=== PATIENT | female | born 1945 | race Caucasian/White ===

== ENCOUNTER 2021-07-11 11:43 | Observation (INO) | payer MEDICARE, OTHER ==
[2021-07-11] MEDS ORDERED: ASPIRIN 81 MG PO STA (12:12)
[2021-07-11 12:38] LABS: Basophils % (A) 1 %; Eosinophils # (A) 0.2 k/uL (0-0.7); Eosinophils % (A) 4 %; HCT 33.5 % (34.0-46.0); HGB 10.6 gm/dL (11.4-16.0); Lymphocytes # (A) 1.3 k/uL (1.0-4.8); Lymphocytes % (A) 23 %; MCH 25.5 pg (25.0-35.0); MCHC 31.8 g/dL (31.0-37.0); MCV 80.3 fL (80.0-100.0); Monocytes # (A) 0.3 k/uL (0-1.0); Monocytes % (A) 6 %; Neutrophils # (A) 3.7 k/uL (1.3-7.7); Neutrophils % (A) 63 %; Platelet Count 188 k/uL (150-450); RBC 4.17 m/uL (3.80-5.40); RDW 14.7 % (11.5-15.5); WBC 5.8 k/uL (3.8-10.6)
[2021-07-11 12:49] LABS: Albumin 3.7 g/dL (3.5-5.0); Calcium 9.3 mg/dL (8.4-10.2); Magnesium 1.4 mg/dL (1.6-2.3); Potassium 4.6 mmol/L (3.5-5.1); Total Bilirubin 0.5 mg/dL (0.2-1.3); Total Protein 6.6 g/dL (6.3-8.2)
--- NOTE | 2021-07-11 12:51 | XR ---
EXAMINATION TYPE: XR chest 2V DATE OF EXAM: 07/11/2021 COMPARISON: NONE HISTORY: Wrist pain TECHNIQUE: Frontal and lateral views of the chest are obtained. FINDINGS: There is no focal air space opacity, pleural effusion, or pneumothorax seen. The cardiac silhouette size is enlarged, there are overlying leads, technique is apical lordotic and rotated. T he osseous structures are huma for arthropathy within the shoulders, there is thoracic spondylosis. IMPRESSION: Cardiomegaly
[2021-07-11 12:53] LABS: INR 0.9 (<1.2); Prothrombin Time 9.9 sec (9.0-12.0)
--- NOTE | 2021-07-11 13:01 | ED ---
Chest Pain HPI - General Chief Complaint: Chest Pain Stated Complaint: chest pain Time Seen by Provider: 07/11/21 12:06 Source: patient, RN notes reviewed Mode of arrival: wheelchair Limitations: no limitations - History of Present Illness Initial Comments: Patient is a 76-year-old female, with history of heart disease, hypertension, diabetes, hyperlipidemia, presenting to the emergency Department with complaints of chest pain. She states she first felt the pain around 7 AM, she took one nitro and felt improvement. Patient states she fell back asleep. She woke up a few hours later, noticed pain and again so took another nitro around 10:00. She states it did go down however it returns shortly later and it was worse so they decided comments here for evaluation. She does have history of stent placement in December of this year. 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 Cevallos out of the [facility]. She had stenting of the LAD on January 10. She had echo performed on January 12, ejection fraction is estimated at 62%. Patient also thinks she is retaining fluid in her lower extremities. Currently she only feels "uncomfortable" no chest pain at this time. She does feel mildly short of breath. She denies any nausea or vomiting, no abdominal pain or diarrhea. She denies any fevers or chills, no upper respiratory symptoms. She denies headache, no blurry vision, no dizziness. Patient has no further complaints at this time. Patient's vital signs are stable at this time. - Related Data Allergies Allergy/AdvReac Type Severity Reaction Status Date / Time No Known Allergies Allergy Verified 07/11/21 12:03 Review of Systems ROS Statement: Those systems with pertinent positive or pertinent negative responses have been documented in the HPI. ROS Other: All systems not noted in ROS Statement are negative. EKG Findings - EKG Comments: EKG Findings:: Sinus rhythm with first-degree AV block, left axis deviation, inferior infarct age undetermined, no signs of acute ST segment elevation today. No previous to compare. Ventricular rate 77, AL interval 214, QT 392. Past Medical History Past Medical History: Asthma, Diabetes Mellitus Additional Past Medical History / Comment(s): arthritis. History of Any Multi-Drug Resistant Organisms: None Reported Past Surgical History: Back Surgery, Heart Catheterization With Stent Additional Past Surgical History / Comment(s): carpel tunnel Past Psychological History: Anxiety Smoking Status: Former smoker Past Alcohol Use History: None Reported Past Drug Use History: None Reported General Exam - General Exam Comments Initial Comments: GENERAL: Patient is well-developed and well-nourished. Patient is nontoxic and in no acute distress. HEAD: Atraumatic, normocephalic. EYES: Pupils equal round and reactive to light, extraocular movements intact, sclera anicteric, conjunctiva are normal. Eyelids were unremarkable. ENT: TMs normal, nares patent, oropharynx clear without exudates. Moist mucous membranes. NECK: Normal range of motion, supple without lymphadenopathy or JVD. LUNGS: Unlabored respirations. Breath sounds clear to auscultation bilaterally and equal. No wheezes rales or rhonchi. HEART: Regular rate and rhythm without murmurs, rubs or gallops. ABDOMEN: Soft, nontender, normoactive bowel sounds. No guarding, no rebound. No masses appreciated. MUSCULOSKELETAL: Normal extremities with adequate strength and normal range of motion. Mild bilateral lower leg edema. No clubbing or cyanosis. NEUROLOGICAL: Patient is alert and oriented x 3. Motor and sensory are also intact. Cranial nerves II through XII grossly intact. Symmetrical smile. Normal speech, normal gait. PSYCH: Normal mood, normal affect. SKIN: Warm, Dry, normal turgor, no rashes or lesions noted. Limitations: no limitations Course Vital Signs 07/11/21 12:04 Temperature 98.2 F Pulse Rate 74 Respiratory 20 Rate Blood Pressure 122/59 O2 Sat by Pulse 98 Oximetry Chest Pain [facility] Patient is a 76-year-old female with heart disease, presenting for chest pain as of this morning. She does have history of stent placement in December of this year. She recently moved to the area and has not seen our local distributor operator yet. She did take a total of 2 nitro prior to arrival which did help with her symptoms. She is currently pain-free. EKG shows sinus rhythm with first-degree block, no acute process. Had echo in December, ejection fraction was at 62%. Patient's labs are stable with magnesium slightly low at 1.4, troponin is normal, BNP 692. Patient will be admitted for chest pain rule out, serial troponins. Patient sent to by [facility] for Dr. Awad. Consult cardiology. Case discussed with Dr. Wakefield. Disposition Clinical Impression: Chest pain Disposition: ADMITTED IP TO THIS HOSP Condition: Stable Referrals: Johnny Awad MD [Primary Care Provider] - 1-2 days Decision Date: 07/11/21 Decision Time: 14:10
[2021-07-11 13:04] LABS: Partial Thromboplastin Time 21.2 sec (22.0-30.0)
[2021-07-11] MEDS ORDERED: NITROGLYCERIN SL TABS 0.4 MG TAB SUBLINGUAL PRN (14:07)
[2021-07-11] MEDS ORDERED: MAGNESIUM SULFATE-D5W PMX 1 GM in DEXTROSE/WATER 1 100ML.BAG IVPB ONE (14:10)
[2021-07-11] MEDS ORDERED: HYDROcodone/APAP 7.5-325MG 1 EACH TAB PO PRN (18:34)
[2021-07-11] MEDS ORDERED: HEPARIN SODIUM 1,000 UN/ML (10ML VL) IV ONE (18:37)
[2021-07-11] MEDS ORDERED: HEPARIN SODIUM 1,000 UN/ML (10ML VL) IV PRN (18:37)
[2021-07-11] MEDS ORDERED: HEPARIN SOD,PORK IN 0.45% NACL 25,000 UNIT in 0.45% NACL 1 250ML.BAG IV SCH (18:45)
[2021-07-11] MEDS ORDERED: BUMETANIDE 1 MG TAB PO SCH (18:45)
[2021-07-11] MEDS: ATORVASTATIN 40 MG TAB PO SCH (19:38)
[2021-07-11] MEDS: CLOPIDOGREL 75 MG TAB PO SCH (19:38)
[2021-07-11] MEDS: NITROGLYCERIN OINT 1 INCH/GM PACKET TOPICAL SCH ×2 (19:39→23:49)
[2021-07-11 20:27] LABS: Glucose,Whole Blood 244 mg/dL (75-99)
[2021-07-11] MEDS ORDERED: NON FORMULARY DRUG (Glucosamine Sulfate [Glucosamine Sulfate] 1,000 MG Tablet) PO SCH (21:00)
[2021-07-11] MEDS: INSULIN ASPART (NovoLOG) 100 UNIT/ML VIAL SQ SCH (21:52)
[2021-07-11] MEDS: MELATONIN 3 MG TABLET PO SCH (21:55)
--- NOTE | 2021-07-12 07:20 | P.HPIM ---
History of Present Illness H&P Date: 07/12/21 Chief Complaint: Chest pain 76-year-old female with significant medical history of coronary artery disease with recent cardiac stenting in December to the proximal LAD, hypertension, hyperlipidemia, diabetes mellitus type 2, chronic renal failure grade 3B, anemia, anxiety, osteoarthritis, asthma, COPD, GERD/reflux, history of heart murmur with history of for rheumatic fever, chronic low back pain, obesity, neuropathy, history of back fusions L1 to L4, cataract surgery, colonoscopy and several additional comorbidities. Patient has been following with [facility] physician group for the last year with primary care, cardiology, and nephrology. Patient had extensive diagnostic workup in the emergency department revealing chest pain with rule out acute coronary syndrome. Review of diagnostic labs, hemoglobin 10.6 hematocrit 33.5, sodium 138, potassium 4.6, chloride 106, renal function BUN 49, creatinine 1.74, elevated glucose of 194, magnesium 1.4 with magnesium replacement initiated by the emergency department. Mildly elevated troponins, 0.015, 0.0-6, 0.032. She states ever since December she has had continuous chest discomfort and mild shortness of breath with exertion. 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 She states she woke up yesterday around 7:30 AM with midsternal chest discomfort, took 1 nitro sublingual with mild relief fell back asleep; she states she woke up around 10:30 AM with severe chest discomfort 10 out of 10 with radiation to left arm. Patient will be initiated on low intensity heparin drip per ACS protocol. 1 inch Nitropaste transdermal for chest discomfort every 8 hours. We'll obtain echocardiogram. She will be placed nothing by mouth after midnight. Consultation with cardiology for recommendations and treatment plan. Review of Systems Constitutional: Reports chronic pain, Reports fatigue, Reports weakness Ears, nose, mouth and throat: Reports post-nasal drip Cardiovascular: Reports chest pain, Reports decreased exercise tolerance, Reports dyspnea on exertion, Reports edema, Reports high blood pressure, Reports leg edema, Reports orthopnea, Reports palpitations, Reports shortness of breath Respiratory: Reports dyspnea, Reports wheezing Gastrointestinal: Reports as per HPI Genitourinary: Reports as per HPI Menstruation: Reports as per HPI Musculoskeletal: Reports low back pain Neurological: Reports weakness Psychiatric: Reports anxiety Endocrine: Reports high blood sugars, Reports weight change Hematologic/Lymphatic: Reports as per HPI Allergic/Immunologic: Reports as per HPI Past Medical History Past Medical History: Asthma, Coronary Artery Disease (CAD), Chest Pain / Angina, COPD, Diabetes Mellitus, GERD/Reflux, Hyperlipidemia, Hypertension, Osteoarthritis (OA), Renal Disease, Respiratory Disorder Additional Past Medical History / Comment(s): Osteoarthritis, anemia, anxiety, asthma, murmur history of rheumatic fever, neuropathy. History of Any Multi-Drug Resistant Organisms: None Reported Past Surgical History: Back Surgery, Heart Catheterization With Stent Additional Past Surgical History / Comment(s): carpel tunnel Past Psychological History: Anxiety Smoking Status: Former smoker Past Alcohol Use History: None Reported Past Drug Use History: None Reported - Past Family History Mother Family Medical History: Diabetes Mellitus Additional Family Medical History / Comment(s): at age 57 open heart surgery and cva Father Family Medical History: No Reported History Medications and Allergies Home Medications and Allergies Comment(s): Medications and ALLERGIES reviewed Home Medications Medication Instructions Recorded Confirmed Type Ascorbic Acid [Vitamin C] 500 mg PO DAILY 07/11/21 07/11/21 History Atorvastatin [Lipitor] 40 mg PO DAILY 07/11/21 07/11/21 History Biotin 10,000 mcg PO DAILY 07/11/21 07/11/21 History Bumetanide [BUMEX] 2 mg PO DAILY 07/11/21 07/11/21 History Cholecalciferol [Vitamin D3 (25 100 mcg PO DAILY 07/11/21 07/11/21 History Mcg = 1000 Iu)] Citalopram Hydrobromide [CeleXA] 40 mg PO DAILY 07/11/21 07/11/21 History Clopidogrel Bisulfate [Plavix] 75 mg PO DAILY 07/11/21 07/11/21 History Cyanocobalamin (Vitamin B-12) 1,000 mcg PO DAILY 07/11/21 07/11/21 History [Vitamin B-12] Glucosamine Sulfate 1,500 mg PO BID 07/11/21 07/11/21 History Insuln Asp Prt/Insulin Aspart 24 unit SQ AC-BID 07/11/21 07/11/21 History [NovoLOG MIX 70-30 VIAL] Isosorbide Mononitrate ER [Imdur] 30 mg PO DAILY 07/11/21 07/11/21 History Losartan [Cozaar] 50 mg PO DAILY 07/11/21 07/11/21 History Melatonin 3 mg PO HS 07/11/21 07/11/21 History Nitroglycerin Sl Tabs [Nitrostat] 0.4 mg SL Q5M PRN 07/11/21 07/11/21 History Omeprazole 20 mg PO DAILY 07/11/21 07/11/21 History Vitamin E (Dl,Tocopheryl Acet) 400 unit PO DAILY 07/11/21 07/11/21 History [Vitamin E (400 Iu = 180 mg)] amLODIPine [Norvasc] 10 mg PO DAILY 07/11/21 07/11/21 History metFORMIN HCL 500 mg PO BID 07/11/21 07/11/21 History Allergies Allergy/AdvReac Type Severity Reaction Status Date / Time No Known Allergies Allergy Verified 07/11/21 15:27 Physical Exam Vitals: Vital Signs Temp Pulse Resp BP Pulse Ox 07/11/21 17:15 64 20 143/67 99 07/11/21 14:39 70 20 116/65 100 07/11/21 12:04 98.2 F 74 20 122/59 98 Intake and Output 07/11/21 07/11/21 07/11/21 06:59 14:59 22:59 Other: Weight 108.862 kg - Constitutional General appearance: cooperative, morbidly obese - EENT Eyes: EOMI, PERRLA, normal appearance ENT: normal oropharynx Ears: bilateral: normal - Neck Neck: normal ROM Carotids: bilateral: upstroke normal Thyroid: bilateral: normal size - Respiratory Respiratory: bilateral: wheezing (Anterior and posterior lung mcgowan) - Cardiovascular Sinus rhythm with a first-degree AV block Heart rate: 74 Heart sounds: normal: S1, S2 Abnormal Heart Sounds: systolic murmur leg Peripheral Edema: bilateral: 1+ ankle Peripheral Edema: bilateral: 2+ foot Peripheral Edema: bilateral: 2+ radial pulse Peripheral Pulses: bilateral: Normal dorsalis pedis Peripheral Pulses: bilateral: Normal - Gastrointestinal General gastrointestinal: normal bowel sounds, soft - Integumentary Integumentary: normal turgor - Neurologic Neurologic: CNII-XII intact - Musculoskeletal Musculoskeletal: generalized weakness - Psychiatric Psychiatric: A&O x's 3, appropriate affect, intact judgment & insight Results CBC & Chem 7: 07/11/21 12:16 07/11/21 12:16 Labs: Abnormal Lab Results - Last 24 Hours (Table) 07/11/21 07/11/21 07/11/21 Range/Units 12:16 12:16 12:16 Hgb 10.6 L (11.4-16.0) gm/dL Hct 33.5 L (34.0-46.0) % APTT 21.2 L (22.0-30.0) sec BUN 49 H (7-17) mg/dL Creatinine 1.74 H (0.52-1.04) mg/dL Glucose 194 H (74-99) mg/dL Magnesium 1.4 L (1.6-2.3) mg/dL Chest x-ray: report reviewed Thrombosis Risk Factor Assmnt - DVT/VTE Prophylaxis DVT/VTE Prophylaxis: Pharmacologic Prophylaxis ordered - Choose All That Apply Any of the Below Risk Factors Present?: Yes Each Factor Represents 1 point: Abnormal pulmonary function (COPD), Obesity (BMI >25), Swollen legs (current) Other Risk Factors: No Each Risk Factor Represents 3 Points: Age 75 years or older Thrombosis Risk Factor Assessment Total Risk Factor Score: 6 Thrombosis Risk Factor Assessment Level: High Risk Assessment and Plan Assessment: Chest pain rule out acute coronary syndrome Coronary artery disease with recent stenting in December 2020 to the proximal LAD Hypertension Hyperlipidemia Diabetes mellitus type 2 Asthma COPD Chronic kidney disease baseline stage 3B to stage 4 Osteoarthritis Heart murmur with history of rheumatic fever GERD/reflux Low back pain History of Surgery of lumbar 1 to lumbar 4 History of carpal tunnel release History of cataract extraction History of spinal surgery Former nicotine dependence Obesity of a BMI of 45.3 Full code Plan: Chest pain rule out acute coronary syndrome, will initiate heparin drip, initiate Nitropaste every 8 hours; obtain echocardiogram; consultation with cardiology for recommendations and treatment plan Diabetes mellitus type 2, initiate insulin sliding scale Chronic kidney disease stage 3B to stage 4, avoid nephrotoxic drugs as possible, consultation with nephrology for recommendations COPD, we'll initiate DuoNeb breathing treatments, and maintenance inhaler Continue to monitor vital signs and diagnostic testing Continue medical management Further recommendations, based on clinical condition Time with Patient: Greater than 30
[2021-07-12 07:21] LABS: Glucose,Whole Blood 208 mg/dL (75-99)
[2021-07-12] MEDS ORDERED: IPRATROPIUM-ALBUTEROL 3 ML NEB ONE (07:25)
[2021-07-12] MEDS: ATORVASTATIN 40 MG TAB PO SCH (08:14)
[2021-07-12] MEDS: PANTOPRAZOLE 40 MG TABLET PO SCH (08:14)
[2021-07-12] MEDS: CLOPIDOGREL 75 MG TAB PO SCH (08:14)
[2021-07-12] MEDS: INSULIN ASPART (NovoLOG) 100 UNIT/ML VIAL SQ SCH ×4 (08:16→21:08)
[2021-07-12] MEDS: SYMBICORT 160-4.5 MCG INHALER INHALATION SCH ×3 (08:26→19:05)
[2021-07-12 08:55] LABS: Basophils % (A) 1 %; Eosinophils # (A) 0.3 k/uL (0-0.7); Eosinophils % (A) 4 %; HCT 34.9 % (34.0-46.0); HGB 10.9 gm/dL (11.4-16.0); Lymphocytes # (A) 1.6 k/uL (1.0-4.8); Lymphocytes % (A) 27 %; MCH 25.5 pg (25.0-35.0); MCHC 31.4 g/dL (31.0-37.0); MCV 81.2 fL (80.0-100.0); Mean Platelet Volume 8.4; Monocytes # (A) 0.4 k/uL (0-1.0); Monocytes % (A) 6 %; Neutrophils # (A) 3.7 k/uL (1.3-7.7); Neutrophils % (A) 60 %; Platelet Count 182 k/uL (150-450); RDW 14.9 % (11.5-15.5); WBC 6.2 k/uL (3.8-10.6)
[2021-07-12] MEDS ORDERED: NON FORMULARY DRUG (Biotin [Biotin] 10,000 MCG Capsule) PO SCH (09:00)
[2021-07-12] MEDS ORDERED: ASPIRIN 325 MG TAB PO SCH (09:00)
[2021-07-12] MEDS ORDERED: amLODIPine 10 MG TAB PO SCH (09:00)
[2021-07-12 09:02] LABS: Partial Thromboplastin Time 62.6 sec (22.0-30.0); Prothrombin Time 10.5 sec (9.0-12.0)
[2021-07-12 09:17] LABS: ALT 14 U/L (4-34); AST 27 U/L (14-36); African American GFR (CKD) 41 (>60 ml/min/1.73 sqM); Albumin/Globulin Ratio 1.4; Alkaline Phosphatase 69 U/L (38-126); Anion Gap 10 mmol/L; Blood Urea Nitrogen 46 mg/dL (7-17); Calcium 9.4 mg/dL (8.4-10.2); Carbon Dioxide 24 mmol/L (22-30); Chloride 104 mmol/L (98-107); Globulin 2.9 g/dL; Glucose 186 mg/dL (74-99); Magnesium 1.5 mg/dL (1.6-2.3); Non-African American GFR(CKD) 35 (>60 ml/min/1.73 sqM); Potassium 4.3 mmol/L (3.5-5.1); Sodium 138 mmol/L (137-145); Total Bilirubin 0.6 mg/dL (0.2-1.3); Total Protein 6.9 g/dL (6.3-8.2)
[2021-07-12] MEDS: VITAMIN E (DL,TOCOPHERYL ACET) 400 UNIT (180 MG) CAP PO SCH (09:18)
[2021-07-12] MEDS: LOSARTAN 50 MG TAB PO SCH (09:18)
[2021-07-12] MEDS: CYANOCOBALAMIN 500 MCG TAB PO SCH (09:18)
[2021-07-12] MEDS: CITALOPRAM HYDROBROMIDE 20 MG TAB PO SCH (09:18)
[2021-07-12] MEDS: ASCORBIC ACID 500 MG TAB PO SCH (09:18)
[2021-07-12] MEDS: CHOLECALCIFEROL 25 MCG (1000 IU) TABLET PO SCH (09:18)
[2021-07-12] MEDS: NITROGLYCERIN OINT 1 INCH/GM PACKET TOPICAL SCH ×3 (09:25→21:15)
[2021-07-12] MEDS ORDERED: Magnesium Replacement Protocol 1 EACH MISC MISCELLANE PRN (09:26)
[2021-07-12] MEDS: RANOLAZINE 500 MG TAB.ER.12H PO SCH ×2 (09:36→21:14)
[2021-07-12] MEDS: MAGNESIUM SULFATE-D5W PMX 1 GM in DEXTROSE/WATER 1 100ML.BAG IVPB SCH ×2 (10:09→11:54)
--- NOTE | 2021-07-12 10:21 | P.CRDCN ---
History of Present Illness History of present illness: This is Dr. Toth dictating a consult on this patient The patient was interviewed and examined IMPRESSION / ASSESSMENT: Known triple-vessel coronary artery disease, with chronic angina In the month of December she underwent coronary stenting to the LAD in [facility] since then she's complained of tiredness fatigue shortness of breath and a variety of symptoms She has chronic stable angina and has been treated by a alterations sewer with dur recently She presented with preserved chest discomfort but cardiac enzymes are normal She has evidence of sick sinus syndrome with a mildly prolonged NV interval PLAN: Social Nitropaste Start Ranexa 500 mg twice daily Stop heparin Continue statins at a higher dose of 80 mg by mouth daily 2-D echo and Doppler study Continue antihypertensive therapy with amlodipine and losartan Ambulate in the hallways with physical therapy this afternoon If despite Ranexa she continues to have chest discomfort especially with exertion over the next 24 hours then proceed with coronary angiography Otherwise she will be discharged in 48 hours and follow with a alterations sewer early next week HPI 76-year-old female presenting with chest discomfort at around 7 AM yesterday. She took one nitroglycerin and felt it improved Pain came back again and she took another nitroglycerin at 10 AM She has a history of stent placement in December of this year She follows with [facility] physicians ROS: No fever chills or rigors, no cough, phlegm or expectoration, no nausea, vomiting or diarrhea, no hematuria, dysuria, no musculoskeletal complaints, no strokes or seizures, no skin lesions. EXAMINATION: Normal heart sounds normal S1 normal S2 No murmurs or gallops or rub Breath sounds are clear no rhonchi no crackles Extremities are warm Vitals stable REVIEW OF LABS, ECG & MEDICAL DATA Twelve-lead EKG shows sinus rhythm normal NV and normal ST segments left axis deviation, poor R wave progression No focal airspace opacity a pleural effusion or pneumothorax Normal white count, hemoglobin 10.6 Sodium 138 potassium 4.6 BUN 14 and creatinine 1.74 NT proBNP 692 Cardiac enzymes 0.032, 0.026, 0.015 Elevated glucose levels Medications reviewed including Plavix Imdur atorvastatin metformin amlodipine losartan and insulin and Celexa I do not see any beta blockers Past Medical History Past Medical History: Asthma, Coronary Artery Disease (CAD), Chest Pain / Angina, COPD, Diabetes Mellitus, GERD/Reflux, Hyperlipidemia, Hypertension, Osteoarthritis (OA), Renal Disease, Respiratory Disorder Additional Past Medical History / Comment(s): Osteoarthritis, anemia, anxiety, asthma, murmur history of rheumatic fever, neuropathy. History of Any Multi-Drug Resistant Organisms: None Reported Past Surgical History: Back Surgery, Heart Catheterization With Stent Additional Past Surgical History / Comment(s): carpel tunnel Past Anesthesia/Blood Transfusion Reactions: No Reported Reaction Date of Last Stent Placement:: 12/2020 Past Psychological History: Anxiety Smoking Status: Former smoker Past Alcohol Use History: None Reported Past Drug Use History: None Reported - Past Family History Mother Family Medical History: Diabetes Mellitus Additional Family Medical History / Comment(s): at age 57 open heart surgery and cva Father Family Medical History: No Reported History Medications and Allergies Home Medications Medication Instructions Recorded Confirmed Type Ascorbic Acid [Vitamin C] 500 mg PO DAILY 07/11/21 07/11/21 History Atorvastatin [Lipitor] 40 mg PO DAILY 07/11/21 07/11/21 History Biotin 10,000 mcg PO DAILY 07/11/21 07/11/21 History Bumetanide [BUMEX] 2 mg PO DAILY 07/11/21 07/11/21 History Cholecalciferol [Vitamin D3 (25 100 mcg PO DAILY 07/11/21 07/11/21 History Mcg = 1000 Iu)] Citalopram Hydrobromide [CeleXA] 40 mg PO DAILY 07/11/21 07/11/21 History Clopidogrel Bisulfate [Plavix] 75 mg PO DAILY 07/11/21 07/11/21 History Cyanocobalamin (Vitamin B-12) 1,000 mcg PO DAILY 07/11/21 07/11/21 History [Vitamin B-12] Glucosamine Sulfate 1,500 mg PO BID 07/11/21 07/11/21 History Insuln Asp Prt/Insulin Aspart 24 unit SQ AC-BID 07/11/21 07/11/21 History [NovoLOG MIX 70-30 VIAL] Isosorbide Mononitrate ER [Imdur] 30 mg PO DAILY 07/11/21 07/11/21 History Losartan [Cozaar] 50 mg PO DAILY 07/11/21 07/11/21 History Melatonin 3 mg PO HS 07/11/21 07/11/21 History Nitroglycerin Sl Tabs [Nitrostat] 0.4 mg SL Q5M PRN 07/11/21 07/11/21 History Omeprazole 20 mg PO DAILY 07/11/21 07/11/21 History Vitamin E (Dl,Tocopheryl Acet) 400 unit PO DAILY 07/11/21 07/11/21 History [Vitamin E (400 Iu = 180 mg)] amLODIPine [Norvasc] 10 mg PO DAILY 07/11/21 07/11/21 History metFORMIN HCL 500 mg PO BID 07/11/21 07/11/21 History Allergies Allergy/AdvReac Type Severity Reaction Status Date / Time No Known Allergies Allergy Verified 07/11/21 15:27 Physical Exam Vitals: Vital Signs Temp Pulse Pulse Resp BP BP Pulse Ox 07/12/21 07:00 98.1 F 61 16 122/61 95 07/12/21 01:42 97.8 F 59 L 16 142/71 94 L 07/11/21 19:01 97.6 F 66 16 135/59 94 L 07/11/21 17:15 64 20 143/67 99 07/11/21 14:39 70 20 116/65 100 07/11/21 12:04 98.2 F 74 20 122/59 98 Intake and Output 07/11/21 07/12/21 07/12/21 22:59 06:59 14:59 Intake Total 65.667 Balance 65.667 Intake: Intake, IV Titration 65.667 Amount Heparin Sod,Pork in 0.45% 65.667 NaCl 25,000 unit In 0.45 % NaCl 1 250ml.bag @ 9. 186 UNITS/KG/HR 10 mls/hr IV .Q24H [facility] Rx#: [id number] Other: Voiding Method Toilet # Voids 1 4 Weight 108.862 kg Results 07/12/21 08:21 07/12/21 08:21 Cardiac Enzymes 07/11/21 07/11/21 07/11/21 Range/Units 12:16 12:16 15:32 AST 21 (14-36) U/L Troponin I 0.015 0.026 (0.000-0.034) ng/mL 07/11/21 Range/Units 18:21 AST (14-36) U/L Troponin I 0.032 (0.000-0.034) ng/mL Coagulation 07/11/21 07/12/21 Range/Units 12:16 01:04 PT 9.9 (9.0-12.0) sec APTT 21.2 L 34.7 H (22.0-30.0) sec CBC 07/11/21 Range/Units 12:16 WBC 5.8 (3.8-10.6) k/uL RBC 4.17 (3.80-5.40) m/uL Hgb 10.6 L (11.4-16.0) gm/dL Hct 33.5 L (34.0-46.0) % Plt Count 188 (150-450) k/uL Comprehensive Metabolic Panel 07/11/21 Range/Units 12:16 Sodium 138 (137-145) mmol/L Potassium 4.6 (3.5-5.1) mmol/L Chloride 106 (98-107) mmol/L Carbon Dioxide 24 (22-30) mmol/L BUN 49 H (7-17) mg/dL Creatinine 1.74 H (0.52-1.04) mg/dL Glucose 194 H (74-99) mg/dL Calcium 9.3 (8.4-10.2) mg/dL AST 21 (14-36) U/L ALT 15 (4-34) U/L Alkaline Phosphatase 64 (38-126) U/L Total Protein 6.6 (6.3-8.2) g/dL Albumin 3.7 (3.5-5.0) g/dL Current Medications Generic Name Dose Route Start Last Admin Trade Name Freq PRN Reason Stop Dose Admin Hydrocodone Bitart/Acetaminophen 1 each 07/11/21 18:34 Hydrocodone/Apap 7.5-325mg 1 Each Tab PO Q6HR PRN Pain Albuterol/Ipratropium 3 ml 07/12/21 21:35 Ipratropium-Albuterol 3 Ml Neb INHALATION RT-QID [facility] Amlodipine Besylate 10 mg 07/12/21 09:00 Amlodipine 10 Mg Tab PO DAILY [facility] Ascorbic Acid 500 mg 07/12/21 09:00 Ascorbic Acid 500 Mg Tab PO DAILY [facility] Aspirin 325 mg 07/12/21 09:00 07/12/21 08:14 Aspirin 325 Mg Tab PO 325 mg DAILY [facility] Administration Atorvastatin Calcium 40 mg 07/11/21 18:45 07/12/21 08:14 Atorvastatin 40 Mg Tab PO 40 mg DAILY [facility] Administration Budesonide/Formoterol Fumarate 2 puff 07/12/21 08:00 07/12/21 08:26 Symbicort 160-4.5 Mcg Inhaler INHALATION 2 puff RT-BID [facility] Administration Cholecalciferol 100 mcg 07/12/21 09:00 Cholecalciferol 25 Mcg (1000 Iu) Tablet PO DAILY [facility] Citalopram Hydrobromide 40 mg 07/12/21 09:00 Citalopram Hydrobromide 20 Mg Tab PO DAILY [facility] Clopidogrel Bisulfate 75 mg 07/11/21 18:45 07/12/21 08:14 Clopidogrel 75 Mg Tab PO 75 mg DAILY [facility] Administration Cyanocobalamin 1,000 mcg 07/12/21 09:00 Cyanocobalamin 500 Mcg Tab PO DAILY [facility] Heparin Sodium (Porcine) 0 unit 07/11/21 18:37 07/12/21 02:08 Heparin Sodium 1,000 Un/Ml (10ml Vl) IV 4,000 unit PER PROTOCOL PRN Administration Low PTT Protocol Heparin Sodium/Sodium Chloride 250 mls @ 10 mls/hr 07/11/21 18:45 07/12/21 02:03 25,000 unit/ Sodium Chloride IV 11.94 units/kg/hr .Q24H [facility] 13 mls/hr Titration Protocol 9.186 UNITS/KG/HR Insulin Aspart 0 unit 07/11/21 21:00 07/12/21 08:16 Insulin Aspart (Novolog) 100 Unit/Ml Vial SQ 4 unit ACHS [facility] Administration Protocol Losartan Potassium 50 mg 07/12/21 09:00 Losartan 50 Mg Tab PO DAILY [facility] Melatonin 3 mg 07/11/21 21:00 07/11/21 21:55 Melatonin 3 Mg Tablet PO 3 mg HS [facility] Administration Nitroglycerin 0.4 mg 07/11/21 14:07 Nitroglycerin Sl Tabs 0.4 Mg Tab SUBLINGUAL Q5M PRN Chest Pain Nitroglycerin 1 inch 07/11/21 18:45 07/11/21 23:49 Nitroglycerin Oint 1 Inch/Gm Packet TOPICAL Not Given Q8HR [facility] Pantoprazole Sodium 40 mg 07/12/21 09:00 07/12/21 08:14 Pantoprazole 40 Mg Tablet PO 40 mg DAILY [facility] Administration Temazepam 15 mg 07/12/21 21:00 Temazepam 15 Mg Cap PO HS [facility] Vitamin E 400 unit 07/12/21 09:00 Vitamin E (Dl,Tocopheryl Acet) 400 Unit (180 Mg) Cap PO DAILY [facility] Intake and Output 07/11/21 07/12/21 07/12/21 22:59 06:59 14:59 Intake Total 65.667 Balance 65.667 Intake: Intake, IV Titration 65.667 Amount Heparin Sod,Pork in 0.45% 65.667 NaCl 25,000 unit In 0.45 % NaCl 1 250ml.bag @ 9. 186 UNITS/KG/HR 10 mls/hr IV .Q24H [facility] Rx#: [id number] Other: Voiding Method Toilet # Voids 1 4 Weight 108.862 kg 07/11/21 12:16 07/11/21 12:16
[2021-07-12 11:58] LABS: Glucose,Whole Blood 196 mg/dL (75-99)
--- NOTE | 2021-07-12 12:39 | ECHOF ---
Referral Reason:Chest pain MEASUREMENTS -------- HEIGHT: 154.9 cm WEIGHT: 108.9 kg BP: IVSd: 1.4 cm (0.6 - 1.1) LVIDd: 4.1 cm (3.9 - 5.3) LVPWd: 1.4 cm (0.6 - 1.1) EDV(Teich): 74 ml IVSs: 1.8 cm LVIDs: 1.6 cm LVPWs: 2.2 cm %IVS Thck: 29 % ESV(Teich): 7 ml EF(Teich): 91 % %FS: 62 % SV(Teich): 67 ml LALs A4C: 5.4 cm LAAs A4C: 19.5 cm LAESV A-L A4C: 60 ml LAESV MOD A4C: 56 ml LALs A2C: 5.2 cm LAAs A2C: 18.3 cm LAESV A-L A2C: 55 ml LAESV MOD A2C: 52 ml LAESV(A-L): 58 ml LAESV Index (A-L): 28.50 ml/m Ao Diam: 3.7 cm (2.0 - 3.7) LA Diam: 2.9 cm (2.7 - 3.8) AV Cusp: 1.6 cm (1.5 - 2.6) EPSS: 0.8 cm MV E Lamont: 0.97 m/s MV DecT: 291 ms MV Dec Stanley: 3.3 m/s MV A Lamont: 1.17 m/s MV E/A Ratio: 0.83 MV PHT: 84 ms AV Vmax: 1.59 m/s AV maxP.17 mmHg AV Vmax: 1.62 m/s AV Vmean: 1.30 m/s AV maxP.50 mmHg AV meanP.23 mmHg AV Env.Ti: 291 ms AV VTI: 37.7 cm TR Vmax: 1.11 m/s TR maxP.94 mmHg RAP: 5.00 mmHg RVSP: 9.94 mmHg MV EF SLOPE: 51.72 mm/s (70 - 150) MV EXCURSION: 12.15 mm (> 18.000) FINDINGS -------- This was a technically adequate study. The left ventricular size is normal. There is moderate concentric left ventricular hypertrophy. O verall left ventricular systolic function is normal with, an EF between 55 - 60 %. Normal LAP. Grad e 1 Diastolic Dysfunction. The right ventricle is normal in size. The left atrial size is normal. Normal LA size by volume 22+/-6 ml/m2. The right atrial size is normal. Aortic valve is trileaflet and is mildly thickened. There is mild aortic valve sclerosis. Peak/me an gradient across the Aortic Valve is 10.50mmHg / 7.23mmHg. The mitral valve is normal. Mild mitral regurgitation is present. The tricuspid valve appears structurally normal. Mild tricuspid regurgitation present. Right vent ricular systolic pressure is normal at < 35 mmHg. There is no pulmonic regurgitation present. The aortic root size is normal. Normal inferior vena cava with normal inspiratory collapse consistent with estimated right atrial pre ssure of 5 mmHg. There is no pericardial effusion. CONCLUSIONS -------- 1. The left ventricular size is normal. 2. There is moderate concentric left ventricular hypertrophy. 3. Overall left ventricular systolic function is normal with, an EF between 55 - 60 %. 4. Normal LAP. Grade 1 Diastolic Dysfunction. 5. Aortic valve is trileaflet and is mildly thickened. 6. There is mild aortic valve sclerosis. 7. Peak/mean gradient across the Aortic Valve is 10.50mmHg / 7.23mmHg. 8. Mild mitral regurgitation is present. 9. Mild tricuspid regurgitation present. 10. There is no pericardial effusion. LIVESTOCK TRADER: Emily Coppola RDCS
--- NOTE | 2021-07-12 14:08 | CONS ---
CONSULTATION REASON FOR CONSULTATION: Renal failure and chronic kidney disease. HISTORY OF PRESENT ILLNESS: Patient is a 76-year-old female who was admitted to the hospital with complaints of chest pain. Patient has an underlying history of coronary artery disease, chronic kidney disease, NKF stage 3, follows with our group out of the [place] office. Patient has just moved to [place] and she is in the process of establishing new physicians. She has not showed up for baseline renal function. Serum creatinine was 1.7 mg/dL on initial admission. It is down to 1.45. Previous labs are not available for comparison. Blood pressure is not significantly low. Patient states she is voiding. She is currently not on any IV fluids or diuretics. Patient is maintained on Cozaar. PAST MEDICAL HISTORY: Significant for asthma, coronary artery disease, CKD, most likely stage 3A, type 2 diabetes, hypertension, osteoarthritis, history of rheumatic fever, uropathy. PAST SURGICAL HISTORY: Cardiac catheterization, back surgery, coronary stent placement, carpal tunnel surgery. SOCIAL HISTORY: Patient is a former smoker. No history of drug abuse or alcohol abuse. MEDICATIONS: Medications prior to admission included vitamin C, Lipitor, biotin, Bumex, Celexa, Plavix, glucosamine, Cozaar, Imdur, melatonin, Nitrostat, omeprazole, Norvasc, metformin. ALLERGIES: NONE. REVIEW OF SYSTEMS: As per HPI. Other systems negative. PHYSICAL EXAMINATION: Patient is comfortable, awake, alert, oriented x3. She is not in any acute distress. Blood pressure was 122/61, heart rate 61 per minute. She is afebrile. EXAMINATION OF THE HEART: S1 and S2. EXAMINATION OF LUNGS: Bilateral breath sounds are heard. Abdomen is soft, obese. Examination of lower extremities shows no significant edema. PHOTO MASK PROCESSOR EXAM: Grossly intact. LABS: Sodium 138, potassium 4.3, chloride 104, BUN 46, creatinine 1.45, hemoglobin 10.9 g/dL. Troponin was 0.026. ASSESSMENT: 1. Acute kidney injury, most likely prerenal, currently improved. Angiotensin receptor blockers are maintained. Patient can continue with the current dose of Cozaar. The diuretics are on hold and I will continue to hold the Bumex for now. Check urinalysis and patient is advised that she will need followup as outpatient for CKD. She follows with Dr. Darryl Yepez, who is one of our partners, and we will continue to follow her in the [place] office. 2. Chest pain. Troponins are not elevated. Patient is being followed by Cardiology. She has underlying history of significant coronary artery disease with coronary stents. 3. Chronic kidney disease, stage 3. Previous creatinine not available currently for comparison; however, now down to 1.45 from today. Etiology is likely nephrosclerosis. Check urinalysis and we will check her office records as well. 4. Type 2 diabetes. 5. Hypertension, currently controlled. PLAN: Continue current dose of Cozaar. Agree with holding diuretics for now. Patient will need outpatient followup for CKD post discharge. Can resume lower dose of Bumex in the next 2-3 days post discharge. Monitor blood pressure at home to avoid hypotension. Thank you for this consultation. Will continue to follow the patient with you during her hospitalization. Okay to proceed with cardiac catheterization if indicated from cardiology standpoint, as renal function has improved. Expect further improvement by tomorrow as well. MMODL / IJN: [id number] /
[2021-07-12 17:19] LABS: Glucose,Whole Blood 273 mg/dL (75-99)
[2021-07-12 17:26] LABS: Chol/HDL Ratio 4.37 Ratio; LDL Cholesterol,Calculated 117.1 mg/dL (0.0-131.0)
[2021-07-12] MEDS: IPRATROPIUM-ALBUTEROL 3 ML NEB INHALATION SCH (19:05)
[2021-07-12 20:29] LABS: Glucose,Whole Blood 286 mg/dL (75-99)
[2021-07-12] MEDS: amLODIPine 10 MG TAB PO SCH (21:11)
[2021-07-12] MEDS: MELATONIN 3 MG TABLET PO SCH (21:12)
[2021-07-12] MEDS: TEMAZEPAM 15 MG CAP PO SCH (21:14)
[2021-07-12 22:07] LABS: Appearance,Urine Cloudy (Clear); Bacteria,Urine Rare /hpf; Bilirubin,Urine Negative (Negative); Blood,Urine Negative (Negative); Color,Urine Yellow; Glucose,Urine (UA) Negative (Negative); Hyaline Casts,Urine 27 /lpf (0-2); Ketones,Urine Negative (Negative); Leukocyte Esterase,Urine Large (Negative); Mucus,Urine Rare /hpf; Nitrite,Urine Negative (Negative); PH, Urine 5.5 (5.0-8.0); Protein,Urine 2+ (Negative); RBC,Urine 3 /hpf (0-5); Specific Gravity,Urine 1.018 (1.001-1.035); Squamous Epithelial Cell,Urine 5 /hpf (0-4); Urobilinogen,Urine <2.0 mg/dL (<2.0); WBC,Urine 7 /hpf (0-5)
[2021-07-13 07:27] LABS: Glucose,Whole Blood 194 mg/dL (75-99)
[2021-07-13] MEDS: RANOLAZINE 500 MG TAB.ER.12H PO SCH ×2 (07:32→21:11)
[2021-07-13] MEDS: VITAMIN E (DL,TOCOPHERYL ACET) 400 UNIT (180 MG) CAP PO SCH (07:32)
[2021-07-13] MEDS: CYANOCOBALAMIN 500 MCG TAB PO SCH (07:32)
[2021-07-13] MEDS: PANTOPRAZOLE 40 MG TABLET PO SCH (07:32)
[2021-07-13] MEDS: NITROGLYCERIN OINT 1 INCH/GM PACKET TOPICAL SCH ×3 (07:32→21:12)
[2021-07-13] MEDS: CITALOPRAM HYDROBROMIDE 20 MG TAB PO SCH (07:33)
[2021-07-13] MEDS: ASPIRIN 81 MG PO SCH (07:33)
[2021-07-13] MEDS: LOSARTAN 50 MG TAB PO SCH (07:33)
[2021-07-13] MEDS: ATORVASTATIN 80 MG TAB PO SCH (07:33)
[2021-07-13] MEDS: INSULIN ASPART (NovoLOG) 100 UNIT/ML VIAL SQ SCH ×4 (07:33→21:12)
[2021-07-13] MEDS: ASCORBIC ACID 500 MG TAB PO SCH (07:33)
[2021-07-13] MEDS: CHOLECALCIFEROL 25 MCG (1000 IU) TABLET PO SCH (07:33)
[2021-07-13] MEDS: CLOPIDOGREL 75 MG TAB PO SCH (07:33)
[2021-07-13] MEDS: IPRATROPIUM-ALBUTEROL 3 ML NEB INHALATION SCH ×4 (07:47→20:11)
[2021-07-13] MEDS: SYMBICORT 160-4.5 MCG INHALER INHALATION SCH ×2 (07:47→20:11)
--- NOTE | 2021-07-13 10:11 | P.PN ---
Subjective Progress Note Date: 07/13/21 Principal diagnosis: Coronary artery disease with prior revascularization The patient is a pleasant 76-year-old female patient with a past medical history significant for coronary artery disease and prior stenting of the LAD was performed at [facility] who was admitted to the hospital with shortness of breath and symptoms of being tired and fatigued. She is known to have chronic stable angina. Yesterday she was started on the Ranexa. The patient was seen this morning. She stated that she is feeling better. She reports no symptoms of chest pain or chest discomfort. She stated that the shortness of breath has been better. She stated that she has been up and around and she is feeling overall better. No dizziness or lightheadedness and no feeling of heart racing or fluttering or presyncope or syncope. She would like to go home. She underwent an echocardiogram which revealed normal left ventricular systolic function with evidence off mild aortic stenosis Objective - Vital Signs Vital signs: Vital Signs Temp 97.8 F 07/13/21 07:00 Pulse 74 07/13/21 07:57 Resp 16 07/13/21 07:00 BP 144/62 07/13/21 07:00 Pulse Ox 96 07/13/21 07:00 Intake & Output 07/12/21 07/13/21 07/13/21 18:59 06:59 18:59 Intake Total 318 Balance 318 Intake: IV 200 Magnesium Sulfate-D5w Pmx 100 1 gm In Dextrose/Water 1 100ml.bag @ 100 mls/hr IVPB ONCE ONE Rx#: [id number] Magnesium Sulfate-D5w Pmx 100 1 gm In Dextrose/Water 1 100ml.bag @ 100 mls/hr IVPB Q1H WOLF Rx#: [id number] Oral 118 Other: Voiding Method Toilet Toilet Toilet # Voids 1 2 - Constitutional General appearance: Present: no acute distress - Respiratory Respiratory: bilateral: CTA - Cardiovascular Rhythm: regular Heart sounds: normal: S1, S2 Abnormal Heart Sounds: Present: systolic murmur - Labs CBC & Chem 7: 07/12/21 08:21 07/12/21 08:21 Labs: Abnormal Lab Results - Last 24 Hours (Table) 07/12/21 07/12/21 07/12/21 Range/Units 08:21 08:21 11:56 POC Glucose (mg/dL) 196 H (75-99) mg/dL Hemoglobin A1c 8.2 H (4.0-6.0) % Triglycerides 224.00 H (0.00-149.00) mg/dL Cholesterol 210.00 H (0.00-200.00) mg/dL VLDL Cholesterol, Calc 44.80 H (5.00-40.00) mg/dL Urine Appearance (Clear) Urine Protein (Negative) Ur Leukocyte Esterase (Negative) Urine WBC (0-5) /hpf Ur Squamous Epith Cells (0-4) /hpf Urine Bacteria (None) /hpf Hyaline Casts (0-2) /lpf Urine Mucus (None) /hpf 07/12/21 07/12/21 07/12/21 Range/Units 15:20 17:11 20:27 POC Glucose (mg/dL) 273 H 286 H (75-99) mg/dL Hemoglobin A1c (4.0-6.0) % Triglycerides (0.00-149.00) mg/dL Cholesterol (0.00-200.00) mg/dL VLDL Cholesterol, Calc (5.00-40.00) mg/dL Urine Appearance Cloudy H (Clear) Urine Protein 2+ H (Negative) Ur Leukocyte Esterase Large H (Negative) Urine WBC 7 H (0-5) /hpf Ur Squamous Epith Cells 5 H (0-4) /hpf Urine Bacteria Rare H (None) /hpf Hyaline Casts 27 H (0-2) /lpf Urine Mucus Rare H (None) /hpf 07/13/21 Range/Units 07:25 POC Glucose (mg/dL) 194 H (75-99) mg/dL Hemoglobin A1c (4.0-6.0) % Triglycerides (0.00-149.00) mg/dL Cholesterol (0.00-200.00) mg/dL VLDL Cholesterol, Calc (5.00-40.00) mg/dL Urine Appearance (Clear) Urine Protein (Negative) Ur Leukocyte Esterase (Negative) Urine WBC (0-5) /hpf Ur Squamous Epith Cells (0-4) /hpf Urine Bacteria (None) /hpf Hyaline Casts (0-2) /lpf Urine Mucus (None) /hpf Assessment and Plan Assessment: Assessment #1 coronary artery disease seems to be stable at this point #2 hypertension #3 dyslipidemia #4 chronic stable angina #5 renal failure Plan #1 continue the current medical regimen #2 the patient potentially can be discharged in the next 12-24 hours
[2021-07-13 11:29] LABS: Appearance,Urine Clear (Clear); Bilirubin,Urine Negative (Negative); Blood,Urine Negative (Negative); Color,Urine Yellow; Glucose,Urine (UA) Negative (Negative); Hyaline Casts,Urine 3 /lpf (0-2); Ketones,Urine Negative (Negative); Leukocyte Esterase,Urine Moderate (Negative); Mucus,Urine Rare /hpf; Nitrite,Urine Negative (Negative); Protein,Urine 1+ (Negative); RBC,Urine 2 /hpf (0-5); Specific Gravity,Urine 1.016 (1.001-1.035); Squamous Epithelial Cell,Urine 2 /hpf (0-4); Urobilinogen,Urine <2.0 mg/dL (<2.0); WBC,Urine 2 /hpf (0-5)
[2021-07-13 12:23] LABS: Glucose,Whole Blood 301 mg/dL (75-99)
--- NOTE | 2021-07-13 16:34 | P.PN ---
Subjective Progress Note Date: 07/13/21 Follow-up for acute kidney injury. Denies any chest pains. No nausea vomiting or diarrhea. Objective - Vital Signs Vital signs: Vital Signs Temp 99.1 F 07/13/21 15:00 Pulse 62 07/13/21 15:00 Resp 18 07/13/21 15:00 BP 124/53 07/13/21 15:00 Pulse Ox 96 07/13/21 15:00 Intake & Output 07/12/21 07/13/21 07/13/21 18:59 06:59 18:59 Intake Total 318 Output Total 0 Balance 318 0 Intake: IV 200 Magnesium Sulfate-D5w Pmx 100 1 gm In Dextrose/Water 1 100ml.bag @ 100 mls/hr IVPB ONCE ONE Rx#: [id number] Magnesium Sulfate-D5w Pmx 100 1 gm In Dextrose/Water 1 100ml.bag @ 100 mls/hr IVPB Q1H WOLF Rx#: [id number] Oral 118 Output: Post Void Residual 0 Other: Voiding Method Toilet Toilet Toilet # Voids 1 2 3 - Exam No acute distress S1-S2 heard Lungs clear No edema - Labs CBC & Chem 7: 07/12/21 08:21 07/12/21 08:21 Labs: Abnormal Lab Results - Last 24 Hours (Table) 07/12/21 07/12/21 07/12/21 Range/Units 08:21 08:21 15:20 POC Glucose (mg/dL) (75-99) mg/dL Hemoglobin A1c 8.2 H (4.0-6.0) % Triglycerides 224.00 H (0.00-149.00) mg/dL Cholesterol 210.00 H (0.00-200.00) mg/dL VLDL Cholesterol, Calc 44.80 H (5.00-40.00) mg/dL Urine Appearance Cloudy H (Clear) Urine Protein 2+ H (Negative) Ur Leukocyte Esterase Large H (Negative) Urine WBC 7 H (0-5) /hpf Ur Squamous Epith Cells 5 H (0-4) /hpf Urine Bacteria Rare H (None) /hpf Hyaline Casts 27 H (0-2) /lpf Urine Mucus Rare H (None) /hpf 07/12/21 07/12/21 07/13/21 Range/Units 17:11 20:27 07:25 POC Glucose (mg/dL) 273 H 286 H 194 H (75-99) mg/dL Hemoglobin A1c (4.0-6.0) % Triglycerides (0.00-149.00) mg/dL Cholesterol (0.00-200.00) mg/dL VLDL Cholesterol, Calc (5.00-40.00) mg/dL Urine Appearance (Clear) Urine Protein (Negative) Ur Leukocyte Esterase (Negative) Urine WBC (0-5) /hpf Ur Squamous Epith Cells (0-4) /hpf Urine Bacteria (None) /hpf Hyaline Casts (0-2) /lpf Urine Mucus (None) /hpf 07/13/21 07/13/21 Range/Units 11:05 12:23 POC Glucose (mg/dL) 301 H (75-99) mg/dL Hemoglobin A1c (4.0-6.0) % Triglycerides (0.00-149.00) mg/dL Cholesterol (0.00-200.00) mg/dL VLDL Cholesterol, Calc (5.00-40.00) mg/dL Urine Appearance (Clear) Urine Protein 1+ H (Negative) Ur Leukocyte Esterase Moderate H (Negative) Urine WBC (0-5) /hpf Ur Squamous Epith Cells (0-4) /hpf Urine Bacteria (None) /hpf Hyaline Casts 3 H (0-2) /lpf Urine Mucus Rare H (None) /hpf Assessment and Plan Assessment: #1 acute kidney injury secondary to hemodynamic ATN with low blood pressures. -Hyaline cast on urine analysis. #2 complicated UTI. #3 chronic kidney disease stage III secondary to nephrosclerosis with a baseline creatinine of 1.4 MG per DL. #4 type 2 diabetes #5 hypertension with chronic kidney disease. Plan: #1 renal function back to baseline. #2 avoid nephrotoxic agents and hypotensive episodes. #3 antibiotics as per primary team #4 on amlodipine and losartan. Monitor
[2021-07-13 17:37] LABS: Glucose,Whole Blood 288 mg/dL (75-99)
[2021-07-13 21:01] LABS: Glucose,Whole Blood 200 mg/dL (75-99)
[2021-07-13] MEDS: MELATONIN 3 MG TABLET PO SCH (21:11)
[2021-07-13] MEDS: TEMAZEPAM 15 MG CAP PO SCH (21:11)
[2021-07-13] MEDS: amLODIPine 10 MG TAB PO SCH (21:11)
--- NOTE | 2021-07-13 22:36 | P.PN ---
Subjective This is a pleasant 76 years old female with multiple medical problems. Including diabetes mellitus. She was on metformin 500 mg and insulin 70/30 at 24 units twice a day at home. And originally presents because of chest pain however cardiology extending to clear her tomorrow for discharge, her echocardiogram came back with ejection fraction of 55-60%. Today patient is chest pain-free. No dyspnea and no other complaints. However she has acute kidney injury and admission and Bumex was held. Preoperative yesterday improved down to 1.4. We will check creatinine tomorrow and nephrology team is following the case closely. Also there was suspicion of UTI and patient was started on Rocephin, urine culture ordered but looks like it wasn't down. Patient does not have overt UTI signs and symptoms however she wasn't sure Bladder scan was checked and basically it was 0. And patient also with uncontrolled diabetes with hemoglobin A1c of 8.2%,She was on metformin 500 mg and insulin 70/30 at 24 units twice a day at home. We will increase her insulin 70/30 to 30 units twice a day while keeping hold the metformin as patient is high-risk for renal failure for now. Objective - Vital Signs Vital signs: Vital Signs Temp 97.8 F 07/13/21 07:00 Pulse 74 07/13/21 07:57 Resp 16 07/13/21 07:00 BP 144/62 07/13/21 07:00 Pulse Ox 96 07/13/21 07:00 Intake & Output 07/12/21 07/13/21 07/13/21 18:59 06:59 18:59 Intake Total 318 Output Total 0 Balance 318 0 Intake: IV 200 Magnesium Sulfate-D5w Pmx 100 1 gm In Dextrose/Water 1 100ml.bag @ 100 mls/hr IVPB ONCE ONE Rx#: [id number] Magnesium Sulfate-D5w Pmx 100 1 gm In Dextrose/Water 1 100ml.bag @ 100 mls/hr IVPB Q1H WOLF Rx#: [id number] Oral 118 Output: Post Void Residual 0 Other: Voiding Method Toilet Toilet Toilet # Voids 1 2 3 - Exam GENERAL: The patient is alert and oriented x3, not in any acute distress. Obese HEENT: Pupils are round and equally reacting to light. EOMI. No scleral icterus. No conjunctival pallor. Normocephalic, atraumatic. No pharyngeal erythema. No thyromegaly. CARDIOVASCULAR: S1 and S2 present. No murmurs, rubs, or gallops. PULMONARY: Chest is clear to auscultation, no wheezing or crackles. ABDOMEN: Soft, nontender, nondistended, normoactive bowel sounds. No palpable organomegaly. MUSCULOSKELETAL: No joint swelling or deformity. EXTREMITIES: No cyanosis, clubbing, or pedal edema. NEUROLOGICAL: Gross neurological examination did not reveal any focal deficits. SKIN: No rashes. no petechiae. - Labs CBC & Chem 7: 07/12/21 08:21 07/12/21 08:21 Labs: Abnormal Lab Results - Last 24 Hours (Table) 07/12/21 07/12/21 07/12/21 Range/Units 08:21 08:21 15:20 POC Glucose (mg/dL) (75-99) mg/dL Hemoglobin A1c 8.2 H (4.0-6.0) % Triglycerides 224.00 H (0.00-149.00) mg/dL Cholesterol 210.00 H (0.00-200.00) mg/dL VLDL Cholesterol, Calc 44.80 H (5.00-40.00) mg/dL Urine Appearance Cloudy H (Clear) Urine Protein 2+ H (Negative) Ur Leukocyte Esterase Large H (Negative) Urine WBC 7 H (0-5) /hpf Ur Squamous Epith Cells 5 H (0-4) /hpf Urine Bacteria Rare H (None) /hpf Hyaline Casts 27 H (0-2) /lpf Urine Mucus Rare H (None) /hpf 07/12/21 07/12/21 07/13/21 Range/Units 17:11 20:27 07:25 POC Glucose (mg/dL) 273 H 286 H 194 H (75-99) mg/dL Hemoglobin A1c (4.0-6.0) % Triglycerides (0.00-149.00) mg/dL Cholesterol (0.00-200.00) mg/dL VLDL Cholesterol, Calc (5.00-40.00) mg/dL Urine Appearance (Clear) Urine Protein (Negative) Ur Leukocyte Esterase (Negative) Urine WBC (0-5) /hpf Ur Squamous Epith Cells (0-4) /hpf Urine Bacteria (None) /hpf Hyaline Casts (0-2) /lpf Urine Mucus (None) /hpf 07/13/21 07/13/21 Range/Units 11:05 12:23 POC Glucose (mg/dL) 301 H (75-99) mg/dL Hemoglobin A1c (4.0-6.0) % Triglycerides (0.00-149.00) mg/dL Cholesterol (0.00-200.00) mg/dL VLDL Cholesterol, Calc (5.00-40.00) mg/dL Urine Appearance (Clear) Urine Protein 1+ H (Negative) Ur Leukocyte Esterase Moderate H (Negative) Urine WBC (0-5) /hpf Ur Squamous Epith Cells (0-4) /hpf Urine Bacteria (None) /hpf Hyaline Casts 3 H (0-2) /lpf Urine Mucus Rare H (None) /hpf Assessment and Plan Assessment: Chest pain, resolved. Ejection fraction 55-60%. Cardiology on the case and possibly he will clear her to go home soon Diabetes mellitus with hyperglycemia Possible acute urinary tract infection Acute kidney injury present on admission, improving Chronic kidney disease, stage III Hyperlipidemia Plan: This is a pleasant 76 years old female presents with chest pain. Most likely patient will be cleared by [employer] for discharge. Continue with Rocephin for possible UTI Increase her insulin 70:30 up to 30 units twice a day while continuing with insulin sliding scale. Keep holding Bumex per rental sales agent in recommendation will follow the patient closely and check creatinine tomorrow. Patient was on Plavix at home and aspirin was added during this admission by [employer] Labs and medication were reviewed.. Continue same treatment. Continue with symptomatic treatment. Resume home medication. Monitor lytes and vitals. DVT and GI prophylaxis. Further recommendations as per clinical course of the patient DVT prophylaxis: Subcutaneous heparin GI Prophylaxis: Pepcid
[2021-07-14] MEDS: SYMBICORT 160-4.5 MCG INHALER INHALATION SCH ×2 (07:55→19:20)
[2021-07-14] MEDS: IPRATROPIUM-ALBUTEROL 3 ML NEB INHALATION SCH ×4 (07:55→19:20)
[2021-07-14 07:57] LABS: Glucose,Whole Blood 209 mg/dL (75-99)
[2021-07-14] MEDS: CYANOCOBALAMIN 500 MCG TAB PO SCH (08:00)
[2021-07-14] MEDS: ASCORBIC ACID 500 MG TAB PO SCH (08:01)
[2021-07-14] MEDS: CHOLECALCIFEROL 25 MCG (1000 IU) TABLET PO SCH (08:01)
[2021-07-14] MEDS: CLOPIDOGREL 75 MG TAB PO SCH (08:01)
[2021-07-14] MEDS: LOSARTAN 50 MG TAB PO SCH (08:01)
[2021-07-14] MEDS: NITROGLYCERIN OINT 1 INCH/GM PACKET TOPICAL SCH ×3 (08:01→21:55)
[2021-07-14] MEDS: CITALOPRAM HYDROBROMIDE 20 MG TAB PO SCH (08:01)
[2021-07-14] MEDS: PANTOPRAZOLE 40 MG TABLET PO SCH (08:01)
[2021-07-14] MEDS: INSULIN ASPART (NovoLOG) 100 UNIT/ML VIAL SQ SCH ×4 (08:01→17:44)
[2021-07-14] MEDS: ATORVASTATIN 80 MG TAB PO SCH (08:01)
[2021-07-14] MEDS: ASPIRIN 81 MG PO SCH (08:01)
[2021-07-14] MEDS: HEPARIN SODIUM,PORCINE/PF 5,000 UNIT/0.5 ML SYRINGE SQ SCH ×2 (08:02→20:13)
[2021-07-14] MEDS: RANOLAZINE 500 MG TAB.ER.12H PO SCH ×2 (08:02→20:14)
[2021-07-14] MEDS: VITAMIN E (DL,TOCOPHERYL ACET) 400 UNIT (180 MG) CAP PO SCH (08:02)
[2021-07-14] MEDS: INSULN ASP PRT/INSULIN ASPART 100 UNIT/ML 10 ML VIAL SQ SCH ×2 (09:02→17:44)
--- NOTE | 2021-07-14 10:01 | P.PN ---
Subjective Progress Note Date: 07/14/21 Follow-up for acute kidney injury. Denies any chest pains. No nausea vomiting or diarrhea. Objective - Vital Signs Vital signs: Vital Signs Temp 98.0 F 07/14/21 07:00 Pulse 70 07/14/21 08:05 Resp 16 07/14/21 07:00 BP 135/63 07/14/21 07:00 Pulse Ox 96 07/14/21 07:00 Intake & Output 07/13/21 07/14/21 07/14/21 18:59 06:59 18:59 Intake Total 340 Output Total 0 300 Balance 0 40 Intake: Oral 340 Output: Urine 300 Post Void Residual 0 Other: Voiding Method Toilet Toilet Toilet # Voids 3 1 # Bowel Movements 1 - Exam No acute distress S1-S2 heard Lungs clear No edema - Labs CBC & Chem 7: 07/12/21 08:21 07/12/21 08:21 Labs: Abnormal Lab Results - Last 24 Hours (Table) 07/13/21 07/13/21 07/13/21 Range/Units 11:05 12:23 17:32 POC Glucose (mg/dL) 301 H 288 H (75-99) mg/dL Urine Protein 1+ H (Negative) Ur Leukocyte Esterase Moderate H (Negative) Hyaline Casts 3 H (0-2) /lpf Urine Mucus Rare H (None) /hpf 07/13/21 07/14/21 Range/Units 20:59 07:56 POC Glucose (mg/dL) 200 H 209 H (75-99) mg/dL Urine Protein (Negative) Ur Leukocyte Esterase (Negative) Hyaline Casts (0-2) /lpf Urine Mucus (None) /hpf Assessment and Plan Assessment: #1 acute kidney injury secondary to hemodynamic ATN with low blood pressures. -Hyaline cast on urine analysis. #2 complicated UTI. #3 chronic kidney disease stage III secondary to nephrosclerosis with a baseline creatinine of 1.4 MG per DL. #4 type 2 diabetes #5 hypertension with chronic kidney disease. Plan: #1 renal function back to baseline. #2 avoid nephrotoxic agents and hypotensive episodes. #3 antibiotics as per primary team #4 on amlodipine and losartan. Monitor #5 okay to continue with metformin at discharge
[2021-07-14 12:13] LABS: Glucose,Whole Blood 210 mg/dL (75-99)
[2021-07-14 12:47] LABS: African American GFR (CKD) 30.3 (60.0-200.0); BUN/Creat Ratio 30.43 Ratio (12.00-20.00); Blood Urea Nitrogen 56.3 mg/dL (9.0-27.0); Carbon Dioxide 23.8 mmol/L (21.6-31.8); Non-African American GFR(CKD) 26.2 (60.0-200.0); Potassium 4.9 mmol/L (3.5-5.5)
--- NOTE | 2021-07-14 13:47 | P.PN ---
Subjective Progress Note Date: 07/14/21 Principal diagnosis: Coronary artery disease with prior revascularization The patient is a pleasant 76-year-old female patient with a past medical history significant for coronary artery disease and prior stenting of the LAD was performed at [facility] who was admitted to the hospital with shortness of breath and symptoms of being tired and fatigued. She is known to have chronic stable angina. Yesterday she was started on the Ranexa. The patient was seen this morning. She stated that she is feeling better. She reports no symptoms of chest pain or chest discomfort. She stated that the shortness of breath has been better. She stated that she has been up and around and she is feeling overall better. No dizziness or lightheadedness and no feeling of heart racing or fluttering or presyncope or syncope. She underwent an echocardiogram which revealed normal left ventricular systolic function with evidence off mild aortic stenosis Objective - Vital Signs Vital signs: Vital Signs Temp 98.0 F 07/14/21 07:00 Pulse 68 07/14/21 11:34 Resp 16 07/14/21 07:00 BP 135/63 07/14/21 07:00 Pulse Ox 96 07/14/21 07:00 Intake & Output 07/13/21 07/14/21 07/14/21 18:59 06:59 18:59 Intake Total 340 Output Total 0 300 Balance 0 40 Intake: Oral 340 Output: Urine 300 Post Void Residual 0 Other: Voiding Method Toilet Toilet Toilet # Voids 3 1 # Bowel Movements 1 - Constitutional General appearance: Present: no acute distress - Respiratory Respiratory: bilateral: diminished - Cardiovascular Rhythm: regular - Labs CBC & Chem 7: 07/12/21 08:21 07/14/21 07:13 Labs: Abnormal Lab Results - Last 24 Hours (Table) 07/13/21 07/13/21 07/14/21 Range/Units 17:32 20:59 07:13 BUN 56.3 H (9.0-27.0) mg/dL Creatinine 1.9 H (0.6-1.5) mg/dL Est GFR (CKD-EPI)AfAm 30.3 L (60.0-200.0) Est GFR (CKD-EPI)NonAf 26.2 L (60.0-200.0) BUN/Creatinine Ratio 30.43 H (12.00-20.00) Ratio Glucose 212 H (70-110) mg/dL POC Glucose (mg/dL) 288 H 200 H (75-99) mg/dL 07/14/21 07/14/21 Range/Units 07:56 12:11 BUN (9.0-27.0) mg/dL Creatinine (0.6-1.5) mg/dL Est GFR (CKD-EPI)AfAm (60.0-200.0) Est GFR (CKD-EPI)NonAf (60.0-200.0) BUN/Creatinine Ratio (12.00-20.00) Ratio Glucose (70-110) mg/dL POC Glucose (mg/dL) 209 H 210 H (75-99) mg/dL Assessment and Plan Assessment: Assessment #1 coronary artery disease seems to be stable at this point #2 hypertension #3 dyslipidemia #4 chronic stable angina #5 renal failure Plan #1 continue the current medical regimen #2 follow-up with the patient on when necessary case
[2021-07-14] MEDS ORDERED: DEXTROSE 50% SYRINGE 50 ML IVP PRN (15:34)
[2021-07-14] MEDS ORDERED: guaiFENesin SYRUP 100MG/5ML 200 MG/10 ML CUP PO PRN (15:35)
[2021-07-14] MEDS: guaiFENesin-DM 100-10MG/5ML 10 ML CUP PO PRN (16:03)
[2021-07-14 17:19] LABS: Glucose,Whole Blood 263 mg/dL (75-99)
[2021-07-14] MEDS: TEMAZEPAM 15 MG CAP PO SCH (20:14)
[2021-07-14] MEDS: amLODIPine 10 MG TAB PO SCH (20:14)
[2021-07-14] MEDS: MELATONIN 3 MG TABLET PO SCH (20:14)
[2021-07-14 21:11] LABS: Glucose,Whole Blood 155 mg/dL (75-99)
--- NOTE | 2021-07-14 21:38 | P.PN ---
Subjective This is a pleasant 76 years old female with multiple medical problems. Including diabetes mellitus. She was on metformin 500 mg and insulin 70/30 at 24 units twice a day at home. And originally presents because of chest pain however cardiology extending to clear her tomorrow for discharge, her echocardiogram came back with ejection fraction of 55-60%. Today patient is chest pain-free. No dyspnea and no other complaints. However she has acute kidney injury and admission and Bumex was held. Preoperative yesterday improved down to 1.4. We will check creatinine tomorrow and nephrology team is following the case closely. Also there was suspicion of UTI and patient was started on Rocephin, urine culture ordered but looks like it wasn't down. Patient does not have overt UTI signs and symptoms however she wasn't sure Bladder scan was checked and basically it was 0. And patient also with uncontrolled diabetes with hemoglobin A1c of 8.2%,She was on metformin 500 mg and insulin 70/30 at 24 units twice a day at home. We will increase her insulin 70/30 to 30 units twice a day while keeping hold the metformin as patient is high-risk for renal failure for now. 07/14/2021 Patient sitting in chair comfortable. No specific complaint. No chest pain. She looks pleasant. She has no urinary signs or symptoms today. No dysuria or urgency or discomfort. No suprapubic tenderness. Patient is afebrile course of ceftriaxone and patient with no fever or leukocytosis, we will discontinue ceftriaxone and we'll monitor patient while of antibiotic. Patient creatinine went up today again to 1.9. Metformin is on hold but she takes losartan per interior specialist recommendation. Bumex still on hold per nephrology team. Because metformin was stopped patient insulin 70/30 was increased 24 units up to 30 units twice a day. Despite this she needed extra 14 units of insulin today, we will keep monitoring for now. Because of fluctuation creatinine current metformin 5 might be held upon discharge. Patient hemoglobin A1c is 8.2% and is uncontrolled. Patient states because of frequent hospitalization and fluctuation in her sugar over the last few months. Regional Flatbed Truck Driver signed off the case, the added aspirin to her regimen and Dr. Taylor today recommended to continue with the same medication. Objective - Vital Signs Vital signs: Vital Signs Temp 98.2 F 07/14/21 15:00 Pulse 70 07/14/21 16:08 Resp 18 07/14/21 15:00 BP 135/77 07/14/21 15:00 Pulse Ox 95 07/14/21 15:00 Intake & Output 07/13/21 07/14/21 07/14/21 18:59 06:59 18:59 Intake Total 340 Output Total 0 300 Balance 0 40 Intake: Oral 340 Output: Urine 300 Post Void Residual 0 Other: Voiding Method Toilet Toilet Toilet # Voids 3 1 3 # Bowel Movements 1 - Exam GENERAL: The patient is alert and oriented x3, not in any acute distress. Obese HEENT: Pupils are round and equally reacting to light. EOMI. No scleral icterus. No conjunctival pallor. Normocephalic, atraumatic. No pharyngeal erythema. No thyromegaly. CARDIOVASCULAR: S1 and S2 present. No murmurs, rubs, or gallops. PULMONARY: Chest is clear to auscultation, no wheezing or crackles. ABDOMEN: Soft, nontender, nondistended, normoactive bowel sounds. No palpable organomegaly. MUSCULOSKELETAL: No joint swelling or deformity. EXTREMITIES: No cyanosis, clubbing, or pedal edema. NEUROLOGICAL: Gross neurological examination did not reveal any focal deficits. SKIN: No rashes. no petechiae. - Labs CBC & Chem 7: 07/12/21 08:21 07/14/21 07:13 Labs: Abnormal Lab Results - Last 24 Hours (Table) 07/13/21 07/13/21 07/14/21 Range/Units 17:32 20:59 07:13 BUN 56.3 H (9.0-27.0) mg/dL Creatinine 1.9 H (0.6-1.5) mg/dL Est GFR (CKD-EPI)AfAm 30.3 L (60.0-200.0) Est GFR (CKD-EPI)NonAf 26.2 L (60.0-200.0) BUN/Creatinine Ratio 30.43 H (12.00-20.00) Ratio Glucose 212 H (70-110) mg/dL POC Glucose (mg/dL) 288 H 200 H (75-99) mg/dL 07/14/21 07/14/21 Range/Units 07:56 12:11 BUN (9.0-27.0) mg/dL Creatinine (0.6-1.5) mg/dL Est GFR (CKD-EPI)AfAm (60.0-200.0) Est GFR (CKD-EPI)NonAf (60.0-200.0) BUN/Creatinine Ratio (12.00-20.00) Ratio Glucose (70-110) mg/dL POC Glucose (mg/dL) 209 H 210 H (75-99) mg/dL Assessment and Plan Assessment: Chest pain, resolved. Ejection fraction 55-60%. Cardiology on the case and possibly he will clear her to go home soon Diabetes mellitus with hyperglycemia. Possible acute urinary tract infection, sufficiently treated Acute kidney injury present on admission, improving Chronic kidney disease, stage III Hyperlipidemia Plan: This is a pleasant 76 years old female presents with chest pain. Most likely patient will be cleared by software development leader for discharge. Continue with Rocephin for possible UTI Increase her insulin 70:30 up to 30 units twice a day while continuing with insulin sliding scale. Keep holding Bumex per interior specialist in recommendation will follow the patient closely and check creatinine tomorrow. Metformin also on hold because of high creatinine. Patient might be held also upon discharge. Discontinue ceftriaxone and monitor for further UTI signs and symptoms Patient was on Plavix at home and aspirin was added during this admission by software development leader Labs and medication were reviewed.. Continue same treatment. Continue with symptomatic treatment. Resume home medication. Monitor lytes and vitals. DVT and GI prophylaxis. Further recommendations as per clinical course of the patient DVT prophylaxis: Subcutaneous heparin GI Prophylaxis: Pepcid
[2021-07-15 07:36] LABS: Glucose,Whole Blood 173 mg/dL (75-99)
[2021-07-15] MEDS: SYMBICORT 160-4.5 MCG INHALER INHALATION SCH ×2 (07:51→20:24)
[2021-07-15] MEDS: IPRATROPIUM-ALBUTEROL 3 ML NEB INHALATION SCH ×4 (07:52→20:23)
[2021-07-15] MEDS: VITAMIN E (DL,TOCOPHERYL ACET) 400 UNIT (180 MG) CAP PO SCH (08:19)
[2021-07-15] MEDS: ASPIRIN 81 MG PO SCH (08:19)
[2021-07-15] MEDS: PANTOPRAZOLE 40 MG TABLET PO SCH (08:20)
[2021-07-15] MEDS: CITALOPRAM HYDROBROMIDE 20 MG TAB PO SCH (08:20)
[2021-07-15] MEDS: ASCORBIC ACID 500 MG TAB PO SCH (08:20)
[2021-07-15] MEDS: LOSARTAN 50 MG TAB PO SCH (08:20)
[2021-07-15] MEDS: RANOLAZINE 500 MG TAB.ER.12H PO SCH ×2 (08:20→19:33)
[2021-07-15] MEDS: CLOPIDOGREL 75 MG TAB PO SCH (08:20)
[2021-07-15] MEDS: ATORVASTATIN 80 MG TAB PO SCH (08:20)
[2021-07-15] MEDS: CYANOCOBALAMIN 500 MCG TAB PO SCH (08:20)
[2021-07-15] MEDS: INSULN ASP PRT/INSULIN ASPART 100 UNIT/ML 10 ML VIAL SQ SCH ×2 (08:20→17:51)
[2021-07-15] MEDS: CHOLECALCIFEROL 25 MCG (1000 IU) TABLET PO SCH (08:20)
[2021-07-15] MEDS: NITROGLYCERIN OINT 1 INCH/GM PACKET TOPICAL SCH (08:20)
[2021-07-15] MEDS: HEPARIN SODIUM,PORCINE/PF 5,000 UNIT/0.5 ML SYRINGE SQ SCH ×2 (08:21→19:32)
[2021-07-15] MEDS: INSULIN ASPART (NovoLOG) 100 UNIT/ML VIAL SQ SCH ×4 (08:21→21:00)
[2021-07-15 09:14] LABS: Appearance,Urine Clear (Clear); Bilirubin,Urine Negative (Negative); Blood,Urine Negative (Negative); Color,Urine Yellow; Glucose,Urine (UA) Negative (Negative); Hyaline Casts,Urine 3 /lpf (0-2); Ketones,Urine Negative (Negative); Leukocyte Esterase,Urine Small (Negative); Mucus,Urine Rare /hpf; Nitrite,Urine Negative (Negative); Protein,Urine Trace (Negative); RBC,Urine 1 /hpf (0-5); Specific Gravity,Urine 1.013 (1.001-1.035); Squamous Epithelial Cell,Urine <1 /hpf (0-4); Urobilinogen,Urine <2.0 mg/dL (<2.0); WBC,Urine 1 /hpf (0-5)
--- NOTE | 2021-07-15 09:34 | P.PN ---
Subjective Patient is seen in follow-up for acute kidney injury on chronic kidney disease. Blood pressure stable. Good urine output. No vomiting or diarrhea. Vital signs are stable. General: The patient appeared well nourished and normally developed. HEENT: Head exam is unremarkable. Neck is without jugular venous distension. LUNGS: Breath sounds decreased. HEART: Rate and Rhythm are regular. ABDOMEN: Soft, no distention. EXTREMITITES: No edema. Objective - Vital Signs Vital signs: Vital Signs Temp 98.1 F 07/15/21 07:00 Pulse 64 07/15/21 08:01 Resp 16 07/15/21 07:00 BP 118/61 07/15/21 07:00 Pulse Ox 95 07/15/21 07:00 Intake & Output 07/14/21 07/15/21 07/15/21 18:59 06:59 18:59 Other: Voiding Method Toilet Toilet Toilet # Voids 3 1 - Labs CBC & Chem 7: 07/12/21 08:21 07/14/21 07:13 Labs: Abnormal Lab Results - Last 24 Hours (Table) 07/14/21 07/14/21 07/14/21 Range/Units 07:13 12:11 17:17 BUN 56.3 H (9.0-27.0) mg/dL Creatinine 1.9 H (0.6-1.5) mg/dL Est GFR (CKD-EPI)AfAm 30.3 L (60.0-200.0) Est GFR (CKD-EPI)NonAf 26.2 L (60.0-200.0) BUN/Creatinine Ratio 30.43 H (12.00-20.00) Ratio Glucose 212 H (70-110) mg/dL POC Glucose (mg/dL) 210 H 263 H (75-99) mg/dL Urine Protein (Negative) Ur Leukocyte Esterase (Negative) Hyaline Casts (0-2) /lpf Urine Mucus (None) /hpf 07/14/21 07/15/21 07/15/21 Range/Units 21:07 07:31 07:34 BUN (9.0-27.0) mg/dL Creatinine (0.6-1.5) mg/dL Est GFR (CKD-EPI)AfAm (60.0-200.0) Est GFR (CKD-EPI)NonAf (60.0-200.0) BUN/Creatinine Ratio (12.00-20.00) Ratio Glucose (70-110) mg/dL POC Glucose (mg/dL) 155 H 173 H (75-99) mg/dL Urine Protein Trace H (Negative) Ur Leukocyte Esterase Small H (Negative) Hyaline Casts 3 H (0-2) /lpf Urine Mucus Rare H (None) /hpf Assessment and Plan Plan: Assessment: 1. Acute kidney injury secondary to ATN secondary to hypotension and infection. Creatinine 1.9 yesterday. 2. UTI on antibiotics. 3. Chronic kidney disease stage IIIa secondary to diabetic kidney disease and nephrosclerosis with baseline creatinine near 1.1. 4. Diabetes mellitus. 5. Hypertension with chronic kidney disease. Plan: Hold losartan due to acute kidney injury. Hold amlodipine for systolic blood pressure less than 120. Encouraged oral intake. Avoid nephrotoxins. Morning labs pending.
[2021-07-15 11:51] LABS: Anion Gap 12.9 mmol/L (4.00-12.00); BUN/Creat Ratio 30.48 Ratio (12.00-20.00); Calcium 9.1 mg/dL (8.7-10.3); Carbon Dioxide 23.9 mmol/L (21.6-31.8); Non-African American GFR(CKD) 22.5 (60.0-200.0)
[2021-07-15 12:27] LABS: Glucose,Whole Blood 235 mg/dL (75-99)
[2021-07-15 17:22] LABS: Glucose,Whole Blood 255 mg/dL (75-99)
[2021-07-15] MEDS: amLODIPine 10 MG TAB PO SCH (19:33)
[2021-07-15] MEDS: MELATONIN 3 MG TABLET PO SCH (19:33)
[2021-07-15] MEDS: TEMAZEPAM 15 MG CAP PO SCH (19:33)
[2021-07-15] MEDS: SODIUM CHLORIDE 0.9% 1,000 ML IV SCH (19:34)
[2021-07-15] MEDS: guaiFENesin-DM 100-10MG/5ML 10 ML CUP PO PRN (20:14)
[2021-07-15 20:34] LABS: Glucose,Whole Blood 105 mg/dL (75-99)
--- NOTE | 2021-07-15 22:38 | P.PN ---
Subjective Progress Note Date: 07/15/21 This is a pleasant 76 years old female with multiple medical problems. Including diabetes mellitus. She was on metformin 500 mg and insulin 70/30 at 24 units twice a day at home. And originally presents because of chest pain however cardiology extending to clear her tomorrow for discharge, her echocardiogram came back with ejection fraction of 55-60%. Today patient is chest pain-free. No dyspnea and no other complaints. However she has acute kidney injury and admission and Bumex was held. Preopera tive yesterday improved down to 1.4. We will check creatinine tomorrow and nephrology team is following the case closely. Also there was suspicion of UTI and patient was started on Rocephin, urine cu lture ordered but looks like it wasn't down. Patient does not have overt UTI signs and symptoms however she wasn't sure Bladder scan was checked and basically it was 0. And patient also with uncontrolled diabetes with hemoglobin A1c of 8.2%,She was on metformin 500 mg and insulin 70/30 at 24 units twice a day at home. We will increase her insulin 70/30 to 30 units twice a day while keeping hold the metformin as patient is high-risk for renal failure for now. 07/14/2021 Patient sitting in chair comfortable. No specific complaint. No chest pain. She looks pleasant. She has no urinary signs or symptoms today. No dysuria or urgency or discomfort. No suprapubic tenderness. Patient is afebrile course of ceftriaxone and patient with no fever or leukocytosis, we will discontinue ceftriaxone and we'll monitor patient while of antibiotic. Patient creatinine went up today again to 1.9. Metformin is on hold but she takes losartan per service or work dispatcher recommendation. Bumex still on hold per nephrology team. Because metformin was stopped patient insulin 70/30 was increased 24 units up to 30 units twice a day. Despite this she needed extra 14 units of insulin today, we will keep monitoring for now. Because of fluctuation creatinine current metformin 5 might be held upon discharge. Patient hemoglobin A1c is 8.2% and is uncontrolled. Patient states because of frequent hospitalization and fluctuation in her sugar over the last few months. Scissors Sharpener signed off the case, the added aspirin to her regimen and Dr. Taylor today recommended to continue with the same medication. 07/15/2021 Patient is evaluated today sitting up in a chair. She denies any chest pain,or shortness of breath. She decided that she has a dry intermittent cough. Cardiology workup is clear. Due to increasing creatinine up to 2.1 today nephrology has recommended to keep the patient overnight and repeat labs in the morning. Losartan has been placed on hold. Blood pressure today is 118/61, heart rate 70, afebrile, room air. Continue all other medications and will start patient back on Singulair, she does have a history of asthma and has a nonproductive dry cough. ROS Constitutional: Denied any fatigue denied any fever. Cardio vascular: denied any chest pain, palpitations Gastrointestinal denied any nausea vomiting Pulmonary: Denied any shortness of breath cough Neurologic denied any new focal deficits All inpatient medications were reviewed and appropriate changes in these medications as dictated in the interval history and assessment and plan. PHYSICAL EXAMINATION: GENERAL: The patient is alert and oriented x3, not in any acute distress. Well developed, well nourished. HEENT: Pupils are round and equally reacting to light. EOMI. No scleral icterus. No conjunctival pallor. Normocephalic, atraumatic. No pharyngeal erythema. No thyromegaly. CARDIOVASCULAR: S1 and S2 present. No murmurs, rubs, or gallops. PULMONARY: Chest is clear to auscultation, no wheezing or crackles. ABDOMEN: Soft, nontender, nondistended, normoactive bowel sounds. No palpable o rganomegaly. MUSCULOSKELETAL: No joint swelling or deformity. EXTREMITIES: No cyanosis, clubbing, or pedal edema. NEUROLOGICAL: Gross neurological examination did not reveal any focal deficits. SKIN: No rashes. Assessment: Chest pain, resolved. Ejection fraction 55-60%. cardiology cleared Diabetes mellitus with hyperglycemia. Possible acute urinary tract infection, sufficiently treated Acute kidney injury present on admission, improving possible contrast induced nephropathy, encourage IV fluids, repeat labs in the AM. Chronic kidney disease, stage III, baseline creatinine 1.1 Hyperlipidemia Plan: This is a pleasant 76 years old female presents with chest pain. currenty CP free, cleared by cardiology for DC. Increase her insulin 70:30 up to 30 units twice a day while continuing with insulin sliding scale. Keep holding Bumex per service or work dispatcher in recommendation will follow the patient closely and check creatinine tomorrow. Metformin also on hold because of high creatinine. Patient might be held also upon discharge. Discontinue ceftriaxone and monitor for further UTI signs and symptoms, repeat UA negative for infection Patient was on Plavix at home and aspirin was added during this admission by enhanced environmental operator Labs and medication were reviewed.. Continue same treatment. Continue with symptomatic treatment. Resume home medication. Monitor lytes and vitals. DVT and GI prophylaxis. Further recommendations as per clinical course of the patient DVT prophylaxis: Subcutaneous heparin GI Prophylaxis: Pepcid Repeat BMP tomorrow, possible DC pending clearance from nephrology. Objective - Vital Signs Vital signs: Vital Signs Temp 98.1 F 07/15/21 07:00 Pulse 70 07/15/21 11:34 Resp 16 07/15/21 07:00 BP 118/61 07/15/21 07:00 Pulse Ox 95 07/15/21 07:00 Intake & Output 07/14/21 07/15/21 07/15/21 18:59 06:59 18:59 Other: Voiding Method Toilet Toilet Toilet # Voids 3 1 - Labs CBC & Chem 7: 07/12/21 08:21 07/15/21 07:58 Labs: Abnormal Lab Results - Last 24 Hours (Table) 07/14/21 07/14/21 07/14/21 Range/Units 07:13 12:11 17:17 Anion Gap (4.00-12.00) mmol/L BUN 56.3 H (9.0-27.0) mg/dL Creatinine 1.9 H (0.6-1.5) mg/dL Est GFR (CKD-EPI)AfAm 30.3 L (60.0-200.0) Est GFR (CKD-EPI)NonAf 26.2 L (60.0-200.0) BUN/Creatinine Ratio 30.43 H (12.00-20.00) Ratio Glucose 212 H (70-110) mg/dL POC Glucose (mg/dL) 210 H 263 H (75-99) mg/dL Urine Protein (Negative) Ur Leukocyte Esterase (Negative) Hyaline Casts (0-2) /lpf Urine Mucus (None) /hpf 07/14/21 07/15/21 07/15/21 Range/Units 21:07 07:31 07:34 Anion Gap (4.00-12.00) mmol/L BUN (9.0-27.0) mg/dL Creatinine (0.6-1.5) mg/dL Est GFR (CKD-EPI)AfAm (60.0-200.0) Est GFR (CKD-EPI)NonAf (60.0-200.0) BUN/Creatinine Ratio (12.00-20.00) Ratio Glucose (70-110) mg/dL POC Glucose (mg/dL) 155 H 173 H (75-99) mg/dL Urine Protein Trace H (Negative) Ur Leukocyte Esterase Small H (Negative) Hyaline Casts 3 H (0-2) /lpf Urine Mucus Rare H (None) /hpf 07/15/21 Range/Units 07:58 Anion Gap 12.90 H (4.00-12.00) mmol/L BUN 64.0 H (9.0-27.0) mg/dL Creatinine 2.1 H (0.6-1.5) mg/dL Est GFR (CKD-EPI)AfAm 26.0 L (60.0-200.0) Est GFR (CKD-EPI)NonAf 22.5 L (60.0-200.0) BUN/Creatinine Ratio 30.48 H (12.00-20.00) Ratio Glucose 161 H (70-110) mg/dL POC Glucose (mg/dL) (75-99) mg/dL Urine Protein (Negative) Ur Leukocyte Esterase (Negative) Hyaline Casts (0-2) /lpf Urine Mucus (None) /hpf Assessment and Plan Time with Patient: Greater than 30
[2021-07-15 22:54] LABS: Glucose,Whole Blood 78 mg/dL (75-99)
[2021-07-16 07:51] LABS: Glucose,Whole Blood 75 mg/dL (75-99)
[2021-07-16] MEDS: SYMBICORT 160-4.5 MCG INHALER INHALATION SCH (08:04)
[2021-07-16] MEDS: IPRATROPIUM-ALBUTEROL 3 ML NEB INHALATION SCH ×3 (08:04→15:46)
[2021-07-16] MEDS: INSULIN ASPART (NovoLOG) 100 UNIT/ML VIAL SQ SCH ×2 (09:13→14:18)
[2021-07-16] MEDS: INSULN ASP PRT/INSULIN ASPART 100 UNIT/ML 10 ML VIAL SQ SCH (09:14)
[2021-07-16] MEDS: CHOLECALCIFEROL 25 MCG (1000 IU) TABLET PO SCH (09:14)
[2021-07-16] MEDS: CLOPIDOGREL 75 MG TAB PO SCH (09:15)
[2021-07-16] MEDS: PANTOPRAZOLE 40 MG TABLET PO SCH (09:15)
[2021-07-16] MEDS: ASPIRIN 81 MG PO SCH (09:15)
[2021-07-16] MEDS: ASCORBIC ACID 500 MG TAB PO SCH (09:15)
[2021-07-16] MEDS: CYANOCOBALAMIN 500 MCG TAB PO SCH (09:15)
[2021-07-16] MEDS: CITALOPRAM HYDROBROMIDE 20 MG TAB PO SCH (09:15)
[2021-07-16] MEDS: ATORVASTATIN 80 MG TAB PO SCH (09:15)
[2021-07-16] MEDS: RANOLAZINE 500 MG TAB.ER.12H PO SCH (09:16)
[2021-07-16] MEDS: HEPARIN SODIUM,PORCINE/PF 5,000 UNIT/0.5 ML SYRINGE SQ SCH (09:16)
[2021-07-16] MEDS: VITAMIN E (DL,TOCOPHERYL ACET) 400 UNIT (180 MG) CAP PO SCH (09:17)
--- NOTE | 2021-07-16 09:28 | P.PN ---
Subjective Patient is seen in follow-up for acute kidney injury on chronic kidney disease. Blood pressure slightly on the lower side. Losartan was stopped yesterday. Also receiving IV hydration. Good urine output. No vomiting or diarrhea. Vital signs are stable. General: The patient appeared well nourished and normally developed. HEENT: Head exam is unremarkable. Neck is without jugular venous distension. LUNGS: Breath sounds decreased. HEART: Rate and Rhythm are regular. ABDOMEN: Soft, no distention. EXTREMITITES: No edema. Objective - Vital Signs Vital signs: Vital Signs Temp 98.5 F 07/16/21 07:00 Pulse 64 07/16/21 08:15 Resp 14 07/16/21 07:00 BP 108/64 07/16/21 07:00 Pulse Ox 100 07/16/21 07:00 Intake & Output 07/15/21 07/16/21 07/16/21 18:59 06:59 18:59 Other: Voiding Method Toilet Toilet # Voids 1 3 - Labs CBC & Chem 7: 07/12/21 08:21 07/15/21 07:58 Labs: Abnormal Lab Results - Last 24 Hours (Table) 07/15/21 07/15/21 07/15/21 Range/Units 07:58 12:26 17:21 Anion Gap 12.90 H (4.00-12.00) mmol/L BUN 64.0 H (9.0-27.0) mg/dL Creatinine 2.1 H (0.6-1.5) mg/dL Est GFR (CKD-EPI)AfAm 26.0 L (60.0-200.0) Est GFR (CKD-EPI)NonAf 22.5 L (60.0-200.0) BUN/Creatinine Ratio 30.48 H (12.00-20.00) Ratio Glucose 161 H (70-110) mg/dL POC Glucose (mg/dL) 235 H 255 H (75-99) mg/dL 07/15/21 Range/Units 20:32 Anion Gap (4.00-12.00) mmol/L BUN (9.0-27.0) mg/dL Creatinine (0.6-1.5) mg/dL Est GFR (CKD-EPI)AfAm (60.0-200.0) Est GFR (CKD-EPI)NonAf (60.0-200.0) BUN/Creatinine Ratio (12.00-20.00) Ratio Glucose (70-110) mg/dL POC Glucose (mg/dL) 105 H (75-99) mg/dL Assessment and Plan Plan: Assessment: 1. Acute kidney injury secondary to ATN secondary to hypotension and infection. Creatinine 2.1 yesterday. UA fairly benign. 2. UTI s/p antibiotics. 3. Chronic kidney disease stage IIIa secondary to diabetic kidney disease and nephrosclerosis with baseline creatinine near 1.1. 4. Diabetes mellitus. 5. Hypertension with chronic kidney disease. Plan: Continue to hold losartan. Decrease amlodipine to 5 mg daily and hold for systolic blood pressure less than 120. Encouraged oral intake. Avoid nephrotoxins. Check renal ultrasound. If renal function stable today, she can be discharged. Follow up outpatient in 1 week.
[2021-07-16 09:31] LABS: Basophils # (A) 0.05 X 10*3/uL (0.00-0.10); Basophils % (A) 0.9 %; Eosinophils # (A) 0.32 X 10*3/uL (0.04-0.35); Eosinophils % (A) 5.7 %; HCT 33.7 % (37.2-46.3); HGB 10.4 g/dL (12.0-15.0); Lymphocytes # (A) 0.76 X 10*3/uL (0.90-5.00); Lymphocytes % (A) 13.5 %; MCH 24.9 pg (27.0-32.0); MCHC 30.9 g/dL (32.0-37.0); MCV 80.6 fL (80.0-97.0); Mean Platelet Volume 11.9 fL (9.5-12.2); Monocytes # (A) 0.64 X 10*3/uL (0.20-1.00); Monocytes % (A) 11.4 %; Neutrophils # (A) 3.84 X 10*3/uL (1.80-7.70); Neutrophils % (A) 68.1 %; Platelet Count 197 X 10*3/uL (140-440); RBC 4.18 X 10*6/uL (4.10-5.20); WBC 5.63 X 10*3/uL (4.50-10.00)
--- NOTE | 2021-07-16 09:48 | XR ---
EXAMINATION TYPE: XR chest 2V DATE OF EXAM: 07/16/2021 COMPARISON: Chest x-ray 07/11/2021 HISTORY: Cough TECHNIQUE: Frontal and lateral views of the chest are obtained. FINDINGS: Patient is again rotated There is no focal air space opacity, pleural effusion, or pneumoth orax seen. The aorta is dense. The cardiac silhouette size is stable. The osseous structures are i ntact. IMPRESSION: Stable borderline cardiomegaly
[2021-07-16 10:34] LABS: Magnesium 2.2 mg/dL (1.5-2.4)
[2021-07-16 11:42] LABS: African American GFR (CKD) 27.1 (60.0-200.0); BUN/Creat Ratio 28.97 Ratio (12.00-20.00); Blood Urea Nitrogen 58.8 mg/dL (9.0-27.0); Calcium 9.3 mg/dL (8.7-10.3); Non-African American GFR(CKD) 23.4 (60.0-200.0); Potassium 4.6 mmol/L (3.5-5.5)
--- NOTE | 2021-07-16 12:13 | US ---
EXAMINATION TYPE: US kidneys/renal and bladder DATE OF EXAM: 07/16/2021 COMPARISON: NONE CLINICAL HISTORY: iveth. Abnormal renal labs EXAM MEASUREMENTS: Right Kidney: 9.5 x 4.8 x 5.2 cm Left Kidney: 9.9 x 5.1 x 4.6 cm Right Kidney: wnl Left Kidney: wnl Bladder: wnl Bilateral Jets seen: No There is no evidence for hydronephrosis at this point in time. No nephrolithiasis is seen. No tatiana s are identified. Cortical medullary differentiation is maintained. The urinary bladder is anechoic IMPRESSION: Normal kidneys
[2021-07-16 12:59] LABS: Glucose,Whole Blood 238 mg/dL (75-99)
[2021-07-16 14:36] VITALS: BP 144/72; RESP 16; TEMP 98.3
[2021-07-16 15:56] VITALS: PULSE 60
[2021-07-16] MEDS: SODIUM CHLORIDE 0.9% 1,000 ML IV SCH (17:09)
[2021-07-16 17:20] LABS: Glucose,Whole Blood 298 mg/dL (75-99)
--- NOTE | 2021-07-16 17:30 | P.DS ---
Providers Date of admission: 07/16/21 10:11 Expected date of discharge: 07/16/21 Attending physician: Johnny Awad Consults: 07/11/21 19:53 Consult Physician Urgent Consulting Provider: Shruthi Pichardo Consult Reason/Comments: Chronic renal failure, grade 3B to grade 4 Do you want consulting provider notified?: Yes Primary care physician: Johnny Awad Hospital Course: 76-year-old female with significant medical history of coronary artery disease with recent cardiac stenting in December to the proximal LAD, hypertension, hyperlipidemia, diabetes mellitus type 2, chronic renal failure stage 3B, anemia, anxiety, osteoarthritis, asthma, COPD, GERD/reflux, history of heart murmur with history of for rheumatic fever, chronic low back pain, obesity, neuropathy, history of back fusions L1 to L4, cataract surgery, colonoscopy and several additional comorbidities. Patient has been following with [facility] physician group for the last year with primary care, cardiology, and nephrology. Patient had extensive diagnostic workup in the emergency department revealing chest pain with rule out acute coronary syndrome. She was evaluated by cardiology acute coronary syndrome was ruled out, cardiology's recommendation for renexa 500 mg by mouth twice a day for chest discomfort, daily aspirin, high-dose statin therapy of 80 mg by mouth daily. Nephrology evaluated patient avoidance of nephrotoxic drugs and gentle hydration, renal function is stage IIIB to stage IV will follow-up with nephrology and within 1 week, hold metformin, losartan, and Bumex at this time. From a medical perspective continue all home medications except metformin, losartan, and Bumex; we'll continue insulin 70/30 at 24 units twice a day for diabetes mellitus. Will follow-up with primary care in 1-2 days, cardiology with one-week, nephrology within 1-2 weeks. Patient be discharged in stable condition with guarded prognosis due to several comorbidities Assessment: Chest pain rule out acute coronary syndrome Coronary artery disease with recent stenting in December 2020 to the proximal LAD Hypertension Hyperlipidemia Diabetes mellitus type 2 Asthma COPD Chronic kidney disease baseline stage 3B to stage 4 Osteoarthritis Heart murmur with history of rheumatic fever GERD/reflux Low back pain History of Surgery of lumbar 1 to lumbar 4 History of carpal tunnel release History of cataract extraction History of spinal surgery Former nicotine dependence Obesity of a BMI of 45.3 Full code Final diagnosis Chest pain ruled out acute coronary syndrome, initiated on Ranexa for chest discomfort no chest pain noted with additional medication; patient to follow-up with cardiology history of stent to the proximal LAD with 3 vessel disease Acute kidney injury on baseline chronic kidney disease stage III A to b, remained stable throughout hospital stay will follow-up with nephrology holding Bumex,metformin, and Cozaar at this time. Hypertension controlled with Norvasc 10 mg by mouth daily Health Concerns: Multiple comorbidities Complexity of medical treatment plan Pertinent Studies: Echocardiogram with moderate left ventricle hypertrophy, left Charcot systolic function normal with EF of 55-60% Chest x-ray no acute cardiopulmonary processes Ultrasound kidney/renal and bladder, no evidence for hydronephrosis at this point no masses identified, CT radiologist dictation Procedures: No procedures performed during hospital stay Patient Condition at Discharge: Fair Plan - Discharge Summary Discharge Rx Participant: No New Discharge Prescriptions: New Aspirin 81 mg PO DAILY #60 tab Ranolazine [Ranexa] 500 mg PO Q12HR #60 tablet Continue Melatonin 3 mg PO HS Atorvastatin [Lipitor] 40 mg PO DAILY Cholecalciferol [Vitamin D3 (25 Mcg = 1000 Iu)] 100 mcg PO DAILY Glucosamine Sulfate 1,500 mg PO BID amLODIPine [Norvasc] 10 mg PO DAILY Losartan [Cozaar] 50 mg PO DAILY Insuln Asp Prt/Insulin Aspart [NovoLOG MIX 70-30 VIAL] 24 unit SQ AC-BID Clopidogrel Bisulfate [Plavix] 75 mg PO DAILY Nitroglycerin Sl Tabs [Nitrostat] 0.4 mg SL Q5M PRN PRN Reason: Chest Pain Vitamin E (Dl,Tocopheryl Acet) [Vitamin E (400 Iu = 180 mg)] 400 unit PO DAILY Cyanocobalamin (Vitamin B-12) [Vitamin B-12] 1,000 mcg PO DAILY Biotin 10,000 mcg PO DAILY Ascorbic Acid [Vitamin C] 500 mg PO DAILY Omeprazole 20 mg PO DAILY Citalopram Hydrobromide [CeleXA] 40 mg PO DAILY Discontinued Isosorbide Mononitrate ER [Imdur] 30 mg PO DAILY Bumetanide [BUMEX] 2 mg PO DAILY metFORMIN HCL 500 mg PO BID Discharge Medication List Ascorbic Acid [Vitamin C] 500 mg PO DAILY 07/11/21 [History] Atorvastatin [Lipitor] 40 mg PO DAILY 07/11/21 [History] Biotin 10,000 mcg PO DAILY 07/11/21 [History] Cholecalciferol [Vitamin D3 (25 Mcg = 1000 Iu)] 100 mcg PO DAILY 07/11/21 [History] Citalopram Hydrobromide [CeleXA] 40 mg PO DAILY 07/11/21 [History] Clopidogrel Bisulfate [Plavix] 75 mg PO DAILY 07/11/21 [History] Cyanocobalamin (Vitamin B-12) [Vitamin B-12] 1,000 mcg PO DAILY 07/11/21 [History] Glucosamine Sulfate 1,500 mg PO BID 07/11/21 [History] Insuln Asp Prt/Insulin Aspart [NovoLOG MIX 70-30 VIAL] 24 unit SQ AC-BID 07/11/21 [History] Losartan [Cozaar] 50 mg PO DAILY 07/11/21 [History] Melatonin 3 mg PO HS 07/11/21 [History] Nitroglycerin Sl Tabs [Nitrostat] 0.4 mg SL Q5M PRN 07/11/21 [History] Omeprazole 20 mg PO DAILY 07/11/21 [History] Vitamin E (Dl,Tocopheryl Acet) [Vitamin E (400 Iu = 180 mg)] 400 unit PO DAILY 07/11/21 [History] amLODIPine [Norvasc] 10 mg PO DAILY 07/11/21 [History] Aspirin 81 mg PO DAILY #60 tab 07/16/21 [Rx] Ranolazine [Ranexa] 500 mg PO Q12HR #60 tablet 07/16/21 [Rx] Follow up Appointment(s)/Referral(s): Johnny Awad MD [Primary Care Provider] - 1-2 days [facility] [NON-STAFF] - 1 Week Patient Instructions/Handouts: Chest Pain (DC), Acute Kidney Injury (DC), Chronic Kidney Disease (DC), Type 2 Diabetes in the Older Adult (DC) Discharge Disposition: HOME WITH HOME HEALTH SERVICES
[2021-07-16] MEDS ORDERED: amLODIPine 5 MG TAB PO SCH (21:00)
== END 2021-07-16 17:41 | disposition home health service (06) ==
LOC: EC 11:43 → 6NMEDSUR 14:20 → INTOOBSV 07-16 10:11 → OBSVTOIN 07-16 10:11 → UNDODISIN 07-16 17:41
PROVIDERS: ADMIT Family Medicine; ATTEND Family Medicine
DX: R07.89 Other chest pain (principal); I25.10 Atherosclerotic heart disease of native coronary artery without angina pectoris; N17.0 Acute kidney failure with tubular necrosis; N39.0 Urinary tract infection, site not specified; I12.9 Hypertensive chronic kidney disease with stage 1 through stage 4 chronic kidney disease, or unspecified chronic kidney disease; E11.22 Type 2 diabetes mellitus with diabetic chronic kidney disease; N18.32 Chronic kidney disease, stage 3b; E66.9 Obesity, unspecified; Z68.42 Body mass index [BMI] 45.0-49.9, adult; E11.65 Type 2 diabetes mellitus with hyperglycemia; E11.40 Type 2 diabetes mellitus with diabetic neuropathy, unspecified; Z20.822 Contact with and (suspected) exposure to COVID-19; E78.5 Hyperlipidemia, unspecified; D64.9 Anemia, unspecified; I00 Rheumatic fever without heart involvement; I95.9 Hypotension, unspecified; R01.1 Cardiac murmur, unspecified; G89.29 Other chronic pain; M19.90 Unspecified osteoarthritis, unspecified site; F41.9 Anxiety disorder, unspecified; I49.5 Sick sinus syndrome; J44.9 Chronic obstructive pulmonary disease, unspecified; K21.9 Gastro-esophageal reflux disease without esophagitis; Z79.84 Long term (current) use of oral hypoglycemic drugs; Z87.891 Personal history of nicotine dependence; Z79.02 Long term (current) use of antithrombotics/antiplatelets; Z79.4 Long term (current) use of insulin; Z79.899 Other long term (current) drug therapy; Z95.5 Presence of coronary angioplasty implant and graft; Z98.1 Arthrodesis status; Z98.41 Cataract extraction status, right eye; Z83.3 Family history of diabetes mellitus; Z98.42 Cataract extraction status, left eye; Z82.3 Family history of stroke; Z96.1 Presence of intraocular lens
CPT/HCPCS: 99285; 96376 ×2; 96366 ×3; 96367 ×2; 96372 ×3; 96365; 36415; 94640 ×10; 93005; 93306; 97162; 83880; 80061; 80053 ×2; 80048 ×3; 83735 ×5; 84484; 85025 ×3; 85610 ×2; 85730 ×2; 81001 ×3; 83036; 87635; 71046 ×2; 76770; G0378 ×6; J0696 ×2; J1644 ×6; J3475 ×2

== ENCOUNTER 2021-07-18 10:54 | Emergency (ER) | payer MEDICARE ==
[2021-07-18 11:57] LABS: Basophils % (A) 1 %; Eosinophils # (A) 0.2 k/uL (0-0.7); Eosinophils % (A) 3 %; HCT 34.2 % (34.0-46.0); HGB 10.9 gm/dL (11.4-16.0); Lymphocytes # (A) 1.1 k/uL (1.0-4.8); Lymphocytes % (A) 17 %; MCHC 31.9 g/dL (31.0-37.0); MCV 81.3 fL (80.0-100.0); Mean Platelet Volume 8.8; Monocytes # (A) 0.5 k/uL (0-1.0); Monocytes % (A) 7 %; Neutrophils # (A) 4.2 k/uL (1.3-7.7); Neutrophils % (A) 69 %; Platelet Count 164 k/uL (150-450); RBC 4.21 m/uL (3.80-5.40); RDW 15.1 % (11.5-15.5); WBC 6.1 k/uL (3.8-10.6)
[2021-07-18 12:07] LABS: INR 0.9 (<1.2); Partial Thromboplastin Time 23.4 sec (22.0-30.0)
[2021-07-18 12:11] LABS: Albumin 3.6 g/dL (3.5-5.0); Potassium 4.1 mmol/L (3.5-5.1); Total Bilirubin 0.5 mg/dL (0.2-1.3); Total Protein 6.5 g/dL (6.3-8.2)
--- NOTE | 2021-07-18 12:12 | XR ---
EXAMINATION TYPE: XR chest 2V DATE OF EXAM: 07/18/2021 COMPARISON: Chest x-ray 2 and 7 days ago. HISTORY: Cough and shortness of breath. TECHNIQUE: Frontal and lateral views of the chest are obtained. FINDINGS: There are chronic parenchymal changes bilaterally without suspicious focal air space opaci ty, pleural effusion, or pneumothorax seen. Cardiomegaly with atherosclerotic thoracic aorta is redem onstrated. Degenerative changes in spine and both shoulders are again seen. Partial visualization of surgical change in the lumbar spine on lateral view. IMPRESSION: Cardiomegaly without acute pulmonary process. No significant change from prior studies.
--- NOTE | 2021-07-18 12:37 | ED ---
General Adult HPI - General Chief complaint: Shortness of Breath Stated complaint: SOB/Weak Time Seen by Provider: 07/18/21 11:08 Source: patient, RN notes reviewed Mode of arrival: ambulatory Limitations: no limitations - History of Present Illness Initial comments: Patient is a 76-year-old female that presents to emergency room complaining of not feeling well and retaining fluid. She notes that she was recently discharged from the hospital 07/16/2021. She notes that she called her primary care who started on Lasix again yesterday. She notes that she was still having issue so she can emergency room. Patient was otherwise well-appearing. She notes that she did have a heart stent placed in December. She notes that since then she has not been feeling the same. Patient denies any chest pain shortness of breath headache nausea vomiting diarrhea constipation fever fatigue chills. - Related Data Home Medications Medication Instructions Recorded Confirmed Ascorbic Acid [Vitamin C] 500 mg PO DAILY 07/11/21 07/18/21 Atorvastatin [Lipitor] 40 mg PO DAILY 07/11/21 07/18/21 Biotin 10,000 mcg PO DAILY 07/11/21 07/18/21 Cholecalciferol [Vitamin D3 (25 100 mcg PO DAILY 07/11/21 07/18/21 Mcg = 1000 Iu)] Clopidogrel Bisulfate [Plavix] 75 mg PO DAILY 07/11/21 07/18/21 Cyanocobalamin (Vitamin B-12) 1,000 mcg PO DAILY 07/11/21 07/18/21 [Vitamin B-12] Glucosamine Sulfate 1,500 mg PO BID 07/11/21 07/18/21 Insuln Asp Prt/Insulin Aspart 24 unit SQ AC-BID 07/11/21 07/18/21 [NovoLOG MIX 70-30 VIAL] Losartan [Cozaar] 50 mg PO DAILY 07/11/21 07/18/21 Melatonin 3 mg PO HS 07/11/21 07/18/21 Nitroglycerin Sl Tabs [Nitrostat] 0.4 mg SL Q5M PRN 07/11/21 07/18/21 Omeprazole 20 mg PO DAILY 07/11/21 07/18/21 Vitamin E (Dl,Tocopheryl Acet) 400 unit PO DAILY 07/11/21 07/18/21 [Vitamin E (400 Iu = 180 mg)] amLODIPine [Norvasc] 10 mg PO DAILY 07/11/21 07/18/21 Previous Rx's Medication Instructions Recorded Aspirin 81 mg PO DAILY #60 tab 07/16/21 Ranolazine [Ranexa] 500 mg PO Q12HR #60 tablet 07/16/21 Allergies Allergy/AdvReac Type Severity Reaction Status Date / Time No Known Allergies Allergy Verified 07/18/21 11:42 Review of Systems ROS Statement: Those systems with pertinent positive or pertinent negative responses have been documented in the HPI. ROS Other: All systems not noted in ROS Statement are negative. Past Medical History Past Medical History: Asthma, Coronary Artery Disease (CAD), Chest Pain / Angina, COPD, Diabetes Mellitus, GERD/Reflux, Hyperlipidemia, Hypertension, Osteoarthritis (OA), Renal Disease, Respiratory Disorder Additional Past Medical History / Comment(s): Osteoarthritis, anemia, anxiety, asthma, murmur history of rheumatic fever, neuropathy. History of Any Multi-Drug Resistant Organisms: None Reported Past Surgical History: Back Surgery, Heart Catheterization With Stent Additional Past Surgical History / Comment(s): carpel tunnel Past Anesthesia/Blood Transfusion Reactions: No Reported Reaction Date of Last Stent Placement:: 12/2020 Past Psychological History: Anxiety Smoking Status: Former smoker Past Alcohol Use History: None Reported Past Drug Use History: None Reported - Past Family History Mother Family Medical History: Diabetes Mellitus Additional Family Medical History / Comment(s): at age 57 open heart surgery and cva Father Family Medical History: No Reported History General Exam Limitations: no limitations General appearance: alert, in no apparent distress, obese Head exam: Present: atraumatic, normocephalic, normal inspection Eye exam: Present: normal appearance, PERRL, EOMI. Absent: scleral icterus, conjunctival injection, periorbital swelling ENT exam: Present: normal exam, mucous membranes moist Neck exam: Present: normal inspection Respiratory exam: Present: normal lung sounds bilaterally. Absent: respiratory distress, wheezes, rales, rhonchi, stridor Cardiovascular Exam: Present: regular rate, normal rhythm, normal heart sounds. Absent: systolic murmur, diastolic murmur, rubs, gallop, clicks GI/Abdominal exam: Present: soft, normal bowel sounds. Absent: distended, tenderness, guarding, rebound, rigid Extremities exam: Present: normal inspection, full ROM, normal capillary refill. Absent: tenderness, pedal edema, joint swelling, calf tenderness Neurological exam: Present: alert, oriented X3 Psychiatric exam: Present: normal affect, normal mood Skin exam: Present: warm, dry, intact, normal color. Absent: rash Course Vital Signs 07/18/21 07/18/21 10:56 12:29 Temperature 99.6 F Pulse Rate 71 Respiratory 18 22 Rate Blood Pressure 139/62 O2 Sat by Pulse 97 Oximetry EKG Findings - EKG Comments: EKG Findings:: Ventricular rate 65 bpm, DC interval 198 ms, QRS duration 114 ms, QTC 451 ms, PRT axis 83/64/72. Normal sinus rhythm, left anterior fascicular block, anterior infarct age undetermined, abnormal ECG. Medical Decision Making - Medical Decision Making 76-year-old female complaining of continuing fluid retention and not feeling well sent by primary care. Labs, EKG, pvc monitor, chest x-ray ordered. Labs improving from studies done on 07/16/2021. Labs: CBC unremarkable, BUN 39 improve from previous, creatinine 1.53 improved from previous. Troponin negative, BNP slightly elevated within normal margins. Chest x-ray negative for any acute cardio pulmonary process. No change from previous. Patient is having continuing shortness of breath. Discussed with Dr. Salcido, patient discharge home. - Lab Data Result diagrams: 07/18/21 11:35 07/18/21 11:35 Lab Results 07/18/21 07/18/21 07/18/21 Range/Units 11:35 11:35 11:35 WBC 6.1 (3.8-10.6) k/uL RBC 4.21 (3.80-5.40) m/uL Hgb 10.9 L (11.4-16.0) gm/dL Hct 34.2 (34.0-46.0) % MCV 81.3 (80.0-100.0) fL MCH 26.0 (25.0-35.0) pg MCHC 31.9 (31.0-37.0) g/dL RDW 15.1 (11.5-15.5) % Plt Count 164 (150-450) k/uL MPV 8.8 Neutrophils % 69 % Lymphocytes % 17 % Monocytes % 7 % Eosinophils % 3 % Basophils % 1 % Neutrophils # 4.2 (1.3-7.7) k/uL Lymphocytes # 1.1 (1.0-4.8) k/uL Monocytes # 0.5 (0-1.0) k/uL Eosinophils # 0.2 (0-0.7) k/uL Basophils # 0.0 (0-0.2) k/uL PT 10.0 (9.0-12.0) sec INR 0.9 (<1.2) APTT 23.4 (22.0-30.0) sec Sodium 134 L (137-145) mmol/L Potassium 4.1 (3.5-5.1) mmol/L Chloride 103 (98-107) mmol/L Carbon Dioxide 23 (22-30) mmol/L Anion Gap 8 mmol/L BUN 39 H (7-17) mg/dL Creatinine 1.53 H (0.52-1.04) mg/dL Est GFR (CKD-EPI)AfAm 38 (>60 ml/min/1.73 sqM) Est GFR (CKD-EPI)NonAf 33 (>60 ml/min/1.73 sqM) Glucose 263 H (74-99) mg/dL Calcium 9.0 (8.4-10.2) mg/dL Total Bilirubin 0.5 (0.2-1.3) mg/dL AST 25 (14-36) U/L ALT 15 (4-34) U/L Alkaline Phosphatase 69 (38-126) U/L Troponin I (0.000-0.034) ng/mL NT-Pro-B Natriuret Pep pg/mL Total Protein 6.5 (6.3-8.2) g/dL Albumin 3.6 (3.5-5.0) g/dL 07/18/21 07/18/21 Range/Units 11:35 11:35 WBC (3.8-10.6) k/uL RBC (3.80-5.40) m/uL Hgb (11.4-16.0) gm/dL Hct (34.0-46.0) % MCV (80.0-100.0) fL MCH (25.0-35.0) pg MCHC (31.0-37.0) g/dL RDW (11.5-15.5) % Plt Count (150-450) k/uL MPV Neutrophils % % Lymphocytes % % Monocytes % % Eosinophils % % Basophils % % Neutrophils # (1.3-7.7) k/uL Lymphocytes # (1.0-4.8) k/uL Monocytes # (0-1.0) k/uL Eosinophils # (0-0.7) k/uL Basophils # (0-0.2) k/uL PT (9.0-12.0) sec INR (<1.2) APTT (22.0-30.0) sec Sodium (137-145) mmol/L Potassium (3.5-5.1) mmol/L Chloride (98-107) mmol/L Carbon Dioxide (22-30) mmol/L Anion Gap mmol/L BUN (7-17) mg/dL Creatinine (0.52-1.04) mg/dL Est GFR (CKD-EPI)AfAm (>60 ml/min/1.73 sqM) Est GFR (CKD-EPI)NonAf (>60 ml/min/1.73 sqM) Glucose (74-99) mg/dL Calcium (8.4-10.2) mg/dL Total Bilirubin (0.2-1.3) mg/dL AST (14-36) U/L ALT (4-34) U/L Alkaline Phosphatase (38-126) U/L Troponin I <0.012 (0.000-0.034) ng/mL NT-Pro-B Natriuret Pep 1030 pg/mL Total Protein (6.3-8.2) g/dL Albumin (3.5-5.0) g/dL - Radiology Data Radiology results: report reviewed, image reviewed Chest x-ray: Cardiomegaly without acute pulmonary process. No significant change from prior studies. Disposition Clinical Impression: Shortness of breath, Fluid retention Disposition: HOME SELF-CARE Condition: Stable Instructions (If sedation given, give patient instructions): Shortness of Breath (ED) Additional Instructions: Please return to the Emergency Department if symptoms worsen or any other concerns. Follow-up with primary care 1-2 days. Is patient prescribed a controlled substance at d/c from ED?: No Referrals: Johnny Awad MD [Primary Care Provider] - 1-2 days Time of Disposition: 13:03
[2021-07-18 13:30] VITALS: BP 138/64; PULSE 72; RESP 18; TEMP 99
== END 2021-07-18 13:28 | disposition home or self-care (01) ==
LOC: EC 10:54
DX: E87.70 Fluid overload, unspecified (principal); R06.02 Shortness of breath; J45.909 Unspecified asthma, uncomplicated; I25.10 Atherosclerotic heart disease of native coronary artery without angina pectoris; J44.9 Chronic obstructive pulmonary disease, unspecified; E11.9 Type 2 diabetes mellitus without complications; K21.9 Gastro-esophageal reflux disease without esophagitis; E78.5 Hyperlipidemia, unspecified; I11.9 Hypertensive heart disease without heart failure; M19.90 Unspecified osteoarthritis, unspecified site; F41.9 Anxiety disorder, unspecified; Z79.4 Long term (current) use of insulin; Z79.82 Long term (current) use of aspirin; Z87.891 Personal history of nicotine dependence; Z95.5 Presence of coronary angioplasty implant and graft
CPT/HCPCS: 36415; 71046; 80053; 83880; 84484; 85025; 85610; 85730; 93005; 99285

== ENCOUNTER 2021-07-31 23:59 | Emergency (ER) | payer MEDICARE ==
[2021-08-01 00:04] VITALS: TEMP 98.6
[2021-08-01] MEDS ORDERED: ASPIRIN 325 MG TAB PO STA (00:27)
--- NOTE | 2021-08-01 00:49 | XR ---
EXAMINATION TYPE: XR chest 2V DATE OF EXAM: 08/01/2021 COMPARISON: 07/18/2021 HISTORY: Chest pain TECHNIQUE: 2 views FINDINGS: Heart appears enlarged. Lungs are clear of consolidation. There is no heart failure. There are chest leads. Thoracic aorta is atheromatous. Bony thorax is intact. IMPRESSION: No active cardiopulmonary disease. Mild cardiomegaly. No change.
[2021-08-01 01:17] LABS: Basophils % (A) 0 %; Eosinophils % (A) 0 %; HCT 33.8 % (34.0-46.0); Lymphocytes # (A) 0.6 k/uL (1.0-4.8); Lymphocytes % (A) 11 %; MCH 26.1 pg (25.0-35.0); MCHC 32.6 g/dL (31.0-37.0); MCV 80.1 fL (80.0-100.0); Mean Platelet Volume 7.9; Monocytes # (A) 0.1 k/uL (0-1.0); Monocytes % (A) 2 %; Neutrophils # (A) 4.7 k/uL (1.3-7.7); Neutrophils % (A) 85 %; Platelet Count 304 k/uL (150-450); RBC 4.21 m/uL (3.80-5.40); RDW 15.4 % (11.5-15.5); WBC 5.5 k/uL (3.8-10.6)
[2021-08-01] MEDS ORDERED: ONDANSETRON 4 MG/2 ML VIAL IVP STA (01:46)
[2021-08-01] MEDS ORDERED: MORPHINE SULFATE 4 MG/ML SYRINGE IVP STA (01:46)
[2021-08-01] MEDS ORDERED: FAMOTIDINE 20 MG/2 ML VIAL IV STA (01:46)
[2021-08-01 01:50] LABS: Albumin 3.9 g/dL (3.5-5.0); Calcium 9.2 mg/dL (8.4-10.2); Magnesium 1.5 mg/dL (1.6-2.3); Potassium 3.9 mmol/L (3.5-5.1); Total Bilirubin 0.5 mg/dL (0.2-1.3); Total Protein 7.1 g/dL (6.3-8.2)
--- NOTE | 2021-08-01 01:50 | ED ---
General Adult HPI - General Chief complaint: Chest Pain Stated complaint: Chest Pain Time Seen by Provider: 08/01/21 00:09 Source: patient, RN notes reviewed Mode of arrival: wheelchair Limitations: no limitations - History of Present Illness Initial comments: 76-year-old female with a complicated past medical history presents to the emergency room for a chief complaint of chest pain. Patient states she has had this pain on and off for the past several weeks and was seen in the hospital for this. Patient started a new medication today for her chest pain. She states that she was seen by the office technology instructor in the hospital at the time and was told i t was nothing serious. Patient states that she has an appointment in one day with cardiology. Patient states the pain is a burning pain in her chest that radiates to her left shoulder. States it hurts to move her left arm. It hurts to press on the area. Patient had a cardiac catheterization in December and did have a stent placed.Patient has no other complaints at this time including shortness of breath, chest pain, abdominal pain, nausea or vomiting, headache, or visual changes. - Related Data Home Medications Medication Instructions Recorded Confirmed Ascorbic Acid [Vitamin C] 500 mg PO DAILY 07/11/21 07/18/21 Atorvastatin [Lipitor] 40 mg PO DAILY 07/11/21 07/18/21 Biotin 10,000 mcg PO DAILY 07/11/21 07/18/21 Cholecalciferol [Vitamin D3 (25 100 mcg PO DAILY 07/11/21 07/18/21 Mcg = 1000 Iu)] Clopidogrel Bisulfate [Plavix] 75 mg PO DAILY 07/11/21 07/18/21 Cyanocobalamin (Vitamin B-12) 1,000 mcg PO DAILY 07/11/21 07/18/21 [Vitamin B-12] Glucosamine Sulfate 1,500 mg PO BID 07/11/21 07/18/21 Insuln Asp Prt/Insulin Aspart 24 unit SQ AC-BID 07/11/21 07/18/21 [NovoLOG MIX 70-30 VIAL] Losartan [Cozaar] 50 mg PO DAILY 07/11/21 07/18/21 Melatonin 3 mg PO HS 07/11/21 07/18/21 Nitroglycerin Sl Tabs [Nitrostat] 0.4 mg SL Q5M PRN 07/11/21 07/18/21 Omeprazole 20 mg PO DAILY 07/11/21 07/18/21 Vitamin E (Dl,Tocopheryl Acet) 400 unit PO DAILY 07/11/21 07/18/21 [Vitamin E (400 Iu = 180 mg)] amLODIPine [Norvasc] 10 mg PO DAILY 07/11/21 07/18/21 Previous Rx's Medication Instructions Recorded Aspirin 81 mg PO DAILY #60 tab 07/16/21 Ranolazine [Ranexa] 500 mg PO Q12HR #60 tablet 07/16/21 Allergies Allergy/AdvReac Type Severity Reaction Status Date / Time No Known Allergies Allergy Verified 08/01/21 00:01 Review of Systems ROS Statement: Those systems with pertinent positive or pertinent negative responses have been documented in the HPI. ROS Other: All systems not noted in ROS Statement are negative. Past Medical History Past Medical History: Asthma, Coronary Artery Disease (CAD), Chest Pain / Angina, COPD, Diabetes Mellitus, GERD/Reflux, Hyperlipidemia, Hypertension, Osteoarthritis (OA), Renal Disease, Respiratory Disorder Additional Past Medical History / Comment(s): Osteoarthritis, anemia, anxiety, asthma, murmur history of rheumatic fever, neuropathy. History of Any Multi-Drug Resistant Organisms: None Reported Past Surgical History: Back Surgery, Heart Catheterization With Stent Additional Past Surgical History / Comment(s): carpel tunnel Past Anesthesia/Blood Transfusion Reactions: No Reported Reaction Date of Last Stent Placement:: 12/2020 Past Psychological History: Anxiety Smoking Status: Former smoker Past Alcohol Use History: None Reported Past Drug Use History: None Reported - Past Family History Mother Family Medical History: Diabetes Mellitus Additional Family Medical History / Comment(s): at age 57 open heart surgery and cva Father Family Medical History: No Reported History General Exam Limitations: no limitations General appearance: alert, in no apparent distress Head exam: Present: atraumatic Eye exam: Present: normal appearance, PERRL, EOMI. Absent: scleral icterus, conjunctival injection ENT exam: Present: normal exam, mucous membranes moist Neck exam: Present: normal inspection, full ROM. Absent: tenderness Respiratory exam: Present: normal lung sounds bilaterally, chest wall tenderness. Absent: respiratory distress, wheezes Cardiovascular Exam: Present: regular rate, normal rhythm, normal heart sounds GI/Abdominal exam: Present: soft, normal bowel sounds. Absent: distended, tenderness Course Vital Signs 08/01/21 08/01/21 00:01 02:07 Temperature 98.6 F Pulse Rate 101 H 96 Respiratory 20 18 Rate Blood Pressure 150/82 145/58 O2 Sat by Pulse 95 Oximetry EKG Findings - EKG Comments: EKG Findings:: Sinus rhythm, ventricular rate 95, CO interval 212, QRS duration 120 Medical Decision Making - Medical Decision Making Patient presents for atypical chest pain. States it is a burning pain in her chest that worsens with movement and pressing on the chest. Patient states it started after coughing for weeks. CBC unremarkable. Troponin is negative. Magnesium somewhat low, replaced orally. Glucose is 517. Patient was recently started on steroids for her cough. We will discontinue these and give her insulin here. She does have insulin at home. At this time given patienthas a follow-up appointment in 1 day and pain is atypical in nature she may discharged home. Will return here for any worsening symptoms. - Lab Data Result diagrams: 08/01/21 00:31 08/01/21 00:31 Lab Results 08/01/21 08/01/21 08/01/21 Range/Units 00:31 00:31 00:31 WBC 5.5 (3.8-10.6) k/uL RBC 4.21 (3.80-5.40) m/uL Hgb 11.0 L (11.4-16.0) gm/dL Hct 33.8 L (34.0-46.0) % MCV 80.1 (80.0-100.0) fL MCH 26.1 (25.0-35.0) pg MCHC 32.6 (31.0-37.0) g/dL RDW 15.4 (11.5-15.5) % Plt Count 304 (150-450) k/uL MPV 7.9 Neutrophils % 85 % Lymphocytes % 11 % Monocytes % 2 % Eosinophils % 0 % Basophils % 0 % Neutrophils # 4.7 (1.3-7.7) k/uL Lymphocytes # 0.6 L (1.0-4.8) k/uL Monocytes # 0.1 (0-1.0) k/uL Eosinophils # 0.0 (0-0.7) k/uL Basophils # 0.0 (0-0.2) k/uL PT 9.9 (9.0-12.0) sec INR 0.9 (<1.2) APTT 22.0 (22.0-30.0) sec Sodium 133 L (137-145) mmol/L Potassium 3.9 (3.5-5.1) mmol/L Chloride 104 (98-107) mmol/L Carbon Dioxide 18 L (22-30) mmol/L Anion Gap 11 mmol/L BUN 29 H (7-17) mg/dL Creatinine 1.16 H (0.52-1.04) mg/dL Est GFR (CKD-EPI)AfAm 54 (>60 ml/min/1.73 sqM) Est GFR (CKD-EPI)NonAf 46 (>60 ml/min/1.73 sqM) Glucose 517 H* (74-99) mg/dL POC Glucose (mg/dL) (75-99) mg/dL POC Glu Vice President Of [employer] ID Calcium 9.2 (8.4-10.2) mg/dL Magnesium 1.5 L (1.6-2.3) mg/dL Total Bilirubin 0.5 (0.2-1.3) mg/dL AST 28 (14-36) U/L ALT 17 (4-34) U/L Alkaline Phosphatase 81 (38-126) U/L Troponin I (0.000-0.034) ng/mL Total Protein 7.1 (6.3-8.2) g/dL Albumin 3.9 (3.5-5.0) g/dL Lipase 61 (23-300) U/L 08/01/21 08/01/21 Range/Units 00:31 02:37 WBC (3.8-10.6) k/uL RBC (3.80-5.40) m/uL Hgb (11.4-16.0) gm/dL Hct (34.0-46.0) % MCV (80.0-100.0) fL MCH (25.0-35.0) pg MCHC (31.0-37.0) g/dL RDW (11.5-15.5) % Plt Count (150-450) k/uL MPV Neutrophils % % Lymphocytes % % Monocytes % % Eosinophils % % Basophils % % Neutrophils # (1.3-7.7) k/uL Lymphocytes # (1.0-4.8) k/uL Monocytes # (0-1.0) k/uL Eosinophils # (0-0.7) k/uL Basophils # (0-0.2) k/uL PT (9.0-12.0) sec INR (<1.2) APTT (22.0-30.0) sec Sodium (137-145) mmol/L Potassium (3.5-5.1) mmol/L Chloride (98-107) mmol/L Carbon Dioxide (22-30) mmol/L Anion Gap mmol/L BUN (7-17) mg/dL Creatinine (0.52-1.04) mg/dL Est GFR (CKD-EPI)AfAm (>60 ml/min/1.73 sqM) Est GFR (CKD-EPI)NonAf (>60 ml/min/1.73 sqM) Glucose (74-99) mg/dL POC Glucose (mg/dL) 516 H (75-99) mg/dL POC Glu [employer] ID Sanchez, Jennifer Calcium (8.4-10.2) mg/dL Magnesium (1.6-2.3) mg/dL Total Bilirubin (0.2-1.3) mg/dL AST (14-36) U/L ALT (4-34) U/L Alkaline Phosphatase (38-126) U/L Troponin I <0.012 (0.000-0.034) ng/mL Total Protein (6.3-8.2) g/dL Albumin (3.5-5.0) g/dL Lipase (23-300) U/L Disposition Clinical Impression: Atypical chest pain, Cough, Hyperglycemia Disposition: HOME SELF-CARE Condition: Fair Instructions (If sedation given, give patient instructions): Chest Pain (ED), Costochondritis (ED) Additional Instructions: Please discontinue your steroid. Follow-up with your doctor and office technology instructor at your appointment on Thursday. Return to the emergency room for any worsening symptoms. Is patient prescribed a controlled substance at d/c from ED?: No Referrals: Johnny Awad MD [Primary Care Provider] - 1-2 days Time of Disposition: 03:32
[2021-08-01 02:01] LABS: INR 0.9 (<1.2); Prothrombin Time 9.9 sec (9.0-12.0)
[2021-08-01 02:08] VITALS: RESP 18
[2021-08-01] MEDS ORDERED: SODIUM CHLORIDE 0.9% 1,000 ML IV STA (02:21)
[2021-08-01] MEDS ORDERED: INSULIN REGULAR 100 UNIT/ML VIAL (IV) IV STA (02:21)
[2021-08-01 02:39] LABS: Glucose,Whole Blood 516 mg/dL (75-99)
[2021-08-01] MEDS ORDERED: MAGNESIUM OXIDE 400 MG TAB PO STA (03:33)
[2021-08-01 03:40] LABS: Glucose,Whole Blood 432 mg/dL (75-99)
[2021-08-01] MEDS ORDERED: INSULIN ASPART (NovoLOG) 100 UNIT/ML VIAL SQ STA (03:45)
[2021-08-01 04:09] VITALS: BP 147/72; PULSE 90
== END 2021-08-01 04:10 | disposition home or self-care (01) ==
LOC: EC 23:59
DX: R07.89 Other chest pain (principal); E11.65 Type 2 diabetes mellitus with hyperglycemia; R05.9 Cough, unspecified; I25.10 Atherosclerotic heart disease of native coronary artery without angina pectoris; J45.909 Unspecified asthma, uncomplicated; K21.9 Gastro-esophageal reflux disease without esophagitis; E78.5 Hyperlipidemia, unspecified; I10 Essential (primary) hypertension; M19.90 Unspecified osteoarthritis, unspecified site; F41.9 Anxiety disorder, unspecified; Z79.4 Long term (current) use of insulin; Z79.82 Long term (current) use of aspirin; Z87.891 Personal history of nicotine dependence
CPT/HCPCS: 99285; 96375 ×3; 96361 ×2; 96374 ×2; 99284; 36415; 93005; 80053; 83690; 83735; 84484; 85025; 85610; 85730; 71046; J2270; J2405

== ENCOUNTER 2021-08-23 06:11 | Day surgery (SDC) | payer MEDICARE ==
[2021-08-21 11:30] VITALS: BMI 45.3
[2021-08-23] MEDS ORDERED: ALPRAZolam 0.25 MG TAB PO PRN (06:17)
[2021-08-23] MEDS ORDERED: ASPIRIN 325 MG TAB PO STA (06:17)
[2021-08-23] MEDS ORDERED: HEPARIN SODIUM,PORCINE 2,500 UNIT in SODIUM CHLORIDE 0.9% 250 ML IRRIGATION PRN (06:17)
[2021-08-23] MEDS ORDERED: ALPRAZolam 0.5 MG TAB PO PRN (06:17)
[2021-08-23] MEDS ORDERED: HEPARIN SODIUM,PORCINE 10,000 UNIT in SODIUM CHLORIDE 0.9% 1,000 ML IRRIGATION PRN (06:17)
[2021-08-23] MEDS ORDERED: SODIUM CHLORIDE 0.9% 1,000 ML in EMPTY BAG 1 BAG IV SCH (06:17)
[2021-08-23] MEDS ORDERED: NITROGLYCERIN SL TABS 0.4 MG TAB SUBLINGUAL PRN (06:17)
[2021-08-23] MEDS ORDERED: ALPRAZolam 0.25 MG TAB PO ONE (06:45)
[2021-08-23 06:47] LABS: Glucose,Whole Blood 106 mg/dL (75-99)
[2021-08-23 07:01] VITALS: TEMP 98.3
[2021-08-23 07:25] LABS: Potassium 4.4 mmol/L (3.5-5.1)
[2021-08-23] MEDS: .fentaNYL (PF) 50 MCG/ML 2 ML AMP IV ONE ×3 (07:45→08:31)
[2021-08-23] MEDS: MIDAZOLAM 2 MG/2 ML VIAL IV ONE ×2 (07:45→08:07)
[2021-08-23] MEDS ORDERED: LIDOCAINE 1% INJ 10MG/ML (20 ML MDV) SQ ONE (07:51)
[2021-08-23] MEDS ORDERED: VERAPAMIL SYRINGE (5 MG/10 ML) INTRAARTER ONE ×2 (07:52→08:00)
[2021-08-23] MEDS: NITROGLYCERIN 1000MCG/10ML SYRINGE INTRACORON ONE ×3 (08:28→08:42)
[2021-08-23] MEDS ORDERED: IOPAMIDOL-370 125ML BTL INJ ONE (08:41)
[2021-08-23] MEDS ORDERED: IOPAMIDOL-370 100ML BTL INJ ONE (08:56)
[2021-08-23 12:18] VITALS: RESP 16
[2021-08-23] MEDS ORDERED: ALBUTEROL NEBULIZED 2.5 MG/3 ML INHALATION PRN (13:33)
[2021-08-23] MEDS ORDERED: NON FORMULARY DRUG (Bumetanide [Bumex] 2 MG Tablet) PO PRN (13:33)
[2021-08-23] MEDS ORDERED: ZOLPIDEM 5 MG TAB PO PRN (13:35)
[2021-08-23] MEDS ORDERED: RX INFO: IV CONTRAST WAS GIVEN 1 EACH MISC MISCELLANE PRN (13:35)
[2021-08-23] MEDS ORDERED: MAG HYDROX/AL HYDROX/SIMETH 30 ML CUP PO PRN (13:35)
[2021-08-23] MEDS ORDERED: ATROPINE SULFATE 0.1 MG/ML 10ML SYRINGE IV PRN (13:35)
[2021-08-23] MEDS ORDERED: SODIUM CHLORIDE 0.9% 1,000 ML IV SCH (13:45)
[2021-08-23 13:56] VITALS: BP 147/67; PULSE 63
[2021-08-23] MEDS ORDERED: INSULN ASP PRT/INSULIN ASPART 100 UNIT/ML 10 ML VIAL SQ SCH (17:30)
[2021-08-23] MEDS ORDERED: MELATONIN 3 MG TABLET PO SCH (21:00)
[2021-08-23] MEDS ORDERED: ATORVASTATIN 80 MG TAB PO SCH (21:00)
[2021-08-23] MEDS ORDERED: NON FORMULARY DRUG (Glucosamine Sulfate [Glucosamine Sulfate] 1,000 MG Tablet) PO SCH (21:00)
[2021-08-23] MEDS ORDERED: NON FORMULARY DRUG (Insulin Nph Hum/Reg Insulin Hm [Novolin 70-30 100 Unit/Ml Vial] 100 UN SQ SCH (21:00)
--- NOTE | 2021-08-24 01:04 | P.PRCINT ---
Percutaneous Coronary Int. - Percutaneous Coronary Intervention Percutaneous Coronary Intervention: PROCEDURES PERFORMED: Left heart catheterization, bilateral coronary angiography, PCI proximal circumflex with a 4.0 x 15mm Xience TANYA and mid circumflex 3.25 x 12 mm Xience TANYA, IVUS circumflex. INDICATION: Recurrent chest pain, NSTEMI, staged PCI HISTORY: Patient is a pleasant 76-year-old female with history of coronary artery disease status post PCI LAD December 2020, hypertension, hyperlipidemia, diabetes mellitus type 2, chronic kidney disease. She has been having recurrent episodes of chest pain and recurrent admissions with chest pain and non-STEMI however was having chronic kidney disease/acute kidney injury and therefore any heart catheterization was deferred. Secondary improvement in creatinine and recurrent episodes of chest pain despite antianginals as well as, heart catheterization with possible PCI was recommended. CONSENT:I have discussed the risks, benefits and alternative therapies for the above-mentioned procedure and for both sedation/analgesia as well as necessary blood product administration, if indicated, as they pertain to this patient. The patient has indicated understanding and acceptance of the risks and procedures discussed. PROCEDURE: After the risks, benefits and alternatives of the above mentioned procedure explained in detail with the patient, informed consent was obtained. Patient was taken to the catheterization lab and prepped and draped in usual fashion. 1% lidocaine was used to anesthetize the right radial artery. A 6- Swiss sheath was placed in the right radial artery using modified Seldinger technique. Left coronary angiography was performed with a 5-Swiss JL 3.5 catheter and right coronary angiography was performed with a 5-Swiss JR5 catheter in various views. A 5-Swiss FR5 catheter was inserted into the left ventricle and pressure measurements were obtained. The decision was made to perform PCI of the circumflex. Heparin was given for a CT or then 250. The distal lesion was predilated with a 3.0 x 8 mm balloon. Next a 3.25 x 12 mm Xience TANYA was placed at the distal circumflex lesion. The 3.25 x 12 mm balloon was used to predilate the proximal circumflex lesion. Next a 4.0 x 15 mm TANYA was placed at the proximal circumflex. IVUS was performed showed diffuse disease throughout however well-expanded stent, no dissection and less than 20% stenosis and therefore was felt best treated medically. The wire was pulled and final angiograms were performed. The right radial sheath was removed and a TR band was placed with hemostasis achieved. The patient tolerated the procedure well. Patient was transported back to the post catheterization holding area in stable condition. Conscious Sedation: Patient was monitored under the direct supervision of vision of myself for conscious sedation using Versed and fentanyl for a total duration of 65 minutes HEMODYNAMICS: Ao: 143/76 LV: 134/3, LVEDP 16mmHg SELECTIVE CORONARY ARTERIOGRAPHY: LEFT MAIN: The left main is a large caliber vessel which bifurcates into the LAD and circumflex. There is no significant stenosis. LEFT ANTERIOR DESCENDING CORONARY ARTERY: LAD is a large caliber vessel which wraps around to the apex. There is diffuse mild 10-20% stenosis and a patent proximal to mid LAD stent. There are left to right collaterals. LEFT CIRCUMFLEX CORONARY ARTERY: Left circumflex is a large caliber vessel with proximal 70% stenosis and a more distal focal 85% circumflex stenosis. Otherwise there is diffuse 20-30% stenosis. RIGHT CORONARY ARTERY: The right coronary artery is a large caliber vessel which gives off a PDA and PLV branch and is the dominant vessel. There is 100% stenosis of the mid RCA. FINAL IMPRESSION: 1. CAD as described above with 100% RCA ADJUDICATION SPECIALIST with collaterals, patent LAD stent and 70% proximal circumflex and 85% distal circumflex stenosis. 2. Normal left sided filling pressures PLAN: 1. Aggressive risk factor modification per most recent ACC/AHA guidelines. 2. Continue dual antiplatelets for 12 months. 3. Would continue to treat RCA medically. If continues to have angina may consider PCI RCA ADJUDICATION SPECIALIST however would weigh risks vs benefits especially with CKD.
[2021-08-24] MEDS ORDERED: CLOPIDOGREL 75 MG TAB PO SCH (09:00)
[2021-08-24] MEDS ORDERED: CHOLECALCIFEROL 25 MCG (1000 IU) TABLET PO SCH (09:00)
[2021-08-24] MEDS ORDERED: NON FORMULARY DRUG (Biotin [Biotin] 10,000 MCG Capsule) PO SCH (09:00)
[2021-08-24] MEDS ORDERED: LOSARTAN 50 MG TAB PO SCH (09:00)
[2021-08-24] MEDS ORDERED: VITAMIN E (DL,TOCOPHERYL ACET) 400 UNIT (180 MG) CAP PO SCH (09:00)
[2021-08-24] MEDS ORDERED: NON FORMULARY DRUG (Omeprazole [Omeprazole] 20 MG Capsule) PO SCH (09:00)
[2021-08-24] MEDS ORDERED: ASPIRIN 81 MG PO SCH (09:00)
[2021-08-24] MEDS ORDERED: amLODIPine 10 MG TAB PO SCH (09:00)
[2021-08-24] MEDS ORDERED: NON FORMULARY DRUG (Citalopram Hydrobromide [Celexa] 40 MG Tablet) PO SCH (09:00)
[2021-08-24] MEDS ORDERED: ISOSORBIDE MONONITRATE ER 30 MG TAB.ER.24H PO SCH (09:00)
[2021-08-24] MEDS ORDERED: NON FORMULARY DRUG (Cyanocobalamin (Vitamin B-12) [Vitamin B-12] 1,000 MCG Tablet) PO SCH (09:00)
[2021-08-24] MEDS ORDERED: ASCORBIC ACID 500 MG TAB PO SCH (09:00)
[2021-08-27] MEDS ORDERED: NON FORMULARY DRUG (Dulaglutide [Trulicity] 0.75 MG/0.5 ML Each) SQ SCH (13:33)
== END 2021-08-23 14:37 | disposition home or self-care (01) ==
LOC: CATHCVL 06:11
PROVIDERS: ATTEND Internal Medicine
DX: I22.2 Subsequent non-ST elevation (NSTEMI) myocardial infarction (principal); M19.90 Unspecified osteoarthritis, unspecified site; I25.10 Atherosclerotic heart disease of native coronary artery without angina pectoris; I35.0 Nonrheumatic aortic (valve) stenosis; I12.9 Hypertensive chronic kidney disease with stage 1 through stage 4 chronic kidney disease, or unspecified chronic kidney disease; E11.22 Type 2 diabetes mellitus with diabetic chronic kidney disease; N18.31 Chronic kidney disease, stage 3a; F17.210 Nicotine dependence, cigarettes, uncomplicated; E66.9 Obesity, unspecified; Z68.42 Body mass index [BMI] 45.0-49.9, adult; Z20.822 Contact with and (suspected) exposure to COVID-19; Z79.899 Other long term (current) drug therapy; Z79.02 Long term (current) use of antithrombotics/antiplatelets
CPT/HCPCS: 92978; 93458; 80048; 87635; C9600; C1769; C1887; C1894; C1725; C1753; C1874 ×2; J2250; J2001; J3010; J1644; Q9967 ×2

== ENCOUNTER → 2021-09-27 | Outpatient (CLI) | payer MEDICARE ==
[2021-09-27 16:11] LABS: Appearance,Urine Clear (Clear); Bilirubin,Urine Negative (Negative); Blood,Urine Negative (Negative); Color,Urine Yellow; Glucose,Urine (UA) Negative (Negative); Ketones,Urine Negative (Negative); Leukocyte Esterase,Urine Negative (Negative); Mucus,Urine Rare /hpf; Nitrite,Urine Negative (Negative); PH, Urine 5.5 (5.0-8.0); Protein,Urine 2+ (Negative); RBC,Urine <1 /hpf (0-5); Specific Gravity,Urine 1.019 (1.001-1.035); Squamous Epithelial Cell,Urine 1 /hpf (0-4); Urobilinogen,Urine <2.0 mg/dL (<2.0); WBC,Urine 1 /hpf (0-5)
[2021-09-27 16:19] LABS: Creatinine,Urine Random 127.8 mg/dL
[2021-09-27 16:28] LABS: Protein/Creatinine Ratio,Urine 2.05
[2021-09-28 02:03] LABS: Basophils # (A) 0.05 X 10*3/uL (0.00-0.10); Basophils % (A) 0.8 %; Eosinophils # (A) 0.23 X 10*3/uL (0.04-0.35); Eosinophils % (A) 3.5 %; HCT 29.1 % (37.2-46.3); Lymphocytes # (A) 1.76 X 10*3/uL (0.90-5.00); Lymphocytes % (A) 27.1 %; MCH 25.1 pg (27.0-32.0); MCHC 30.9 g/dL (32.0-37.0); MCV 81.3 fL (80.0-97.0); Mean Platelet Volume 11.1 fL (9.5-12.2); Monocytes # (A) 0.62 X 10*3/uL (0.20-1.00); Monocytes % (A) 9.5 %; Neutrophils % (A) 58.5 %; Platelet Count 211 X 10*3/uL (140-440); RBC 3.58 X 10*6/uL (4.10-5.20); RDW 15.4 % (11.5-14.5)
[2021-09-28 02:30] LABS: African American GFR (CKD) 50.2 (60.0-200.0); Albumin/Globulin Ratio 1.68 (1.60-3.17); Anion Gap 13.3 mmol/L (10.00-18.00); BUN/Creat Ratio 19.1 Ratio (12.00-20.00); Blood Urea Nitrogen 23.3 mg/dL (9.0-27.0); Carbon Dioxide 22.2 mmol/L (20.0-27.5); Globulin 2.4 g/dL (1.6-3.3); Magnesium 1.6 mg/dL (1.5-2.4); Non-African American GFR(CKD) 43.3 (60.0-200.0); Potassium 4.2 mmol/L (3.5-5.5); Total Bilirubin 0.3 mg/dL (0.30-1.20); Total Protein 6.4 g/dL (6.2-8.2)
== END | disposition home or self-care (01) ==
LOC: LABWHC1 14:48
PROVIDERS: ATTEND Nurse Practitioner Adult Health
DX: N18.30 Chronic kidney disease, stage 3 unspecified (principal); D64.9 Anemia, unspecified; I10 Essential (primary) hypertension; E55.9 Vitamin D deficiency, unspecified; N25.81 Secondary hyperparathyroidism of renal origin; N39.0 Urinary tract infection, site not specified; R80.9 Proteinuria, unspecified
CPT/HCPCS: 36415; 80053; 81001; 82306; 82570; 83735; 83970; 84100; 84156; 85025

== ENCOUNTER 2021-09-28 07:33 | Inpatient (IN) | payer MEDICARE ==
[2021-09-28] MEDS ORDERED: NITROGLYCERIN OINT 1 INCH/GM PACKET TOPICAL STA (07:49)
--- NOTE | 2021-09-28 07:53 | ED ---
General Adult HPI - General Stated complaint: chest pain Time Seen by Provider: 09/28/21 07:35 Source: patient, RN notes reviewed, old records reviewed - History of Present Illness Initial comments: This is a 76-year-old female with past medical history significant for multiple cardiac stents diabetes hypertension high cholesterol. Patient states one clot this morning she started having chest pain that radiated to her back and it made her short of breath. Patient states she took 2 nitroglycerin each time she took it the pain was reduced. Patient states she received another nitroglycerin in route via EMS and it took her pain away completely. Patient states he also gave her an aspirin. Patient denied any diaphoretic episodes. Patient denies any nausea vomiting per patient denies any abdominal pain. Patient denies any headache patient denies numbness weakness. Patient denies any lightheadedness or dizziness. Patient denied any calf tenderness but states her legs are a little more swollen than normal. - Related Data Home Medications Medication Instructions Recorded Confirmed Ascorbic Acid [Vitamin C] 500 mg PO DAILY 07/11/21 09/28/21 Atorvastatin [Lipitor] 80 mg PO HS 07/11/21 09/28/21 Biotin 10,000 mcg PO DAILY 07/11/21 09/28/21 Cholecalciferol [Vitamin D3 (25 100 mcg PO DAILY 07/11/21 09/28/21 Mcg = 1000 Iu)] Clopidogrel Bisulfate [Plavix] 75 mg PO DAILY 07/11/21 09/28/21 Cyanocobalamin (Vitamin B-12) 1,000 mcg PO DAILY 07/11/21 09/28/21 [Vitamin B-12] Losartan [Cozaar] 50 mg PO DAILY 07/11/21 09/28/21 Melatonin 3 mg PO HS 07/11/21 09/28/21 Nitroglycerin Sl Tabs [Nitrostat] 0.4 mg SL Q5M PRN 07/11/21 09/28/21 Omeprazole 20 mg PO DAILY 07/11/21 09/28/21 Vitamin E (Dl,Tocopheryl Acet) 400 unit PO DAILY 07/11/21 09/28/21 [Vitamin E (400 Iu = 180 mg)] amLODIPine [Norvasc] 10 mg PO DAILY 07/11/21 09/28/21 Bumetanide [BUMEX] 2 mg PO DAILY PRN 08/21/21 09/28/21 Citalopram Hydrobromide [CeleXA] 40 mg PO DAILY 08/21/21 09/28/21 Dulaglutide [Trulicity] 0.75 mg SQ TU 08/21/21 09/28/21 Insulin NPH Hum/Reg Insulin Hm 25 unit SQ BID 08/21/21 09/28/21 [NovoLIN 70-30 100 UNIT/ML VIAL] Ezetimibe [Zetia] 10 mg PO DIRECTED 09/28/21 09/28/21 Isosorbide Mononitrate ER [Imdur] 60 mg PO DAILY 09/28/21 09/28/21 Allergies Allergy/AdvReac Type Severity Reaction Status Date / Time No Known Allergies Allergy Verified 09/28/21 09:06 Review of Systems ROS Statement: Those systems with pertinent positive or pertinent negative responses have been documented in the HPI. ROS Other: All systems not noted in ROS Statement are negative. Past Medical History Past Medical History: Asthma, Coronary Artery Disease (CAD), Chest Pain / Angina, COPD, Diabetes Mellitus, GERD/Reflux, Hyperlipidemia, Hypertension, Osteoarthritis (OA), Renal Disease, Respiratory Disorder Additional Past Medical History / Comment(s): Osteoarthritis, anemia, anxiety, asthma, murmur history of rheumatic fever, neuropathy. TYPE 2 DIABETIC-INSULIN History of Any Multi-Drug Resistant Organisms: None Reported Past Surgical History: Back Surgery, Heart Catheterization With Stent Additional Past Surgical History / Comment(s): carpel tunnel Past Anesthesia/Blood Transfusion Reactions: No Reported Reaction Date of Last Stent Placement:: 12/2020 Smoking Status: Former smoker - Past Family History Mother Additional Family Medical History / Comment(s): at age 57 open heart surgery and cva Son(s) Family Medical History: Pulmonary Embolus General Exam - General Exam Comments Initial Comments: GENERAL: Patient is well-developed and well-nourished. Patient is nontoxic and well- hydrated and is in no acute distress. ENT: Neck is soft and supple. No significant lymphadenopathy is noted. Oropharynx is clear. Moist mucous membranes. Neck has full range of motion without eliciting any pain. EYES: The sclera were anicteric and conjunctiva were pink and moist. Extraocular movements were intact and pupils were equal round and reactive to light. Eyelids were unremarkable. PULMONARY: Unlabored respirations. Good breath sounds bilaterally. No audible rales rh onchi or wheezing was noted. CARDIOVASCULAR: There is a regular rate and rhythm without any murmurs gallops or rubs. ABDOMEN: Soft and nontender with normal bowel sounds. SKIN: Skin is mildly pale NEUROLOGIC: Patient is alert and oriented x3. Cranial nerves II through XII are grossly intact. Motor and sensory are also intact. Normal speech, volume and content. Symmetrical smile. MUSCULOSKELETAL: Normal extremities with adequate strength and full range of motion. Minimal edema bilaterally. No calf tenderness. LYMPHATICS: No significant lymphadenopathy is noted PSYCHIATRIC: Normal psychiatric evaluation. Course Vital Signs 09/28/21 09/28/21 08:07 10:41 Temperature 98.3 F 98.4 F Pulse Rate 73 71 Respiratory 18 18 Rate Blood Pressure 138/61 153/72 O2 Sat by Pulse 94 L 96 Oximetry Medical Decision Making - Medical Decision Making EKG shows normal sinus rhythm at 70 bpm NV interval is 202 QRS is 112 QT interval 428 QTC is 487. Patient's EKG shows no ST segment elevation or depression. Patient is COVID positive and will receive monoclonal antibodies this qualifies. Patient will not be admitted for COVID but be admitted for her chest pain. I spoke with Dr. hernandez he agreed to admit the patient and the patient wrote admitting orders. - Lab Data Result diagrams: 09/28/21 08:37 09/28/21 08:37 Lab Results 09/28/21 09/28/21 09/28/21 Range/Units 08:37 08:37 08:37 WBC 5.2 (3.8-10.6) k/uL RBC 3.43 L (3.80-5.40) m/uL Hgb 9.1 L D (11.4-16.0) gm/dL Hct 27.9 L (34.0-46.0) % MCV 81.4 (80.0-100.0) fL MCH 26.4 (25.0-35.0) pg MCHC 32.4 (31.0-37.0) g/dL RDW 15.4 (11.5-15.5) % Plt Count 166 (150-450) k/uL MPV 7.2 Neutrophils % 68 % Lymphocytes % 20 % Monocytes % 7 % Eosinophils % 3 % Basophils % 1 % Neutrophils # 3.6 (1.3-7.7) k/uL Lymphocytes # 1.0 (1.0-4.8) k/uL Monocytes # 0.4 (0-1.0) k/uL Eosinophils # 0.1 (0-0.7) k/uL Basophils # 0.0 (0-0.2) k/uL Hypochromasia Slight PT 9.9 (9.0-12.0) sec INR 0.9 (<1.2) APTT 22.0 (22.0-30.0) sec Sodium 140 (137-145) mmol/L Potassium 4.1 (3.5-5.1) mmol/L Chloride 109 H (98-107) mmol/L Carbon Dioxide 23 (22-30) mmol/L Anion Gap 8 mmol/L BUN 24 H (7-17) mg/dL Creatinine 1.12 H (0.52-1.04) mg/dL Est GFR (CKD-EPI)AfAm 56 (>60 ml/min/1.73 sqM) Est GFR (CKD-EPI)NonAf 48 (>60 ml/min/1.73 sqM) Glucose 209 H (74-99) mg/dL Calcium 8.7 (8.4-10.2) mg/dL Magnesium 1.6 (1.6-2.3) mg/dL Total Bilirubin 0.4 (0.2-1.3) mg/dL AST 23 (14-36) U/L ALT 15 (4-34) U/L Alkaline Phosphatase 61 (38-126) U/L Troponin I (0.000-0.034) ng/mL Total Protein 6.0 L (6.3-8.2) g/dL Albumin 3.4 L (3.5-5.0) g/dL Coronavirus (PCR) (Not Detectd) 09/28/21 09/28/21 Range/Units 08:37 08:37 WBC (3.8-10.6) k/uL RBC (3.80-5.40) m/uL Hgb (11.4-16.0) gm/dL Hct (34.0-46.0) % MCV (80.0-100.0) fL MCH (25.0-35.0) pg MCHC (31.0-37.0) g/dL RDW (11.5-15.5) % Plt Count (150-450) k/uL MPV Neutrophils % % Lymphocytes % % Monocytes % % Eosinophils % % Basophils % % Neutrophils # (1.3-7.7) k/uL Lymphocytes # (1.0-4.8) k/uL Monocytes # (0-1.0) k/uL Eosinophils # (0-0.7) k/uL Basophils # (0-0.2) k/uL Hypochromasia PT (9.0-12.0) sec INR (<1.2) APTT (22.0-30.0) sec Sodium (137-145) mmol/L Potassium (3.5-5.1) mmol/L Chloride (98-107) mmol/L Carbon Dioxide (22-30) mmol/L Anion Gap mmol/L BUN (7-17) mg/dL Creatinine (0.52-1.04) mg/dL Est GFR (CKD-EPI)AfAm (>60 ml/min/1.73 sqM) Est GFR (CKD-EPI)NonAf (>60 ml/min/1.73 sqM) Glucose (74-99) mg/dL Calcium (8.4-10.2) mg/dL Magnesium (1.6-2.3) mg/dL Total Bilirubin (0.2-1.3) mg/dL AST (14-36) U/L ALT (4-34) U/L Alkaline Phosphatase (38-126) U/L Troponin I 0.018 (0.000-0.034) ng/mL Total Protein (6.3-8.2) g/dL Albumin (3.5-5.0) g/dL Coronavirus (PCR) Detected A (Not Detectd) Disposition Clinical Impression: Chest pain, COVID-19 Disposition: ADMITTED IP TO THIS HOSP Referrals: Johnny Awad MD [Primary Care Provider] - 1-2 days Time of Disposition: 10:59
[2021-09-28 08:57] LABS: Basophils % (A) 1 %; Eosinophils # (A) 0.1 k/uL (0-0.7); Eosinophils % (A) 3 %; HCT 27.9 % (34.0-46.0); Hypochromasia Slight; Lymphocytes % (A) 20 %; MCH 26.4 pg (25.0-35.0); MCHC 32.4 g/dL (31.0-37.0); MCV 81.4 fL (80.0-100.0); Mean Platelet Volume 7.2; Monocytes # (A) 0.4 k/uL (0-1.0); Monocytes % (A) 7 %; Neutrophils # (A) 3.6 k/uL (1.3-7.7); Neutrophils % (A) 68 %; Platelet Count 166 k/uL (150-450); RBC 3.43 m/uL (3.80-5.40); RDW 15.4 % (11.5-15.5); WBC 5.2 k/uL (3.8-10.6)
[2021-09-28 09:07] LABS: Albumin 3.4 g/dL (3.5-5.0); Calcium 8.7 mg/dL (8.4-10.2); Magnesium 1.6 mg/dL (1.6-2.3); Potassium 4.1 mmol/L (3.5-5.1); Total Bilirubin 0.4 mg/dL (0.2-1.3)
--- NOTE | 2021-09-28 09:11 | XR ---
EXAMINATION TYPE: XR chest 2V DATE OF EXAM: 09/28/2021 COMPARISON: Chest x-ray August 01, 2021 HISTORY: History of cardiac stents with chest pain TECHNIQUE: Frontal and lateral views of the chest are obtained. FINDINGS: There are chronic emphysematous and parenchymal changes bilaterally redemonstrated. The c ardiac silhouette size remains enlarged. No new focal airspace opacity, pleural effusion, or pneumoth orax seen. Degenerative change bilateral shoulders. IMPRESSION: Chronic changes and cardiomegaly without acute pulmonary process.
[2021-09-28 09:20] LABS: HGB 9.1 gm/dL (11.4-16.0)
[2021-09-28 09:48] LABS: INR 0.9 (<1.2); Prothrombin Time 9.9 sec (9.0-12.0)
[2021-09-28] MEDS ORDERED: NITROGLYCERIN SL TABS 0.4 MG TAB SUBLINGUAL PRN ×2 (11:00→20:53)
[2021-09-28] MEDS: NITROGLYCERIN OINT 1 INCH/GM PACKET TOPICAL SCH ×2 (12:48→18:04)
[2021-09-28 12:51] LABS: Glucose,Whole Blood 169 mg/dL (75-99)
[2021-09-28] MEDS: INSULIN ASPART (NovoLOG) 100 UNIT/ML VIAL SQ SCH ×3 (13:13→22:01)
[2021-09-28] MEDS ORDERED: SODIUM CHLORIDE 0.9% 50 ML IVPB ONE (15:00)
[2021-09-28] MEDS ORDERED: CASIRIVIMAB (REGN10933) (EUA) 600 MG, IMDEVIMAB (REGN10987) (EUA) 600 MG in SODIUM CHLO... IVPB ONE (15:00)
[2021-09-28] MEDS ORDERED: HEPARIN SODIUM 1,000 UN/ML (10ML VL) IV PRN (16:37)
[2021-09-28] MEDS ORDERED: HEPARIN SODIUM 1,000 UN/ML (10ML VL) IV ONE (16:37)
[2021-09-28 17:38] LABS: Glucose,Whole Blood 131 mg/dL (75-99)
[2021-09-28] MEDS: HEPARIN SOD,PORK IN 0.45% NACL 25,000 UNIT in 0.45% NACL 1 250ML.BAG IV SCH (18:00)
[2021-09-28] MEDS ORDERED: FAMOTIDINE 20 MG/2 ML VIAL IV SCH (21:00)
[2021-09-28 21:02] LABS: Glucose,Whole Blood 173 mg/dL (75-99)
[2021-09-28] MEDS: MELATONIN 3 MG TABLET PO SCH (22:01)
[2021-09-28] MEDS: ATORVASTATIN 80 MG TAB PO SCH (22:01)
--- NOTE | 2021-09-29 01:20 | P.HPIM ---
History of Present Illness This is a pleasant 76. Female with past medical history of Asthma, Coronary Artery Disease status post stent placement 12/2020, COPD, Diabetes Mellitus, GERD, Hyperlipidemia, Hypertension, Osteoarthritis , murmur history of rheumatic fever, neuropathy. her pcp is and campus wellness coordinator is , she has appointment to see automotive window tinter this week for worsening kid function as per pt. Patient presents because of chest pain which started last night 12-1 AM, she went to sleep and this morning at 5:00 she has recurred CP again, she took 2 nitro pills which helped a little bit but got worse thereafter at 9/10 in severity so she decided to come to emergency room, now she feels her chest pain is better after she received treatment but she described it as central, and burning pain going to the left shoulder. She states that her chest pain is similar to that that she had it about 2 months ago and earlier last year on December 20 she had a stent placed into her heart Also patient is complaining of from chronic dyspnea and cough and however during her chest pain attack this morning her dyspnea was more worse per her at bedside. No abdominal pain or vomiting or diarrhea. No dysuria or urgency. No headache or weakness or numbness. She denies smoking, alcohol or illicit drugs. She takes trulicity and insulin 70:30 at 25 units twice a day usually her sugar is around 100-140 but this morning im the ambulance it was more than 300 She is saturating 94% on room air, rest of vitals are stable and she's been afebrile. EKG showed normal sinus rhythm with no significant ST-T changes, rate at 78 and QTC 487. Labs reviewed, hemoglobin 9.1, creatinine 1.1 which is baseline 1.1-1.5. Chest x-ray showed chronic changes with no acute process. Her troponin are elevated Review of Systems CONSTITUTIONAL: No fever, no malaise, no fatigue. HEENT: No recent visual problems or hearing problems. Denied any sore throat. CARDIOVASCULAR: No orthopnea, PND, no palpitations, no syncope. PULMONARY: No shortness of breath, no cough, no hemoptysis. GASTROINTESTINAL: No diarrhea, no nausea, no vomiting, no abdominal pain. Normoactive bowel sounds. NEUROLOGICAL: No headaches, no weakness, no numbness. HEMATOLOGICAL: Denies any bleeding or petechiae. GENITOURINARY: Denies any burning micturition, frequency, or urgency. MUSCULOSKELETAL/RHEUMATOLOGICAL: Denies any joint pain, swelling, or any muscle pain. ENDOCRINE: Denies any polyuria or polydipsia. Past Medical History Past Medical History: Asthma, Coronary Artery Disease (CAD), Chest Pain / Angina, COPD, Diabetes Mellitus, GERD/Reflux, Hyperlipidemia, Hypertension, Osteoarthritis (OA), Renal Disease, Respiratory Disorder Additional Past Medical History / Comment(s): Osteoarthritis, anemia, anxiety, asthma, murmur history of rheumatic fever, neuropathy. TYPE 2 DIABETIC-INSULIN History of Any Multi-Drug Resistant Organisms: None Reported Past Surgical History: Back Surgery, Heart Catheterization With Stent Additional Past Surgical History / Comment(s): carpel tunnel Past Anesthesia/Blood Transfusion Reactions: No Reported Reaction Date of Last Stent Placement:: 12/2020 Smoking Status: Former smoker - Past Family History Mother Additional Family Medical History / Comment(s): at age 57 open heart surgery and cva Son(s) Family Medical History: Pulmonary Embolus Medications and Allergies Home Medications Medication Instructions Recorded Confirmed Type Ascorbic Acid [Vitamin C] 500 mg PO DAILY 07/11/21 09/28/21 History Atorvastatin [Lipitor] 80 mg PO HS 07/11/21 09/28/21 History Biotin 10,000 mcg PO DAILY 07/11/21 09/28/21 History Cholecalciferol [Vitamin D3 (25 100 mcg PO DAILY 07/11/21 09/28/21 History Mcg = 1000 Iu)] Clopidogrel Bisulfate [Plavix] 75 mg PO DAILY 07/11/21 09/28/21 History Cyanocobalamin (Vitamin B-12) 1,000 mcg PO DAILY 07/11/21 09/28/21 History [Vitamin B-12] Losartan [Cozaar] 50 mg PO DAILY 07/11/21 09/28/21 History Melatonin 3 mg PO HS 07/11/21 09/28/21 History Nitroglycerin Sl Tabs [Nitrostat] 0.4 mg SL Q5M PRN 07/11/21 09/28/21 History Omeprazole 20 mg PO DAILY 07/11/21 09/28/21 History Vitamin E (Dl,Tocopheryl Acet) 400 unit PO DAILY 07/11/21 09/28/21 History [Vitamin E (400 Iu = 180 mg)] amLODIPine [Norvasc] 10 mg PO DAILY 07/11/21 09/28/21 History Bumetanide [BUMEX] 2 mg PO DAILY PRN 08/21/21 09/28/21 History Citalopram Hydrobromide [CeleXA] 40 mg PO DAILY 08/21/21 09/28/21 History Dulaglutide [Trulicity] 0.75 mg SQ TU 08/21/21 09/28/21 History Insulin NPH Hum/Reg Insulin Hm 25 unit SQ BID 08/21/21 09/28/21 History [NovoLIN 70-30 100 UNIT/ML VIAL] Ezetimibe [Zetia] 10 mg PO DAILY 09/28/21 09/28/21 History Isosorbide Mononitrate ER [Imdur] 60 mg PO DAILY 09/28/21 09/28/21 History Allergies Allergy/AdvReac Type Severity Reaction Status Date / Time No Known Allergies Allergy Verified 09/28/21 09:06 Physical Exam GENERAL: The patient is alert and oriented x3, not in any acute distress. Well developed, well nourished. HEENT: Pupils are round and equally reacting to light. EOMI. No scleral icterus. No conjunctival pallor. Normocephalic, atraumatic. No pharyngeal erythema. No thyromegaly. CARDIOVASCULAR: S1 and S2 present. No murmurs, rubs, or gallops. PULMONARY: Chest is clear to auscultation, no wheezing or crackles. ABDOMEN: Soft, nontender, nondistended, normoactive bowel sounds. No palpable organomegaly. MUSCULOSKELETAL: No joint swelling or deformity. EXTREMITIES: No cyanosis, clubbing, or pedal edema. NEUROLOGICAL: Gross neurological examination did not reveal any focal deficits. SKIN: No rashes. No petechiae Results CBC & Chem 7: 09/28/21 08:37 09/28/21 08:37 Assessment and Plan Assessment: Chest pain, rule out non-STEMI Covid infection without pneumonia Type 2 diabetes mellitus, hyperglycemia Hypertension, uncontrolled upon admission History of coronary artery disease status post stent placement Hyperlipidemia History of osteoarthritis History of GERD History of asthma/COPD, not an active issue Plan: She is a pleasant 76 years old female who presents with chest pain We'll do serial troponins, Cardiology consult continue with insulin and ISS Start the patient on vitamin C, vitamin D and zinc and monitor oxygen level Labs and medication were reviewed.. Continue same treatment. Continue with symptomatic treatment. Resume home medication. Monitor lytes and vitals. DVT and GI prophylaxis. Further recommendations depends on the clinical course of the patient DVT prophylaxis: heparin GI Prophylaxis: Pepcid PT/OT: Pending Prognosis is guarded
[2021-09-29] MEDS: NITROGLYCERIN OINT 1 INCH/GM PACKET TOPICAL SCH ×5 (01:22→23:45)
[2021-09-29 03:21] LABS: Glucose,Whole Blood 169 mg/dL (75-99)
[2021-09-29 06:54] LABS: Glucose,Whole Blood 191 mg/dL (75-99)
[2021-09-29] MEDS: INSULIN ASPART (NovoLOG) 100 UNIT/ML VIAL SQ SCH ×4 (07:06→21:04)
[2021-09-29] MEDS: INSULIN DETEMIR (LEVEMIR) 100 UNIT/ML SYR SQ SCH (07:06)
[2021-09-29] MEDS: amLODIPine 10 MG TAB PO SCH (08:49)
[2021-09-29] MEDS: CLOPIDOGREL 75 MG TAB PO SCH (08:49)
[2021-09-29] MEDS: ASCORBIC ACID 500 MG TAB PO SCH (08:49)
[2021-09-29] MEDS: CYANOCOBALAMIN 500 MCG TAB PO SCH (08:49)
[2021-09-29] MEDS: ZINC SULFATE 220 MG CAP PO SCH (08:49)
[2021-09-29] MEDS: EZETIMIBE 10 MG TAB PO SCH (08:49)
[2021-09-29] MEDS: CITALOPRAM HYDROBROMIDE 20 MG TAB PO SCH (08:49)
[2021-09-29] MEDS: FAMOTIDINE 20 MG TAB PO SCH (08:50)
[2021-09-29] MEDS: ISOSORBIDE MONONITRATE ER 60 MG TAB.ER.24H PO SCH (08:50)
[2021-09-29] MEDS: LOSARTAN 50 MG TAB PO SCH (08:50)
[2021-09-29] MEDS: ASPIRIN 81 MG PO SCH (08:50)
[2021-09-29] MEDS: CHOLECALCIFEROL 25 MCG (1000 IU) TABLET PO SCH (08:50)
[2021-09-29] MEDS ORDERED: ASPIRIN 325 MG TAB PO SCH (09:00)
[2021-09-29 10:17] LABS: Basophils % (A) 1 %; Eosinophils # (A) 0.3 k/uL (0-0.7); Eosinophils % (A) 5 %; HCT 27.8 % (34.0-46.0); HGB 8.7 gm/dL (11.4-16.0); Hypochromasia Moderate; Lymphocytes # (A) 1.2 k/uL (1.0-4.8); Lymphocytes % (A) 23 %; MCH 25.7 pg (25.0-35.0); MCHC 31.2 g/dL (31.0-37.0); MCV 82.3 fL (80.0-100.0); Mean Platelet Volume 7.9; Monocytes # (A) 0.3 k/uL (0-1.0); Monocytes % (A) 5 %; Neutrophils # (A) 3.3 k/uL (1.3-7.7); Neutrophils % (A) 62 %; Platelet Count 160 k/uL (150-450); RBC 3.38 m/uL (3.80-5.40); RDW 15.8 % (11.5-15.5); WBC 5.3 k/uL (3.8-10.6)
[2021-09-29 10:26] LABS: Partial Thromboplastin Time 59.3 sec (22.0-30.0); Prothrombin Time 10.6 sec (9.0-12.0)
[2021-09-29 12:08] LABS: Glucose,Whole Blood 164 mg/dL (75-99)
--- NOTE | 2021-09-29 12:14 | P.PN ---
Subjective This is a pleasant 76. Female with past medical history of Asthma, Coronary Artery Disease status post stent placement 12/2020, COPD, Diabetes Mellitus, GERD, Hyperlipidemia, Hypertension, Osteoarthritis , murmur history of rheumatic fever, neuropathy. 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 Patient presents because of chest pain which started last night 12-1 AM, she went to sleep and this morning at 5:00 she has recurred CP again, she took 2 nitro pills which helped a little bit but got worse thereafter at 9/10 in severity so she decided to come to emergency room, now she feels her chest pain is better after she received treatment but she described it as central, and burning pain going to the left shoulder. She states that her chest pain is similar to that that she had it about 2 months ago and earlier last year on December 20 she had a stent placed into her heart Also patient is complaining of from chronic dyspnea and cough and however during her chest pain attack this morning her dyspnea was more worse per her at bedside. No abdominal pain or vomiting or diarrhea. No dysuria or urgency. No headache or weakness or numbness. She denies smoking, alcohol or illicit drugs. She takes trulicity and insulin 70:30 at 25 units twice a day usually her sugar is around 100-140 but this morning im the ambulance it was more than 300 She is saturating 94% on room air, rest of vitals are stable and she's been afebrile. EKG showed normal sinus rhythm with no significant ST-T changes, rate at 78 and QTC 487. Labs reviewed, hemoglobin 9.1, creatinine 1.1 which is baseline 1.1-1.5. Chest x-ray showed chronic changes with no acute process. Her troponin are elevated 09/29/2021 Patient admitted with burning chest pain secondary to non-STEMI highly suspected and patient was started on heparin drip by computer technical specialist last night. Also continued on home dose of Plavix. This morning patient denies any more burning chest pain, last time she had it was last night. Her dyspnea and tachypnea looks better. She still have some dry cough. She has positive, would infection but without pneumonia or hypoxia. Glucose controlled after placement Levemir 5 units, currently she is nothing by mouth. Blood pressure is controlled 131/70 Her cough still there and admitted for Robitussin. Repeat chest x-ray tomorrow for her carotid infection with negative chest x-ray on admission. Follow-up echocardiogram and check labs tomorrow morning Objective - Vital Signs Vital signs: Vital Signs Temp 98.4 F 09/29/21 08:00 Pulse 66 09/29/21 12:00 Resp 16 09/29/21 12:00 BP 131/70 09/29/21 12:00 Pulse Ox 95 09/29/21 12:00 Intake & Output 09/28/21 09/29/21 09/29/21 18:59 06:59 18:59 Intake Total 52.995 Balance 52.995 Weight 112.491 kg Intake: Intake, IV Titration 52.995 Amount Heparin Sod,Pork in 0.45% 52.995 NaCl 25,000 unit In 0.45 % NaCl 1 250ml.bag @ 8. 889 UNITS/KG/HR 9.999 mls /hr IV .Q24H [facility] Rx#: [id number] Other: Voiding Method Toilet Toilet # Voids 1 - Exam -GENERAL: The patient is alert and oriented x3, not in any acute distress. Diabetic obese HEENT: Pupils are round and equally reacting to light. EOMI. No scleral icterus. No conjunctival pallor. Normocephalic, atraumatic. No pharyngeal erythema. No thyromegaly. CARDIOVASCULAR: S1 and S2 present. No murmurs, rubs, or gallops. PULMONARY: Chest is clear to auscultation, no wheezing or crackles. ABDOMEN: Soft, nontender, nondistended, normoactive bowel sounds. No palpable organomegaly. MUSCULOSKELETAL: No joint swelling or deformity. EXTREMITIES: No cyanosis, clubbing, or pedal edema. NEUROLOGICAL: Gross neurological examination did not reveal any focal deficits. SKIN: No rashes. no petechiae. - Labs CBC & Chem 7: 09/29/21 09:59 09/28/21 08:37 Labs: Abnormal Lab Results - Last 24 Hours (Table) 09/28/21 09/28/21 09/28/21 Range/Units 08:37 11:09 12:51 RBC (3.80-5.40) m/uL Hgb (11.4-16.0) gm/dL Hct (34.0-46.0) % RDW (11.5-15.5) % APTT (22.0-30.0) sec POC Glucose (mg/dL) 169 H (75-99) mg/dL Hemoglobin A1c 7.3 H (4.0-6.0) % Troponin I 0.146 H* (0.000-0.034) ng/mL 09/28/21 09/28/21 09/28/21 Range/Units 14:40 17:37 20:48 RBC (3.80-5.40) m/uL Hgb (11.4-16.0) gm/dL Hct (34.0-46.0) % RDW (11.5-15.5) % APTT 32.5 H (22.0-30.0) sec POC Glucose (mg/dL) 131 H (75-99) mg/dL Hemoglobin A1c (4.0-6.0) % Troponin I 0.701 H* (0.000-0.034) ng/mL 09/28/21 09/28/21 09/29/21 Range/Units 20:48 23:49 03:20 RBC (3.80-5.40) m/uL Hgb (11.4-16.0) gm/dL Hct (34.0-46.0) % RDW (11.5-15.5) % APTT 31.6 H (22.0-30.0) sec POC Glucose (mg/dL) 173 H 169 H (75-99) mg/dL Hemoglobin A1c (4.0-6.0) % Troponin I (0.000-0.034) ng/mL 09/29/21 09/29/21 09/29/21 Range/Units 06:50 09:59 09:59 RBC 3.38 L (3.80-5.40) m/uL Hgb 8.7 L (11.4-16.0) gm/dL Hct 27.8 L (34.0-46.0) % RDW 15.8 H (11.5-15.5) % APTT 59.3 H (22.0-30.0) sec POC Glucose (mg/dL) 191 H (75-99) mg/dL Hemoglobin A1c (4.0-6.0) % Troponin I (0.000-0.034) ng/mL 09/29/21 09/29/21 Range/Units 09:59 12:07 RBC (3.80-5.40) m/uL Hgb (11.4-16.0) gm/dL Hct (34.0-46.0) % RDW (11.5-15.5) % APTT (22.0-30.0) sec POC Glucose (mg/dL) 164 H (75-99) mg/dL Hemoglobin A1c (4.0-6.0) % Troponin I 0.656 H* (0.000-0.034) ng/mL Assessment and Plan Assessment: Chest pain, possible non-STEMI Covid infection without pneumonia. Patient with persistent cough and some exertional dyspnea Type 2 diabetes mellitus, hyperglycemia Hypertension, uncontrolled upon admission History of coronary artery disease status post stent placement Hyperlipidemia History of osteoarthritis History of GERD History of asthma/COPD, not an active issue Plan: She is a pleasant 76 years old female who presents with chest pain We'll do serial troponins, Cardiology consult continue with insulin and ISS Start the patient on vitamin C, vitamin D and zinc and monitor oxygen level Labs and medication were reviewed.. Continue same treatment. Continue with symptomatic treatment. Resume home medication. Monitor lytes and vitals. DVT and GI prophylaxis. Further recommendations depends on the clinical course of the patient DVT prophylaxis: heparin GI Prophylaxis: Pepcid PT/OT: Pending Prognosis is guarded
[2021-09-29] MEDS ORDERED: NITROGLYCERIN SL TABS 0.4 MG TAB SUBLINGUAL PRN ×2 (12:33→19:22)
[2021-09-29] MEDS ORDERED: ATORVASTATIN 80 MG TAB PO STA (12:33)
[2021-09-29] MEDS ORDERED: ALPRAZolam 0.5 MG TAB PO PRN (12:33)
[2021-09-29] MEDS ORDERED: ASPIRIN 325 MG TAB PO STA (12:33)
[2021-09-29] MEDS ORDERED: ALPRAZolam 0.25 MG TAB PO PRN (12:33)
--- NOTE | 2021-09-29 12:42 | P.CRDCN ---
History of Present Illness History of present illness: HISTORY OF PRESENTING ILLNESS Patient is a pleasant 76-year-old female with history of asthma, coronary artery disease with initial stenting in December 2020 as well as repeat stenting in Decem 2020, COPD, diabetes mellitus, GERD, hypertension, hyperlipidemia and a, osteoarthritis, history of rheumatic fever as a child and neuropathy. Patient normally follows with Dr. Toth. She had been having intermittent episodes of chest pain and initially any intervention was deferred secondary to acute kidney injury. Her chest pain had improved however and then underwent heart catheterization in August 2021 which showed mild disease of the LAD with patent LAD stent, similar-appearing diagonal disease as well as obstructive circumflex disease. Patient underwent successful PCI of the circumflex and had been doing fairly well for proximal a month. Unfortunately she developed repeat episodes of chest pain yesterday and therefore came to emergency department. Chest pain had improved however it recurred last night and therefore take 2 nitroglycerin with improvement in pain after approximate 20-30 minutes. She denies any recent changes in medications. She does admit to a mild cough for last 2-3 days and surprisingly was found to be Covid 19 positive. shows normal sinus rhythm, left axis deviation, Q waves anteriorly and nonspecific minimal ST depressions. Blood work showed hemoglobin 9.1, platelets 166, sodium 140, BUN 24, creatinine 1.1, hemoglobin A1c 7.3, troponin 0.018, 0.14, 0.7, 0.65. Echo from June 2021 showed EF 55-60%, mild mitral regurgitation and no other significant valvular disease. REVIEW OF SYSTEMS At the time of my exam: CONSTITUTIONAL: Denies fever or chills. CARDIOVASCULAR: +chest pain, +shortness of breath, no orthopnea, PND or palpitat ions. RESPIRATORY: +mild cough. GASTROINTESTINAL: Denies abdominal pain, diarrhea, constipation, nausea or vomiting. MUSCULOSKELETAL: Denies myalgias. NEUROLOGIC: Denies numbness, tingling or weakness. ENDOCRINE: Denies fatigue, weight change, polydipsia or polyurina. GENITOURINARY: Denies burning, hematuria or urgency with micturation. HEMATOLOGIC: Denies history of anemia or bleeding. PHYSICAL EXAMINATION Vital signs reviewed. CONSTITUTIONAL: No apparent distress. HEENT: Head is normocephalic. Pupils are equal, round. Sclerae anicteric. Mucous membranes of the mouth are moist. No JVD. No carotid bruit. CHEST EXAMINATION: Lungs are clear to auscultation. No chest wall tenderness is noted on palpation or with deep breathing. HEART EXAMINATION: Regular rate and rhythm. S1, S2 heard. No murmurs, gallops or rub. ABDOMEN: Soft, nontender. Positive bowel sounds. EXTREMITIES: 2+ peripheral pulses, no lower extremity edema and no calf tenderness. NEUROLOGIC EXAMINATION: Patient is awake, alert and oriented x3. ASSESSMENT 1. Non-STEMI, suspect type I mechanism 2. COVID-19 infection, appears fairly mild with mild cough 3. Coronary artery disease with prior history of LAD and circumflex stenting 4. Hypertension 5. Hyperlipidemia 6. Prior history of acute kidney injury, appears improved 7. Normal ejection fraction from echo from June 2021 8. Diabetes mellitus type 2 PLAN Continue with heparin drip. Patient is having unstable angina-type symptoms with recurrence of chest pain last night. Although she does have COVID-19 infection appears fairly mild and most of her symptoms appear related to angina. Therefore we discussed recommendations for heart catheterization with possible PCI. Patient is agreeable. Check 2-D echo. Further recommendations to follow. Past Medical History Past Medical History: Asthma, Coronary Artery Disease (CAD), Chest Pain / Angina, COPD, Diabetes Mellitus, GERD/Reflux, Hyperlipidemia, Hypertension, Osteoarthritis (OA), Renal Disease, Respiratory Disorder Additional Past Medical History / Comment(s): Osteoarthritis, anemia, anxiety, asthma, murmur history of rheumatic fever, neuropathy. TYPE 2 DIABETIC-INSULIN History of Any Multi-Drug Resistant Organisms: None Reported Past Surgical History: Back Surgery, Heart Catheterization With Stent Additional Past Surgical History / Comment(s): carpel tunnel Past Anesthesia/Blood Transfusion Reactions: No Reported Reaction Date of Last Stent Placement:: 12/2020 Smoking Status: Former smoker - Past Family History Mother Additional Family Medical History / Comment(s): at age 57 open heart surgery and cva Son(s) Family Medical History: Pulmonary Embolus Medications and Allergies Home Medications Medication Instructions Recorded Confirmed Type Ascorbic Acid [Vitamin C] 500 mg PO DAILY 07/11/21 09/28/21 History Atorvastatin [Lipitor] 80 mg PO HS 07/11/21 09/28/21 History Biotin 10,000 mcg PO DAILY 07/11/21 09/28/21 History Cholecalciferol [Vitamin D3 (25 100 mcg PO DAILY 07/11/21 09/28/21 History Mcg = 1000 Iu)] Clopidogrel Bisulfate [Plavix] 75 mg PO DAILY 07/11/21 09/28/21 History Cyanocobalamin (Vitamin B-12) 1,000 mcg PO DAILY 07/11/21 09/28/21 History [Vitamin B-12] Losartan [Cozaar] 50 mg PO DAILY 07/11/21 09/28/21 History Melatonin 3 mg PO HS 07/11/21 09/28/21 History Nitroglycerin Sl Tabs [Nitrostat] 0.4 mg SL Q5M PRN 07/11/21 09/28/21 History Omeprazole 20 mg PO DAILY 07/11/21 09/28/21 History Vitamin E (Dl,Tocopheryl Acet) 400 unit PO DAILY 07/11/21 09/28/21 History [Vitamin E (400 Iu = 180 mg)] amLODIPine [Norvasc] 10 mg PO DAILY 07/11/21 09/28/21 History Bumetanide [BUMEX] 2 mg PO DAILY PRN 08/21/21 09/28/21 History Citalopram Hydrobromide [CeleXA] 40 mg PO DAILY 08/21/21 09/28/21 History Dulaglutide [Trulicity] 0.75 mg SQ TU 08/21/21 09/28/21 History Insulin NPH Hum/Reg Insulin Hm 25 unit SQ BID 08/21/21 09/28/21 History [NovoLIN 70-30 100 UNIT/ML VIAL] Ezetimibe [Zetia] 10 mg PO DAILY 09/28/21 09/28/21 History Isosorbide Mononitrate ER [Imdur] 60 mg PO DAILY 09/28/21 09/28/21 History Allergies Allergy/AdvReac Type Severity Reaction Status Date / Time No Known Allergies Allergy Verified 09/28/21 09:06 Physical Exam Vitals: Vital Signs Temp Pulse Pulse Resp BP BP Pulse Ox 09/29/21 12:00 66 16 131/70 95 09/29/21 08:00 98.4 F 71 16 137/71 96 09/29/21 03:15 97.9 F 83 21 135/71 97 09/29/21 00:05 97.9 F 83 21 135/71 97 09/28/21 20:45 98.5 F 75 20 144/71 96 09/28/21 17:43 98.4 F 67 16 184/81 97 09/28/21 14:49 98 F 70 18 166/64 97 09/28/21 13:16 98.3 F 61 18 145/77 97 Intake and Output 09/28/21 09/29/21 09/29/21 22:59 06:59 14:59 Intake Total 52.995 Balance 52.995 Intake: Intake, IV Titration 52.995 Amount Heparin Sod,Pork in 0.45% 52.995 NaCl 25,000 unit In 0.45 % NaCl 1 250ml.bag @ 8. 889 UNITS/KG/HR 9.999 mls /hr IV .Q24H [facility] Rx#: [id number] Other: Voiding Method Toilet Toilet Toilet # Voids 1 1 2 Weight 112.491 kg Results 09/29/21 09:59 09/28/21 08:37 Cardiac Enzymes 09/28/21 09/29/21 Range/Units 14:40 09:59 Troponin I 0.701 H* 0.656 H* (0.000-0.034) ng/mL Coagulation 09/28/21 09/28/21 09/29/21 Range/Units 20:48 23:49 09:59 PT 10.6 (9.0-12.0) sec APTT 32.5 H 31.6 H 59.3 H (22.0-30.0) sec CBC 09/29/21 Range/Units 09:59 WBC 5.3 (3.8-10.6) k/uL RBC 3.38 L (3.80-5.40) m/uL Hgb 8.7 L (11.4-16.0) gm/dL Hct 27.8 L (34.0-46.0) % Plt Count 160 (150-450) k/uL Current Medications Generic Name Dose Route Start Last Admin Trade Name Freq PRN Reason Stop Dose Admin Alprazolam 0.25 mg 09/29/21 12:33 Alprazolam 0.25 Mg Tab PO Q6HR PRN Mild Anxiety Alprazolam 0.5 mg 09/29/21 12:33 Alprazolam 0.5 Mg Tab PO Q6HR PRN Moderate Anxiety Amlodipine Besylate 10 mg 09/29/21 09:00 09/29/21 08:49 Amlodipine 10 Mg Tab PO 10 mg DAILY [facility] Administration Ascorbic Acid 500 mg 09/29/21 09:00 09/29/21 08:49 Ascorbic Acid 500 Mg Tab PO 500 mg DAILY [facility] Administration Aspirin 81 mg 09/29/21 09:00 09/29/21 08:50 Aspirin 81 Mg PO 81 mg DAILY [facility] Administration Aspirin 325 mg 09/29/21 12:33 Aspirin 325 Mg Tab PO 09/29/21 12:34 ONCE STA Atorvastatin Calcium 80 mg 09/28/21 21:30 09/28/21 22:01 Atorvastatin 80 Mg Tab PO 80 mg HS [facility] Administration Atorvastatin Calcium 80 mg 09/29/21 12:33 Atorvastatin 80 Mg Tab PO 09/29/21 12:34 ONCE STA Cholecalciferol 50 mcg 09/29/21 09:00 09/29/21 08:50 Cholecalciferol 25 Mcg (1000 Iu) Tablet PO 50 mcg DAILY [facility] Administration Citalopram Hydrobromide 40 mg 09/29/21 09:00 09/29/21 08:49 Citalopram Hydrobromide 20 Mg Tab PO 40 mg DAILY [facility] Administration Clopidogrel Bisulfate 75 mg 09/29/21 09:00 09/29/21 08:49 Clopidogrel 75 Mg Tab PO 75 mg DAILY [facility] Administration Cyanocobalamin 1,000 mcg 09/29/21 09:00 09/29/21 08:49 Cyanocobalamin 500 Mcg Tab PO 1,000 mcg DAILY [facility] Administration Ezetimibe 10 mg 09/29/21 09:00 09/29/21 08:49 Ezetimibe 10 Mg Tab PO 10 mg DAILY [facility] Administration Famotidine 20 mg 09/29/21 09:00 09/29/21 08:50 Famotidine 20 Mg Tab PO 20 mg DAILY [facility] Administration Guaifenesin/Dextromethorphan 10 ml 09/29/21 18:00 Guaifenesin-Dm 100-10mg/5ml 10 Ml Cup PO Q6HR [facility] Heparin Sodium (Porcine) 0 unit 09/28/21 16:37 09/29/21 01:25 Heparin Sodium 1,000 Un/Ml (10ml Vl) IV 4,000 unit PER PROTOCOL PRN Administration Low PTT Protocol Heparin Sodium/Sodium Chloride 250 mls @ 9.999 mls/hr 09/28/21 16:45 09/28/21 23:18 25,000 unit/ Sodium Chloride IV 11.889 units/kg/hr .Q24H [facility] 13.374 mls/hr Titration Protocol 8.889 UNITS/KG/HR Heparin Sodium (Porcine) 10, 1,001 mls @ 999 mls/hr 09/30/21 07:00 000 unit/ Sodium Chloride IRRIGATION 09/30/21 23:00 ONCE PRN INTRA-OP Heparin Sodium (Porcine) 2,500 250.5 mls @ 250 mls/hr 09/30/21 07:00 unit/ Sodium Chloride IRRIGATION 09/30/21 23:00 ONCE PRN INTRA-OP Insulin Aspart 0 unit 09/28/21 12:30 09/29/21 12:08 Insulin Aspart (Novolog) 100 Unit/Ml Vial SQ Not Given ACHS [facility] Protocol Insulin Detemir 5 unit 09/29/21 07:00 09/29/21 07:06 Insulin Detemir (Levemir) 100 Unit/Ml Syr SQ 5 unit DAILY@0700 [facility] Administration Isosorbide Mononitrate 60 mg 09/29/21 09:00 09/29/21 08:50 Isosorbide Mononitrate Er 60 Mg Tab.Er.24h PO 60 mg DAILY [facility] Administration Losartan Potassium 50 mg 09/29/21 09:00 09/29/21 08:50 Losartan 50 Mg Tab PO 50 mg DAILY [facility] Administration Melatonin 3 mg 09/28/21 21:30 09/28/21 22:01 Melatonin 3 Mg Tablet PO 3 mg HS [facility] Administration Nitroglycerin 0.4 mg 09/28/21 11:00 Nitroglycerin Sl Tabs 0.4 Mg Tab SUBLINGUAL Q5M PRN Chest Pain Nitroglycerin 1 inch 09/28/21 12:00 09/29/21 12:04 Nitroglycerin Oint 1 Inch/Gm Packet TOPICAL 1 inch Q6HR [facility] Administration Nitroglycerin 0.4 mg 09/28/21 20:53 Nitroglycerin Sl Tabs 0.4 Mg Tab SUBLINGUAL Q5M PRN Chest Pain Nitroglycerin 0.4 mg 09/29/21 12:33 Nitroglycerin Sl Tabs 0.4 Mg Tab SUBLINGUAL Q5M PRN Chest Pain Zinc Sulfate 220 mg 09/29/21 09:00 09/29/21 08:49 Zinc Sulfate 220 Mg Cap PO 220 mg DAILY [facility] Administration Intake and Output 09/28/21 09/29/21 09/29/21 22:59 06:59 14:59 Intake Total 52.995 Balance 52.995 Intake: Intake, IV Titration 52.995 Amount Heparin Sod,Pork in 0.45% 52.995 NaCl 25,000 unit In 0.45 % NaCl 1 250ml.bag @ 8. 889 UNITS/KG/HR 9.999 mls /hr IV .Q24H [facility] Rx#: [id number] Other: Voiding Method Toilet Toilet Toilet # Voids 1 1 2 Weight 112.491 kg 09/29/21 09:59 09/28/21 08:37
[2021-09-29] MEDS: guaiFENesin-DM 100-10MG/5ML 10 ML CUP PO SCH ×2 (16:26→23:44)
[2021-09-29] MEDS ORDERED: VERAPAMIL 2.5 MG/ML 2 ML AMP ONE (17:08)
[2021-09-29] MEDS ORDERED: HEPARIN SODIUM,PORCINE 30 ML 30 ML ONE (17:09)
[2021-09-29] MEDS ORDERED: HEPARIN SODIUM 1,000 UN/ML (10ML VL) ONE (17:09)
[2021-09-29] MEDS ORDERED: fentaNYL (PF) 50 MCG/ML 2 ML AMP ONE (17:09)
[2021-09-29] MEDS ORDERED: LIDOCAINE 1% INJ 10MG/ML (20 ML MDV) ONE (17:09)
[2021-09-29] MEDS ORDERED: IV FLUID CONTINUATION 1,000 ML IV ONE (17:10)
[2021-09-29] MEDS ORDERED: MIDAZOLAM 2 MG/2 ML VIAL IV ONE (17:16)
[2021-09-29] MEDS ORDERED: fentaNYL (PF) 50 MCG/ML 2 ML AMP IV ONE (17:16)
[2021-09-29] MEDS ORDERED: LIDOCAINE 1% INJ 10MG/ML (20 ML MDV) SQ ONE (17:26)
[2021-09-29] MEDS: VERAPAMIL SYRINGE (5 MG/10 ML) INTRAARTER ONE ×2 (17:27→18:35)
[2021-09-29] MEDS: HEPARIN SODIUM 1,000 UN/ML (10ML VL) IV ONE ×3 (17:33→18:11)
[2021-09-29] MEDS: NITROGLYCERIN 1000MCG/10ML SYRINGE INTRACORON ONE ×4 (18:11→18:29)
[2021-09-29] MEDS ORDERED: IOPAMIDOL-370 125ML BTL INJ ONE (18:33)
[2021-09-29 19:09] LABS: Glucose,Whole Blood 124 mg/dL (75-99)
[2021-09-29 19:13] LABS: Chol/HDL Ratio 2.57 Ratio; LDL Cholesterol,Calculated 55.7 mg/dL (0.0-131.0); VLDL Calculation 18.94 mg/dL (5.00-40.00)
--- NOTE | 2021-09-29 19:21 | P.PRCINT ---
Percutaneous Coronary Int. - Percutaneous Coronary Intervention Percutaneous Coronary Intervention: PROCEDURES PERFORMED: Left heart catheterization, bilateral coronary angiography, PCI of ZIPPER REPAIRER of mid RCA into PLV with overlapping 3.5 x 23mm and 2.75 x 15mm Xience TANYA, post dilated proximally with 4.0 NC balloon INDICATION: NSTEMI HISTORY: Patient is a pleasant 76-year-old female with history of coronary artery disease status post PCI LAD December 2020 as well as 08/2021, hypertension, hyperlipidemia, diabetes mellitus type 2, chronic kidney disease. She presented with worsened episodes of chest pain with NSTEMI. She was found to be positive for COVID however did not have significant respiratory problems. CONSENT:I have discussed the risks, benefits and alternative therapies for the above-mentioned procedure and for both sedation/analgesia as well as necessary blood product administration, if indicated, as they pertain to this patient. The patient has indicated understanding and acceptance of the risks and procedures discussed. PROCEDURE: After the risks, benefits and alternatives of the above mentioned procedure explained in detail with the patient, informed consent was obtained. Patient was taken to the catheterization lab and prepped and draped in usual fashion. 1% lidocaine was used to anesthetize the right radial artery. A 6- Guinean sheath was placed in the right radial artery using modified Seldinger technique. Left coronary angiography was performed with a 5-Guine[place] JL 3.5 catheter and right coronary angiography was performed with a 5-[place] JR5 catheter in various views. A 5-[place] FR5 catheter was inserted into the left ventricle and pressure measurements were obtained. The left system appeared identical to prior imaging from 08/2021 with the only change being more flow down the RCA noted. There was consideration that there was off and on competitive flow to a large RCA or additional stenosis of the RCA and ZIPPER REPAIRER appeared to be very short length and therefore decision was made to perform PCI of the RCA. Heparin was given for ACT or then 250. A 6Fr AL 0.75 guide was used to engage the RCA. A 0.014 BMW wire was attempted then a 0.014 whisper wire in a microcatheter was used to wire the lesion. Next a 1.0 Saphire balloon was used to predilate the lesion. Next a 2.25 x 8mm balloon was used to predilate. A 3.5 x 23mm Xience TANYA was placed in the mid to distal RCA. The proximal portion of the stent was underexpanded and therefore a 4.0NC balloon was used to post dilate the lesion. There appeared to be a dual PDA system with a large PDA coming off and a smaller PDA/PLV lesion which had a more proximal 80% stenosis. Therefore a 2.75 x 15mm Xience TANYA was used to overlap with the 3.5 stent extending into the PDA/PLV branch. The overlap was postdilated more aggressively with the 2.75 balloon. Pre intervention there was GABRIEL 0 flow and 100% stenosis and post intervention there was GABRIEL 3 flow with <10% stenosis. There was a proximal RCA 50% stenosis felt best treated medically as well as a 40% PDA stenosis beyond the stent which was felt best treated medically. The wire was pulled and final angiograms were performed. The right radial sheath was removed and a TR band was placed with hemostasis achieved. The patient tolerated the procedure well. Patient was transported back to the post catheterization holding area in stable condition. Conscious Sedation: Patient was monitored under the direct supervision of vision of myself for conscious sedation using Versed and fentanyl for a total duration of 72 minutes HEMODYNAMICS: Ao: 143/76 LV: 134/3, LVEDP 16mmHg SELECTIVE CORONARY ARTERIOGRAPHY: LEFT MAIN: The left main is a large caliber vessel which bifurcates into the LAD and circumflex. There is no significant stenosis. LEFT ANTERIOR DESCENDING CORONARY ARTERY: LAD is a large caliber vessel which wraps around to the apex. There is diffuse mild 10-20% stenosis and a patent proximal to mid LAD stent. There are left to right collaterals. There is a diagonal 1 branch which had been jailed off with a proximal 95% stenosis which appears similar to prior imaging. LEFT CIRCUMFLEX CORONARY ARTERY: Left circumflex is a large caliber vessel with mild diffuse 20-30% stenosis and patent proximal and distal stents. RIGHT CORONARY ARTERY: The right coronary artery is a large caliber vessel which gives off a PDA and PLV branch and is the dominant vessel. There is 100% stenosis of the mid RCA. FINAL IMPRESSION: 1. CAD as described above with patent LAD and circumflex stents and 100% ZIPPER REPAIRER RCA. Culprit artery of NSTEMI felt to be RCA. 2. Successful PCI of ZIPPER REPAIRER of mid RCA into PLV with overlapping 3.5 x 23mm and 2.75 x 15mm Xience TANYA, post dilated proximally with 4.0 NC balloon 3. Normal left sided filling pressures PLAN: 1. Aggressive risk factor modification per most recent ACC/AHA guidelines. 2. Continue dual antiplatelets for 12 months.
[2021-09-29] MEDS ORDERED: ATROPINE SULFATE 0.1 MG/ML 10ML SYRINGE IV PRN (19:22)
[2021-09-29] MEDS ORDERED: RX INFO: IV CONTRAST WAS GIVEN 1 EACH MISC MISCELLANE PRN (19:22)
[2021-09-29] MEDS ORDERED: MAG HYDROX/AL HYDROX/SIMETH 30 ML CUP PO PRN (19:22)
[2021-09-29] MEDS ORDERED: ZOLPIDEM 5 MG TAB PO PRN (19:22)
[2021-09-29 20:35] LABS: Glucose,Whole Blood 176 mg/dL (75-99)
[2021-09-29] MEDS: HEPARIN SOD,PORK IN 0.45% NACL 25,000 UNIT in 0.45% NACL 1 250ML.BAG IV SCH (21:00)
[2021-09-29] MEDS: SODIUM CHLORIDE 0.9% 1,000 ML in EMPTY BAG 1 BAG IV SCH (21:02)
[2021-09-29] MEDS: MELATONIN 3 MG TABLET PO SCH (21:02)
[2021-09-29] MEDS: ATORVASTATIN 80 MG TAB PO SCH (21:04)
[2021-09-30] MEDS: SODIUM CHLORIDE 0.9% 1,000 ML in EMPTY BAG 1 BAG IV SCH ×3 (04:21→23:34)
[2021-09-30] MEDS: NITROGLYCERIN OINT 1 INCH/GM PACKET TOPICAL SCH ×4 (05:58→23:34)
[2021-09-30 05:59] LABS: Glucose,Whole Blood 160 mg/dL (75-99)
[2021-09-30] MEDS: INSULIN DETEMIR (LEVEMIR) 100 UNIT/ML SYR SQ SCH (06:19)
[2021-09-30] MEDS: INSULIN ASPART (NovoLOG) 100 UNIT/ML VIAL SQ SCH ×4 (06:19→20:27)
[2021-09-30] MEDS: guaiFENesin-DM 100-10MG/5ML 10 ML CUP PO SCH ×4 (06:19→23:36)
[2021-09-30] MEDS ORDERED: HEPARIN SODIUM,PORCINE 10,000 UNIT in SODIUM CHLORIDE 0.9% 1,000 ML IRRIGATION PRN (07:00)
[2021-09-30] MEDS ORDERED: HEPARIN SODIUM,PORCINE 2,500 UNIT in SODIUM CHLORIDE 0.9% 250 ML IRRIGATION PRN (07:00)
[2021-09-30 08:16] LABS: Basophils % (A) 0 %; Eosinophils # (A) 0.2 k/uL (0-0.7); Eosinophils % (A) 4 %; HCT 28.5 % (34.0-46.0); Hypochromasia Marked; Lymphocytes # (A) 0.9 k/uL (1.0-4.8); Lymphocytes % (A) 17 %; MCH 26.6 pg (25.0-35.0); MCHC 31.6 g/dL (31.0-37.0); MCV 84.1 fL (80.0-100.0); Mean Platelet Volume 8.1; Monocytes # (A) 0.3 k/uL (0-1.0); Monocytes % (A) 5 %; Neutrophils # (A) 3.9 k/uL (1.3-7.7); Neutrophils % (A) 73 %; Platelet Count 151 k/uL (150-450); RBC 3.39 m/uL (3.80-5.40); RDW 15.5 % (11.5-15.5); WBC 5.4 k/uL (3.8-10.6)
[2021-09-30 08:20] LABS: Calcium 8.7 mg/dL (8.4-10.2); Potassium 3.9 mmol/L (3.5-5.1)
--- NOTE | 2021-09-30 09:16 | XR ---
EXAMINATION TYPE: XR chest 1V DATE OF EXAM: 09/30/2021 COMPARISON: Chest x-ray 09/28/2021 HISTORY: Shortness of breath TECHNIQUE: Single frontal view of the chest is obtained. FINDINGS: The heart is enlarged. There is no pneumothorax or pleural effusion. Interstitium appears prominently. There are overlying artifacts. Thoracic spondylosis noted. Right hemidiaphragm remains e levated. IMPRESSION: Stable cardiomegaly.
[2021-09-30] MEDS: ASCORBIC ACID 500 MG TAB PO SCH (09:27)
[2021-09-30] MEDS: EZETIMIBE 10 MG TAB PO SCH (09:27)
[2021-09-30] MEDS: CYANOCOBALAMIN 500 MCG TAB PO SCH (09:27)
[2021-09-30] MEDS: CHOLECALCIFEROL 25 MCG (1000 IU) TABLET PO SCH (09:28)
[2021-09-30] MEDS: CITALOPRAM HYDROBROMIDE 20 MG TAB PO SCH (09:28)
[2021-09-30] MEDS: ZINC SULFATE 220 MG CAP PO SCH (09:28)
[2021-09-30] MEDS: ISOSORBIDE MONONITRATE ER 60 MG TAB.ER.24H PO SCH (09:28)
[2021-09-30] MEDS: LOSARTAN 50 MG TAB PO SCH (09:28)
[2021-09-30] MEDS: ASPIRIN 81 MG PO SCH (09:28)
[2021-09-30] MEDS: CLOPIDOGREL 75 MG TAB PO SCH (09:28)
[2021-09-30] MEDS: FAMOTIDINE 20 MG TAB PO SCH (09:28)
[2021-09-30] MEDS: amLODIPine 10 MG TAB PO SCH (09:28)
--- NOTE | 2021-09-30 10:35 | ECHOF ---
Referral Reason:Chest pain, elevated trop MEASUREMENTS -------- HEIGHT: 154.9 cm WEIGHT: 112.5 kg BP: RVIDd: 2.8 cm (< 3.3) IVSd: 1.0 cm (0.6 - 1.1) LVIDd: 4.3 cm (3.9 - 5.3) LVPWd: 1.4 cm (0.6 - 1.1) IVSs: 2.2 cm LVIDs: 1.9 cm LVPWs: 1.7 cm RAP: 5.00 mmHg RVSP: 33.96 mmHg FINDINGS -------- Limited study due to covid 19 exposure. The left ventricular size is normal. There is mild concentric left ventricular hypertrophy. Overa ll left ventricular systolic function is normal with, an EF between 55 - 60 %. There is no pericardial effusion. CONCLUSIONS -------- 1. Limited study due to covid 19 exposure. 2. The left ventricular size is normal. 3. There is mild concentric left ventricular hypertrophy. 4. Overall left ventricular systolic function is normal with, an EF between 55 - 60 %. 5. There is no pericardial effusion. [employer]LO[employer]ICE [employer]: Emily Coppola, [facility]
[2021-09-30 11:34] LABS: Glucose,Whole Blood 266 mg/dL (75-99)
[2021-09-30] MEDS: carvediloL 3.125 MG TAB PO SCH ×2 (12:57→15:35)
--- NOTE | 2021-09-30 13:59 | P.PN ---
Subjective This is a pleasant 76. Female with past medical history of Asthma, Coronary Artery Disease status post stent placement 12/2020, COPD, Diabetes Mellitus, GERD, Hyperlipidemia, Hypertension, Osteoarthritis , murmur history of rheumatic fever, neuropathy. 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 Patient presents because of chest pain which started last night 12-1 AM, she went to sleep and this morning at 5:00 she has recurred CP again, she took 2 nitro pills which helped a little bit but got worse thereafter at 9/10 in severity so she decided to come to emergency room, now she feels her chest pain is better after she received treatment but she described it as central, and burning pain going to the left shoulder. She states that her chest pain is similar to that that she had it about 2 months ago and earlier last year on December 20 she had a stent placed into her heart Also patient is complaining of from chronic dyspnea and cough and however during her chest pain attack this morning her dyspnea was more worse per her at bedside. No abdominal pain or vomiting or diarrhea. No dysuria or urgency. No headache or weakness or numbness. She denies smoking, alcohol or illicit drugs. She takes trulicity and insulin 70:30 at 25 units twice a day usually her sugar is around 100-140 but this morning im the ambulance it was more than 300 She is saturating 94% on room air, rest of vitals are stable and she's been afebrile. EKG showed normal sinus rhythm with no significant ST-T changes, rate at 78 and QTC 487. Labs reviewed, hemoglobin 9.1, creatinine 1.1 which is baseline 1.1-1.5. Chest x-ray showed chronic changes with no acute process. Her troponin are elevated 09/29/2021 Patient admitted with burning chest pain secondary to non-STEMI highly suspected and patient was started on heparin drip by shirrer last night. Also continued on home dose of Plavix. This morning patient denies any more burning chest pain, last time she had it was last night. Her dyspnea and tachypnea looks better. She still have some dry cough. She has positive, would infection but without pneumonia or hypoxia. Glucose controlled after placement Levemir 5 units, currently she is nothing by mouth. Blood pressure is controlled 131/70 Her cough still there and admitted for Robitussin. Repeat chest x-ray tomorrow for her carotid infection with negative chest x-ray on admission. Follow-up echocardiogram and check labs tomorrow morning 09/30/2021 Patient clinically is improving with no chest pain. No dyspnea. No other complaint. Patient yesterday heart cardiac cath and stent was placed in the stenosed mid RCA which is thought is the culprit side for her non-STEMI. Patient is currently is on aspirin and Plavix. A heparin drip was stopped We will keep monitoring for now shirrer team recommendation Chest x-ray shows stable cardiomegaly. Ejection fraction 55-60%. Creatinine is stable at 1.1. Objective - Vital Signs Vital signs: Vital Signs Temp 98.3 F 09/30/21 08:00 Pulse 62 09/30/21 08:00 Resp 16 09/30/21 08:00 BP 146/62 09/30/21 08:00 Pulse Ox 96 09/30/21 08:00 Intake & Output 09/29/21 09/30/21 09/30/21 18:59 06:59 18:59 Intake Total 597.005 440 120 Output Total 200 Balance 597.005 240 120 Intake: IV 400 Intake, IV Titration 197.005 Amount Heparin Sod,Pork in 0.45% 197.005 NaCl 25,000 unit In 0.45 % NaCl 1 250ml.bag @ 8. 889 UNITS/KG/HR 9.999 mls /hr IV .Q24H [facility] Rx#: [id number] Oral 440 120 Output: Urine 200 Other: Voiding Method Toilet Toilet # Voids 2 1 # Bowel Movements 1 - Exam -GENERAL: The patient is alert and oriented x3, not in any acute distress. Diabetic obese HEENT: Pupils are round and equally reacting to light. EOMI. No scleral icterus. No conjunctival pallor. Normocephalic, atraumatic. No pharyngeal erythema. No t hyromegaly. CARDIOVASCULAR: S1 and S2 present. No murmurs, rubs, or gallops. PULMONARY: Chest is clear to auscultation, no wheezing or crackles. ABDOMEN: Soft, nontender, nondistended, normoactive bowel sounds. No palpable organomegaly. MUSCULOSKELETAL: No joint swelling or deformity. EXTREMITIES: No cyanosis, clubbing, or pedal edema. NEUROLOGICAL: Gross neurological examination did not reveal any focal deficits. SKIN: No rashes. no petechiae. - Labs CBC & Chem 7: 09/30/21 07:27 09/30/21 07:27 Labs: Abnormal Lab Results - Last 24 Hours (Table) 09/29/21 09/29/21 09/30/21 Range/Units 19:08 20:29 05:55 RBC (3.80-5.40) m/uL Hgb (11.4-16.0) gm/dL Hct (34.0-46.0) % Lymphocytes # (1.0-4.8) k/uL Chloride (98-107) mmol/L BUN (7-17) mg/dL Creatinine (0.52-1.04) mg/dL Glucose (74-99) mg/dL POC Glucose (mg/dL) 124 H 176 H 160 H (75-99) mg/dL 09/30/21 09/30/21 09/30/21 Range/Units 07:27 07:27 11:32 RBC 3.39 L (3.80-5.40) m/uL Hgb 9.0 L (11.4-16.0) gm/dL Hct 28.5 L (34.0-46.0) % Lymphocytes # 0.9 L (1.0-4.8) k/uL Chloride 110 H (98-107) mmol/L BUN 18 H (7-17) mg/dL Creatinine 1.14 H (0.52-1.04) mg/dL Glucose 175 H (74-99) mg/dL POC Glucose (mg/dL) 266 H (75-99) mg/dL Assessment and Plan Assessment: Chest pain, possible non-STEMI Covid infection without pneumonia. Patient with persistent cough and some exertional dyspnea Type 2 diabetes mellitus, hyperglycemia Hypertension, uncontrolled upon admission History of coronary artery disease status post stent placement Hyperlipidemia History of osteoarthritis History of GERD History of asthma/COPD, not an active issue Plan: She is a pleasant 76 years old female who presents with chest pain We'll do serial troponins, Cardiology consult continue with insulin and ISS Start the patient on vitamin C, vitamin D and zinc and monitor oxygen level Labs and medication were reviewed.. Continue same treatment. Continue with symptomatic treatment. Resume home medication. Monitor lytes and vitals. DVT and GI prophylaxis. Further recommendations depends on the clinical course of the patient DVT prophylaxis: heparin GI Prophylaxis: Pepcid PT/OT: Pending Prognosis is guarded
--- NOTE | 2021-09-30 14:32 | P.PN ---
Subjective HISTORY OF PRESENTING ILLNESS Patient is a pleasant 76-year-old female with history of asthma, coronary artery disease with initial stenting in December 2020 as well as repeat stenting in August 2021, COPD, diabetes mellitus, GERD, hypertension, hyperlipidemia and a, osteoarthritis, history of rheumatic fever as a child and neuropathy. Patient normally follows with Dr. Toth. She had been having intermittent episodes of chest pain and initially any intervention was deferred secondary to acute kidney injury. Her chest pain had improved however and then underwent heart catheterization in August 2021 which showed mild disease of the LAD with patent LAD stent, similar-appearing diagonal disease as well as obstructive circumflex disease. Patient underwent successful PCI of the circumflex and had been doing fairly well for about a month. Unfortunately she developed repeat episodes of chest pain on 09/28/21 and therefore came to emergency department. She does admit to a mild cough for last 2-3 days and surprisingly was found to be Covid 19 positive. Patient underwent cardiac catheterization on 09/29/[address] Wong which revealed CAD with patent LAD and circumflex stents and 100% WINE MAKER RCA. Culprit artery of NSTEMI felt to be RCA. She underwent successful PCI of WINE MAKER of mid RCA into PLV. 09/30/21 Patient seen and examined at bedside, no distress. She denies any further chest pain. Denies shortness of breath. She states that in terms of covid-19 she is having worsening cough. Blood pressure 135/74, heart 61, afebrile, saturations greater than 92% on room air. She is currently maintained on amlodipine 10 mg daily, aspirin 81 mg daily, atorvastatin 80 mg nightly, Plavix 75 mg daily, study at 10 mg daily, losartan 50 mg daily, Imdur 60 mg daily. Limited echo revealed EF 5560% PHYSICAL EXAMINATION Vital signs reviewed. CONSTITUTIONAL: No apparent distress. HEENT: Neck Supple. No JVD. CHEST EXAMINATION: Lungs are clear to auscultation. HEART EXAMINATION: Regular rate and rhythm. S1, S2 heard. No murmurs, gallops or rub. ABDOMEN: Soft, nontender. Positive bowel sounds. EXTREMITIES: 2+ peripheral pulses, no lower extremity edema and no calf tenderness. SKIN: Right radial clean dry intact, 2+ pulses NEUROLOGIC EXAMINATION: Patient is awake, alert and oriented x3. ASSESSMENT 1. Non-STEMI, suspect type I mechanism 2. COVID-19 infection, appears fairly mild with mild cough 3. Coronary artery disease with prior history of LAD and circumflex stenting 4. Hypertension 5. Hyperlipidemia 6. Prior history of acute kidney injury, appears improved 7. Normal ejection fraction from echo from June 2021 8. Diabetes mellitus type 2 PLAN -We will continue dual antiplatelet therapy with Plavix and aspirin. -Start carvedilol 3.125 mg twice a day -Continue amlodipine, statin, Zetia, Imdur, losartan -Covid-19 management per pulmonary and primary -Further recommendations based on clinical course Objective - Vital Signs Vital signs: Vital Signs Temp 98.3 F 09/30/21 08:00 Pulse 61 09/30/21 12:00 Resp 16 09/30/21 12:00 BP 135/74 09/30/21 12:00 Pulse Ox 98 09/30/21 12:00 Intake & Output 09/29/21 09/30/21 09/30/21 18:59 06:59 18:59 Intake Total 597.005 440 120 Output Total 200 Balance 597.005 240 120 Intake: IV 400 Intake, IV Titration 197.005 Amount Heparin Sod,Pork in 0.45% 197.005 NaCl 25,000 unit In 0.45 % NaCl 1 250ml.bag @ 8. 889 UNITS/KG/HR 9.999 mls /hr IV .Q24H [facility] Rx#: [id number] Oral 440 120 Output: Urine 200 Other: Voiding Method Toilet Toilet # Voids 2 1 # Bowel Movements 1 - Labs CBC & Chem 7: 09/30/21 07:27 09/30/21 07:27 Labs: Abnormal Lab Results - Last 24 Hours (Table) 09/29/21 09/29/21 09/30/21 Range/Units 19:08 20:29 05:55 RBC (3.80-5.40) m/uL Hgb (11.4-16.0) gm/dL Hct (34.0-46.0) % Lymphocytes # (1.0-4.8) k/uL Chloride (98-107) mmol/L BUN (7-17) mg/dL Creatinine (0.52-1.04) mg/dL Glucose (74-99) mg/dL POC Glucose (mg/dL) 124 H 176 H 160 H (75-99) mg/dL 09/30/21 09/30/21 09/30/21 Range/Units 07:27 07:27 11:32 RBC 3.39 L (3.80-5.40) m/uL Hgb 9.0 L (11.4-16.0) gm/dL Hct 28.5 L (34.0-46.0) % Lymphocytes # 0.9 L (1.0-4.8) k/uL Chloride 110 H (98-107) mmol/L BUN 18 H (7-17) mg/dL Creatinine 1.14 H (0.52-1.04) mg/dL Glucose 175 H (74-99) mg/dL POC Glucose (mg/dL) 266 H (75-99) mg/dL
[2021-09-30 16:31] LABS: Glucose,Whole Blood 113 mg/dL (75-99)
[2021-09-30 19:28] VITALS: BMI 46.8
[2021-09-30 20:11] LABS: Glucose,Whole Blood 176 mg/dL (75-99)
[2021-09-30] MEDS: MELATONIN 3 MG TABLET PO SCH (20:27)
[2021-09-30] MEDS: ATORVASTATIN 80 MG TAB PO SCH (20:27)
[2021-10-01 05:51] LABS: Glucose,Whole Blood 150 mg/dL (75-99)
[2021-10-01] MEDS: guaiFENesin-DM 100-10MG/5ML 10 ML CUP PO SCH ×3 (05:59→17:12)
[2021-10-01] MEDS: NITROGLYCERIN OINT 1 INCH/GM PACKET TOPICAL SCH ×3 (05:59→17:12)
[2021-10-01] MEDS: SODIUM CHLORIDE 0.9% 1,000 ML in EMPTY BAG 1 BAG IV SCH (05:59)
[2021-10-01] MEDS: INSULIN DETEMIR (LEVEMIR) 100 UNIT/ML SYR SQ SCH (06:35)
[2021-10-01] MEDS: carvediloL 3.125 MG TAB PO SCH ×2 (06:35→17:12)
[2021-10-01] MEDS: INSULIN ASPART (NovoLOG) 100 UNIT/ML VIAL SQ SCH ×3 (06:36→17:12)
[2021-10-01] MEDS: ISOSORBIDE MONONITRATE ER 60 MG TAB.ER.24H PO SCH (09:17)
[2021-10-01] MEDS: amLODIPine 10 MG TAB PO SCH (09:17)
[2021-10-01] MEDS: ZINC SULFATE 220 MG CAP PO SCH (09:17)
[2021-10-01] MEDS: CHOLECALCIFEROL 25 MCG (1000 IU) TABLET PO SCH (09:17)
[2021-10-01] MEDS: ASPIRIN 81 MG PO SCH (09:18)
[2021-10-01] MEDS: ASCORBIC ACID 500 MG TAB PO SCH (09:18)
[2021-10-01] MEDS: CYANOCOBALAMIN 500 MCG TAB PO SCH (09:18)
[2021-10-01] MEDS: LOSARTAN 50 MG TAB PO SCH (09:18)
[2021-10-01] MEDS: FAMOTIDINE 20 MG TAB PO SCH (09:18)
[2021-10-01] MEDS: CITALOPRAM HYDROBROMIDE 20 MG TAB PO SCH (09:18)
[2021-10-01] MEDS: CLOPIDOGREL 75 MG TAB PO SCH (09:18)
[2021-10-01] MEDS: EZETIMIBE 10 MG TAB PO SCH (09:18)
[2021-10-01 12:08] LABS: Glucose,Whole Blood 181 mg/dL (75-99)
[2021-10-01 12:32] VITALS: RESP 16; TEMP 98.1
--- NOTE | 2021-10-01 13:16 | CDI ---
Documentation Clarification Form Date: 10/01/2021 01:07:52 PM From: Celina Rosado CCS, CCDS Admit Date: 09/28/2021 11:00:00 AM Patient Name: Lila Ho Visit Number: [id number] Discharge Date: ATTENTION: The Clinical Documentation Specialists (CDI) and [facility] Coding Staff appreciate your assistance in clarifying documentation. Please respond to the clarification below the line at the bottom and electronically sign. The CDI & [facility] Coding staff will review the response and follow-up if needed. Please note: Queries are made part of the Legal Health Record. If you have any questions, please contact the author of this message via ITS. Dr. Ash Garsia. Sheet: Unspecified anemia is documented in the 09/28 ED Note, the 09/28 History & Physical and the 09/29 Cardiology Consult without further specificity. Additional specificity regarding the [type, acuity] of anemia is requested. History/Risk Factors per the 09/28 H/P: Asthma, Anemia, CAD with prior stents, Angina, COPD, DM with neuropathy, GERD, Hyperlipidemia, Hypertension, Osteoarthritis, CKD nos, Murmur with history of Rheumatic fever, Former smoker. Clinical indicators: Presented to the ED on 09/28 with Chest Pain, SOB, tested positive for COVID. Admit with Chest Pain (not admitted for COVID). Hemoglobin 09/28: 9.1, 09/29: 8.7, 09/30: 9.0 Hematocrit 09/28: 27.9, 09/29: 27.8, 09/30: 28.5 Treatment: Blood glucose monitoring, Telemetry, Heparin Drip, Insulin sliding scale, Nitropaste, IV Casirivimab (monoclonal antibodies). Home meds: Zetia, Trulicity, bumex, Nitro sl, Vit E, Cozaar, Imdur, Vit B12, Vit D3, Lipitor, Vit C, Norvasc, Omeprazole, Melatonin, Plavix, Celexa, Biotin, Insulin sq, Coreg, Aspirin Please clarify the type and acuity of anemia: [ ] Chronic blood loss anemia [ ] Iron deficiency anemia [ ] Hemolytic anemia [ ] Drug induced anemia [ ] Anemia of chronic kidney disease [ ] Other, please specify: [ ] Unable to determine (Template Last Revised: October 2020) Unable to determine MTDD
--- NOTE | 2021-10-01 13:24 | CDI ---
Documentation Clarification Form Date: 10/01/2021 01:17:17 PM From: Celina Rosado CCS, CCDS Admit Date: 09/28/2021 11:00:00 AM Patient Name: Lila Ho Visit Number: [id number] Discharge Date: ATTENTION: The Clinical Documentation Specialists (CDI) and [facility] Coding Staff appreciate your assistance in clarifying documentation. Please respond to the clarification below the line at the bottom and electronically sign. The CDI & [facility] Coding staff will review the response and follow-up if needed. Please note: Queries are made part of the Legal Health Record. If you have any questions, please contact the author of this message via ITS. Dr. Ash Garsia. Sheet: Chronic Kidney Disease is documented in the 09/29 PTCA procedure Note under the patient's History. The patient has a documented history of Acute Kidney Injury, initial cardiac intervention in December 2020 was deferred due to the patient's kidney function. History/Risk Factors per the 09/28 H/P: Asthma, Anemia, CAD with prior stents, Angina, COPD, DM with neuropathy, GERD, Hyperlipidemia, Hypertension, Osteoarthritis, CKD nos, Murmur with history of Rheumatic fever, Former smoker. Clinical indicators: Presented to the ED on 09/28 with Chest Pain, SOB, tested positive for COVID. Admit with Chest Pain (not admitted for COVID). On 09/29, the patient had a PTCA with 2 TANYA stents placed in the RCA. 09/28 BUN: 24, Creatinine 1.12 09/28 GFR 48 Historical GFR: 09/30/2021: 47, 55 Treatment: Blood glucose monitoring, Telemetry, Heparin Drip, Insulin sliding scale, Nitropaste, IV Casirivimab (monoclonal antibodies). Home meds: Zetia, Trulicity, bumex, Nitro sl, Vit E, Cozaar, Imdur, Vit B12, Vit D3, Lipitor, Vit C, Norvasc, Omeprazole, Melatonin, Plavix, Celexa, Biotin, Insulin sq, Coreg, Aspirin Please clarify the stage of the CKD, if known: [ ] CKD Stage 3 (GFR 30-59) [ ] CKD Stage 3a (GFR 45-59) [ ] Other, please specify [ ] Unable to determine (Template Last revised: October 2020) ckd stage II MTDD
--- NOTE | 2021-10-01 13:33 | P.PN ---
Subjective HISTORY OF PRESENTING ILLNESS Patient is a pleasant 76-year-old female with history of asthma, coronary artery disease with initial stenting in December 2020 as well as repeat stenting in August 2021, COPD, diabetes mellitus, GERD, hypertension, hyperlipidemia and a, osteoarthritis, history of rheumatic fever as a child and neuropathy. Patient normally follows with Dr. Toth. She had been having intermittent episodes of chest pain and initially any intervention was deferred secondary to acute kidney injury. Her chest pain had improved however and then underwent heart catheterization in August 2021 which showed mild disease of the LAD with patent LAD stent, similar-appearing diagonal disease as well as obstructive circumflex disease. Patient underwent successful PCI of the circumflex and had been doing fairly well for about a month. Unfortunately she developed repeat episodes of chest pain on 09/28/21 and therefore came to emergency department. She does admit to a mild cough for last 2-3 days and surprisingly was found to be Covid 19 positive. Patient underwent cardiac catheterization on 09/29/[address] Wong which revealed CAD with patent LAD and circumflex stents and 100% MOTOR EQUIPMENT SERGEANT RCA. Culprit artery of NSTEMI felt to be RCA. She underwent successful PCI of MOTOR EQUIPMENT SERGEANT of mid RCA into PLV. 10/01/2021 Patient seen and examined at bedside, no distress. She denies any further chest pain. Denies shortness of breath. She states her symptoms have improved, she denies any cough, fever, chills. Blood pressure 147/74, heart rate 54,, afebrile, saturations greater than 92% on room air. She is currently maintained on amlodipine 10 mg daily, aspirin 81 mg daily, atorvastatin 80 mg nightly, Plavix 75 mg daily, study at 10 mg daily, losartan 50 mg daily, Imdur 60 mg daily, carvedilol 3.125 mg twice a day. Limited echo revealed EF 5560%. Telemetry reviewed patient sinus mechanism, heart rate 50s. PHYSICAL EXAMINATION Vital signs reviewed. CONSTITUTIONAL: No apparent distress. HEENT: Neck Supple. No JVD. CHEST EXAMINATION: Lungs are clear to auscultation. HEART EXAMINATION: Regular rate and rhythm. S1, S2 heard. No murmurs, gallops or rub. ABDOMEN: Soft, nontender. Positive bowel sounds. EXTREMITIES: 2+ peripheral pulses, no lower extremity edema and no calf tenderness. SKIN: Right radial clean dry intact, 2+ pulses NEUROLOGIC EXAMINATION: Patient is awake, alert and oriented x3. ASSESSMENT 1. Non-STEMI, suspect type I mechanism 2. COVID-19 infection, appears fairly mild with mild cough 3. Coronary artery disease with prior history of LAD and circumflex stenting 4. Hypertension 5. Hyperlipidemia 6. Prior history of acute kidney injury, appears improved 7. Normal ejection fraction from echo from June 2021 8. Diabetes mellitus type 2 PLAN -We will continue dual antiplatelet therapy with Plavix and aspirin. -Continue carvedilol 3.125 mg twice a day -Continue amlodipine, statin, Zetia, Imdur, losartan -Covid-19 management per pulmonary and primary -From cardiology perspective, patient stable be discharged. Discharge per clearance from pulmonary and primary. Follow up with Dr. Toth outpatient. Objective - Vital Signs Vital signs: Vital Signs Temp 98.1 F 10/01/21 12:00 Pulse 54 L 10/01/21 12:00 Resp 16 10/01/21 12:00 BP 147/74 10/01/21 12:00 Pulse Ox 94 L 10/01/21 12:00 Intake & Output 09/30/21 10/01/21 10/01/21 18:59 06:59 18:59 Intake Total 600 840 240 Output Total 400 Balance 200 840 240 Weight 112.491 kg 112.491 kg Intake: Oral 600 840 240 Output: Urine 400 Other: Voiding Method Toilet Toilet # Voids 3 2 # Bowel Movements 1 - Labs CBC & Chem 7: 09/30/21 07:27 09/30/21 07:27 Labs: Abnormal Lab Results - Last 24 Hours (Table) 09/30/21 09/30/21 10/01/21 Range/Units 16:19 20:08 05:50 POC Glucose (mg/dL) 113 H 176 H 150 H (75-99) mg/dL 10/01/21 Range/Units 12:07 POC Glucose (mg/dL) 181 H (75-99) mg/dL
--- NOTE | 2021-10-01 15:37 | US ---
EXAMINATION TYPE: US venous doppler duplex LE BI DATE OF EXAM: 10/01/2021 3:15 PM COMPARISON: NONE CLINICAL HISTORY: 76-year-old female leg swelling . Covid, pain in bilat legs SIDE PERFORMED: Bilateral TECHNIQUE: The lower extremity deep venous system is examined utilizing real time linear array sonog susanna with graded compression, doppler sonography and color-flow sonography. FINDINGS: VESSELS IMAGED: Common Femoral Vein Deep Femoral Vein Greater Saphenous Vein * Femoral Vein Popliteal Vein Small Saphenous Vein * Proximal Calf Veins (* superficial vessels) Right Leg: Negative for DVT Left Leg: Negative for DVT IMPRESSION: No evidence for DVT within the bilateral lower extremities imaged from the groin to the upper calves.
[2021-10-01 16:38] LABS: Glucose,Whole Blood 213 mg/dL (75-99)
[2021-10-01 17:15] VITALS: BP 147/66; PULSE 56
--- NOTE | 2021-10-01 22:12 | P.DS ---
Providers Date of admission: 09/28/21 11:00 Attending physician: Ash Haywood MD Consults: 09/28/21 08:57 Consult Physician Urgent Consulting Provider: George Julien Consult Reason/Comments: chest pain , h/o stents Do you want consulting provider notified?: Yes 09/29/21 19:22 Consult Physician Routine Consulting Provider: [facility] Consult Reason/Comments: Post Interventional patient Do you want consulting provider notified?: Already Contacted Primary care physician: Johnny Awad Hospital Course: Diagnoses: Chest pain, possible non-STEMI Covid infection without pneumonia. Patient with persistent cough and some exertional dyspnea Type 2 diabetes mellitus, hyperglycemia Hypertension, uncontrolled upon admission History of coronary artery disease status post stent placement Hyperlipidemia History of osteoarthritis History of GERD History of asthma/COPD, not an active issue Hospital course: This is a pleasant 76. Female with past medical history of Asthma, Coronary Ar sonya Disease status post stent placement 12/2020, COPD, Diabetes Mellitus, GERD, Hyperlipidemia, Hypertension, Osteoarthritis , murmur history of rheumatic fever, neuropathy. her pcp is and chocolate dipper is , she has appointment to see facilities clerk this week for worsening kid function as per pt. Patient presents because of chest pain which started last night 12-1 AM, patient found to have been STEMI and she underwent PCI with stent placement to the mid RCA, postprocedure patient abdominal burning chest pain completely resolved. Her dyspnea significantly improved as well. Patient was cleared for discharge by chocolate dipper on aspirin 81 mg and Plavix as well as other cardiac medication. Ejection fraction 55-60%. Chest x-ray chronic changes with no acute process. Hemoglobin A1c is 7.3 Patient also found to have Covid infection but without pneumonia or hypoxia. She has some mild coughing which is controlled with cough medication. Her oxygen was normal at rest and when we checked upon activity with exertion on the day of discharge she was saturating 97% on room air. Therefore patient does not need any steroids. Also I asked her to call pulmonary disease or the hospital she declined and she wants to follow up as an outpatient, therefore patient was referred for outpatient pulmonary clinic and she agrees On the day of discharge patient is back to her baseline and she was eager to go home. She denies chest pain or dyspnea. No abdominal pain or nausea vomiting or diarrhea, she tolerates diet well. No fever. Also she was walking fine and she did not want to see physical therapist. Patient was using insulin units twice a day at home however the hospital her sugar was controlled with only 5-7 units of Levemir, patient informed and she agrees. Also informed to monitor her sugar closely, see discharge instructions Patient was cleared for discharge by cardiology service. Patient also has been discharged on aspirin and Plavix and the importance of dual antiplatelet therapy are explained to her thoroughly and she agrees Problems and management plan were discussed with the patient and he verbalized understanding and acceptance Patient was found stable and can be discharged home in guarded prognosis however he needs follow-up as an outpatient. Patient was instructed to follow up with PCP Dr. Awad within one week and patient agrees Patient also was instructed to follow up with chocolate dipper Dr. Ashley in one week and she agrees to call and make her own appointment The to follow up with Dr. Armendariz field sales consultant and she agrees with the appointments made for an 10/30 Patient was instructed if she develops any worsening respiratory symptoms to come to the hospital and she agrees, see discharge instructions Physical exam Gen: patient is a AAOx3, no distress CVS: S1-S2, RRR, no murmur Lungs: B/L CTA, no wheezing Abdomen: soft, no distention, no tenderness, positive bowel sounds Extremity: no leg edema or induration Time spent more than 35 minutes Plan - Discharge Summary New Discharge Prescriptions: New Zinc Sulfate [Orazinc] 220 mg PO DAILY #30 cap guaiFENesin-DM 100-10MG/5ML [Robitussin DM] 10 ml PO Q6HR 5 Days #8 oz Insulin Detemir (Levemir) [Levemir] 7 unit SQ DAILY 30 Days #10 ml Aspirin 81 mg PO DAILY 30 Days #30 tab carvediloL [Coreg] 3.125 mg PO BID-W/MEALS 30 Days #30 tab Continue Melatonin 3 mg PO HS Atorvastatin [Lipitor] 80 mg PO HS Cholecalciferol [Vitamin D3 (25 Mcg = 1000 Iu)] 100 mcg PO DAILY amLODIPine [Norvasc] 10 mg PO DAILY Losartan [Cozaar] 50 mg PO DAILY Ezetimibe [Zetia] 10 mg PO DAILY Clopidogrel Bisulfate [Plavix] 75 mg PO DAILY Nitroglycerin Sl Tabs [Nitrostat] 0.4 mg SL Q5M PRN PRN Reason: Chest Pain Cyanocobalamin (Vitamin B-12) [Vitamin B-12] 1,000 mcg PO DAILY Biotin 10,000 mcg PO DAILY Ascorbic Acid [Vitamin C] 500 mg PO DAILY Omeprazole 20 mg PO DAILY Citalopram Hydrobromide [CeleXA] 40 mg PO DAILY Isosorbide Mononitrate ER [Imdur] 60 mg PO DAILY Discontinued Bumetanide [BUMEX] 2 mg PO DAILY PRN PRN Reason: EDEMA OF FEET AND LEGS Dulaglutide [Trulicity] 0.75 mg SQ TU Vitamin E (Dl,Tocopheryl Acet) [Vitamin E (400 Iu = 180 mg)] 400 unit PO DAILY Insulin NPH Hum/Reg Insulin Hm [NovoLIN 70-30 100 UNIT/ML VIAL] 25 unit SQ BID Discharge Medication List Ascorbic Acid [Vitamin C] 500 mg PO DAILY 07/11/21 [History] Atorvastatin [Lipitor] 80 mg PO HS 07/11/21 [History] Biotin 10,000 mcg PO DAILY 07/11/21 [History] Cholecalciferol [Vitamin D3 (25 Mcg = 1000 Iu)] 100 mcg PO DAILY 07/11/21 [History] Clopidogrel Bisulfate [Plavix] 75 mg PO DAILY 07/11/21 [History] Cyanocobalamin (Vitamin B-12) [Vitamin B-12] 1,000 mcg PO DAILY 07/11/21 [History] Losartan [Cozaar] 50 mg PO DAILY 07/11/21 [History] Melatonin 3 mg PO HS 07/11/21 [History] Nitroglycerin Sl Tabs [Nitrostat] 0.4 mg SL Q5M PRN 07/11/21 [History] Omeprazole 20 mg PO DAILY 07/11/21 [History] amLODIPine [Norvasc] 10 mg PO DAILY 07/11/21 [History] Citalopram Hydrobromide [CeleXA] 40 mg PO DAILY 08/21/21 [History] Ezetimibe [Zetia] 10 mg PO DAILY 09/28/21 [History] Isosorbide Mononitrate ER [Imdur] 60 mg PO DAILY 09/28/21 [History] Aspirin 81 mg PO DAILY 30 Days #30 tab 10/01/21 [Rx] Insulin Detemir (Levemir) [Levemir] 7 unit SQ DAILY 30 Days #10 ml 10/01/21 [Rx] Zinc Sulfate [Orazinc] 220 mg PO DAILY #30 cap 10/01/21 [Rx] carvediloL [Coreg] 3.125 mg PO BID-W/MEALS 30 Days #30 tab 10/01/21 [Rx] guaiFENesin-DM 100-10MG/5ML [Robitussin DM] 10 ml PO Q6HR 5 Days #8 oz 10/01/21 [Rx] Follow up Appointment(s)/Referral(s): Johnny Awad MD [Primary Care Provider] - 1-2 days Kofi Toth MD [STAFF PHYSICIAN] - 1 Week Nicolas Armendariz DO [Doctor of Osteopathic Medicine] - 10/30/21 8:45 am (Appointment with Dr Wodoall) Patient Instructions/Handouts: Coronavirus Disease 2019 (COVID-19), After Radial Heart Catheterization (GEN) Activity/Diet/Wound Care/Special Instructions: heart healthy diet , low carbohydrate 1600 kcal per day activity is restricted till you see your doctor We recommend to monitor your respiratory function, if you develop worsening shortness of breath, more severe cough, increased phlegm production or bloody phlegm, chest pain, fever, hypoxia, diarrhea, decreased appetite, increased sleepiness, confusion, lethargy or any other symptoms, then you might have worsening infection, and in this case call 911 on come to emergency room we recommend to check your glucose 4 times a day before each meal and at bed time , keep the results in a log book and bring it to your doctor upon your appointment date if your glucose is less than 70 or more than 400 then call 911 and come to emergency room Discharge Disposition: HOME WITH HOME HEALTH SERVICES
== END 2021-10-01 19:01 | disposition home health service (06) | DRG 246 ==
LOC: EC 07:33 → 3SCARD 11:00
PROVIDERS: ADMIT Internal Medicine; ATTEND Internal Medicine
PROC: B2111ZZ Fluoroscopy of Multiple Coronary Arteries using Low Osmolar Contrast (ICD-10-PCS; principal; 2021-09-29 14:30)
PROC: 4A023N7 Measurement of Cardiac Sampling and Pressure, Left Heart, Percutaneous Approach (ICD-10-PCS; principal; 2021-09-29 14:30)
PROC: 027035Z Dilation of Coronary Artery, One Artery with Two Drug-eluting Intraluminal Devices, Percutaneous Approach (ICD-10-PCS; principal; 2021-09-29 14:30)
DX: I21.4 Non-ST elevation (NSTEMI) myocardial infarction (principal); U07.1 COVID-19; N17.9 Acute kidney failure, unspecified; E11.40 Type 2 diabetes mellitus with diabetic neuropathy, unspecified; E11.65 Type 2 diabetes mellitus with hyperglycemia; E11.22 Type 2 diabetes mellitus with diabetic chronic kidney disease; I12.9 Hypertensive chronic kidney disease with stage 1 through stage 4 chronic kidney disease, or unspecified chronic kidney disease; N18.2 Chronic kidney disease, stage 2 (mild); D64.9 Anemia, unspecified; Z87.891 Personal history of nicotine dependence; E78.00 Pure hypercholesterolemia, unspecified; E78.5 Hyperlipidemia, unspecified; I10 Essential (primary) hypertension; M19.90 Unspecified osteoarthritis, unspecified site; I25.10 Atherosclerotic heart disease of native coronary artery without angina pectoris; J44.9 Chronic obstructive pulmonary disease, unspecified; R05.3 Chronic cough; Z79.02 Long term (current) use of antithrombotics/antiplatelets; Z79.4 Long term (current) use of insulin; Z79.82 Long term (current) use of aspirin; Z79.899 Other long term (current) drug therapy; Z82.3 Family history of stroke; Z86.19 Personal history of other infectious and parasitic diseases; Z95.5 Presence of coronary angioplasty implant and graft; Z83.2 Family history of diseases of the blood and blood-forming organs and certain disorders involving the immune mechanism; Z98.890 Other specified postprocedural states
CPT/HCPCS: 36415; 71045; 71046; 80048; 80053; 80061; 83036; 83735; 84484; 85025; 85610; 85730; 87635; 93005; 93308; 93458; 93970; 99285

== ENCOUNTER → 2022-01-31 | Outpatient (CLI) | payer MEDICARE ==
[2022-01-31 18:59] LABS: Chol/HDL Ratio 3.65 Ratio; LDL Cholesterol,Calculated 68.7 mg/dL (0.0-131.0)
== END | disposition home or self-care (01) ==
LOC: LABWHC1 13:08
PROVIDERS: ATTEND Nurse Practitioner Adult Health
DX: E78.5 Hyperlipidemia, unspecified (principal)
CPT/HCPCS: 36415; 80061

== ENCOUNTER → 2022-05-08 | Outpatient (CLI) | payer MEDICARE ==
[2022-05-08 14:42] LABS: African American GFR (CKD) 51.2 (60.0-200.0); Albumin 3.8 g/dL (3.8-4.9); Albumin/Globulin Ratio 1.58 (1.60-3.17); Anion Gap 10.5 mmol/L (10.00-18.00); BUN/Creat Ratio 14.42 Ratio (12.00-20.00); Blood Urea Nitrogen 17.3 mg/dL (9.0-27.0); Calcium 8.8 mg/dL (8.7-10.3); Carbon Dioxide 25.5 mmol/L (20.0-27.5); Globulin 2.4 g/dL (1.6-3.3); Magnesium 1.8 mg/dL (1.5-2.4); Non-African American GFR(CKD) 44.2 (60.0-200.0); Potassium 4.3 mmol/L (3.5-5.5); Total Bilirubin 0.3 mg/dL (0.30-1.20); Total Protein 6.2 g/dL (6.2-8.2)
== END | disposition home or self-care (01) ==
LOC: LABWHC1 09:34
PROVIDERS: ATTEND Internal Medicine Interventional Cardiology
DX: I10 Essential (primary) hypertension (principal)
CPT/HCPCS: 36415; 80053; 83735

== ENCOUNTER → 2022-06-23 | Outpatient (CLI) | payer MEDICARE ==
--- NOTE | 2022-06-24 08:16 | MM ---
Reason for Exam: Screening (asymptomatic). Last mammogram was performed 4 year(s) and 1 month(s) ago. Patient History: Menarche at age 11. First Full-Term at age 21. Postmenopausal. Maternal grandmother had breast cancer, age 80. Maternal aunt had breast cancer, age 60. Risk Values: Quynh 5 year model risk: 1.7%. NCI Lifetime model risk: 3.5%. Prior Study Comparison: 06/08/2017 Bilateral MG screening mammo w CAD - 2, [facility] [place]. 06/16/2018 Bilateral MG screening mammo w CAD - 2, [facility] [place]. Tissue Density: There are scattered fibroglandular densities. Findings: Analyzed By CAD. There is no suspicious group of microcalcifications or new suspicious mass in either breast. Benign vascular calcifications within both breasts. No significant change from prior exams. Overall Assessment: Benign, BI-RAD 2 Management: Screening Mammogram of both breasts in 1 year. A clinical breast exam by your physician is recommended on an annual basis and results should be correlated with mammographic findings. Electronically signed and approved by: Carlo Brunson D.O.
== END | disposition home or self-care (01) ==
LOC: RADMAMWWP 15:37
PROVIDERS: ATTEND Family Medicine
DX: Z12.31 Encounter for screening mammogram for malignant neoplasm of breast (principal); Z78.0 Asymptomatic menopausal state; Z80.3 Family history of malignant neoplasm of breast
CPT/HCPCS: 77063; 77067

== ENCOUNTER 2022-06-30 15:53 | Emergency (ER) | payer MEDICARE ==
[2022-06-30 16:36] VITALS: BP 137/67; PULSE 59; RESP 20; TEMP 98.7
--- NOTE | 2022-06-30 17:49 | XR ---
EXAMINATION TYPE: XR chest 2V DATE OF EXAM: 06/30/2022 COMPARISON: 09/30/2021 HISTORY: Chest pain TECHNIQUE: FINDINGS: Heart is normal. Lungs are clear of consolidation. There are no hilar masses. Thoracic aort a is atheromatous. No pleural effusion. Bony thorax is intact. IMPRESSION: No active cardiopulmonary disease. Atheromatous aorta. No change.
== END 2022-06-30 20:49 | disposition left against medical advice (07) ==
LOC: EC 15:53
DX: Z53.21 Procedure and treatment not carried out due to patient leaving prior to being seen by health care provider (principal)
CPT/HCPCS: 71046; 93005; 99499

== ENCOUNTER 2022-10-07 15:08 | Emergency (ER) | payer MEDICARE ==
--- NOTE | 2022-10-07 16:32 | XR ---
EXAMINATION TYPE: XR Hip Complete LT DATE OF EXAM: 10/07/2022 4:22 PM INDICATION: Patient age:Female; 77 years old; Reason for study: pain; PHH. COMPARISON: None. TECHNIQUE: The left hip was examined in the frontal and lateral projections . FINDINGS: No acute fracture or dislocation. Mild osteoarthritic changes of the left hip with medial j oint space narrowing and marginal acetabular osteophytosis. Partial visualization a lumbar fixation h ardware. Vascular sclerosis. IMPRESSION: 1. No acute osseous pathology. 2. Mild osteoarthritic changes of the left hip.
[2022-10-07] MEDS ORDERED: KETOROLAC 15 MG/ML 1 ML VIAL IVP STA (16:47)
--- NOTE | 2022-10-07 16:57 | ED ---
General Adult HPI - General Chief complaint: Extremity Problem,Nontraumatic Stated complaint: left leg pain Time Seen by Provider: 10/07/22 16:31 Source: patient, RN notes reviewed Mode of arrival: wheelchair - History of Present Illness Initial comments: 77-year-old female presents to the emergency department with chief complaint of left groin pain x 5 days. She describes the pain as sharp that occurs at rest. The groin pain radiates down the ventral surface of her left thigh. She saw her PCP yesterday for who gave her tylenol with codiene which has not helped with her pain. She denies any trauma or falls. She reports she was getting into her car when she first noticed the pain, and it has gotten progressively worse. She also reports bilateral pedal edema that has worsened over night. She is prescribed Lasix but was told not to take it "due to having bad kidneys." She denies headache, fever, cough, shortness of breath, chest pain, palpitations, numbness, tinging. - Related Data Home Medications Medication Instructions Recorded Confirmed Ascorbic Acid [Vitamin C] 500 mg PO DAILY 07/11/21 09/28/21 Atorvastatin [Lipitor] 80 mg PO HS 07/11/21 09/28/21 Biotin 10,000 mcg PO DAILY 07/11/21 09/28/21 Cholecalciferol [Vitamin D3 (25 100 mcg PO DAILY 07/11/21 09/28/21 Mcg = 1000 Iu)] Clopidogrel Bisulfate [Plavix] 75 mg PO DAILY 07/11/21 09/28/21 Cyanocobalamin (Vitamin B-12) 1,000 mcg PO DAILY 07/11/21 09/28/21 [Vitamin B-12] Losartan [Cozaar] 50 mg PO DAILY 07/11/21 09/28/21 Melatonin 3 mg PO HS 07/11/21 09/28/21 Nitroglycerin Sl Tabs [Nitrostat] 0.4 mg SL Q5M PRN 07/11/21 09/28/21 Omeprazole 20 mg PO DAILY 07/11/21 09/28/21 amLODIPine [Norvasc] 10 mg PO DAILY 07/11/21 09/28/21 Citalopram Hydrobromide [CeleXA] 40 mg PO DAILY 08/21/21 09/28/21 Ezetimibe [Zetia] 10 mg PO DAILY 09/28/21 09/28/21 Isosorbide Mononitrate ER [Imdur] 60 mg PO DAILY 09/28/21 09/28/21 Previous Rx's Medication Instructions Recorded Aspirin 81 mg PO DAILY 30 Days #30 tab 10/01/21 Insulin Detemir (Levemir) [Levemir] 7 unit SQ DAILY 30 Days #10 ml 10/01/21 Zinc Sulfate [Orazinc] 220 mg PO DAILY #30 cap 10/01/21 carvediloL [Coreg] 3.125 mg PO BID-W/MEALS 30 Days 10/01/21 #30 tab guaiFENesin-DM 100-10MG/5ML 10 ml PO Q6H #120 ml 10/02/21 [Robitussin DM] Allergies Allergy/AdvReac Type Severity Reaction Status Date / Time No Known Allergies Allergy Verified 10/07/22 15:36 Review of Systems ROS Statement: Those systems with pertinent positive or pertinent negative responses have been documented in the HPI. ROS Other: All systems not noted in ROS Statement are negative. Past Medical History Past Medical History: Asthma, Coronary Artery Disease (CAD), Chest Pain / Angina, COPD, Diabetes Mellitus, GERD/Reflux, Hyperlipidemia, Hypertension, Osteoarthritis (OA), Renal Disease, Respiratory Disorder Additional Past Medical History / Comment(s): Osteoarthritis, anemia, anxiety, a sthma, murmur history of rheumatic fever, neuropathy. TYPE 2 DIABETIC-INSULIN History of Any Multi-Drug Resistant Organisms: None Reported Past Surgical History: Back Surgery, Heart Catheterization With Stent Additional Past Surgical History / Comment(s): carpel tunnel Past Anesthesia/Blood Transfusion Reactions: No Reported Reaction Date of Last Stent Placement:: 12/2020 Past Psychological History: Anxiety Smoking Status: Former smoker Past Alcohol Use History: None Reported Past Drug Use History: None Reported - Past Family History Mother Additional Family Medical History / Comment(s): at age 57 open heart surgery and cva Son(s) Family Medical History: Pulmonary Embolus General Exam General appearance: alert, in no apparent distress Head exam: Present: atraumatic, normocephalic, normal inspection Eye exam: Present: normal appearance, PERRL, EOMI. Absent: scleral icterus, conjunctival injection, periorbital swelling ENT exam: Present: normal exam, mucous membranes moist Neck exam: Present: normal inspection. Absent: tenderness, meningismus, lymphadenopathy Respiratory exam: Present: normal lung sounds bilaterally. Absent: respiratory distress, wheezes, rales, rhonchi, stridor Cardiovascular Exam: Present: regular rate, normal rhythm, normal heart sounds. Absent: systolic murmur, diastolic murmur, rubs, gallop, clicks GI/Abdominal exam: Present: soft, tenderness (LLQ/ l groin ), normal bowel sounds. Absent: distended, guarding, rebound, rigid Extremities exam: Present: normal inspection, full ROM, normal capillary refill. Absent: tenderness, pedal edema, joint swelling, calf tenderness Back exam: Present: normal inspection Neurological exam: Present: alert, oriented X3, CN II-XII intact Psychiatric exam: Present: normal affect, normal mood Skin exam: Present: warm, dry, intact, normal color. Absent: rash Course Vital Signs 10/07/22 21:53 Temperature 98.2 F Pulse Rate 68 Respiratory 18 Rate Blood Pressure 132/78 O2 Sat by Pulse 97 Oximetry - Reevaluation(s) Reevaluation #1: 10/07/22 18:02 Patient reevaluated. States Toradol did not help with her pain. Morphine ordered. EKG Findings - EKG Comments: EKG Findings:: I interpreted the following: EKG performed at 17:14. Rate 50 bpm, sinus bradycardia with first-degree AV block. NE interval 222, QRS duration 125 QT/QTC 495/470 Medical Decision Making - Medical Decision Making Was pt. sent in by a medical professional or institution (, PA, ELECTROLYTIC DE SCALER, urgent care, hospital, or fpc...) When possible be specific @ -[No] Did you speak to anyone other than the patient for history (EMS, parent, family, police, friend...)? What history was obtained from this source @ -[No] Did you review nursing and triage notes (agree or disagree)? Why? @ -[I reviewed and agree with nursing and triage notes] Were old charts reviewed (outside hosp., previous admission, EMS record, old EKG, old radiological studies, urgent care reports/EKG's, fpc records)? Report findings @ -[No old charts were reviewed] Differential Diagnosis (chest pain, altered mental status, abdominal pain women, abdominal pain men, vaginal bleeding, weakness, fever, dyspnea, syncope, headache, dizziness, GI bleed, back pain, seizure, CVA, palpatations, mental health)? @ -[not applicable] EKG interpreted by me (3pts min.). @ -[As above] X-rays interpreted by me (1pt min.). @ -[None done] CT interpreted by me (1pt min.). @ -[None done] U/S interpreted by me (1pt. min.). @ -[None done] What testing was considered but not performed or refused? (CT, X-rays, U/S, labs)? Why? @ -[None] What meds were considered but not given or refused? Why? @ -[None] Did you discuss the management of the patient with other professionals (professionals i.e. , PA, ELECTROLYTIC DE SCALER, lab, RT, psych nurse, social work assistant, digital advisor, teacher, chairman and chief executive officer, residential case manager)? Give summary @ -[No] Was smoking cessation discussed for >3mins.? @ -[No] Was critical care preformed (if so, how long)? @ -[No] Were there social determinants of health that impacted care today? How? (Homelessness, low income, unemployed, alcoholism, drug addiction, transportation, low edu. Level, literacy, decrease access to med. care, fci, rehab)? @ -[No] Was there de-escalation of care discussed even if they declined (Discuss DNR or withdrawal of care, Hospice)? DNR status @ -[No] What co-morbidities impacted this encounter? (DM, HTN, Smoking, COPD, CAD, Cancer, CVA, ARF, Chemo, Hep., AIDS, mental health diagnosis, sleep apnea, morbid obesity)? @ -[None] Was patient admitted / discharged? Hospital course, mention meds given and rou te, prescriptions, significant lab abnormalities, going to OR and other pertinent info. @ -77 year old female presents the emergency department for left groin pain. Patient had a physical history and physical performed, physical exam reveals mild tenderness to left groin. Patient had extensive workup with labwork and imagining performed which was essentially unremarkablle. Patient was given Toradol and morphine with symptomatic relief on the emergency department. I discussed the results in detail with the patient. Return precautions were discussed. The patient was discharged in stable condition with recommended close follow-up with PCP in 1-2 days. I discussed the case with Dr. Franko VIVAS who agrees with the current plan. Undiagnosed new problem with uncertain prognosis? @ -[No] Drug Therapy requiring intensive monitoring for toxicity (Heparin, Nitro, Insulin, Cardizem)? @ -[No] Were any procedures done? @ -[No] Diagnosis/symptom? @ -L groin sprain a Acute, or Chronic, or Acute on Chronic? @ acute Uncomplicated (without systemic symptoms) or Complicated (systemic symptoms)? @ -uncomplicated Side effects of treatment? @ -[No] Exacerbation, Progression, or Severe Exacerbation? @ -[No] Poses a threat to life or bodily function? How? (Chest pain, USA, DE, pneumonia, PE, COPD, DKA, ARF, appy, cholecystitis, CVA, Diverticulitis, Homicidal, Suicidal, threat to staff... and all critical care pts) @ -[No] - Lab Data Result diagrams: 10/07/22 17:21 10/07/22 17:21 Lab Results 10/07/22 10/07/22 10/07/22 Range/Units 17:21 17:21 17:21 WBC 7.2 (3.8-10.6) k/uL RBC 4.08 (3.80-5.40) m/uL Hgb 10.7 L (11.4-16.0) gm/dL Hct 32.6 L (34.0-46.0) % MCV 79.9 L (80.0-100.0) fL MCH 26.3 (25.0-35.0) pg MCHC 33.0 (31.0-37.0) g/dL RDW 16.0 H (11.5-15.5) % Plt Count 184 (150-450) k/uL MPV 7.6 Neutrophils % 66 % Lymphocytes % 21 % Monocytes % 7 % Eosinophils % 3 % Basophils % 0 % Neutrophils # 4.8 (1.3-7.7) k/uL Lymphocytes # 1.5 (1.0-4.8) k/uL Monocytes # 0.5 (0-1.0) k/uL Eosinophils # 0.3 (0-0.7) k/uL Basophils # 0.0 (0-0.2) k/uL Microcytosis Slight PT 10.3 (9.0-12.0) sec INR 1.0 (<1.2) Sodium 138 (137-145) mmol/L Potassium 4.2 (3.5-5.1) mmol/L Chloride 108 H (98-107) mmol/L Carbon Dioxide 27 (22-30) mmol/L Anion Gap 3 mmol/L BUN 25 H (7-17) mg/dL Creatinine 1.04 (0.52-1.04) mg/dL Est GFR (CKD-EPI)AfAm 61 (>60 ml/min/1.73 sqM) Est GFR (CKD-EPI)NonAf 53 (>60 ml/min/1.73 sqM) Glucose 124 H (74-99) mg/dL Calcium 8.5 (8.4-10.2) mg/dL Troponin I (0.000-0.034) ng/mL NT-Pro-B Natriuret Pep pg/mL Urine Color Urine Appearance (Clear) Urine pH (5.0-8.0) Ur Specific Hulbert (1.001-1.035) Urine Protein (Negative) Urine Glucose (UA) (Negative) Urine Ketones (Negative) Urine Blood (Negative) Urine Nitrite (Negative) Urine Bilirubin (Negative) Urine Urobilinogen (<2.0) mg/dL Ur Leukocyte Esterase (Negative) Urine RBC (0-5) /hpf Urine WBC (0-5) /hpf Ur Squamous Epith Cells (0-4) /hpf Urine Bacteria (None) /hpf 10/07/22 10/07/22 10/07/22 Range/Units 17:21 17:21 18:19 WBC (3.8-10.6) k/uL RBC (3.80-5.40) m/uL Hgb (11.4-16.0) gm/dL Hct (34.0-46.0) % MCV (80.0-100.0) fL MCH (25.0-35.0) pg MCHC (31.0-37.0) g/dL RDW (11.5-15.5) % Plt Count (150-450) k/uL MPV Neutrophils % % Lymphocytes % % Monocytes % % Eosinophils % % Basophils % % Neutrophils # (1.3-7.7) k/uL Lymphocytes # (1.0-4.8) k/uL Monocytes # (0-1.0) k/uL Eosinophils # (0-0.7) k/uL Basophils # (0-0.2) k/uL Microcytosis PT (9.0-12.0) sec INR (<1.2) Sodium (137-145) mmol/L Potassium (3.5-5.1) mmol/L Chloride (98-107) mmol/L Carbon Dioxide (22-30) mmol/L Anion Gap mmol/L BUN (7-17) mg/dL Creatinine (0.52-1.04) mg/dL Est GFR (CKD-EPI)AfAm (>60 ml/min/1.73 sqM) Est GFR (CKD-EPI)NonAf (>60 ml/min/1.73 sqM) Glucose (74-99) mg/dL Calcium (8.4-10.2) mg/dL Troponin I <0.012 (0.000-0.034) ng/mL NT-Pro-B Natriuret Pep 117 pg/mL Urine Color Yellow Urine Appearance Clear (Clear) Urine pH 6.0 (5.0-8.0) Ur Specific Hulbert 1.018 (1.001-1.035) Urine Protein 3+ H (Negative) Urine Glucose (UA) Negative (Negative) Urine Ketones Negative (Negative) Urine Blood Negative (Negative) Urine Nitrite Negative (Negative) Urine Bilirubin Negative (Negative) Urine Urobilinogen <2.0 (<2.0) mg/dL Ur Leukocyte Esterase Small H (Negative) Urine RBC 1 (0-5) /hpf Urine WBC 1 (0-5) /hpf Ur Squamous Epith Cells 1 (0-4) /hpf Urine Bacteria Rare H (None) /hpf Disposition Clinical Impression: Sprain of groin Disposition: HOME SELF-CARE Condition: Stable Additional Instructions: Please return to the nearest emergency department if symptoms worsen or persist. Is patient prescribed a controlled substance at d/c from ED?: No Referrals: Johnny Awad MD [Primary Care Provider] - 1-2 days Michael Nicole MD [STAFF PHYSICIAN] - 1-2 days Time of Disposition: 21:27
[2022-10-07] MEDS ORDERED: LIDOCAINE 5% PATCH TOPICAL SCH (17:00)
[2022-10-07] MEDS ORDERED: FUROSEMIDE 10 MG/ML 4 ML VIAL IV STA (17:16)
--- NOTE | 2022-10-07 17:16 | XR ---
EXAMINATION TYPE: XR chest 2V DATE OF EXAM: 10/07/2022 COMPARISON: 06/30/2022 HISTORY: Leg swelling TECHNIQUE: FINDINGS: Heart appears enlarged. No heart failure. No pleural effusion. There are no hilar masses. T horacic aorta is atheromatous. The bony thorax is intact. IMPRESSION: Mild cardiomegaly. No change compared to old exam. No pulmonary consolidation or heart fa ilure.
[2022-10-07 17:34] LABS: Basophils % (A) 0 %; Eosinophils # (A) 0.3 k/uL (0-0.7); Eosinophils % (A) 3 %; HCT 32.6 % (34.0-46.0); HGB 10.7 gm/dL (11.4-16.0); Lymphocytes # (A) 1.5 k/uL (1.0-4.8); Lymphocytes % (A) 21 %; MCH 26.3 pg (25.0-35.0); MCV 79.9 fL (80.0-100.0); Mean Platelet Volume 7.6; Microcytosis Slight; Monocytes # (A) 0.5 k/uL (0-1.0); Monocytes % (A) 7 %; Neutrophils # (A) 4.8 k/uL (1.3-7.7); Neutrophils % (A) 66 %; Platelet Count 184 k/uL (150-450); RBC 4.08 m/uL (3.80-5.40); WBC 7.2 k/uL (3.8-10.6)
[2022-10-07 17:41] LABS: Prothrombin Time 10.3 sec (9.0-12.0)
[2022-10-07 17:45] LABS: Calcium 8.5 mg/dL (8.4-10.2); Potassium 4.2 mmol/L (3.5-5.1)
[2022-10-07] MEDS ORDERED: MORPHINE SULFATE 2 MG/ML SYRINGE IVP ONE ×2 (18:02→21:35)
[2022-10-07 19:12] LABS: Appearance,Urine Clear (Clear); Bacteria,Urine Rare /hpf; Bilirubin,Urine Negative (Negative); Blood,Urine Negative (Negative); Color,Urine Yellow; Glucose,Urine (UA) Negative (Negative); Ketones,Urine Negative (Negative); Leukocyte Esterase,Urine Small (Negative); Nitrite,Urine Negative (Negative); Protein,Urine 3+ (Negative); RBC,Urine 1 /hpf (0-5); Specific Gravity,Urine 1.018 (1.001-1.035); Squamous Epithelial Cell,Urine 1 /hpf (0-4); Urobilinogen,Urine <2.0 mg/dL (<2.0); WBC,Urine 1 /hpf (0-5)
--- NOTE | 2022-10-07 20:23 | CT ---
EXAMINATION TYPE: CT abdomen pelvis w con DATE OF EXAM: 10/07/2022 COMPARISON: None HISTORY: LLQ pain that radiates down the left leg CT DLP: 2252.2 mGycm Automated exposure control for dose reduction was used. CONTRAST: Performed with IV Contrast, patient injected with 80 mL of Isovue 300. Images obtained from the diaphragm through the floor the pelvis with the IV contrast. The lung bases show no pulmonary consolidation or pleural fluid. Heart is borderline enlarged. No per icardial effusion. Liver is intact. Spleen is intact. The stomach is intact. There is no evidence of pancreatic mass. Ga llbladder appears normal. The bile ducts are not dilated. There is no adrenal mass. Kidneys have normal size. No hydronephrosis. There is 2 cm cortical cyst me dial right kidney. No retroperitoneal adenopathy. Appendix is posterior and appears normal. The bladd er distends smoothly. No inguinal hernia. No free fluid in the pelvis. No pelvic mass. Uterus is ante verted. There is no mesenteric edema. No ascites or free air. No sign of a bowel obstruction. The lumbar vertebra have normal alignment. There is posterior fusion surgery from L5 to L2 vertebra. There is multilevel spondylotic changes with disc space narrowing and spur formation. There is anteri or moderate spurring in the lower thoracic spine. The bony pelvis is intact. The hip joints are intac t. IMPRESSION: Cardiomegaly. No acute abnormality in the abdomen and pelvis. Normal appendix. I do not see a cause for left lower quadrant pain. Multilevel lumbar spine fusion surgery with spondylotic changes.
--- NOTE | 2022-10-07 21:17 | US ---
EXAMINATION TYPE: US venous doppler duplex LE BI DATE OF EXAM: 10/07/2022 7:48 PM COMPARISON: 10/01/21 CLINICAL HISTORY: BL leg swelling. Left leg pain. On blood thinners SIDE PERFORMED: Bilateral TECHNIQUE: The lower extremity deep venous system is examined utilizing real time linear array sonog susanna with graded compression, doppler sonography and color-flow sonography. VESSELS IMAGED: Common Femoral Vein Deep Femoral Vein Greater Saphenous Vein * Femoral Vein Popliteal Vein Small Saphenous Vein * Proximal Calf Veins (* superficial vessels) Right Leg: Negative for DVT Left Leg: Negative for DVT Impression No evidence of deep vein thrombosis in both legs.
[2022-10-07] MEDS ORDERED: ACET/COD 300 MG/30 MG STARTER PACK 6 TAB BTL PO STA (21:27)
[2022-10-07 21:54] VITALS: BP 132/78; PULSE 68; RESP 18; TEMP 98.2
== END 2022-10-07 21:54 | disposition home or self-care (01) ==
LOC: EC 15:08
DX: S76.212A Strain of adductor muscle, fascia and tendon of left thigh, initial encounter (principal); I10 Essential (primary) hypertension; E11.9 Type 2 diabetes mellitus without complications; I25.10 Atherosclerotic heart disease of native coronary artery without angina pectoris; M19.90 Unspecified osteoarthritis, unspecified site; E78.5 Hyperlipidemia, unspecified; J44.9 Chronic obstructive pulmonary disease, unspecified; F41.9 Anxiety disorder, unspecified; Z87.891 Personal history of nicotine dependence; Z79.01 Long term (current) use of anticoagulants; Z79.899 Other long term (current) drug therapy; X58.XXXA Exposure to other specified factors, initial encounter
CPT/HCPCS: 36415; 93005; 83880; 80048; 84484; 85025; 85610; 81001; 73502; 71046; 93970; 74177; 99285; 96374; 96375 ×2; 96376; J1940; J2270; J1885; Q9967

== ENCOUNTER → 2022-12-03 | Outpatient (CLI) | payer MEDICARE ==
[2022-12-03 18:12] LABS: Basophils # (A) 0.04 X 10*3/uL (0.00-0.10); Basophils % (A) 0.7 %; Eosinophils # (A) 0.25 X 10*3/uL (0.04-0.35); Eosinophils % (A) 4.3 %; HCT 34.3 % (37.2-46.3); HGB 10.3 g/dL (12.0-15.0); Immature Grans, Automated 0.2 %; Lymphocytes # (A) 1.46 X 10*3/uL (0.90-5.00); Lymphocytes % (A) 24.8 %; MCH 25.4 pg (27.0-32.0); MCV 84.5 fL (80.0-97.0); Mean Platelet Volume 11.3 fL (9.5-12.2); Monocytes # (A) 0.46 X 10*3/uL (0.20-1.00); Monocytes % (A) 7.8 %; NRBC Per 100 WBC 0 /100 WBCS (0.0-0.0); Neutrophils # (A) 3.66 X 10*3/uL (1.80-7.70); Neutrophils % (A) 62.2 %; Platelet Count 194 X 10*3/uL (140-440); RBC 4.06 X 10*6/uL (4.10-5.20); RDW 14.3 % (11.5-14.5); WBC 5.88 X 10*3/uL (4.50-10.00)
[2022-12-03 18:27] LABS: African American GFR (CKD) 47.9 (60.0-200.0); Albumin 3.9 g/dL (3.8-4.9); Albumin/Globulin Ratio 1.67 (1.60-3.17); BUN/Creat Ratio 21.67 Ratio (12.00-20.00); Blood Urea Nitrogen 27.3 mg/dL (9.0-27.0); Carbon Dioxide 25.3 mmol/L (20.0-27.5); Chloride 107 mmol/L (96-109); Globulin 2.4 g/dL (1.6-3.3); Glucose 143 mg/dL (70-110); Non-African American GFR(CKD) 41.4 (60.0-200.0); Potassium 4.8 mmol/L (3.5-5.5); Sodium 142 mmol/L (135-145); Total Protein 6.3 g/dL (6.2-8.2)
[2022-12-03 18:28] LABS: ALT 18 U/L (8-44); AST 16 U/L (13-35); Alkaline Phosphatase 70 U/L (41-126)
== END | disposition home or self-care (01) ==
LOC: LABWHC1 11:46
PROVIDERS: ATTEND Internal Medicine
DX: E11.9 Type 2 diabetes mellitus without complications (principal)
CPT/HCPCS: 36415; 80053; 80061; 83036; 84443; 85025

== ENCOUNTER → 2022-12-08 | Outpatient (CLI) | payer MEDICARE ==
[2022-12-08 15:57] LABS: Basophils % (A) 1 %; Eosinophils # (A) 0.2 k/uL (0-0.7); Eosinophils % (A) 4 %; HCT 32.7 % (34.0-46.0); HGB 10.6 gm/dL (11.4-16.0); Hypochromasia Slight; Lymphocytes % (A) 21 %; MCH 27.2 pg (25.0-35.0); MCHC 32.4 g/dL (31.0-37.0); Mean Platelet Volume 8.2; Monocytes # (A) 0.3 k/uL (0-1.0); Monocytes % (A) 6 %; Neutrophils % (A) 65 %; Platelet Count 174 k/uL (150-450); RDW 14.7 % (11.5-15.5); Reticulocyte % 1.8 % (0.5-2.0); WBC 4.6 k/uL (3.8-10.6)
[2022-12-08 23:47] LABS: Protein, Total 6.1 g/dL (6.2-8.2)
[2022-12-09 01:46] LABS: % Iron Saturation 8.71 (12.00-45.00); African American GFR (CKD) 42.9 (60.0-200.0); Anion Gap 9.6 mmol/L (10.00-18.00); BUN/Creat Ratio 20.14 Ratio (12.00-20.00); Blood Urea Nitrogen 27.8 mg/dL (9.0-27.0); Calcium 8.8 mg/dL (8.7-10.3); Carbon Dioxide 26.1 mmol/L (20.0-27.5); Ferritin 24.1 ng/mL (10.0-291.0); Potassium 4.7 mmol/L (3.5-5.5)
[2022-12-09 23:53] LABS: Albumin 3.43 g/dL (3.80-4.90); Gamma Globulin 0.81 g/dL (0.70-1.50)
== END | disposition home or self-care (01) ==
LOC: LABWHC1 14:42
PROVIDERS: ATTEND Internal Medicine
DX: D64.9 Anemia, unspecified (principal)
CPT/HCPCS: 36415; 80048; 82607; 82728; 82746; 83540; 83550; 84165; 85025; 85045

== ENCOUNTER 2022-12-14 19:30 | Inpatient (IN) | payer MEDICARE ==
--- NOTE | 2022-12-14 19:55 | ED ---
General Adult HPI - General Chief complaint: Chest Pain Stated complaint: Chest Pain Time Seen by Provider: 12/14/22 19:41 Source: patient Mode of arrival: ambulatory Limitations: no limitations - History of Present Illness Initial comments: Patient presents to the ED with her complaining of having intermittent chest "burning and heaviness" since this morning. Patient states that her symptoms seem to be associated with exertion. Patient admits to having associated dyspnea, lightheadedness and heart palpitations. Patient states that her symptoms have improved currently. Patient denies trauma or injury, fever or chills, headache, focal numbness/weakness/neuro deficit, neck/arm/jaw/back pain, pleuritic pain, cough or cold symptoms, syncope, nausea/vomiting/diaphoresis, abdominal pain, bloody or melanotic stool, dysuria or urinary symptoms, decreased urine output, leg or calf swelling or pain, or any other symptoms or complaints. - Related Data Home Medications Medication Instructions Recorded Confirmed Ascorbic Acid [Vitamin C] 1,000 mg PO DAILY 07/11/21 12/14/22 Atorvastatin [Lipitor] 80 mg PO HS 07/11/21 12/14/22 Biotin 10,000 mcg PO DAILY 07/11/21 12/14/22 Cholecalciferol [Vitamin D3 (25 50 mcg PO DAILY 07/11/21 12/14/22 Mcg = 1000 Iu)] Losartan [Cozaar] 50 mg PO DAILY 07/11/21 12/14/22 Omeprazole 20 mg PO DAILY 07/11/21 12/14/22 Citalopram Hydrobromide [CeleXA] 40 mg PO DAILY 08/21/21 12/14/22 Ezetimibe [Zetia] 10 mg PO DAILY 09/28/21 12/14/22 Albuterol Inhaler [Ventolin Hfa 2 puff INHALATION RT-Q6H PRN 12/14/22 12/14/22 Inhaler] Dapagliflozin Propanediol [Farxiga] 5 mg PO DAILY 12/14/22 12/14/22 Ferrous Sulfate [Feosol] 325 mg PO DAILY 12/14/22 12/14/22 Insuln Asp Prt/Insulin Aspart 26 unit SQ BID 12/14/22 12/14/22 [NovoLOG MIX 70-30 VIAL] Vitamin B Complex 1 cap PO DAILY 12/14/22 12/14/22 Vitamin E(Unknown Dose) 1 cap PO DAILY 12/14/22 12/14/22 carvediloL [Coreg] 3.125 mg PO BID 12/14/22 12/14/22 tiZANidine [Zanaflex] 2 mg PO Q8H PRN 12/14/22 12/14/22 Previous Rx's Medication Instructions Recorded Aspirin 81 mg PO DAILY 30 Days #30 tab 10/01/21 Allergies Allergy/AdvReac Type Severity Reaction Status Date / Time No Known Allergies Allergy Verified 12/14/22 20:44 Review of Systems ROS Statement: Those systems with pertinent positive or pertinent negative responses have been documented in the HPI. ROS Other: All systems not noted in ROS Statement are negative. Past Medical History Past Medical History: Asthma, Coronary Artery Disease (CAD), Chest Pain / Angina, COPD, Diabetes Mellitus, GERD/Reflux, Hyperlipidemia, Hypertension, Osteoarthritis (OA), Renal Disease, Respiratory Disorder Additional Past Medical History / Comment(s): Osteoarthritis, anemia, anxiety, asthma, murmur history of rheumatic fever, neuropathy. TYPE 2 DIABETIC-INSULIN History of Any Multi-Drug Resistant Organisms: None Reported Past Surgical History: Back Surgery, Heart Catheterization With Stent Additional Past Surgical History / Comment(s): carpel tunnel Past Anesthesia/Blood Transfusion Reactions: No Reported Reaction Date of Last Stent Placement:: 12/2020 Past Psychological History: Anxiety Smoking Status: Former smoker Past Alcohol Use History: None Reported Past Drug Use History: None Reported - Past Family History Mother Additional Family Medical History / Comment(s): at age 57 open heart surgery and cva Son(s) Family Medical History: Pulmonary Embolus General Exam Limitations: no limitations General appearance: alert, in no apparent distress Head exam: Present: atraumatic, normocephalic Eye exam: Present: normal appearance, EOMI ENT exam: Present: mucous membranes moist Neck exam: Present: other (Trachea is in midline) Respiratory exam: Present: normal lung sounds bilaterally. Absent: respiratory distress, wheezes, rales, rhonchi, stridor, chest wall tenderness Cardiovascular Exam: Present: normal rhythm, tachycardia, normal heart sounds, other (Normal radial pulses bilaterally) GI/Abdominal exam: Present: soft. Absent: distended, tenderness, guarding Extremities exam: Present: other (Negative Homans sign bilaterally). Absent: tenderness, pedal edema, calf tenderness Neurological exam: Present: alert, oriented X3. Absent: motor sensory deficit Psychiatric exam: Present: normal affect, normal mood Skin exam: Present: warm, dry, intact, normal color Course Vital Signs 12/14/22 12/14/22 12/14/22 19:32 19:49 19:54 Temperature 98.3 F Pulse Rate 150 H 121 H 97 Respiratory 18 Rate Blood Pressure 174/97 158/108 O2 Sat by Pulse 98 Oximetry 12/14/22 12/14/22 20:25 21:00 Temperature Pulse Rate 78 79 Respiratory 18 18 Rate Blood Pressure 123/67 115/65 O2 Sat by Pulse 93 L Oximetry - Reevaluation(s) Reevaluation #1: 12/14/22 21:42 Patient has now converted to a normal sinus rhythm on the desk monitor with heart rate in the 70s. Patient states that her symptoms have resolved. Patient remains alert and breathing comfortably. Patient and are aware of the patient's test results, and they both agree with hospital admission at this time. 12/14/22 21:44 Case, H&P, test results and ED management thus far were discussed with Dr. Cruz. He accepts hospital admission. He agrees with cardiology consultation. He has no further recommendations at this time. EKG Findings - EKG Comments: EKG Findings:: ED physician interpretation: Atrial flutter versus atrial tachycardia with RVR, ventricular rate of 151 bpm, nonspecific intraventricular conduction delay, QRS duration of 124 ms, normal QT interval, leftward axis Medical Decision Making - Medical Decision Making Was pt. sent in by a medical professional or institution (, PA, ELECTRON BEAM OPERATOR, urgent care, hospital, or prison...) When possible be specific @ -No Did you speak to anyone other than the patient for history (EMS, parent, family, police, friend...)? What history was obtained from this source @ -No Did you review nursing and triage notes (agree or disagree)? Why? @ -I reviewed and agree with nursing and triage notes Were old charts reviewed (outside hosp., previous admission, EMS record, old EKG, old radiological studies, urgent care reports/EKG's, prison records)? Report findings @ -No old charts were reviewed Differential Diagnosis (chest pain, altered mental status, abdominal pain women, abdominal pain men, vaginal bleeding, weakness, fever, dyspnea, syncope, headache, dizziness, GI bleed, back pain, seizure, CVA, palpatations, mental health, musculoskeletal)? @ -Differential Chest Pain: Stable Angina, Unstable Angina, STEMI, NSTEMI, Pneumothorax, Musculoskeletal, Esophageal Spasm GERD, dysrhythmia, tachycardia, this is not meant to be an all- inclusive list. EKG interpreted by me (3pts min.). @ -As above X-rays interpreted by me (1pt min.). @ -Chest x-ray was reviewed myself, and I agree with the radiologist interpretation as above. CT interpreted by me (1pt min.). @ -None done U/S interpreted by me (1pt. min.). @ -None done What testing was considered but not performed or refused? (CT, X-rays, U/S, labs)? Why? @ -None What meds were considered but not given or refused? Why? @ -None Did you discuss the management of the patient with other professionals (professionals i.e. , PA, ELECTRON BEAM OPERATOR, lab, RT, psych nurse, social work case manager, vice president of product marketing, teacher, desk officer, case managers)? Give summary @ -As above Was smoking cessation discussed for >3mins.? @ -No Was critical care preformed (if so, how long)? @ -No Were there social determinants of health that impacted care today? How? (Homelessness, low income, unemployed, alcoholism, drug addiction, transportation, low edu. Level, literacy, decrease access to med. care, shelter, rehab)? @ -No Was there de-escalation of care discussed even if they declined (Discuss DNR or withdrawal of care, Hospice)? DNR status @ -No What co-morbidities impacted this encounter? (DM, HTN, Smoking, COPD, CAD, Cancer, CVA, ARF, Chemo, Hep., AIDS, mental health diagnosis, sleep apnea, morbid obesity)? @ -None Was patient admitted / discharged? Hospital course, mention meds given and route, prescriptions, significant lab abnormalities, going to OR and other pertinent info. @ -Patient was noted to be in an atrial tachycardia on presentation to the ED. Patient was given a dose of IV diltiazem after my initial assessment, and she has since cardioverted to a normal sinus rhythm. Patient was also treated with a dose of aspirin in the ED. Patient states that her symptoms have now resolved. Patient's initial troponin is negative. Patient's labs are fairly unremarkable. Patient's chest x-ray is also unremarkable. Will admit the patient to the hospital for monitoring, serial troponins and cardiology consultation. Dr. Cruz has accepted hospital admission. Undiagnosed new problem with uncertain prognosis? @ -No Drug Therapy requiring intensive monitoring for toxicity (Heparin, Nitro, Insulin, Cardizem)? @ -No Were any procedures done? @ -No Diagnosis/symptom? @ -New-onset atrial tachycardia Acute, or Chronic, or Acute on Chronic? @ -Acute Uncomplicated (without systemic symptoms) or Complicated (systemic symptoms)? @ -default Side effects of treatment? @ -No Exacerbation, Progression, or Severe Exacerbation? @ -No Poses a threat to life or bodily function? How? (Chest pain, USA, PR, pneumonia, PE, COPD, DKA, ARF, appy, cholecystitis, CVA, Diverticulitis, Homicidal, Suicidal, threat to staff... and all critical care pts) @ -No Diagnosis/symptom? @ -Chest pain Acute, or Chronic, or Acute on Chronic? @ -Acute Uncomplicated (without systemic symptoms) or Complicated (systemic symptoms)? @ -default Side effects of treatment? @ -none Exacerbation, Progression, or Severe Exacerbation] @ -no Poses a threat to life or bodily function? @ -no - Lab Data Result diagrams: 12/14/22 19:53 12/14/22 19:53 Lab Results 12/14/22 12/14/22 12/14/22 Range/Units 19:53 19:53 19:53 WBC 6.8 (3.8-10.6) k/uL RBC 4.66 (3.80-5.40) m/uL Hgb 12.1 (11.4-16.0) gm/dL Hct 37.7 (34.0-46.0) % MCV 80.9 (80.0-100.0) fL MCH 25.9 (25.0-35.0) pg MCHC 32.0 (31.0-37.0) g/dL RDW 14.5 (11.5-15.5) % Plt Count 205 (150-450) k/uL MPV 8.3 Neutrophils % 62 % Lymphocytes % 25 % Monocytes % 7 % Eosinophils % 3 % Basophils % 1 % Neutrophils # 4.2 (1.3-7.7) k/uL Lymphocytes # 1.7 (1.0-4.8) k/uL Monocytes # 0.5 (0-1.0) k/uL Eosinophils # 0.2 (0-0.7) k/uL Basophils # 0.0 (0-0.2) k/uL PT 10.5 (9.0-12.0) sec INR 1.0 (<1.2) APTT 22.4 (22.0-30.0) sec Sodium 137 (137-145) mmol/L Potassium 4.5 (3.5-5.1) mmol/L Chloride 106 (98-107) mmol/L Carbon Dioxide 24 (22-30) mmol/L Anion Gap 7 mmol/L BUN 22 H (7-17) mg/dL Creatinine 1.22 H (0.52-1.04) mg/dL Est GFR (CKD-EPI)AfAm 50 (>60 ml/min/1.73 sqM) Est GFR (CKD-EPI)NonAf 43 (>60 ml/min/1.73 sqM) Glucose 166 H (74-99) mg/dL Calcium 8.8 (8.4-10.2) mg/dL Magnesium 1.6 (1.6-2.3) mg/dL Total Bilirubin 0.7 (0.2-1.3) mg/dL AST 39 H (14-36) U/L ALT 25 (4-34) U/L Alkaline Phosphatase 79 (38-126) U/L Troponin I (0.000-0.034) ng/mL NT-Pro-B Natriuret Pep pg/mL Total Protein 7.0 (6.3-8.2) g/dL Albumin 4.0 (3.5-5.0) g/dL TSH 1.430 (0.465-4.680) mIU/L 12/14/22 12/14/22 Range/Units 19:53 19:53 WBC (3.8-10.6) k/uL RBC (3.80-5.40) m/uL Hgb (11.4-16.0) gm/dL Hct (34.0-46.0) % MCV (80.0-100.0) fL MCH (25.0-35.0) pg MCHC (31.0-37.0) g/dL RDW (11.5-15.5) % Plt Count (150-450) k/uL MPV Neutrophils % % Lymphocytes % % Monocytes % % Eosinophils % % Basophils % % Neutrophils # (1.3-7.7) k/uL Lymphocytes # (1.0-4.8) k/uL Monocytes # (0-1.0) k/uL Eosinophils # (0-0.7) k/uL Basophils # (0-0.2) k/uL PT (9.0-12.0) sec INR (<1.2) APTT (22.0-30.0) sec Sodium (137-145) mmol/L Potassium (3.5-5.1) mmol/L Chloride (98-107) mmol/L Carbon Dioxide (22-30) mmol/L Anion Gap mmol/L BUN (7-17) mg/dL Creatinine (0.52-1.04) mg/dL Est GFR (CKD-EPI)AfAm (>60 ml/min/1.73 sqM) Est GFR (CKD-EPI)NonAf (>60 ml/min/1.73 sqM) Glucose (74-99) mg/dL Calcium (8.4-10.2) mg/dL Magnesium (1.6-2.3) mg/dL Total Bilirubin (0.2-1.3) mg/dL AST (14-36) U/L ALT (4-34) U/L Alkaline Phosphatase (38-126) U/L Troponin I 0.022 (0.000-0.034) ng/mL NT-Pro-B Natriuret Pep 1200 pg/mL Total Protein (6.3-8.2) g/dL Albumin (3.5-5.0) g/dL TSH (0.465-4.680) mIU/L - Radiology Data Chest x-ray: No active cardiopulmonary disease. Mild cardiomegaly without change. Disposition Clinical Impression: Chest pain, Atrial tachycardia Disposition: ADMITTED IP TO THIS [facility] Condition: Stable Is patient prescribed a controlled substance at d/c from ED?: No Referrals: Gaurav Wadsworth MD [Primary Care Provider] - 1-2 days Time of Disposition: 21:46
[2022-12-14] MEDS ORDERED: DILTIAZEM 5 MG/ML 5 ML VIAL IVP STA ×2 (19:58→20:07)
[2022-12-14 20:21] LABS: Basophils % (A) 1 %; Eosinophils # (A) 0.2 k/uL (0-0.7); Eosinophils % (A) 3 %; HCT 37.7 % (34.0-46.0); HGB 12.1 gm/dL (11.4-16.0); Lymphocytes # (A) 1.7 k/uL (1.0-4.8); Lymphocytes % (A) 25 %; MCH 25.9 pg (25.0-35.0); MCV 80.9 fL (80.0-100.0); Mean Platelet Volume 8.3; Monocytes # (A) 0.5 k/uL (0-1.0); Monocytes % (A) 7 %; Neutrophils # (A) 4.2 k/uL (1.3-7.7); Neutrophils % (A) 62 %; Platelet Count 205 k/uL (150-450); RBC 4.66 m/uL (3.80-5.40); RDW 14.5 % (11.5-15.5); WBC 6.8 k/uL (3.8-10.6)
[2022-12-14 20:25] LABS: Partial Thromboplastin Time 22.4 sec (22.0-30.0); Prothrombin Time 10.5 sec (9.0-12.0)
--- NOTE | 2022-12-14 20:25 | XR ---
EXAMINATION TYPE: XR chest 1V portable DATE OF EXAM: 12/14/2022 COMPARISON: 10/07/2022 HISTORY: Chest pain TECHNIQUE: Single view FINDINGS: There is no heart failure nor confluent pneumonic infiltrate. Costophrenic angles are clear . There are no hilar masses. There are chest leads. IMPRESSION: No active cardiopulmonary disease. Mild cardiomegaly without change.
[2022-12-14 20:35] LABS: Calcium 8.8 mg/dL (8.4-10.2); Magnesium 1.6 mg/dL (1.6-2.3); Potassium 4.5 mmol/L (3.5-5.1); Total Bilirubin 0.7 mg/dL (0.2-1.3)
[2022-12-14] MEDS ORDERED: ASPIRIN 81 MG PO STA (21:40)
[2022-12-14] MEDS ORDERED: NALOXONE 0.4 MG/ML 1 ML VIAL IV PRN (21:46)
[2022-12-14] MEDS ORDERED: ZOLPIDEM 5 MG TAB PO PRN (22:52)
[2022-12-15] MEDS ORDERED: HEPARIN SODIUM 1,000 UN/ML (10ML VL) IV ONE (01:17)
[2022-12-15] MEDS ORDERED: HEPARIN SODIUM 1,000 UN/ML (10ML VL) IV PRN (01:17)
[2022-12-15] MEDS ORDERED: ALPRAZolam 0.25 MG TAB PO STA (01:36)
--- NOTE | 2022-12-15 01:54 | P.HPIM ---
History of Present Illness H&P Date: 12/14/22 Chief Complaint: chest pain 77 year old female with hypertension , DM , CAD s/p stents she is coming in today due to chest pain, palpitations, and elevated blood pressure she reports exertional chest pain over the past several weeks , that would be induced by mild to moderate exertion like walking and house chores, but quickly resolves with resting, however today , while trying to cook , she started experiencing central chest pain 8/10 in severity , non radiating, cr ushing/pressure like pain, associated with shortness of breath, but no nausea , vomiting, or sweating. she tried to rest, but the pain did not go away this time, then she noted her BP was elevatd and her heart was racing, she got alarmed and decided to come in for evaluation , pain was not resolved until she got medications in the ED, and she was found in atrial fibrillation / flutter. she otherwise denies any history of blood clots, denies any recent travel or hospital stay , denies any fever, chills , cough, nausea , vomiting, abd pain , urinary or bowel habit changes she denies tobacco smoking, illicit drugs or alcohol she is compliant with her meds, however, recently she was taken off amlodipine and plavix Review of Systems Pertinent positives as noted in HPI. All other systems were reviewed and are negative Past Medical History Past Medical History: Asthma, Coronary Artery Disease (CAD), Chest Pain / Angin a, COPD, Diabetes Mellitus, GERD/Reflux, Hyperlipidemia, Hypertension, Osteoarthritis (OA), Renal Disease, Respiratory Disorder Additional Past Medical History / Comment(s): Osteoarthritis, anemia, anxiety, asthma, murmur history of rheumatic fever, neuropathy. TYPE 2 DIABETIC-INSULIN History of Any Multi-Drug Resistant Organisms: None Reported Past Surgical History: Back Surgery, Heart Catheterization With Stent Additional Past Surgical History / Comment(s): carpel tunnel Past Anesthesia/Blood Transfusion Reactions: No Reported Reaction Date of Last Stent Placement:: 12/2020 Past Psychological History: Anxiety Smoking Status: Former smoker Past Alcohol Use History: None Reported Past Drug Use History: None Reported - Past Family History Mother Additional Family Medical History / Comment(s): at age 57 open heart surgery and cva Son(s) Family Medical History: Pulmonary Embolus Medications and Allergies Home Medications Medication Instructions Recorded Confirmed Type Ascorbic Acid [Vitamin C] 1,000 mg PO DAILY 07/11/21 12/14/22 History Atorvastatin [Lipitor] 80 mg PO HS 07/11/21 12/14/22 History Biotin 10,000 mcg PO DAILY 07/11/21 12/14/22 History Cholecalciferol [Vitamin D3 (25 50 mcg PO DAILY 07/11/21 12/14/22 History Mcg = 1000 Iu)] Losartan [Cozaar] 50 mg PO DAILY 07/11/21 12/14/22 History Omeprazole 20 mg PO DAILY 07/11/21 12/14/22 History Citalopram Hydrobromide [CeleXA] 40 mg PO DAILY 08/21/21 12/14/22 History Ezetimibe [Zetia] 10 mg PO DAILY 09/28/21 12/14/22 History Aspirin 81 mg PO DAILY 30 Days #30 tab 10/01/21 12/14/22 Rx Albuterol Inhaler [Ventolin Hfa 2 puff INHALATION RT-Q6H PRN 12/14/22 12/14/22 History Inhaler] Dapagliflozin Propanediol [Farxiga] 5 mg PO DAILY 12/14/22 12/14/22 History Ferrous Sulfate [Feosol] 325 mg PO DAILY 12/14/22 12/14/22 History Insuln Asp Prt/Insulin Aspart 26 unit SQ BID 12/14/22 12/14/22 History [NovoLOG MIX 70-30 VIAL] Vitamin B Complex 1 cap PO DAILY 12/14/22 12/14/22 History Vitamin E(Unknown Dose) 1 cap PO DAILY 12/14/22 12/14/22 History carvediloL [Coreg] 3.125 mg PO BID 12/14/22 12/14/22 History tiZANidine [Zanaflex] 2 mg PO Q8H PRN 12/14/22 12/14/22 History Allergies Allergy/AdvReac Type Severity Reaction Status Date / Time No Known Allergies Allergy Verified 12/14/22 20:44 Physical Exam Vitals: Vital Signs Temp Pulse Resp BP Pulse Ox 12/14/22 23:32 76 94 L 12/14/22 21:00 79 18 115/65 12/14/22 20:25 78 18 123/67 93 L 12/14/22 19:54 97 03/26/23 19:49 121 H 158/108 12/14/22 19:32 98.3 F 150 H 18 174/97 98 Intake and Output 12/14/22 12/14/22 12/15/22 14:59 22:59 06:59 Other: Weight 108.862 kg Constitutional: No acute distress, conversant, pleasant Eyes: Anicteric sclerae, moist conjunctiva, Pupils equal round reactive to light ENMT: NC/AT Oropharynx clear, no erythema, or exudates Neck: Supple, no masses, or JVD No carotid bruits No thyromegaly Lungs: Clear to auscultation Clear to percussion Normal respiratory effort, no accessory muscle use Cardiovascular: Heart regular in rate and rhythm, No murmurs, gallops, or rubs trace bilateral peripheral edema Abdominal: Soft Nontender, no guarding, rebound or rigidity Abdomen moving with respiration Normoactive bowel sounds No hepatomegaly, No splenomegaly No palpable mass No abdominal wall hernia noted Skin: Normal temperature, tone, texture, turgor No induration No subcutaneous nodules No rash, lesions No ulcers Extremities: No digital cyanosis No clubbing Pedal pulses intact and symmetrical Radial pulses intact and symmetrical No calf tenderness Psychiatric: Alert and oriented to person, place and time Appropriate affect fair judgement Neuro Muscles Strength 4/5 in all 4 extremities Sensation to light touch grossly present throughout Cranial nerves II-XII grossly intact Lymphatics: no palpable cervical or supraclavicular lymph nodes Results CBC & Chem 7: 12/14/22 19:53 12/14/22 19:53 Labs: Abnormal Lab Results - Last 24 Hours (Table) 12/14/22 12/15/22 Range/Units 19:53 00:30 BUN 22 H (7-17) mg/dL Creatinine 1.22 H (0.52-1.04) mg/dL Glucose 166 H (74-99) mg/dL AST 39 H (14-36) U/L Troponin I 0.135 H* (0.000-0.034) ng/mL Assessment and Plan Assessment: 77 year old female with CAD, DM , Hypertension , presented with chest pain with typical features, I discussed the case with ED, she was found in atrial flutter/fibrillation which was converted to NSR with cardizem IVP , I accepted the admission to monitor trops , and rule out ACS with anticipated length of stay > 2 midnights NSTEMI chest pain with typical features new onset atrial fibrillation / flutter converted to NSR with IVP cardizem in the ED patient initiated on cardizem drip for heart rate control heparin drip per ACS protocol surveillance system monitor monitor vital signs cardiology consult check lipid panel , A1c blood work reviewed WBC 6.8 Hgb 12.1 unremarkable , renal function BUN 22, Cr 1.22 slightly elevated TSH 1.4 unremarkable trops normal then elevated to 1.34 ASA 81 mg po daily hypertension , now controlled resume home meds , coreg 3.125 mg po bid , losartan 50 mg po daily chronic conditions hyperlipidemia atorvastatin 80 mg qhs DM resume home insulin and Farxiga DVT PPX on heparin gtt for ACS full code GI PPX protonix 40 mg po daily
[2022-12-15] MEDS: HEPARIN SOD,PORK IN 0.45% NACL 25,000 UNIT in 0.45% NACL 1 250ML.BAG IV SCH (01:55)
[2022-12-15] MEDS: carvediloL 3.125 MG TAB PO SCH ×3 (02:12→20:29)
[2022-12-15 02:30] LABS: INR 1.1 (<1.2); Partial Thromboplastin Time 59.2 sec (22.0-30.0); Prothrombin Time 11.8 sec (9.0-12.0)
[2022-12-15 02:55] LABS: Basophils # (A) 0.1 k/uL (0-0.2); Basophils % (A) 1 %; Eosinophils # (A) 0.3 k/uL (0-0.7); Eosinophils % (A) 5 %; HCT 32.8 % (34.0-46.0); HGB 10.7 gm/dL (11.4-16.0); Lymphocytes # (A) 1.7 k/uL (1.0-4.8); Lymphocytes % (A) 30 %; MCH 26.5 pg (25.0-35.0); MCHC 32.8 g/dL (31.0-37.0); MCV 80.7 fL (80.0-100.0); Monocytes # (A) 0.4 k/uL (0-1.0); Monocytes % (A) 7 %; Neutrophils # (A) 3.1 k/uL (1.3-7.7); Neutrophils % (A) 55 %; Platelet Count 183 k/uL (150-450); RBC 4.06 m/uL (3.80-5.40); RDW 14.7 % (11.5-15.5); WBC 5.6 k/uL (3.8-10.6)
[2022-12-15 03:31] LABS: Albumin 3.2 g/dL (3.5-5.0); Calcium 8.5 mg/dL (8.4-10.2); Potassium 3.5 mmol/L (3.5-5.1); Total Bilirubin 0.3 mg/dL (0.2-1.3); Total Protein 5.9 g/dL (6.3-8.2)
[2022-12-15 06:56] LABS: Basophils % (A) 0 %; Eosinophils # (A) 0.2 k/uL (0-0.7); Eosinophils % (A) 4 %; HCT 32.5 % (34.0-46.0); HGB 10.5 gm/dL (11.4-16.0); Hypochromasia Slight; Lymphocytes # (A) 1.4 k/uL (1.0-4.8); Lymphocytes % (A) 21 %; MCH 26.3 pg (25.0-35.0); MCHC 32.2 g/dL (31.0-37.0); MCV 81.8 fL (80.0-100.0); Mean Platelet Volume 7.8; Monocytes # (A) 0.4 k/uL (0-1.0); Monocytes % (A) 6 %; Neutrophils # (A) 4.5 k/uL (1.3-7.7); Neutrophils % (A) 68 %; Platelet Count 182 k/uL (150-450); RBC 3.98 m/uL (3.80-5.40); RDW 14.6 % (11.5-15.5); WBC 6.7 k/uL (3.8-10.6)
[2022-12-15] MEDS ORDERED: ASPIRIN 325 MG TAB PO STA (08:08)
[2022-12-15] MEDS ORDERED: ALPRAZolam 0.25 MG TAB PO PRN (08:08)
[2022-12-15] MEDS ORDERED: ATORVASTATIN 80 MG TAB PO STA (08:08)
[2022-12-15] MEDS ORDERED: NITROGLYCERIN SL TABS 0.4 MG TAB SUBLINGUAL PRN (08:08)
[2022-12-15] MEDS: LOSARTAN 50 MG TAB PO SCH (08:40)
[2022-12-15] MEDS: SODIUM CHLORIDE 0.9% 1,000 ML IV SCH (08:40)
[2022-12-15] MEDS: CITALOPRAM HYDROBROMIDE 20 MG TAB PO SCH (08:41)
[2022-12-15] MEDS: EZETIMIBE 10 MG TAB PO SCH (08:41)
[2022-12-15] MEDS: ASPIRIN 81 MG PO SCH (08:42)
[2022-12-15] MEDS: PANTOPRAZOLE 40 MG TABLET PO SCH (08:48)
[2022-12-15] MEDS ORDERED: INSULN ASP PRT/INSULIN ASPART 100 UNIT/ML 10 ML VIAL SQ SCH (09:00)
[2022-12-15 09:42] LABS: Glucose,Whole Blood 109 mg/dL (70-110)
[2022-12-15] MEDS: DAPAGLIFLOZIN PROPANEDIOL 5 MG TABLET PO SCH (09:42)
--- NOTE | 2022-12-15 10:52 | P.PN ---
Subjective Progress Note Date: 12/15/22 Patient's chest pain is resolved, troponins of elevated. EKG appeared to be in atrial flutter on admission, now in sinus rhythm, appeared to be ischemic. Gen: awake, alert HEENT: normocephalic, atraumatic, good hearing acuity, moist mucous membranes Resp: good air exchange, breathing comfortably with no accessory muscle use CVS: good distal perfusion x 4, GI: soft, NTTP, ND : no SPT, no CVAT, suarez catheter not present MSK: no pitting edema, no clubbing Neuro: non-focal, moving all extremities Psych: cooperative, euthymic mood Hospital course: 77 year old female with hypertension , DM , CAD s/p stents presented for chest pain, palpitations, and elevated blood pressure. In the emergency room, patient was afebrile, 174/97, heart rate 150, 98% on room air. CBC was unremarkable. Chemistries showed BUN of 22, creatinine of 1.22, glucose of 166. Liver function tests showed elevated AST at 39, otherwise unremarkable. Initial troponin is 0.022 then trended to 0.135 then trended to 0.158. BNP was 1200. TSH is 1.4. Coags were unremarkable. Chest x-ray demonstrated cardiomegaly with left atrial enlargement, increased pulmonary vasculature bilaterally consis tent with early heart failure. EKG showed atrial flutter with rapid ventricular response with ST depressions in leads 2, aVL, 3, aVF, with T-wave abnormalities in leads 1, V5, V6, concern for ST elevation in aVR, left axis deviation. Case was discussed with the emergency room physician and decision was made to admit the patient to inpatient status for non-ST elevation [place]. Patient was subsequent ly started on a heparin drip, cardiology was consulted, loaded with aspirin. Assessment: Non-ST elevation [place] Atrial flutter with RVR Hypertension Hyperlipidemia Diabetes type 2 Plan: Today, patient is afebrile, 173/103, heart rate 71, 96% on room air. Repeat CBC today shows anemia down to 10.5, otherwise unremarkable. Basic metabolic panel shows chloride of 108, BUN of 22, creatinine 1.35. Liver function tests demonstrate total protein 5.9, albumin of 3.2. PTT has ranged from 22.4-59.2 See the hospital course above for my independent interpretation of EKG and chest x-ray Repeat CBC, basic metabolic panel, magnesium tomorrow Follow up cardiology recommendations Continue aspirin 81 mg daily Continue carvedilol 3.125 mg twice a day Continue atorvastatin 80 mg daily at bedtime Continue heparin drip, monitor PTT for toxicity. Agree with nitroglycerin sublingual every 5 minutes when necessary for chest pain Patient should remain nothing by mouth for left heart catheterization Patient is full code Objective - Vital Signs Vital signs: Vital Signs Temp 98.3 F 12/14/22 19:32 Pulse 71 12/15/22 09:49 Resp 19 12/15/22 09:49 BP 173/103 12/15/22 09:49 Pulse Ox 96 12/15/22 09:49 FiO2 Intake & Output 12/14/22 12/15/22 12/15/22 18:59 06:59 18:59 Weight 108.862 kg - Labs CBC & Chem 7: 12/15/22 06:24 12/15/22 02:10 Labs: Abnormal Lab Results - Last 24 Hours (Table) 12/14/22 12/15/22 12/15/22 Range/Units 19:53 00:30 02:10 Hgb (11.4-16.0) gm/dL Hct (34.0-46.0) % APTT (22.0-30.0) sec Chloride (98-107) mmol/L BUN 22 H (7-17) mg/dL Creatinine 1.22 H (0.52-1.04) mg/dL Glucose 166 H (74-99) mg/dL AST 39 H (14-36) U/L Troponin I 0.135 H* 0.158 H* (0.000-0.034) ng/mL Total Protein (6.3-8.2) g/dL Albumin (3.5-5.0) g/dL 12/15/22 12/15/22 12/15/22 Range/Units 02:10 02:10 02:10 Hgb 10.7 L (11.4-16.0) gm/dL Hct 32.8 L (34.0-46.0) % APTT 59.2 H (22.0-30.0) sec Chloride 108 H (98-107) mmol/L BUN 22 H (7-17) mg/dL Creatinine 1.35 H (0.52-1.04) mg/dL Glucose (74-99) mg/dL AST (14-36) U/L Troponin I (0.000-0.034) ng/mL Total Protein 5.9 L (6.3-8.2) g/dL Albumin 3.2 L (3.5-5.0) g/dL 12/15/22 12/15/22 Range/Units 06:24 06:24 Hgb 10.5 L (11.4-16.0) gm/dL Hct 32.5 L (34.0-46.0) % APTT 47.5 H (22.0-30.0) sec Chloride (98-107) mmol/L BUN (7-17) mg/dL Creatinine (0.52-1.04) mg/dL Glucose (74-99) mg/dL AST (14-36) U/L Troponin I (0.000-0.034) ng/mL Total Protein (6.3-8.2) g/dL Albumin (3.5-5.0) g/dL
--- NOTE | 2022-12-15 14:46 | P.CRDCN ---
History of Present Illness Consult date: 12/15/22 Reason for Consult (text): New onset atrial tachycardia, chest pain History of present illness: HISTORY OF PRESENTING ILLNESS This is a 77-year-old female patient of Dr. Wong with history of asthma, coronary artery disease with initial stenting in December 2020 as well as repeat stenting in August 2021, non-ST elevated myocardial infarction in September 2021, COPD, diabetes mellitus, GERD, hypertension, hyperlipidemia and a, osteoarthritis, history of rheumatic fever as a child and neuropathy. We have been asked to evaluate the patient for new onset atrial tachycardia and chest pain. Patient gives history of presenting to the hospital due to shortness of breath it's been going on for the last couple of weeks especially when she is walking along with dizziness and lightheaded this. She denies any syncopal episodes. EKG atrial flutter most likely, repeat EKG is atrial fibrillation Chest x-ray no acute findings Troponins 0.0-2, 0.135, 0.158. BUN 22 creatinine 1.35. Potassium 3.5. Hemoglobin is 10.7, WBC 5.6. Cardiac catheterization in August 2021 showed mild disease of the LAD with patent LAD stent, similar-appearing diagonal disease as well as obstructive circumflex disease. Patient underwent successful PCI of the circumflex Cardiac catheterization 09/2021 revealed LAD with diffuse mild tenderness 20% stenosis and a patent proximal to mid LAD stent, proximal 95% stenosis in the diagonal 1 branch similar to prior imaging. 20-30% stenosis in the left circumflex and patent proximal and distal stents. 100% stenosis of the mid RCA. Patient had successful PCI of the CAMPUS SAFETY OFFICER of mid RCA into the PLV. Echocardiogram September 2021 revealed EF of 55-60%, mild concentric left hypertrophy, no pericardial effusion. Home cardiac medications: Aspirin 81 mg daily, atorvastatin 80 mg at bedtime, Coreg 3.125 mg twice daily, Farxiga 5 mg daily, Zetia 10 mg daily, losartan 50 mg daily REVIEW OF SYSTEMS At the time of my exam: CONSTITUTIONAL: Denies fever or chills. CARDIOVASCULAR: Denies chest pain, +shortness of breath, no orthopnea, PND or palpitations. RESPIRATORY: Denies cough. GASTROINTESTINAL: Denies abdominal pain, diarrhea, constipation, nausea or vomiting. MUSCULOSKELETAL: Denies myalgias. NEUROLOGIC: Denies numbness, tingling or weakness. ENDOCRINE: Denies fatigue, weight change, polydipsia or polyurina. GENITOURINARY: Denies burning, hematuria or urgency with micturation. HEMATOLOGIC: Denies history of anemia or bleeding. PHYSICAL EXAMINATION Vital signs reviewed. CONSTITUTIONAL: No apparent distress. HEENT: Head is normocephalic. Pupils are equal, round. Sclerae anicteric. Mucous membranes of the mouth are moist. No JVD. No carotid bruit. CHEST EXAMINATION: Lungs are clear to auscultation. No chest wall tenderness is noted on palpation or with deep breathing. HEART EXAMINATION: Irregular rate and rhythm. S1, S2 heard. No murmurs, gallops or rub. ABDOMEN: Soft, nontender. Positive bowel sounds. EXTREMITIES: 2+ peripheral pulses, no lower extremity edema and no calf tenderness. NEUROLOGIC EXAMINATION: Patient is awake, alert and oriented x3. ASSESSMENT New onset atrial fibrillation/atrial flutter atypical Troponin leak most likely secondary to atrial fibrillation Coronary artery disease with prior history of stenting Hypertension Hyperlipidemia Prior history of acute kidney injury, appears improved Diabetes mellitus type 2 PLAN Continue patient on a heparin drip Obtain echocardiogram Repeat BMP in the morning Start patient on IV fluids at 50 mL/h Plan for cardiac catheterization on Thursday. Patient will subsequently be placed on anticoagulation for 1 month and ablation will be scheduled outpatient. Continue patient's home cardiac medications Thank you kindly for this consultation. Nurse practitioner note has been reviewed, I agree with the documented findings and plan of care. Patient was seen and examined. Past Medical History Past Medical History: Asthma, Coronary Artery Disease (CAD), Chest Pain / Angina, COPD, Diabetes Mellitus, GERD/Reflux, Hyperlipidemia, Hypertension, Osteoarthritis (OA), Renal Disease, Respiratory Disorder Additional Past Medical History / Comment(s): Osteoarthritis, anemia, anxiety, asthma, murmur history of rheumatic fever, neuropathy. TYPE 2 DIABETIC-INSULIN History of Any Multi-Drug Resistant Organisms: None Reported Past Surgical History: Back Surgery, Heart Catheterization With Stent Additional Past Surgical History / Comment(s): carpel tunnel Past Anesthesia/Blood Transfusion Reactions: No Reported Reaction Date of Last Stent Placement:: 12/2020 Past Psychological History: Anxiety Smoking Status: Former smoker Past Alcohol Use History: None Reported Past Drug Use History: None Reported - Past Family History Mother Additional Family Medical History / Comment(s): at age 57 open heart surgery and cva Son(s) Family Medical History: Pulmonary Embolus Medications and Allergies Home Medications Medication Instructions Recorded Confirmed Type Ascorbic Acid [Vitamin C] 1,000 mg PO DAILY 07/11/21 12/14/22 History Atorvastatin [Lipitor] 80 mg PO HS 07/11/21 12/14/22 History Biotin 10,000 mcg PO DAILY 07/11/21 12/14/22 History Cholecalciferol [Vitamin D3 (25 50 mcg PO DAILY 07/11/21 12/14/22 History Mcg = 1000 Iu)] Losartan [Cozaar] 50 mg PO DAILY 07/11/21 12/14/22 History Omeprazole 20 mg PO DAILY 07/11/21 12/14/22 History Citalopram Hydrobromide [CeleXA] 40 mg PO DAILY 08/21/21 12/14/22 History Ezetimibe [Zetia] 10 mg PO DAILY 09/28/21 12/14/22 History Albuterol Inhaler [Ventolin Hfa 2 puff INHALATION RT-Q6H PRN 12/14/22 12/14/22 History Inhaler] Dapagliflozin Propanediol [Farxiga] 5 mg PO DAILY 12/14/22 12/14/22 History Ferrous Sulfate [Iron (65 MG 325 mg PO DAILY 12/14/22 12/14/22 History Elemental)] Insuln Asp Prt/Insulin Aspart 26 unit SQ BID 12/14/22 12/14/22 History [NovoLOG MIX 70-30 VIAL] Vitamin B Complex 1 cap PO DAILY 12/14/22 12/14/22 History Vitamin E(Unknown Dose) 1 cap PO DAILY 12/14/22 12/14/22 History carvediloL [Coreg] 3.125 mg PO BID 12/14/22 12/14/22 History tiZANidine [Zanaflex] 2 mg PO Q8H PRN 12/14/22 12/14/22 History Apixaban [Eliquis] 5 mg PO BID #60 tab 12/17/22 Rx Clopidogrel [Plavix] 75 mg PO DAILY #90 tab 12/17/22 Rx amLODIPine [Norvasc] 2.5 mg PO DAILY #30 tab 12/17/22 Rx Allergies Allergy/AdvReac Type Severity Reaction Status Date / Time No Known Allergies Allergy Verified 12/14/22 20:44 Physical Exam Vitals: Vital Signs Temp Pulse Resp BP Pulse Ox 12/15/22 05:47 55 L 18 163/86 95 12/15/22 04:20 63 166/92 12/15/22 02:05 77 18 142/80 93 L 12/14/22 23:32 76 94 L 12/14/22 21:00 79 18 115/65 12/14/22 20:25 78 18 123/67 93 L 12/14/22 19:54 97 12/14/22 19:49 121 H 158/108 12/14/22 19:32 98.3 F 150 H 18 174/97 98 Intake and Output 12/14/22 12/15/22 12/15/22 22:59 06:59 14:59 Other: Weight 108.862 kg Results 12/16/22 06:09 12/17/22 08:50 Cardiac Enzymes 12/14/22 12/14/22 12/15/22 Range/Units 19:53 19:53 00:30 AST 39 H (14-36) U/L Troponin I 0.022 0.135 H* (0.000-0.034) ng/mL 12/15/22 12/15/22 Range/Units 02:10 02:10 AST 26 (14-36) U/L Troponin I 0.158 H* (0.000-0.034) ng/mL Coagulation 12/14/22 12/15/22 12/15/22 Range/Units 19:53 02:10 06:24 PT 10.5 11.8 (9.0-12.0) sec APTT 22.4 59.2 H 47.5 H (22.0-30.0) sec CBC 12/14/22 12/15/22 12/15/22 Range/Units 19:53 02:10 06:24 WBC 6.8 5.6 6.7 (3.8-10.6) k/uL RBC 4.66 4.06 3.98 (3.80-5.40) m/uL Hgb 12.1 10.7 L 10.5 L (11.4-16.0) gm/dL Hct 37.7 32.8 L 32.5 L (34.0-46.0) % Plt Count 205 183 182 (150-450) k/uL Comprehensive Metabolic Panel 12/14/22 12/15/22 Range/Units 19:53 02:10 Sodium 137 139 (137-145) mmol/L Potassium 4.5 3.5 (3.5-5.1) mmol/L Chloride 106 108 H (98-107) mmol/L Carbon Dioxide 24 28 (22-30) mmol/L BUN 22 H 22 H (7-17) mg/dL Creatinine 1.22 H 1.35 H (0.52-1.04) mg/dL Glucose 166 H 89 (74-99) mg/dL Calcium 8.8 8.5 (8.4-10.2) mg/dL AST 39 H 26 (14-36) U/L ALT 25 21 (4-34) U/L Alkaline Phosphatase 79 70 (38-126) U/L Total Protein 7.0 5.9 L (6.3-8.2) g/dL Albumin 4.0 3.2 L (3.5-5.0) g/dL Current Medications Generic Name Dose Route Start Last Admin Trade Name Freq PRN Reason Stop Dose Admin Albuterol Sulfate 2.5 mg 12/15/22 01:17 Albuterol Nebulized 2.5 Mg/3 Ml INHALATION RT-Q6H PRN Shortness Of Breath Aspirin 81 mg 12/15/22 09:00 Aspirin 81 Mg PO DAILY [facility] Atorvastatin Calcium 80 mg 12/15/22 21:00 Atorvastatin 80 Mg Tab PO HS [facility] Carvedilol 3.125 mg 12/15/22 01:30 12/15/22 02:12 Carvedilol 3.125 Mg Tab PO 3.125 mg BID [facility] Administration Citalopram Hydrobromide 40 mg 12/15/22 09:00 Citalopram Hydrobromide 20 Mg Tab PO DAILY [facility] Dapagliflozin 5 mg 12/15/22 09:00 Dapagliflozin Propanediol 5 Mg Tablet PO DAILY [facility] Ezetimibe 10 mg 12/15/22 09:00 Ezetimibe 10 Mg Tab PO DAILY [facility] Heparin Sodium (Porcine) 0 unit 12/15/22 01:17 Heparin Sodium 1,000 Un/Ml (10ml Vl) IV PER PROTOCOL PRN Low PTT Protocol Heparin Sodium/Sodium Chloride 250 mls @ 10 mls/hr 12/15/22 01:30 12/15/22 01:55 25,000 unit/ Sodium Chloride IV 9.1859 units/kg/hr .Q24H [facility] 10 mls/hr Administration Protocol 9.1859 UNITS/KG/HR Insulin Aspart 26 unit 12/15/22 09:00 Insuln Asp Prt/Insulin Aspart 100 Unit/Ml 10 Ml Vial SQ BID [facility] Losartan Potassium 50 mg 12/15/22 09:00 Losartan 50 Mg Tab PO DAILY [facility] Naloxone HCl 0.2 mg 12/14/22 21:46 Naloxone 0.4 Mg/Ml 1 Ml Vial IV Q2M PRN Opioid Reversal Pantoprazole Sodium 40 mg 12/15/22 07:30 Pantoprazole 40 Mg Tablet PO AC-BRKFST [facility] Zolpidem Tartrate 5 mg 12/14/22 22:52 Zolpidem 5 Mg Tab PO HS PRN Insomnia Intake and Output 12/14/22 12/15/22 12/15/22 22:59 06:59 14:59 Other: Weight 108.862 kg 12/15/22 06:24 12/15/22 02:10
[2022-12-15 18:17] LABS: Glucose,Whole Blood 281 mg/dL (70-110)
[2022-12-15] MEDS: INSULN ASP PRT/INSULIN ASPART 100 UNIT/ML 10 ML VIAL SQ SCH (18:38)
[2022-12-15] MEDS: ALPRAZolam 0.5 MG TAB PO PRN (20:28)
[2022-12-15] MEDS: ATORVASTATIN 80 MG TAB PO SCH (20:29)
[2022-12-15 20:34] LABS: Glucose,Whole Blood 216 mg/dL (70-110)
[2022-12-16] MEDS: HEPARIN SOD,PORK IN 0.45% NACL 25,000 UNIT in 0.45% NACL 1 250ML.BAG IV SCH (01:01)
[2022-12-16 06:12] LABS: Glucose,Whole Blood 150 mg/dL (70-110)
[2022-12-16] MEDS: INSULN ASP PRT/INSULIN ASPART 100 UNIT/ML 10 ML VIAL SQ SCH ×2 (06:16→16:49)
[2022-12-16] MEDS: SODIUM CHLORIDE 0.9% 1,000 ML IV SCH (06:16)
[2022-12-16] MEDS: carvediloL 3.125 MG TAB PO SCH ×2 (06:20→20:01)
[2022-12-16] MEDS: DAPAGLIFLOZIN PROPANEDIOL 5 MG TABLET PO SCH (06:20)
[2022-12-16] MEDS: ASPIRIN 81 MG PO SCH (06:20)
[2022-12-16] MEDS: CITALOPRAM HYDROBROMIDE 20 MG TAB PO SCH (06:20)
[2022-12-16] MEDS: LOSARTAN 50 MG TAB PO SCH (06:20)
[2022-12-16] MEDS: EZETIMIBE 10 MG TAB PO SCH (06:20)
[2022-12-16] MEDS: PANTOPRAZOLE 40 MG TABLET PO SCH (06:21)
[2022-12-16 06:58] LABS: Basophils % (A) 0 %; Eosinophils # (A) 0.4 k/uL (0-0.7); Eosinophils % (A) 5 %; HCT 32.9 % (34.0-46.0); HGB 10.6 gm/dL (11.4-16.0); Lymphocytes # (A) 1.9 k/uL (1.0-4.8); Lymphocytes % (A) 28 %; MCH 26.5 pg (25.0-35.0); MCHC 32.1 g/dL (31.0-37.0); MCV 82.7 fL (80.0-100.0); Mean Platelet Volume 8.2; Monocytes # (A) 0.4 k/uL (0-1.0); Monocytes % (A) 6 %; Neutrophils # (A) 3.9 k/uL (1.3-7.7); Neutrophils % (A) 57 %; Platelet Count 195 k/uL (150-450); RBC 3.98 m/uL (3.80-5.40); WBC 6.8 k/uL (3.8-10.6)
[2022-12-16] MEDS ORDERED: HEPARIN SODIUM,PORCINE 2,500 UNIT in SODIUM CHLORIDE 0.9% 250 ML IRRIGATION PRN (07:00)
[2022-12-16] MEDS ORDERED: HEPARIN SODIUM,PORCINE 10,000 UNIT in SODIUM CHLORIDE 0.9% 1,000 ML IRRIGATION PRN (07:00)
[2022-12-16 07:05] LABS: Prothrombin Time 10.8 sec (9.0-12.0)
[2022-12-16 07:15] LABS: Calcium 8.3 mg/dL (8.4-10.2); Magnesium 1.7 mg/dL (1.6-2.3); Potassium 4.2 mmol/L (3.5-5.1)
[2022-12-16] MEDS ORDERED: ASPIRIN 81 MG PO ONE (07:30)
[2022-12-16] MEDS: ALPRAZolam 0.5 MG TAB PO PRN (08:02)
[2022-12-16] MEDS: ALBUTEROL NEBULIZED 2.5 MG/3 ML INHALATION PRN (08:41)
[2022-12-16] MEDS ORDERED: IV FLUID CONTINUATION 300 ML IV ONE (09:25)
[2022-12-16] MEDS ORDERED: fentaNYL (PF) 50 MCG/ML 2 ML AMP ONE (09:35)
[2022-12-16] MEDS ORDERED: HEPARIN SODIUM 1,000 UN/ML (10ML VL) ONE (09:35)
--- NOTE | 2022-12-16 09:37 | CA ---
Transthoracic Echo Report Name: Lila Ho Age: 77 Gender: F : 1945 Exam Date: 12/15/2022 12:32 Exam Location: [place] [facility] Ht (in): 61 Wt (lb): 240 Ordering Physician: Tonya Yang Attending/Referring Phys: Integration Consultant Tomas Gutierrez RDCS Procedure CPT: Indications: LVF Cardiac Hx: Technical Quality: Poor Contrast 1: Lumason Total Dose (mL): 5 Contrast 2: Total Dose (mL): MEASUREMENTS (Male / Female) Normal Values 2D ECHO LV Diastolic Diameter PLAX 4.6 cm 4.2 - 5.9 / 3.9 - 5.3 cm LV Systolic Diameter PLAX 3.7 cm LV Fractional Shortening PLAX 20.4 % IVS Diastolic Thickness 1.4 cm 0.6 - 1.0 / 0.6 - 0.9 cm IVS Systolic Thickness 2.1 cm LVPW Diastolic Thickness 1.6 cm 0.6 - 1.0 / 0.6 - 0.9 cm LVPW Systolic Thickness 2.0 cm LV Relative Wall Thickness 0.6 RV Internal Dim ED PLAX 2.9 cm LVOT Diameter 2.0 cm LA Systolic Diameter LX 3.2 cm 3.0 - 4.0 / 2.7 - 3.8 cm LV Diastolic Volume MOD BP 125.8 cm??? 67 - 155 / 56 - 104 cm??? LV Systolic Volume MOD BP 57.4 cm??? 22 - 58 / 19 - 49 cm??? LV Ejection Fraction MOD BP 54.3 % >= 55 % LV Stroke Volume MOD BP 68.4 cm??? LV Diastolic Volume MOD 4C 120.7 cm??? LV Systolic Volume MOD 4C 50.7 cm??? LV Ejection Fraction MOD 4C 58.0 % LV Stroke Volume MOD 4C 70.0 cm??? LV Diastolic Length 4C 8.0 cm LV Systolic Length 4C 6.8 cm LV Diastolic Volume MOD 2C 128.9 cm??? LV Systolic Volume MOD 2C 63.5 cm??? LV Ejection Fraction MOD 2C 50.8 % LV Stroke Volume MOD 2C 65.4 cm??? LV Diastolic Length 2C 7.8 cm LV Systolic Length 2C 6.5 cm Ascending Aorta Diameter 3.5 cm M-MODE Aortic Root Diameter MM 3.6 cm LA Systolic Diameter MM 2.9 cm LA Ao Ratio MM 0.8 MV E Point Septal Separation 0.8 cm AV Cusp Separation MM 1.5 cm DOPPLER AV Peak Velocity 151.0 cm/s AV Peak Gradient 9.1 mmHg MV Deceleration Walker 606.2 cm/s??? Mitral E Point Velocity 143.2 cm/s Mitral A Point Velocity 72.4 cm/s Mitral E to A Ratio 2.0 MV Deceleration Time 236.3 ms MV E' Velocity 7.5 cm/s Mitral E to MV E' Ratio 19.0 TR Peak Velocity 146.5 cm/s TR Peak Gradient 8.6 mmHg Right Ventricular Systolic Press 13.6 mmHg PV Peak Velocity 99.1 cm/s PV Peak Gradient 3.9 mmHg FINDINGS Left Ventricle Left ventricular ejection fraction is estimated at 55-60 %. Mild concentric left ventricular hypertrophy. Right Ventricle Normal right ventricular size and function. Right Atrium Normal right atrial size. Left Atrium Mild left atrial dilatation. Mitral Valve Moderate mitral annular calcification. Mild mitral regurgitation. Aortic Valve Trileaflet aortic valve. Focal thickening of the aortic valve cusps. Mild aortic stenosis. Tricuspid Valve Mild tricuspid regurgitation. Pulmonic Valve Pulmonic valve not well visualized. Pericardium Normal pericardium. No echocardiographic findings to suggest a hemodynamically significant pericardial effusion. Aorta Normal size aortic root and proximal ascending aorta. CONCLUSIONS Left ventricular ejection fraction 55-60% Mild increased left ventricular wall thickness Mild left atrial dilation Mild mitral regurgitation Moderate mitral annular calcification Mild aortic stenosis Mild tricuspid regurgitation No pericardial effusion Previewed by: Dr. Ziggy Wong DO (Electronically Signed) Final Date: 16 December 2022 09:36
[2022-12-16] MEDS ORDERED: MIDAZOLAM 2 MG/2 ML VIAL IV ONE (09:38)
[2022-12-16] MEDS ORDERED: fentaNYL (PF) 50 MCG/ML 2 ML AMP IV ONE (09:39)
[2022-12-16] MEDS ORDERED: LIDOCAINE 1% INJ 10MG/ML (5 ML VIAL-PF) SQ ONE ×2 (09:41→09:42)
[2022-12-16] MEDS ORDERED: VERAPAMIL SYRINGE (5 MG/10 ML) INTRAARTER ONE (09:44)
[2022-12-16] MEDS ORDERED: HEPARIN SODIUM 1,000 UN/ML (10ML VL) IV ONE (09:46)
[2022-12-16] MEDS ORDERED: IOPAMIDOL-370 125ML BTL INJ ONE (10:03)
--- NOTE | 2022-12-16 11:15 | P.CARDCATH ---
Description of Procedure: PROCEDURES PERFORMED: Left heart catheterization, bilateral coronary angiography INDICATION: NSTEMI, CKD CONSENT:I have discussed the risks, benefits and alternative therapies for the above-mentioned procedure and for both sedation/analgesia as well as necessary blood product administration, if indicated, as they pertain to this patient. The patient has indicated understanding and acceptance of the risks and procedures discussed. PROCEDURE: After the risks, benefits and alternatives of the above mentioned procedure explained in detail with the patient, informed consent was obtained. Patient was taken to the catheterization lab and prepped and draped in usual fashion. 1% lidocaine was used to anesthetize the right radial artery. A 6- Guamanian sheath was placed in the right radial artery using modified Seldinger technique. Left coronary angiography was performed with a 5-Guamanian JL 3.5 catheter and right coronary angiography was performed with a 5-Guamanian JR5 catheter in various views. A 5-Guamanian FR5 catheter was inserted into the left ventricle and pressure measurements were obtained. The right radial sheath was removed and a TR band was placed with hemostasis achieved. The patient tolerated the procedure well. Patient was transported back to the post catheterization holding area in stable condition. Conscious Sedation: Patient was monitored under the direct supervision of vision of myself for conscious sedation using Versed and fentanyl for a total duration of 17 minutes HEMODYNAMICS: Ao: 133/73 LV: 134/6, LVEDP 24 mmHg SELECTIVE CORONARY ARTERIOGRAPHY: LEFT MAIN: The left main is a large caliber vessel which bifurcates into the LAD and circumflex. There is no significant stenosis. LEFT ANTERIOR DESCENDING CORONARY ARTERY: LAD is a large caliber vessel which wraps around to the apex. There is diffuse mild 10-20% stenosis and a patent proximal to mid LAD stent. There are left to right collaterals. There is a 95% proximal diagonal 1 stenosis which appears similar from prior imaging LEFT CIRCUMFLEX CORONARY ARTERY: Left circumflex is a large caliber vessel with proximal circumflex stent. RIGHT CORONARY ARTERY: The right coronary artery is a large caliber vessel which gives off a PDA and PLV branch and is the dominant vessel. There is 100% stenosis of the mid RCA stent. FINAL IMPRESSION: 1. CAD as described above with 100% RCA STUDY ASSISTANT with collaterals, patent LAD and circumflex stent, similar 95% small caliber diagonal 1 proximal stenosis. 2. Mildly elevated left sided filling pressures PLAN: 1. Aggressive risk factor modification per most recent ACC/AHA guidelines. 2. Would continue to treat RCA medically especially given CKD.
[2022-12-16] MEDS: APIXABAN 5 MG TAB PO SCH ×2 (12:19→20:01)
[2022-12-16 12:42] LABS: Glucose,Whole Blood 185 mg/dL (70-110)
[2022-12-16 16:23] LABS: Glucose,Whole Blood 226 mg/dL (70-110)
--- NOTE | 2022-12-16 17:18 | P.PN ---
Subjective Progress Note Date: 12/16/22 (delayed charting seen at 1120) Patient is a 77-year-old female with hypertension, diabetes, coronary artery disease status post stenting, and asthma who presented to the ER with complaints of chest pain, palpitations, and elevated blood pressures. In the ER she underwent an extensive evaluation. She was diagnosed with a non-STEMI and new- onset atrial fib/flutter which converted to normal sinus rhythm after IV Cardizem in the ER. Cardiology was consulted and the patient was started on heparin drip. Echocardiogram showed preserved ejection fraction. Patient seen and examined at bedside. She denies any chest pain, lightheadedness, dizziness. present at bedside. All questions answered to the best of my ability regarding cardiac catheterization pictures and how coronary arteries fill. Vital signs reviewed General: nontoxic, no distress, appears at stated age Cardiovascular: S1S2 reg, no murmur, positive posterior tibial pulse bilateral, Lungs: CTA bilateral, no rhonchi, no rales , no accessory muscle use Abdominal: soft, nontender to palpation, no guarding, no appreciable organomegaly Ext: no gross muscle atrophy, no edema, no contractures Neuro: CN II-XI grossly intact, no focal neuro deficits Psych: Alert, oriented, appropriate affect Assessment: Atrial flutter with rapid ventricular response Non-ST segment elevated myocardial infarction, type II Hypertension Dyslipidemia Diabetes mellitus type 2 Chronic kidney disease stage III Imaging: Echocardiogram-ejection fraction 55-60%, mild valvular disease Cardiac catheterization-CAD with 100% RCA FRUIT AND VEGETABLE INSPECTOR with collaterals, patent LAD and circumflex stent, 95% small-caliber diagonal one proximal stenosis Data Review: Vital signs morning reviewed-temperature 98.2, pulse 67, respirations 16, blood pressure 127/58, O2 sat 96% on room air Blood sugars reviewed-a.m. fasting 150, nocturnal lungs were to 16 and 281. Laboratory analysis reviewed and remarkable for hemoglobin 10.6 (10.5 yesterday). BUN 23, creatinine 1.53 Plan: -Cardiology recommendations, Report reviewed: Aggressive risk factor modifications, stop heparin drip and start Eliquis continue with Coreg 3.125 mg twice daily -Continue with Farxiga 5 mg daily, insulin 70/30 26 units twice daily -Continue with normal saline at 50 mL/h -Anticipate home in a.m. This dictation was prepared using [employer] voice recognition software. Though every attempt is made to correct errors during during dictation some may still exist. Objective - Vital Signs Vital signs: Vital Signs Temp 98 F 12/16/22 15:54 Pulse 60 12/16/22 15:54 Resp 16 12/16/22 15:54 BP 135/63 12/16/22 15:54 Pulse Ox 95 12/16/22 15:54 FiO2 Intake & Output 12/15/22 12/16/22 12/16/22 18:59 06:59 18:59 Intake Total 118 231 200 Output Total 300 Balance 118 -69 200 Intake: IV 200 Intake, IV Titration 231 Amount Heparin Sod,Pork in 0.45% 231 NaCl 25,000 unit In 0.45 % NaCl 1 250ml.bag @ 9. 1859 UNITS/KG/HR 10 mls/ hr IV .Q24H [facility] Rx#: [id number] Oral 118 Output: Urine 300 Other: Voiding Method External Catheter Toilet # Voids 1 1 - Labs CBC & Chem 7: 12/16/22 06:09 12/16/22 06:09 Labs: Abnormal Lab Results - Last 24 Hours (Table) 12/15/22 12/15/22 12/16/22 Range/Units 18:15 20:30 06:09 Hgb (11.4-16.0) gm/dL Hct (34.0-46.0) % BUN 23 H (7-17) mg/dL Creatinine 1.53 H (0.52-1.04) mg/dL Glucose 134 H (74-99) mg/dL POC Glucose (mg/dL) 281 H 216 H (70-110) mg/dL Calcium 8.3 L (8.4-10.2) mg/dL 12/16/22 12/16/22 12/16/22 Range/Units 06:09 06:10 12:41 Hgb 10.6 L (11.4-16.0) gm/dL Hct 32.9 L (34.0-46.0) % BUN (7-17) mg/dL Creatinine (0.52-1.04) mg/dL Glucose (74-99) mg/dL POC Glucose (mg/dL) 150 H 185 H (70-110) mg/dL Calcium (8.4-10.2) mg/dL 12/16/22 Range/Units 16:20 Hgb (11.4-16.0) gm/dL Hct (34.0-46.0) % BUN (7-17) mg/dL Creatinine (0.52-1.04) mg/dL Glucose (74-99) mg/dL POC Glucose (mg/dL) 226 H (70-110) mg/dL Calcium (8.4-10.2) mg/dL
[2022-12-16] MEDS ORDERED: HYDROcodone/APAP 5-325MG 1 EACH TAB PO PRN (17:41)
[2022-12-16] MEDS ORDERED: ACETAMINOPHEN TAB 325 MG TAB PO PRN (17:41)
[2022-12-16] MEDS: ATORVASTATIN 80 MG TAB PO SCH (20:01)
[2022-12-16 20:02] LABS: Glucose,Whole Blood 198 mg/dL (70-110)
[2022-12-17] MEDS: SODIUM CHLORIDE 0.9% 1,000 ML IV SCH ×2 (05:47→20:10)
[2022-12-17 06:23] LABS: Glucose,Whole Blood 198 mg/dL (70-110)
[2022-12-17] MEDS: INSULN ASP PRT/INSULIN ASPART 100 UNIT/ML 10 ML VIAL SQ SCH ×2 (06:38→17:06)
[2022-12-17] MEDS: PANTOPRAZOLE 40 MG TABLET PO SCH (06:39)
[2022-12-17] MEDS: EZETIMIBE 10 MG TAB PO SCH (08:11)
[2022-12-17] MEDS: carvediloL 3.125 MG TAB PO SCH ×2 (08:11→20:10)
[2022-12-17] MEDS: LOSARTAN 50 MG TAB PO SCH (08:11)
[2022-12-17] MEDS: ASPIRIN 81 MG PO SCH (08:11)
[2022-12-17] MEDS: APIXABAN 5 MG TAB PO SCH ×2 (08:11→20:10)
[2022-12-17] MEDS: DAPAGLIFLOZIN PROPANEDIOL 5 MG TABLET PO SCH (08:11)
[2022-12-17] MEDS: CITALOPRAM HYDROBROMIDE 20 MG TAB PO SCH (08:11)
[2022-12-17 09:25] LABS: Calcium 8.3 mg/dL (8.4-10.2); Potassium 4.1 mmol/L (3.5-5.1)
--- NOTE | 2022-12-17 11:28 | P.DS ---
Providers Date of admission: 12/14/22 21:47 Expected date of discharge: 12/17/22 Attending physician: Amirah Cruz MD Consults: 12/14/22 21:44 Consult Physician Urgent Consulting Provider: Olvin Amador Consult Reason/Comments: New-onset atrial tachycardia; chest pain Do you want consulting provider notified?: Yes Primary care physician: Gaurav Wadsworth MD Hospital Course: Discharge Diagnosis: Atrial flutter with rapid ventricular response Non-ST segment elevated myocardial infarction, type II Hypertension Dyslipidemia Diabetes mellitus type 2 Chronic kidney disease stage III Hospital Course: Patient is a 77-year-old female with hypertension, diabetes, coronary artery disease status post stenting, and asthma who presented to the ER with complaints of chest pain, palpitations, and elevated blood pressures. In the ER she underwent an extensive evaluation. She was diagnosed with a non-STEMI and new- onset atrial fib/flutter which converted to normal sinus rhythm after IV Cardizem in the ER. Cardiology was consulted and the patient was started on heparin drip. Echocardiogram showed preserved ejection fraction. She underwent cardiac cath which showed stable coronary artery disease with no need for intervention of chronic occlusion with collaterals. She continued to do well. She maintained normal sinus rhythm. She was determined stable for discharge home. Follow-up: [facility]'ll [facility] for [facility] in one month. She will continue on Eliquis. She was also started on Plavix and Norvasc. She'll follow up with Dr. Lopez in 1-[address] Wong next week. Patient seen and examined at bedside. Doing well. Denies any complaints at this time. No chest pain or shortness of breath. An extensive discussion regarding co-pay requirements. Vital signs reviewed and stable. General: nontoxic, no distress, appears at stated age Derm: warm, dry Head: atraumatic, normocephalic, symmetric Eyes: EOMI, no lid lag, anicteric sclera Mouth: no lip lesion, mucus membranes moist Cardiovascular: S1S2 reg, no murmur, positive posterior tibial pulse bilateral, Lungs: CTA bilateral, no rhonchi, no rales , no accessory muscle use Abdominal: soft, nontender to palpation, no guarding, no appreciable organomegaly Ext: no gross muscle atrophy, no edema, no contractures Neuro: CN II-XI grossly intact, no focal neuro deficits Psych: Alert, oriented, appropriate affect A total of 35 minutes of time were spent preparing this complex discharge summary. Patient was discharged on 12/17/22. This dictation was prepared using [employer] voice recognition software. Though every attempt is made to correct errors during during dictation some may still exist. Patient Condition at Discharge: Stable Plan - Discharge Summary New Discharge Prescriptions: New Apixaban [Eliquis] 5 mg PO BID #60 tab amLODIPine [Norvasc] 2.5 mg PO DAILY #30 tab Clopidogrel [Plavix] 75 mg PO DAILY #90 tab Continue Atorvastatin [Lipitor] 80 mg PO HS Cholecalciferol [Vitamin D3 (25 Mcg = 1000 Iu)] 50 mcg PO DAILY Losartan [Cozaar] 50 mg PO DAILY Ezetimibe [Zetia] 10 mg PO DAILY Ferrous Sulfate [Iron (65 MG Elemental)] 325 mg PO DAILY Albuterol Inhaler [Ventolin Hfa Inhaler] 2 puff INHALATION RT-Q6H PRN PRN Reason: Shortness Of Breath tiZANidine [Zanaflex] 2 mg PO Q8H PRN PRN Reason: Muscle Spasm Biotin 10,000 mcg PO DAILY Ascorbic Acid [Vitamin C] 1,000 mg PO DAILY Omeprazole 20 mg PO DAILY Citalopram Hydrobromide [CeleXA] 40 mg PO DAILY Vitamin E(Unknown Dose) 1 cap PO DAILY Insuln Asp Prt/Insulin Aspart [NovoLOG MIX 70-30 VIAL] 26 unit SQ BID carvediloL [Coreg] 3.125 mg PO BID Dapagliflozin Propanediol [Farxiga] 5 mg PO DAILY Vitamin B Complex 1 cap PO DAILY Discontinued Aspirin 81 mg PO DAILY 30 Days #30 tab Discharge Medication List Ascorbic Acid [Vitamin C] 1,000 mg PO DAILY 07/11/21 [History] Atorvastatin [Lipitor] 80 mg PO HS 07/11/21 [History] Biotin 10,000 mcg PO DAILY 07/11/21 [History] Cholecalciferol [Vitamin D3 (25 Mcg = 1000 Iu)] 50 mcg PO DAILY 07/11/21 [History] Losartan [Cozaar] 50 mg PO DAILY 07/11/21 [History] Omeprazole 20 mg PO DAILY 07/11/21 [History] Citalopram Hydrobromide [CeleXA] 40 mg PO DAILY 12/01/21 [History] Ezetimibe [Zetia] 10 mg PO DAILY 09/28/21 [History] Albuterol Inhaler [Ventolin Hfa Inhaler] 2 puff INHALATION RT-Q6H PRN 12/14/22 [History] Dapagliflozin Propanediol [Farxiga] 5 mg PO DAILY 12/14/22 [History] Ferrous Sulfate [Iron (65 MG Elemental)] 325 mg PO DAILY 12/14/22 [History] Insuln Asp Prt/Insulin Aspart [NovoLOG MIX 70-30 VIAL] 26 unit SQ BID 12/14/22 [History] Vitamin B Complex 1 cap PO DAILY 12/14/22 [History] Vitamin E(Unknown Dose) 1 cap PO DAILY 12/14/22 [History] carvediloL [Coreg] 3.125 mg PO BID 12/14/22 [History] tiZANidine [Zanaflex] 2 mg PO Q8H PRN 12/14/22 [History] Apixaban [Eliquis] 5 mg PO BID #60 tab 12/17/22 [Rx] Clopidogrel [Plavix] 75 mg PO DAILY #90 tab 12/17/22 [Rx] amLODIPine [Norvasc] 2.5 mg PO DAILY #30 tab 12/17/22 [Rx] Follow up Appointment(s)/Referral(s): Ziggy Wong DO [Family Provider] - 1 Week Gaurav Wadsworth MD [Primary Care Provider] - 1-2 days Activity/Diet/Wound Care/Special Instructions: Activity: as tolerated Diet: heart healthy, carb consistent Special Instructions: [facility] office will call with appointment time for ablation which will occur in 1 month. Discharge Disposition: HOME SELF-CARE
[2022-12-17 11:40] LABS: Glucose,Whole Blood 175 mg/dL (70-110)
[2022-12-17] MEDS ORDERED: SODIUM CHLORIDE 0.9% 500 ML 250 ML IV ONE (12:06)
--- NOTE | 2022-12-17 12:16 | P.PN ---
Subjective Progress Note Date: 12/17/22 New onset atrial tachycardia, chest pain History of present illness: HISTORY OF PRESENTING ILLNESS This is a 77-year-old female patient of Dr. Wong with history of asthma, cor onary artery disease with initial stenting in December 2020 as well as repeat stenting in August 2021, non-ST elevated myocardial infarction in September 2021, COPD, diabetes mellitus, GERD, hypertension, hyperlipidemia and a, osteoarthritis, history of rheumatic fever as a child and neuropathy. We have been asked to evaluate the patient for new onset atrial tachycardia and chest pain. Patient gives history of presenting to the hospital due to shortness of breath it's been going on for the last couple of weeks especially when she is walking along with dizziness and lightheaded this. She denies any syncopal episodes. EKG atrial flutter most likely, repeat EKG is atrial fibrillation Chest x-ray no acute findings Troponins 0.0-2, 0.135, 0.158. BUN 22 creatinine 1.35. Potassium 3.5. Hemog lobin is 10.7, WBC 5.6. Cardiac catheterization in August 2021 showed mild disease of the LAD with patent LAD stent, similar-appearing diagonal disease as well as obstructive circumflex disease. Patient underwent successful PCI of the circumflex Cardiac catheterization 09/2021 revealed LAD with diffuse mild tenderness 20% stenosis and a patent proximal to mid LAD stent, proximal 95% stenosis in the diagonal 1 branch similar to prior imaging. 20-30% stenosis in the left circumflex and patent proximal and distal stents. 100% stenosis of the mid RCA. Patient had successful PCI of the PYTHON CONSULTANT of mid RCA into the PLV. Echocardiogram September 2021 revealed EF of 55-60%, mild concentric left hypert rophy, no pericardial effusion. Home cardiac medications: Aspirin 81 mg daily, atorvastatin 80 mg at bedtime, Coreg 3.125 mg twice daily, Farxiga 5 mg daily, Zetia 10 mg daily, losartan 50 mg daily 12/17 Yesterday, patient underwent left heart catheterization with Dr. Wong which revealed 100% RCA PYTHON CONSULTANT with collaterals, patent LAD and circumflex stent similar 95% small-caliber diagonal one proximal stenosis. Mildly elevated left-sided filling pressures. Plan is for aggressive medical management and continue to treat RCA medically given chronic kidney disease. Patient denies having any zoltan st pain or shortness of breath. Also noted the patient has been on atorvastatin 80 mg and Zetia 10 mg and LDH is 81. A1c is 8.1 and recommended to the patient that she follow with an climatology professor for better glucose control. BUN is 29 and creatinine 1.69. Pressure 139/60-144/64 and heart rate is in the 50s, sinus rhythm. For improvement of blood pressure, we are adding in amlodipine which p atient states that she was taken off it recently due to edema. Recommend only a low dose at 2.5 mg daily. We had initially given clearance for the patient to be discharged but due to patient's rising creatinine, recommend the patient get a fluid bolus of 250 mL and also monitor overnight with recheck of her renal function tomorrow. PHYSICAL EXAMINATION Vital signs reviewed. CONSTITUTIONAL: No apparent distress. HEENT: Head is normocephalic. Pupils are equal, round. Sclerae anicteric. Mucous membranes of the mouth are moist. No JVD. No carotid bruit. CHEST EXAMINATION: Lungs are clear to auscultation. No chest wall tenderness is noted on palpation or with deep breathing. HEART EXAMINATION: Irregular rate and rhythm. S1, S2 heard. No murmurs, gallops or rub. ABDOMEN: Soft, nontender. Positive bowel sounds. EXTREMITIES: 2+ peripheral pulses, no lower extremity edema and no calf tender ness. NEUROLOGIC EXAMINATION: Patient is awake, alert and oriented x3. ASSESSMENT New onset atrial fibrillation/atrial flutter atypical Troponin leak most likely secondary to atrial fibrillation Coronary artery disease with prior history of stenting Hypertension Hyperlipidemia Prior history of acute kidney injury, appears improved Diabetes mellitus type 2 PLAN Patient started on eliquis 5 mg twice daily and Plavix 75 mg daily, no aspirin Amlodipine added at low dose 2.5 mg daily to continue at discharge Continue Coreg at 3.125 mg twice daily, atorvastatin 80 mg daily, Zetia 10 mg daily IV fluids 0.9 normal saline 250 mL bolus Recheck BMP in the morning Monitor blood pressure closely Thank you kindly for this consultation. Nurse practitioner note has been reviewed, I agree with the documented findings and plan of care. Patient was seen and examined. Objective - Vital Signs Vital signs: Vital Signs Temp 96.5 F L 12/17/22 07:55 Pulse 56 L 12/17/22 07:55 Resp 18 12/17/22 07:55 BP 139/62 03/29/23 07:55 Pulse Ox 95 12/17/22 07:55 FiO2 Intake & Output 12/16/22 12/17/22 12/17/22 18:59 06:59 18:59 Intake Total 437 240 Balance 437 240 Intake: IV 200 Oral 237 240 Other: Voiding Method Toilet Toilet Toilet # Voids 1 1 - Labs CBC & Chem 7: 12/16/22 06:09 12/17/22 08:50 Labs: Abnormal Lab Results - Last 24 Hours (Table) 12/16/22 12/16/22 12/16/22 Range/Units 12:41 16:20 20:00 BUN (7-17) mg/dL Creatinine (0.52-1.04) mg/dL Glucose (74-99) mg/dL POC Glucose (mg/dL) 185 H 226 H 198 H (70-110) mg/dL Calcium (8.4-10.2) mg/dL 12/17/22 12/17/22 Range/Units 06:22 08:50 BUN 29 H (7-17) mg/dL Creatinine 1.69 H (0.52-1.04) mg/dL Glucose 226 H (74-99) mg/dL POC Glucose (mg/dL) 198 H (70-110) mg/dL Calcium 8.3 L (8.4-10.2) mg/dL
[2022-12-17] MEDS: CLOPIDOGREL 75 MG TAB PO SCH (12:40)
[2022-12-17] MEDS: amLODIPine 2.5 MG TAB PO SCH (12:40)
[2022-12-17 16:23] LABS: Glucose,Whole Blood 143 mg/dL (70-110)
[2022-12-17] MEDS: ALBUTEROL NEBULIZED 2.5 MG/3 ML INHALATION PRN (18:24)
[2022-12-17] MEDS: ATORVASTATIN 80 MG TAB PO SCH (20:10)
[2022-12-17 20:15] LABS: Glucose,Whole Blood 197 mg/dL (70-110)
[2022-12-17] MEDS: ALPRAZolam 0.5 MG TAB PO PRN (21:19)
[2022-12-18] MEDS ORDERED: TIZANIDINE 2 MG PO PRN (00:31)
[2022-12-18 06:25] LABS: Glucose,Whole Blood 123 mg/dL (70-110)
[2022-12-18] MEDS: PANTOPRAZOLE 40 MG TABLET PO SCH (06:34)
[2022-12-18] MEDS: INSULN ASP PRT/INSULIN ASPART 100 UNIT/ML 10 ML VIAL SQ SCH (06:34)
[2022-12-18] MEDS: ALBUTEROL NEBULIZED 2.5 MG/3 ML INHALATION PRN (08:50)
[2022-12-18] MEDS ORDERED: FERROUS SULFATE 325 MG TAB PO SCH (09:00)
[2022-12-18] MEDS ORDERED: CHOLECALCIFEROL 25 MCG (1000 IU) TABLET PO SCH (09:00)
[2022-12-18] MEDS ORDERED: VITAMIN E PO SCH (09:00)
[2022-12-18] MEDS ORDERED: NON FORMULARY DRUG (Vitamin B Complex [Vitamin B Complex] 1 EACH Capsule) PO SCH (09:00)
[2022-12-18] MEDS ORDERED: ASCORBIC ACID 500 MG TAB PO SCH (09:00)
[2022-12-18 09:50] LABS: Calcium 8.7 mg/dL (8.4-10.2); Potassium 4.6 mmol/L (3.5-5.1)
[2022-12-18] MEDS: CITALOPRAM HYDROBROMIDE 20 MG TAB PO SCH (09:57)
[2022-12-18] MEDS: APIXABAN 5 MG TAB PO SCH (09:57)
[2022-12-18] MEDS: EZETIMIBE 10 MG TAB PO SCH (09:58)
[2022-12-18] MEDS: CLOPIDOGREL 75 MG TAB PO SCH (09:58)
[2022-12-18] MEDS: DAPAGLIFLOZIN PROPANEDIOL 5 MG TABLET PO SCH (09:58)
[2022-12-18] MEDS: carvediloL 3.125 MG TAB PO SCH (10:29)
[2022-12-18] MEDS: amLODIPine 2.5 MG TAB PO SCH (10:35)
--- NOTE | 2022-12-18 11:16 | P.PN ---
Subjective Progress Note Date: 12/18/22 New onset atrial tachycardia, chest pain History of present illness: HISTORY OF PRESENTING ILLNESS This is a 77-year-old female patient of Dr. Wong with history of asthma, cor onary artery disease with initial stenting in December 2020 as well as repeat stenting in August 2021, non-ST elevated myocardial infarction in September 2021, COPD, diabetes mellitus, GERD, hypertension, hyperlipidemia and a, osteoarthritis, history of rheumatic fever as a child and neuropathy. We have been asked to evaluate the patient for new onset atrial tachycardia and chest pain. Patient gives history of presenting to the hospital due to shortness of breath it's been going on for the last couple of weeks especially when she is walking along with dizziness and lightheaded this. She denies any syncopal episodes. EKG atrial flutter most likely, repeat EKG is atrial fibrillation Chest x-ray no acute findings Troponins 0.0-2, 0.135, 0.158. BUN 22 creatinine 1.35. Potassium 3.5. Hemog lobin is 10.7, WBC 5.6. Cardiac catheterization in August 2021 showed mild disease of the LAD with patent LAD stent, similar-appearing diagonal disease as well as obstructive circumflex disease. Patient underwent successful PCI of the circumflex Cardiac catheterization 09/2021 revealed LAD with diffuse mild tenderness 20% stenosis and a patent proximal to mid LAD stent, proximal 95% stenosis in the diagonal 1 branch similar to prior imaging. 20-30% stenosis in the left circumflex and patent proximal and distal stents. 100% stenosis of the mid RCA. Patient had successful PCI of the WARE CLEANER of mid RCA into the PLV. Echocardiogram September 2021 revealed EF of 55-60%, mild concentric left hypert rophy, no pericardial effusion. Home cardiac medications: Aspirin 81 mg daily, atorvastatin 80 mg at bedtime, Coreg 3.125 mg twice daily, Farxiga 5 mg daily, Zetia 10 mg daily, losartan 50 mg daily 12/17 Yesterday, patient underwent left heart catheterization with Dr. Wong which revealed 100% RCA WARE CLEANER with collaterals, patent LAD and circumflex stent similar 95% small-caliber diagonal one proximal stenosis. Mildly elevated left-sided filling pressures. Plan is for aggressive medical management and continue to treat RCA medically given chronic kidney disease. Patient denies having any zoltan st pain or shortness of breath. Also noted the patient has been on atorvastatin 80 mg and Zetia 10 mg and LDH is 81. A1c is 8.1 and recommended to the patient that she follow with an ed teacher for better glucose control. BUN is 29 and creatinine 1.69. Pressure 139/60-144/64 and heart rate is in the 50s, sinus rhythm. For improvement of blood pressure, we are adding in amlodipine which p atient states that she was taken off it recently due to edema. Recommend only a low dose at 2.5 mg daily. We had initially given clearance for the patient to be discharged but due to patient's rising creatinine, recommend the patient get a fluid bolus of 250 mL and also monitor overnight with recheck of her renal function tomorrow. 12/18 Patient was found to be on IV fluids this morning. She does have increased edema to bilateral lower legs. Doubt that this is related to the amlodipine as she would not have had To cause edema. Her blood pressure remains elevated so we will make additional medication changes. Blood pressure 137/71, heart rate is in the 50s, pulse ox 97% on room air. Repeat blood work in the BUN of 30 creatinine 1.43. PHYSICAL EXAMINATION Vital signs reviewed. CONSTITUTIONAL: No apparent distress. HEENT: Head is normocephalic. Pupils are equal, round. Sclerae anicteric. Mucous membranes of the mouth are moist. No JVD. No carotid bruit. CHEST EXAMINATION: Lungs are clear to auscultation. No chest wall tenderness is noted on palpation or with deep breathing. HEART EXAMINATION: Irregular rate and rhythm. S1, S2 heard. No murmurs, gallops or rub. ABDOMEN: Soft, nontender. Positive bowel sounds. EXTREMITIES: 2+ peripheral pulses, no lower extremity edema and no calf tenderness. NEUROLOGIC EXAMINATION: Patient is awake, alert and oriented x3. ASSESSMENT New onset atrial fibrillation/atrial flutter atypical Troponin leak most likely secondary to atrial fibrillation Coronary artery disease with prior history of stenting Hypertension Hyperlipidemia Prior history of acute kidney injury, appears improved Diabetes mellitus type 2 PLAN Continue patient on on eliquis 5 mg twice daily and Plavix 75 mg daily, no aspirin Discontinue amlodipine and start patient on hydralazine 50 mg 3 times daily Continue Coreg at 3.125 mg twice daily, atorvastatin 80 mg daily, Zetia 10 mg daily Patient is cleared from cardiology for discharge home with planned follow-up with Dr. Wong in the office in one week. Nurse practitioner note has been reviewed, I agree with the documented findings and plan of care. Patient was seen and examined. Objective - Vital Signs Vital signs: Vital Signs Temp 98.3 F 12/18/22 04:00 Pulse 59 L 12/18/22 04:00 Resp 19 12/18/22 04:00 BP 137/71 12/18/22 04:00 Pulse Ox 97 12/18/22 04:00 FiO2 Intake & Output 12/17/22 12/18/22 12/18/22 18:59 06:59 18:59 Intake Total 898 Balance 898 Intake: Oral 898 Other: Voiding Method Toilet Toilet # Voids 1 1 # Bowel Movements 0 - Labs CBC & Chem 7: 12/16/22 06:09 12/18/22 08:00 Labs: Abnormal Lab Results - Last 24 Hours (Table) 12/17/22 12/17/22 12/17/22 Range/Units 08:50 11:39 16:21 BUN 29 H (7-17) mg/dL Creatinine 1.69 H (0.52-1.04) mg/dL Glucose 226 H (74-99) mg/dL POC Glucose (mg/dL) 175 H 143 H (70-110) mg/dL Calcium 8.3 L (8.4-10.2) mg/dL 12/17/22 12/18/22 Range/Units 20:13 06:23 BUN (7-17) mg/dL Creatinine (0.52-1.04) mg/dL Glucose (74-99) mg/dL POC Glucose (mg/dL) 197 H 123 H (70-110) mg/dL Calcium (8.4-10.2) mg/dL
[2022-12-18 11:43] LABS: Glucose,Whole Blood 111 mg/dL (70-110)
[2022-12-18 12:18] VITALS: BP 143/65; PULSE 97; RESP 18; TEMP 97.6
--- NOTE | 2022-12-18 13:29 | P.DS ---
Providers Date of admission: 12/14/22 21:47 Expected date of discharge: 12/18/22 Attending physician: Amirah Cruz MD Consults: 12/14/22 21:44 Consult Physician Urgent Consulting Provider: Olvin Amador Consult Reason/Comments: New-onset atrial tachycardia; chest pain Do you want consulting provider notified?: Yes Primary care physician: Gaurav Wadsworth MD Hospital Course: Discharge Diagnosis: Atrial flutter with rapid ventricular response Non-ST segment elevated myocardial infarction, type II Hypertension Dyslipidemia Diabetes mellitus type 2 Chronic kidney disease stage III Hospital Course: Patient is a 77-year-old female with hypertension, diabetes, coronary artery disease status post stenting, and asthma who presented to the ER with complaints of chest pain, palpitations, and elevated blood pressures. In the ER she underwent an extensive evaluation. She was diagnosed with a non-STEMI and new- onset atrial fib/flutter which converted to normal sinus rhythm after IV Cardizem in the ER. Cardiology was consulted and the patient was started on heparin drip. Echocardiogram showed preserved ejection fraction. She underwent cardiac cath which showed stable coronary artery disease with no need for intervention of chronic occlusion with collaterals. She continued to do well. She maintained normal sinus rhythm. She was determined stable for discharge home. Follow-up: [facility]'ll [facility] for [facility] in one month. She will continue on Eliquis. She was also started on Plavix and Norvasc. She'll follow up with Dr. Lopez in 1-[address] Wong next week. Patient seen and examined at bedside. She denies any chest pain or shortness of breath. Vital signs reviewed and stable. General: nontoxic, no distress, appears at stated age Derm: warm, dry Head: atraumatic, normocephalic, symmetric Eyes: EOMI, no lid lag, anicteric sclera Mouth: no lip lesion, mucus membranes moist Cardiovascular: S1S2 reg, no murmur, positive posterior tibial pulse bilateral, Lungs: CTA bilateral, no rhonchi, no rales , no accessory muscle use Abdominal: soft, nontender to palpation, no guarding, no appreciable organomegaly Ext: no gross muscle atrophy, no edema, no contractures Neuro: CN II-XI grossly intact, no focal neuro deficits Psych: Alert, oriented, appropriate affect A total of 37 minutes of time were spent preparing this complex discharge summary. Patient was discharged on 12/18/22. This dictation was prepared using [employer] voice recognition software. Though every attempt is made to correct errors during during dictation some may still exist. Patient Condition at Discharge: Stable Plan - Discharge Summary New Discharge Prescriptions: New Apixaban [Eliquis] 5 mg PO BID #60 tab Clopidogrel [Plavix] 75 mg PO DAILY #90 tab hydrALAZINE HCL [Apresoline] 50 mg PO TID #90 tab Continue Atorvastatin [Lipitor] 80 mg PO HS Cholecalciferol [Vitamin D3 (25 Mcg = 1000 Iu)] 50 mcg PO DAILY Ezetimibe [Zetia] 10 mg PO DAILY Ferrous Sulfate [Iron (65 MG Elemental)] 325 mg PO DAILY Albuterol Inhaler [Ventolin Hfa Inhaler] 2 puff INHALATION RT-Q6H PRN PRN Reason: Shortness Of Breath tiZANidine [Zanaflex] 2 mg PO Q8H PRN PRN Reason: Muscle Spasm Biotin 10,000 mcg PO DAILY Ascorbic Acid [Vitamin C] 1,000 mg PO DAILY Omeprazole 20 mg PO DAILY Citalopram Hydrobromide [CeleXA] 40 mg PO DAILY Vitamin E(Unknown Dose) 1 cap PO DAILY Insuln Asp Prt/Insulin Aspart [NovoLOG MIX 70-30 VIAL] 26 unit SQ BID carvediloL [Coreg] 3.125 mg PO BID Dapagliflozin Propanediol [Farxiga] 5 mg PO DAILY Vitamin B Complex 1 cap PO DAILY Discontinued Losartan [Cozaar] 50 mg PO DAILY Aspirin 81 mg PO DAILY 30 Days #30 tab Discharge Medication List Ascorbic Acid [Vitamin C] 1,000 mg PO DAILY 07/11/21 [History] Atorvastatin [Lipitor] 80 mg PO HS 07/11/21 [History] Biotin 10,000 mcg PO DAILY 07/11/21 [History] Cholecalciferol [Vitamin D3 (25 Mcg = 1000 Iu)] 50 mcg PO DAILY 07/11/21 [History] Omeprazole 20 mg PO DAILY 07/11/21 [History] Citalopram Hydrobromide [CeleXA] 40 mg PO DAILY 08/21/21 [History] Ezetimibe [Zetia] 10 mg PO DAILY 09/28/21 [History] Albuterol Inhaler [Ventolin Hfa Inhaler] 2 puff INHALATION RT-Q6H PRN 12/14/22 [History] Dapagliflozin Propanediol [Farxiga] 5 mg PO DAILY 12/14/22 [History] Ferrous Sulfate [Iron (65 MG Elemental)] 325 mg PO DAILY 12/14/22 [History] Insuln Asp Prt/Insulin Aspart [NovoLOG MIX 70-30 VIAL] 26 unit SQ BID 12/14/22 [History] Vitamin B Complex 1 cap PO DAILY 12/14/22 [History] Vitamin E(Unknown Dose) 1 cap PO DAILY 12/14/22 [History] carvediloL [Coreg] 3.125 mg PO BID 12/14/22 [History] tiZANidine [Zanaflex] 2 mg PO Q8H PRN 12/14/22 [History] Apixaban [Eliquis] 5 mg PO BID #60 tab 12/17/22 [Rx] Clopidogrel [Plavix] 75 mg PO DAILY #90 tab 12/17/22 [Rx] hydrALAZINE HCL [Apresoline] 50 mg PO TID #90 tab 12/18/22 [Rx] Follow up Appointment(s)/Referral(s): Ziggy Wong DO [Family Provider] - 12/25/22 9:15 am Gaurav Wadsworth MD [Primary Care Provider] - 12/25/22 3:20 pm Patient Instructions/Handouts: *Surgery [facility] - After Heart Catheterization - [employer] Instructions, A-fib (Atrial Fibrillation) (DC) Activity/Diet/Wound Care/Special Instructions: Activity: as tolerated Diet: heart healthy, carb consistent Special Instructions: [facility] office will call with appointment time for ablation which will occur in 1 month. Discharge Disposition: HOME SELF-CARE
[2022-12-18] MEDS ORDERED: hydrALAZINE HCL 50 MG TAB PO SCH (16:00)
== END 2022-12-18 13:41 | disposition home or self-care (01) | DRG 281 ==
LOC: EC 19:30 → 3SCARD 21:47 → OBSVTOIN 21:47 → 3SCARD 12-15 15:46
PROVIDERS: ADMIT Internal Medicine; ATTEND Internal Medicine
PROC: B246ZZ4 Ultrasonography of Right and Left Heart, Transesophageal (ICD-10-PCS; 2022-12-15)
PROC: B2161ZZ Fluoroscopy of Right and Left Heart using Low Osmolar Contrast (ICD-10-PCS; 2022-12-16)
PROC: 4A023N7 Measurement of Cardiac Sampling and Pressure, Left Heart, Percutaneous Approach (ICD-10-PCS; principal; 2022-12-16 07:30)
DX: I48.91 Unspecified atrial fibrillation (principal); I21.A1 Myocardial infarction type 2; I13.0 Hypertensive heart and chronic kidney disease with heart failure and stage 1 through stage 4 chronic kidney disease, or unspecified chronic kidney disease; I50.9 Heart failure, unspecified; I48.3 Typical atrial flutter; E78.5 Hyperlipidemia, unspecified; E11.9 Type 2 diabetes mellitus without complications; I48.4 Atypical atrial flutter; I25.119 Atherosclerotic heart disease of native coronary artery with unspecified angina pectoris; N18.30 Chronic kidney disease, stage 3 unspecified; E11.40 Type 2 diabetes mellitus with diabetic neuropathy, unspecified; J45.909 Unspecified asthma, uncomplicated; M19.90 Unspecified osteoarthritis, unspecified site; I25.2 Old myocardial infarction; D64.9 Anemia, unspecified; Z79.01 Long term (current) use of anticoagulants; Z79.02 Long term (current) use of antithrombotics/antiplatelets; Z79.82 Long term (current) use of aspirin; Z79.84 Long term (current) use of oral hypoglycemic drugs; Z79.899 Other long term (current) drug therapy; Z86.19 Personal history of other infectious and parasitic diseases
CPT/HCPCS: 36415; 71045; 80048; 80053; 83735; 83880; 84443; 84484; 85025; 85610; 85730; 93005; 93306; 93458; 94640; 94760; 96365; 96366; 96375; 99285

== ENCOUNTER → 2022-12-23 | Outpatient (CLI) | payer MEDICARE ==
[2022-12-23 19:54] LABS: African American GFR (CKD) 39.1 (60.0-200.0); Albumin 3.9 g/dL (3.8-4.9); Albumin/Globulin Ratio 1.56 (1.60-3.17); Anion Gap 12.1 mmol/L (10.00-18.00); BUN/Creat Ratio 15.44 Ratio (12.00-20.00); Calcium 9.1 mg/dL (8.7-10.3); Carbon Dioxide 28.5 mmol/L (20.0-27.5); Globulin 2.5 g/dL (1.6-3.3); Non-African American GFR(CKD) 33.8 (60.0-200.0); Potassium 4.2 mmol/L (3.5-5.5); Total Bilirubin 0.5 mg/dL (0.30-1.20); Total Protein 6.4 g/dL (6.2-8.2)
== END | disposition home or self-care (01) ==
LOC: LABWHC1 13:08
PROVIDERS: ATTEND Nurse Practitioner Family
DX: N18.30 Chronic kidney disease, stage 3 unspecified (principal)
CPT/HCPCS: 36415; 80053

== ENCOUNTER → 2022-12-24 | Outpatient (CLI) | payer MEDICARE ==
--- NOTE | 2022-12-24 14:00 | US ---
EXAMINATION TYPE: US kidneys/renal and bladder DATE OF EXAM: 12/24/2022 COMPARISON: CT October 07, 2022 CLINICAL HISTORY: N18.3. CKD stage 3. Cyst seen within right kidney on CT-unable to visualize on toda y's ultrasound. EXAM MEASUREMENTS: Right Kidney: 10.2 x 5.0 x 4.9 cm Left Kidney: 10.3 x 4.5 x 4.6 cm Limited due to gas and body habitus. Right Kidney: No hydronephrosis or masses seen Left Kidney: No hydronephrosis or masses seen Bladder: Anechoic. Bilateral Jets seen: Right jet seen only during exam. Normal Post Void Residual: Bladder appeared empty post void. IMPRESSION: No hydronephrosis is seen bilaterally.
== END | disposition home or self-care (01) ==
LOC: RADUSWWP 12:47
PROVIDERS: ATTEND Internal Medicine Nephrology
DX: N18.30 Chronic kidney disease, stage 3 unspecified (principal)
CPT/HCPCS: 76770

== ENCOUNTER → 2023-01-06 | Outpatient (CLI) | payer MEDICARE ==
[2023-01-06 20:37] LABS: HCT 37.7 % (37.2-46.3); HGB 11.4 g/dL (12.0-15.0); MCH 25.6 pg (27.0-32.0); MCHC 30.2 g/dL (32.0-37.0); MCV 84.5 fL (80.0-97.0); Mean Platelet Volume 11.3 fL (9.5-12.2); NRBC Per 100 WBC 0 /100 WBCS (0.0-0.0); Platelet Count 245 X 10*3/uL (140-440); RBC 4.46 X 10*6/uL (4.10-5.20); RDW 15.4 % (11.5-14.5); WBC 6.36 X 10*3/uL (4.50-10.00)
[2023-01-06 23:11] LABS: African American GFR (CKD) 37.6 (60.0-200.0); Anion Gap 10.4 mmol/L (10.00-18.00); Blood Urea Nitrogen 29.4 mg/dL (9.0-27.0); Carbon Dioxide 26.5 mmol/L (20.0-27.5); Non-African American GFR(CKD) 32.4 (60.0-200.0); Potassium 4.5 mmol/L (3.5-5.5)
== END | disposition home or self-care (01) ==
LOC: LABPAT 12:42
PROVIDERS: ATTEND Internal Medicine Clinical Cardiac Electrophysiology
DX: Z01.818 Encounter for other preprocedural examination (principal); I48.0 Paroxysmal atrial fibrillation
CPT/HCPCS: 36415; 80051; 82565; 84520; 85027

== ENCOUNTER → 2023-01-09 | Outpatient (CLI) | payer MEDICARE ==
--- NOTE | 2023-01-09 14:42 | US ---
EXAMINATION TYPE: US carotid duplex BILAT DATE OF EXAM: 01/09/2023 COMPARISON: NONE CLINICAL INDICATION: Female, 77 years old with history of I73.9; R09.89; recent LA, heart stents, no stroke TECHNIQUE: Carotid duplex ultrasound examination. Indirect Doppler criteria was utilized. FINDINGS: EXAM MEASUREMENTS: RIGHT: Peak Systolic Velocity (PSV) cm/sec ----- Right CCA: 71.1 ----- Right ICA: 83.1 ----- Right ECA: 109 ICA/CCA ratio: 1.1 RIGHT: End Diastole cm/sec ----- Right CCA: 8.4 ----- Right ICA: 16.8 ----- Right ECA: 0.0 LEFT: Peak Systolic Velocity (PSV) cm/sec ----- Left CCA: 63.5 ----- Left ICA: 87.3 ----- Left ECA: 80.1 ICA/CCA ratio: 1.4 LEFT: End Diastole cm/sec ----- Left CCA: 11.2 ----- Left ICA: 0.0 ----- Left ECA: 2.5 VERTEBRALS (direction of flow): Right Vertebral: Antegrade Left Vertebral: Antegrade Rhythm: Normal WATERPROOFER HELPER NOTES: Mild homogeneous plaque with no stenosis seen IMPRESSION: Mild atheromatous plaquing without significant flow-limiting stenosis. Criteria for Assigning % of Stenosis / Diameter reduction (Estimation based on the indirect measurements of the internal carotid artery velocities (ICA PSV). 1. Normal (no stenosis)=ICA PSV < 125 cm/s: ratio < 2.0: ICA EDV<40 cm/s. 2. Less than 50% stenosis=ICA PSV < 125 cm/s: ratio < 2.0: ICA EDV<40 cm/s. 3. 50 to 69% stenosis=ICA PSV of 125 to 230 cm/s: ration 2.0 ? 4.0: ICA EDV 40-100 cm/s. 4. Greater than 70% stenosis to near occlusion= ICA PSV > 230 cm/s: ratio > 4.0: ICA EDV > 100 cm/s. 5. Near occlusion= ICA PSV velocities may be low or undetectable: variable ratio and ICA EDV. 6. Total occlusion=unable to detect flow.
--- NOTE | 2023-01-12 05:11 | US ---
EXAMINATION TYPE: US arterial LE single level DATE OF EXAM: 01/09/2023 2:10 PM CLINICAL INDICATION: Female, 77 years old with history of I73.9; R09.89; cramping in legs, heart sten t History of: Smoker: previous Hypertension: y Diabetic: y Hyperlipidemia: y TIA/CVA: n Previous Vascular Surgery: y CAD: n VA: y Vascular Ulcers: n Claudication: n Gangrene: n Doppler Waveforms: Right: Monophasic Left: Monophasic Right Brachial Pressure: 166 Left Brachial Pressure: 171 Ankle-Brachial Indices: Right: 1.1 Left: N/A - CNO Toe Brachial Indices: Right: 0.71 Left: 0.70 IMPRESSION: Suboptimal study. Loss of phasicity is nonspecific. Normal bilateral TBI values noted.
== END | disposition home or self-care (01) ==
LOC: RADUSWWP 13:20
PROVIDERS: ATTEND Internal Medicine
DX: I65.23 Occlusion and stenosis of bilateral carotid arteries (principal); I73.9 Peripheral vascular disease, unspecified; E78.5 Hyperlipidemia, unspecified; E11.51 Type 2 diabetes mellitus with diabetic peripheral angiopathy without gangrene; I10 Essential (primary) hypertension; R09.89 Other specified symptoms and signs involving the circulatory and respiratory systems
CPT/HCPCS: 93880; 93922

== ENCOUNTER → 2023-01-16 | Outpatient (CLI) | payer MEDICARE ==
--- NOTE | 2023-01-16 13:39 | CT ---
EXAMINATION TYPE: CT chest wo con DATE OF EXAM: 01/16/2023 COMPARISON: None HISTORY: SOB, cough CT DLP: 522.9 mGycm. Automated Exposure Control for Dose Reduction was Utilized. TECHNIQUE: CT scan of the thorax is performed without IV contrast. FINDINGS: The lungs are clear of consolidative or interstitial density. There are a few scattered sub-6 mm pulm onary nodules the exception of a 7.7 mm groundglass nodule in the left upper lobe. There is no pleura l effusion, pleural thickening or pneumothorax. There is no mediastinal, hilar or axillary adenopathy. There is moderate cardiomegaly. Limited scanning the upper abdomen reveals no gross abnormality. The osseous structures are intact. IMPRESSION: 1. No acute cardiopulmonary disease. 2. 7.7 mm groundglass nodule in the left upper lobe. Short-term follow-up in 3-4 months is recommende d. 3. Moderate cardiomegaly.
== END | disposition home or self-care (01) ==
LOC: RADCTMAIN 12:43
PROVIDERS: ATTEND Internal Medicine
DX: R91.1 Solitary pulmonary nodule (principal); I51.7 Cardiomegaly
CPT/HCPCS: 71250

== ENCOUNTER 2023-01-27 21:49 | Inpatient (IN) | payer MEDICARE, SELFPAY ==
[2023-01-27] MEDS ORDERED: NITROGLYCERIN OINT 1 INCH/GM PACKET TOPICAL STA (21:59)
[2023-01-27] MEDS ORDERED: INSULIN REGULAR 100 UNIT/ML VIAL (IV) IV ONE (22:05)
[2023-01-27 22:42] LABS: Anisocytosis Slight; Basophils % (A) 0 %; Eosinophils % (A) 0 %; HCT 34.5 % (34.0-46.0); HGB 10.6 gm/dL (11.4-16.0); Hypochromasia Moderate; Lymphocytes # (A) 0.7 k/uL (1.0-4.8); Lymphocytes % (A) 13 %; MCH 26.4 pg (25.0-35.0); MCHC 30.6 g/dL (31.0-37.0); MCV 86.1 fL (80.0-100.0); Mean Platelet Volume 7.9; Monocytes # (A) 0.1 k/uL (0-1.0); Monocytes % (A) 2 %; Neutrophils # (A) 4.5 k/uL (1.3-7.7); Neutrophils % (A) 83 %; Platelet Count 172 k/uL (150-450); RBC 4.01 m/uL (3.80-5.40); RDW 16.3 % (11.5-15.5); WBC 5.4 k/uL (3.8-10.6)
[2023-01-27 22:54] LABS: Partial Thromboplastin Time 25.1 sec (22.0-30.0); Prothrombin Time 10.3 sec (9.0-12.0)
--- NOTE | 2023-01-27 22:55 | ED ---
Chest Pain HPI - General Chief Complaint: Chest Pain Stated Complaint: Chest Pain Time Seen by Provider: 01/27/23 21:51 Source: patient, EMS, RN notes reviewed Mode of arrival: EMS Limitations: no limitations - History of Present Illness Initial Comments: 77-year-old female presents emergency Department chief complaint of chest pain, shortness breath. Patient states she did have cardiac ablation by Dr. Navneet estrada approximately one week ago for atrial fibrillation. Patient states that she is on Eliquis currently. Patient did see PCP she's been having ongoing cough before the procedure and has worsened after. She states that she was placed on steroids took her first dose today. Patient noted to have elevated blood sugar. Patient was given 2 nitro states that has alleviated most of her symptoms of her chest. She's had 5 prior cardiac stents. She denies any reports of fever. Patient states that she is scheduled follow-up with a android developer. - Related Data Home Medications Medication Instructions Recorded Confirmed Ascorbic Acid [Vitamin C] 1,000 mg PO DAILY 07/11/21 01/20/23 Atorvastatin [Lipitor] 80 mg PO HS 07/11/21 01/20/23 Biotin 10,000 mcg PO DAILY 07/11/21 01/20/23 Cholecalciferol [Vitamin D3 (25 50 mcg PO DAILY 07/11/21 01/20/23 Mcg = 1000 Iu)] Omeprazole 20 mg PO DAILY 07/11/21 01/20/23 Citalopram Hydrobromide [CeleXA] 40 mg PO DAILY 08/21/21 01/20/23 Ezetimibe [Zetia] 10 mg PO DAILY 09/28/21 01/20/23 Albuterol Inhaler [Ventolin Hfa 2 puff INHALATION RT-Q6H PRN 12/14/22 01/15/23 Inhaler] Ferrous Sulfate [Iron (65 MG 325 mg PO DAILY 12/14/22 01/20/23 Elemental)] Insuln Asp Prt/Insulin Aspart 26 unit SQ BID 12/14/22 01/20/23 [NovoLOG MIX 70-30 VIAL] Vitamin B Complex 1 cap PO DAILY 12/14/22 01/20/23 Vitamin E(Unknown Dose) 1 cap PO DAILY 12/14/22 01/20/23 carvediloL [Coreg] 3.125 mg PO BID 12/14/22 01/20/23 tiZANidine [Zanaflex] 2 mg PO Q8H PRN 12/14/22 01/15/23 Bumex (Unknown Dose) 2 mg PO DIRECTED PRN 01/15/23 01/20/23 Fluticasone/Vilanterol [Breo 1 inhalation PO DIRECTED PRN 01/15/23 01/20/23 Ellipta 100-25 Mcg Inhaler] Melatonin 3 mg PO HS PRN 01/15/23 01/20/23 Nitroglycerin Sl Tabs [Nitrostat] 0.4 mg SUBLINGUAL Q5M PRN 01/15/23 01/15/23 Fluticasone Propionate 110 Mcg 2 puff INHALATION RT-BID 01/20/23 01/20/23 [Flovent 110 Mcg Inhaler] Previous Rx's Medication Instructions Recorded Apixaban [Eliquis] 5 mg PO BID #60 tab 12/17/22 Clopidogrel [Plavix] 75 mg PO DAILY #90 tab 12/17/22 hydrALAZINE HCL [Apresoline] 50 mg PO TID #90 tab 12/18/22 Allergies Allergy/AdvReac Type Severity Reaction Status Date / Time No Known Allergies Allergy Verified 01/15/23 14:36 Review of Systems ROS Statement: Those systems with pertinent positive or pertinent negative responses have been documented in the HPI. ROS Other: All systems not noted in ROS Statement are negative. EKG Findings - EKG Comments: EKG Findings:: EKG performed at 21:55 sinus rhythm rate of 66 PA 184 QRS 125 QT/QTc 448/461 - EKG Results: EKG: interpreted by KATHRYN Past Medical History Past Medical History: Asthma, Coronary Artery Disease (CAD), Chest Pain / Angina, COPD, Diabetes Mellitus, GERD/Reflux, Hyperlipidemia, Hypertension, Osteoarthritis (OA), Renal Disease, Respiratory Disorder Additional Past Medical History / Comment(s): anemia, heart murmur, hx scarlet fever, neuropathy arms hands & feet., type 2 diabetes, states 50 % kidney function., states itchy all over-scalp & skin., See Cardiology H & P. History of Any Multi-Drug Resistant Organisms: None Reported Past Surgical History: Back Surgery, Heart Catheterization With Stent Additional Past Surgical History / Comment(s): total 5 cardiac stents .heart cath x3.,carpel tunnel, lower back surgery with fusion., d & c Past Anesthesia/Blood Transfusion Reactions: No Reported Reaction Additional Past Anesthesia/Blood Transfusion Reaction / Comment(s): difficulty waking up Date of Last Stent Placement:: 12/2020 Past Psychological History: Anxiety Smoking Status: Former smoker Past Alcohol Use History: None Reported Past Drug Use History: None Reported - Past Family History Mother Additional Family Medical History / Comment(s): at age 57 open heart surgery and cva Son(s) Family Medical History: Pulmonary Embolus General Exam Limitations: no limitations General appearance: alert, in no apparent distress Head exam: Present: atraumatic, normocephalic, normal inspection Eye exam: Present: normal appearance, PERRL, EOMI. Absent: scleral icterus, conjunctival injection, periorbital swelling ENT exam: Present: normal exam, normal oropharynx, mucous membranes moist Neck exam: Present: normal inspection, full ROM. Absent: tenderness, meningismus, lymphadenopathy Respiratory exam: Present: wheezes. Absent: normal lung sounds bilaterally, respiratory distress, rales, rhonchi, stridor Cardiovascular Exam: Present: regular rate, normal rhythm, normal heart sounds. Absent: systolic murmur, diastolic murmur, rubs, gallop, clicks GI/Abdominal exam: Present: soft, normal bowel sounds. Absent: distended, tenderness, guarding, rebound, rigid Course Vital Signs 01/27/23 01/27/23 21:52 23:13 Temperature 98.7 F Pulse Rate 67 64 Respiratory 20 18 Rate Blood Pressure 146/58 149/65 O2 Sat by Pulse 94 L 94 L Oximetry Chest Pain MDM - MDM Was pt. sent in by a medical professional or institution (, PA, CLERICAL GRADER, urgent care, hospital, or usp...) When possible be specific @ -No Did you speak to anyone other than the patient for history (EMS, parent, family, police, friend...)? What history was obtained from this source @ -EMS provided prehospital care, vitals treatment Did you review nursing and triage notes (agree or disagree)? Why? @ -I reviewed and agree with nursing and triage notes Were old charts reviewed (outside hosp., previous admission, EMS record, old EKG, old radiological studies, urgent care reports/EKG's, usp records)? Report findings @ -No old charts were reviewed Differential Diagnosis (chest pain, altered mental status, abdominal pain women, abdominal pain men, vaginal bleeding, weakness, fever, dyspnea, syncope, headache, dizziness, GI bleed, back pain, seizure, CVA, palpatations, mental health, musculoskeletal)? @ -Differential Chest Pain: Stable Angina, Unstable Angina, STEMI, NSTEMI Aortic Dissection, Pneumothorax, Musculoskeletal, Esophageal Spasm GERD, Cholecystitis, Pancreatitis, Zoster, this is not meant to be an all-inclusive list. e EKG interpreted by me (3pts min.). @ -As above X-rays interpreted by me (1pt min.). @ -Outpatient chest x-ray reviewed showing chronic changes CT interpreted by me (1pt min.). @ -None done U/S interpreted by me (1pt. min.). @ -None done What testing was considered but not performed or refused? (CT, X-rays, U/S, labs)? Why? @ -None What meds were considered but not given or refused? Why? @ -None Did you discuss the management of the patient with other professionals (professionals i.e. , PA, CLERICAL GRADER, lab, RT, psych nurse, nephrology social worker, facilities and grounds director, teacher, sewage reticulation drafting officer, case finisher)? Give summary @ -Dr. Angulo for admission with cardiology consult, repeat laboratory studies Was smoking cessation discussed for >3mins.? @ -No Was critical care preformed (if so, how long)? @ -No Were there social determinants of health that impacted care today? How? (H omelessness, low income, unemployed, alcoholism, drug addiction, transportation, low edu. Level, literacy, decrease access to med. care, senior living, rehab)? @ -No Was there de-escalation of care discussed even if they declined (Discuss DNR or withdrawal of care, Hospice)? DNR status @ -No What co-morbidities impacted this encounter? (DM, HTN, Smoking, COPD, CAD, Cancer, CVA, ARF, Chemo, Hep., AIDS, mental health diagnosis, sleep apnea, morbid obesity)? @ -Asthma, CAD Was patient admitted / discharged? Hospital course, mention meds given and route, prescriptions, significant lab abnormalities, going to OR and other pertinent info. @ -Admitted patient has elevated troponin 0.055 patient has significant cardiac history with recent ablation. Patient will be admitted for cardiac rule out. Patient does have hyperglycemia related to recent steroid use. Undiagnosed new problem with uncertain prognosis? @ -No Drug Therapy requiring intensive monitoring for toxicity (Heparin, Nitro, Insulin, Cardizem)? @ -No Were any procedures done? @ -No Diagnosis/symptom? @ -Chest pain, elevated troponin, hyperglycemia Acute, or Chronic, or Acute on Chronic? @ -Acute Uncomplicated (without systemic symptoms) or Complicated (systemic symptoms)? @ -Complicated Side effects of treatment? @ -No Exacerbation, Progression, or Severe Exacerbation? @ -No Poses a threat to life or bodily function? How? (Chest pain, USA, NM, pneumonia, PE, COPD, DKA, ARF, appy, cholecystitis, CVA, Diverticulitis, Homicidal, Suicidal, threat to staff... and all critical care pts) @ -yes patient risk for cardiac arrest Disposition Clinical Impression: Chest pain, Hyperglycemia Disposition: ADMITTED IP TO THIS HOSP Condition: Fair Referrals: Gaurav Wadsworth MD [Primary Care Provider] - 1-2 days Time of Disposition: 23:41
[2023-01-27 23:05] LABS: Albumin 3.3 g/dL (3.5-5.0); Calcium 8.3 mg/dL (8.4-10.2); Magnesium 1.6 mg/dL (1.6-2.3); Potassium 4.7 mmol/L (3.5-5.1); Total Bilirubin 0.3 mg/dL (0.2-1.3); Total Protein 5.9 g/dL (6.3-8.2)
[2023-01-27] MEDS ORDERED: NITROGLYCERIN SL TABS 0.4 MG TAB SUBLINGUAL PRN (23:48)
[2023-01-27] MEDS ORDERED: MELATONIN 3 MG TABLET PO PRN (23:49)
[2023-01-27] MEDS ORDERED: DEXTROSE 50% SYRINGE 50 ML IVP PRN ×2 (23:54)
[2023-01-28 00:13] LABS: Glucose,Whole Blood 377 mg/dL (70-110)
[2023-01-28] MEDS ORDERED: LORazepam 2 MG/ML INJ IV STA (00:14)
[2023-01-28] MEDS ORDERED: INSULIN REGULAR 100 UNIT/ML VIAL (IV) IV ONE (00:14)
[2023-01-28] MEDS: APIXABAN 5 MG TAB PO SCH ×2 (00:23→08:02)
[2023-01-28 04:21] LABS: Glucose,Whole Blood 288 mg/dL (70-110)
--- NOTE | 2023-01-28 05:08 | P.HPIM ---
History of Present Illness H&P Date: 01/28/23 Chief Complaint: chest pain 77 year old female with CAD s/p stents, afib s/p ablation she comes in for sudden onset chest pain , retrosternal while cooking food, 10/10 in severity , non radiating , associated with SOB, profuse sweating , and palpitations, denies nausea , vomiting or dizziness, this was relieved by nitro, then happened again with activity , for which took another nitro and notified EMS and came for evaluation . she recently had ablation done for atrial flutter/afib . about 1 week ago , since then she was started on Eliquis , denies any GI bleeding she denies any recent upper respiratory symptoms, except for worsening of her baseline cough since the ablation, for which her PCP ordered some medrol dose pack that she started yesterday, he also tested for acute respiratory viral panel which reports it was negative she denies any hemoptysis , fever, chills, sore throat, denies any GI bleeding denies smoking, or drugs Review of Systems Pertinent positives as noted in HPI. All other systems were reviewed and are negative Past Medical History Past Medical History: Asthma, Coronary Artery Disease (CAD), Chest Pain / Angina, COPD, Diabetes Mellitus, GERD/Reflux, Hyperlipidemia, Hypertension, Osteoarthritis (OA), Renal Disease, Respiratory Disorder Additional Past Medical History / Comment(s): anemia, heart murmur, hx scarlet fever, neuropathy arms hands & feet., type 2 diabetes, states 50 % kidney function., states itchy all over-scalp & skin., See Cardiology H & P. History of Any Multi-Drug Resistant Organisms: None Reported Past Surgical History: Back Surgery, Heart Catheterization With Stent Additional Past Surgical History / Comment(s): total 5 cardiac stents .heart cath x3.,carpel tunnel, lower back surgery with fusion., d & c Past Anesthesia/Blood Transfusion Reactions: No Reported Reaction Additional Past Anesthesia/Blood Transfusion Reaction / Comment(s): difficulty waking up Date of Last Stent Placement:: 12/2020 Past Psychological History: Anxiety Smoking Status: Former smoker Past Alcohol Use History: None Reported Past Drug Use History: None Reported - Past Family History Mother Additional Family Medical History / Comment(s): at age 57 open heart surgery and cva Son(s) Family Medical History: Pulmonary Embolus Medications and Allergies Home Medications Medication Instructions Recorded Confirmed Type Ascorbic Acid [Vitamin C] 1,000 mg PO DAILY 07/11/21 01/20/23 History Atorvastatin [Lipitor] 80 mg PO HS 07/11/21 01/20/23 History Biotin 10,000 mcg PO DAILY 07/11/21 01/20/23 History Cholecalciferol [Vitamin D3 (25 50 mcg PO DAILY 07/11/21 01/20/23 History Mcg = 1000 Iu)] Omeprazole 20 mg PO DAILY 07/11/21 01/20/23 History Citalopram Hydrobromide [CeleXA] 40 mg PO DAILY 08/21/21 01/20/23 History Ezetimibe [Zetia] 10 mg PO DAILY 09/28/21 01/20/23 History Albuterol Inhaler [Ventolin Hfa 2 puff INHALATION RT-Q6H PRN 12/14/22 01/15/23 History Inhaler] Ferrous Sulfate [Iron (65 MG 325 mg PO DAILY 12/14/22 01/20/23 History Elemental)] Insuln Asp Prt/Insulin Aspart 26 unit SQ BID 12/14/22 01/20/23 History [NovoLOG MIX 70-30 VIAL] Vitamin B Complex 1 cap PO DAILY 12/14/22 01/20/23 History Vitamin E(Unknown Dose) 1 cap PO DAILY 12/14/22 01/20/23 History carvediloL [Coreg] 3.125 mg PO BID 12/14/22 01/20/23 History tiZANidine [Zanaflex] 2 mg PO Q8H PRN 12/14/22 01/15/23 History Apixaban [Eliquis] 5 mg PO BID #60 tab 12/17/22 01/20/23 Rx Clopidogrel [Plavix] 75 mg PO DAILY #90 tab 12/17/22 01/20/23 Rx hydrALAZINE HCL [Apresoline] 50 mg PO TID #90 tab 12/18/22 01/20/23 Rx Bumex (Unknown Dose) 2 mg PO DIRECTED PRN 01/15/23 01/20/23 History Fluticasone/Vilanterol [Breo 1 inhalation PO DIRECTED PRN 01/15/23 01/20/23 History Ellipta 100-25 Mcg Inhaler] Melatonin 3 mg PO HS PRN 01/15/23 01/20/23 History Nitroglycerin Sl Tabs [Nitrostat] 0.4 mg SUBLINGUAL Q5M PRN 01/15/23 01/15/23 History Fluticasone Propionate 110 Mcg 2 puff INHALATION RT-BID 01/20/23 01/20/23 History [Flovent 110 Mcg Inhaler] Allergies Allergy/AdvReac Type Severity Reaction Status Date / Time No Known Allergies Allergy Verified 01/15/23 14:36 Physical Exam Vitals: Vital Signs Temp Pulse Resp BP Pulse Ox 01/28/23 00:29 61 20 139/92 94 L 01/27/23 23:13 64 18 149/65 94 L 01/27/23 21:52 98.7 F 67 20 146/58 94 L Intake and Output 01/27/23 01/27/23 01/28/23 14:59 22:59 06:59 Other: Weight 106.594 kg Constitutional: No acute distress, conversant, pleasant Eyes: Anicteric sclerae, moist conjunctiva, Pupils equal round reactive to light ENMT: NC/AT Oropharynx clear, no erythema, or exudates Neck: Supple, no masses, or JVD No carotid bruits No thyromegaly Lungs: Clear to auscultation Clear to percussion Normal respiratory effort, no accessory muscle use Cardiovascular: Heart regular in rate and rhythm, No murmurs, gallops, or rubs No peripheral edema Abdominal: Soft Nontender, no guarding, rebound or rigidity Abdomen moving with respiration Normoactive bowel sounds No hepatomegaly, No splenomegaly No palpable mass No abdominal wall hernia noted Skin: Normal temperature, tone, texture, turgor No induration No subcutaneous nodules No rash, lesions No ulcers Extremities: No digital cyanosis No clubbing Pedal pulses intact and symmetrical Radial pulses intact and symmetrical No calf tenderness Psychiatric: Alert and oriented to person, place and time Appropriate affect fair judgement Neuro Muscles Strength 5/5 in all 4 extremities Sensation to light touch grossly present throughout Cranial nerves II-XII grossly intact Lymphatics: no palpable cervical or supraclavicular lymph nodes Results CBC & Chem 7: 01/27/23 22:11 01/27/23 22:11 Labs: Abnormal Lab Results - Last 24 Hours (Table) 01/27/23 01/27/23 01/27/23 Range/Units 22:11 22:11 22:11 Hgb 10.6 L (11.4-16.0) gm/dL MCHC 30.6 L (31.0-37.0) g/dL RDW 16.3 H (11.5-15.5) % Lymphocytes # 0.7 L (1.0-4.8) k/uL Sodium 136 L (137-145) mmol/L Carbon Dioxide 19 L (22-30) mmol/L BUN 28 H (7-17) mg/dL Creatinine 1.48 H (0.52-1.04) mg/dL Glucose 453 H (74-99) mg/dL POC Glucose (mg/dL) (70-110) mg/dL Calcium 8.3 L (8.4-10.2) mg/dL Troponin I 0.055 H* (0.000-0.034) ng/mL Total Protein 5.9 L (6.3-8.2) g/dL Albumin 3.3 L (3.5-5.0) g/dL 01/28/23 Range/Units 00:12 Hgb (11.4-16.0) gm/dL MCHC (31.0-37.0) g/dL RDW (11.5-15.5) % Lymphocytes # (1.0-4.8) k/uL Sodium (137-145) mmol/L Carbon Dioxide (22-30) mmol/L BUN (7-17) mg/dL Creatinine (0.52-1.04) mg/dL Glucose (74-99) mg/dL POC Glucose (mg/dL) 377 H (70-110) mg/dL Calcium (8.4-10.2) mg/dL Troponin I (0.000-0.034) ng/mL Total Protein (6.3-8.2) g/dL Albumin (3.5-5.0) g/dL Assessment and Plan Assessment: 77 year old female with CAD s/p 5 stents , Afib s/p ablation a week ago , presented with sudden onset chest pain relieved with nitro , I discussed the c ase with ED doc, she is having trending up trops, I accepted the admission for NSTEMI management and cardiology evaluation with anticipated length of stay > 2 midnight s chest pain with typical features rule out ACS NSTEMI recent ablation for atrial flutter 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
[2023-01-28 07:42] LABS: Glucose,Whole Blood 230 mg/dL (70-110)
[2023-01-28] MEDS: SYMBICORT 80-4.5 MCG INHALER INHALATION PRN (07:54)
[2023-01-28] MEDS ORDERED: tiZANidine 4 MG TAB PO PRN (08:00)
[2023-01-28] MEDS: hydrALAZINE HCL 50 MG TAB PO SCH ×3 (08:02→20:15)
[2023-01-28] MEDS: CITALOPRAM HYDROBROMIDE 20 MG TAB PO SCH (08:02)
[2023-01-28] MEDS: PANTOPRAZOLE 40 MG TABLET PO SCH (08:02)
[2023-01-28] MEDS: carvediloL 3.125 MG TAB PO SCH ×2 (08:02→17:06)
[2023-01-28] MEDS: CLOPIDOGREL 75 MG TAB PO SCH (08:02)
[2023-01-28] MEDS: INSULIN ASPART (NovoLOG) 100 UNIT/ML VIAL SQ SCH ×4 (08:05→20:15)
[2023-01-28] MEDS: INSULN ASP PRT/INSULIN ASPART 100 UNIT/ML 10 ML VIAL SQ SCH ×2 (08:49→20:15)
[2023-01-28] MEDS ORDERED: ASPIRIN 325 MG TAB PO SCH (09:00)
[2023-01-28] MEDS: FLUTICASONE 110 MCG INHALER INHALATION SCH ×2 (09:19→19:28)
[2023-01-28 09:59] LABS: Chol/HDL Ratio 2.95 Ratio; LDL Cholesterol,Calculated 66.7 mg/dL (0.0-131.0)
[2023-01-28] MEDS ORDERED: HEPARIN SODIUM 1,000 UN/ML (10ML VL) IV PRN (10:00)
--- NOTE | 2023-01-28 10:32 | XR ---
EXAMINATION TYPE: XR chest 2V DATE OF EXAM: 01/28/2023 COMPARISON: 02/06/2023 TECHNIQUE: PA and lateral views submitted. HISTORY: Cough FINDINGS: The lungs are clear and there is no pneumothorax, pleural effusion, or focal pneumonia. Osseous stru ctures demonstrate hypertrophic and degenerative changes of the spine. There is AC joint arthropathy. The heart is enlarged. Atherosclerotic changes of aorta. Coarsened interstitium is stable. IMPRESSION: 1. Cardiomegaly correlate for chronic interstitial lung disease..
[2023-01-28 10:43] LABS: Anisocytosis Slight; Basophils % (A) 0 %; Eosinophils # (A) 0.1 k/uL (0-0.7); Eosinophils % (A) 2 %; HGB 10.2 gm/dL (11.4-16.0); Hypochromasia Slight; Lymphocytes # (A) 1.1 k/uL (1.0-4.8); Lymphocytes % (A) 18 %; MCH 26.4 pg (25.0-35.0); MCHC 31.9 g/dL (31.0-37.0); MCV 82.7 fL (80.0-100.0); Monocytes # (A) 0.3 k/uL (0-1.0); Monocytes % (A) 5 %; Neutrophils # (A) 4.4 k/uL (1.3-7.7); Neutrophils % (A) 73 %; Platelet Count 177 k/uL (150-450); RBC 3.88 m/uL (3.80-5.40); RDW 16.1 % (11.5-15.5); WBC 6.1 k/uL (3.8-10.6)
[2023-01-28 10:53] LABS: Partial Thromboplastin Time 23.7 sec (22.0-30.0)
[2023-01-28 11:58] LABS: Glucose,Whole Blood 304 mg/dL (70-110)
[2023-01-28] MEDS: HEPARIN SOD,PORK IN 0.45% NACL 25,000 UNIT in 0.45% NACL 1 250ML.BAG IV SCH (12:14)
--- NOTE | 2023-01-28 13:01 | P.CRDCN ---
History of Present Illness Consult date: 01/28/23 Consult reason: chest pain History of present illness: HISTORY OF PRESENTING ILLNESS Patient is a 77-year-old female patient of Dr. Wong with history of asthma, coronary artery disease with initial stenting in December 2020 as well as repeat st enting in August 2021 followed by PCI of CT of mid RCA into PLV 09/28/2021, COPD, diabetes mellitus, GERD, hypertension, hyperlipidemia, paroxysmal atrial fibrillation, chronic kidney disease, osteoarthritis, history of rheumatic fever as a child and neuropathy. Patient was recently hospitalized in November of this year with shortness of breath and lower extremity edema found to be in atrial flutter and converted to sinus rhythm. She also had mildly elevated troponins up to 0.1. A repeat cardiac catheterization showed stable CAD however her prior RCA stent was now occluded and well collateralized likely felt to be old as well as 95% small-caliber diagonal one disease with elevated LVEDP pressures. Elevated troponins thought to be related to atrial flutter and therefore medical therapy was recommended. Patient was started on eliquis and subsequently underwent an ablation with Dr. Toth for atrial flutter on 01/20/2023. EKG: Sinus bradycardia at 57 bpm Chest x-ray: Cardiomegaly with chronic interstitial lung disease WBC 5.4, hemoglobin 10.6, platelet 172. INR 1. Sodium 136, potassium 4.7, chloride 104, CO2 19, BUN 28 creatinine 1.47. Troponin 0.055, 0.1, 0.124. ProBNP 880. Cardiac medications: Eliquis 5 mg twice daily, Lipitor 80 mg at bedtime, Bumex 1 mg daily as needed, Plavix 75 mg daily, Zetia 10 mg daily, hydralazine 50 mg 3 times daily, Nitrostat as needed. 12/14/2022 Heart catheterization revealed CAD with 100% RCA COORDINATOR [employer] SERVICES with collaterals, patent LAD and circumflex stent, similar 95% small-caliber diagonal one proximal stenosis. Plan for medical management. 01/20/2023 Atrial flutter ablation 01/20/2023 Echocardiogram reveals EF of 30-35%, severely impaired left ventricular systolic function with anterior apical and anteroseptal and anterolateral severe hypokinesis. Mild mitral and tricuspid regurgitation. 01/22/2023 Echocardiogram limited study revealed EF 35-40% REVIEW OF SYSTEMS At the time of my exam: CONSTITUTIONAL: Denies fever or chills. CARDIOVASCULAR: +chest pain, +shortness of breath, no orthopnea, PND or palpitations. RESPIRATORY: +mild cough. GASTROINTESTINAL: Denies abdominal pain, diarrhea, constipation, nausea or vomiting. MUSCULOSKELETAL: Denies myalgias. NEUROLOGIC: Denies numbness, tingling or weakness. ENDOCRINE: Denies fatigue, weight change, polydipsia or polyurina. GENITOURINARY: Denies burning, hematuria or urgency with micturation. HEMATOLOGIC: Denies history of anemia or bleeding. PHYSICAL EXAMINATION Vital signs reviewed. Blood pressure 166/76, heart rate in the 50s. CONSTITUTIONAL: No apparent distress. HEENT: Head is normocephalic. Pupils are equal, round. Sclerae anicteric. Mucous membranes of the mouth are moist. No JVD. No carotid bruit. CHEST EXAMINATION: Lungs are clear to auscultation. No chest wall tenderness is noted on palpation or with deep breathing. HEART EXAMINATION: Regular rate and rhythm. S1, S2 heard. No murmurs, gallops or rub. ABDOMEN: Soft, nontender. Positive bowel sounds. EXTREMITIES: 2+ peripheral pulses, no lower extremity edema and no calf tenderness. NEUROLOGIC EXAMINATION: Patient is awake, alert and oriented x3. ASSESSMENT Non-STEMI Coronary artery disease with prior history of stenting Hypertension Hyperlipidemia Prior history of acute kidney injury, chronic kidney disease Diabetes mellitus type 2 PLAN Start patient on heparin drip, no bolus Patient received eliquis this morning which will be placed on hold. Continue other cardiac medications. Plan to discuss with Dr. Wong for possible cardiac catheterization tomorrow. Further recommendations to follow based upon clinical course Thank you kindly for this consultation. Nurse practitioner note has been reviewed, I agree with documented findings and plan of care. Patient was seen and examined. Past Medical History Past Medical History: Asthma, Coronary Artery Disease (CAD), Chest Pain / Angina, COPD, Diabetes Mellitus, GERD/Reflux, Hyperlipidemia, Hypertension, Osteoarthritis (OA), Renal Disease, Respiratory Disorder Additional Past Medical History / Comment(s): anemia, heart murmur, hx scarlet fever, neuropathy arms hands & feet., type 2 diabetes, states 50 % kidney function., states itchy all over-scalp & skin., See Cardiology H & P. History of Any Multi-Drug Resistant Organisms: None Reported Past Surgical History: Back Surgery, Heart Catheterization With Stent Additional Past Surgical History / Comment(s): total 5 cardiac stents .heart cath x3.,carpel tunnel, lower back surgery with fusion., d & c Past Anesthesia/Blood Transfusion Reactions: No Reported Reaction Additional Past Anesthesia/Blood Transfusion Reaction / Comment(s): difficulty waking up Date of Last Stent Placement:: 12/2020 Past Psychological History: Anxiety Smoking Status: Former smoker Past Alcohol Use History: None Reported Past Drug Use History: None Reported - Past Family History Mother Additional Family Medical History / Comment(s): at age 57 open heart surgery and cva Son(s) Family Medical History: Pulmonary Embolus Medications and Allergies Home Medications Medication Instructions Recorded Confirmed Type Ascorbic Acid [Vitamin C] 1,000 mg PO DAILY 07/11/21 01/28/23 History Atorvastatin [Lipitor] 80 mg PO HS 07/11/21 01/28/23 History Biotin 10,000 mcg PO DAILY 07/11/21 01/28/23 History Cholecalciferol [Vitamin D3 (25 50 mcg PO DAILY 07/11/21 01/28/23 History Mcg = 1000 Iu)] Omeprazole 20 mg PO DAILY 07/11/21 01/28/23 History Citalopram Hydrobromide [CeleXA] 40 mg PO DAILY 08/21/21 01/28/23 History Ezetimibe [Zetia] 10 mg PO DAILY 09/28/21 01/28/23 History Albuterol Inhaler [Ventolin Hfa 2 puff INHALATION RT-Q6H PRN 12/14/22 01/28/23 History Inhaler] Ferrous Sulfate [Iron (65 MG 325 mg PO DAILY 12/14/22 01/28/23 History Elemental)] Vitamin B Complex 1 cap PO DAILY 12/14/22 01/28/23 History Vitamin E(Unknown Dose) 1 cap PO DAILY 12/14/22 01/28/23 History carvediloL [Coreg] 3.125 mg PO BID 12/14/22 01/28/23 History tiZANidine [Zanaflex] 2 mg PO Q8H PRN 12/14/22 01/28/23 History Apixaban [Eliquis] 5 mg PO BID #60 tab 12/17/22 01/28/23 Rx Clopidogrel [Plavix] 75 mg PO DAILY #90 tab 12/17/22 01/28/23 Rx hydrALAZINE HCL [Apresoline] 50 mg PO TID #90 tab 12/18/22 01/28/23 Rx Fluticasone/Vilanterol [Breo 1 puff INHALATION RT-DAILY PRN 01/15/23 01/28/23 History Ellipta 100-25 Mcg Inhaler] Melatonin 3 mg PO HS PRN 01/15/23 01/28/23 History Nitroglycerin Sl Tabs [Nitrostat] 0.4 mg SUBLINGUAL Q5M PRN 01/15/23 01/28/23 History Fluticasone Propionate 110 Mcg 2 puff INHALATION RT-BID PRN 01/20/23 01/28/23 History [Flovent 110 Mcg Inhaler] Bumetanide [Bumex] 1 mg PO DAILY PRN 01/28/23 01/28/23 History Insulin NPH Hum/Reg Insulin Hm 26 unit SQ BID 01/28/23 01/28/23 History [Novolin 70-30 100 Unit/ml Vial] Allergies Allergy/AdvReac Type Severity Reaction Status Date / Time No Known Allergies Allergy Verified 01/28/23 07:33 Physical Exam Vitals: Vital Signs Temp Pulse Resp BP Pulse Ox 01/28/23 07:57 96 01/28/23 07:42 57 L 18 166/76 98 01/28/23 06:30 55 L 20 176/80 97 01/28/23 04:23 58 L 18 164/76 95 01/28/23 03:17 58 L 18 156/80 94 L 01/28/23 00:29 61 20 139/92 94 L 01/27/23 23:13 64 18 149/65 94 L 01/27/23 21:52 98.7 F 67 20 146/58 94 L Intake and Output 01/27/23 01/28/23 01/28/23 22:59 06:59 14:59 Other: Weight 106.594 kg Results 01/28/23 10:15 01/27/23 22:11 Cardiac Enzymes 01/27/23 01/27/23 01/28/23 Range/Units 22:11 22:11 01:37 AST 33 (14-36) U/L Troponin I 0.055 H* 0.100 H* (0.000-0.034) ng/mL 01/28/23 Range/Units 04:09 AST (14-36) U/L Troponin I 0.124 H* (0.000-0.034) ng/mL Coagulation 01/27/23 Range/Units 22:11 PT 10.3 (9.0-12.0) sec APTT 25.1 (22.0-30.0) sec CBC 01/27/23 Range/Units 22:11 WBC 5.4 (3.8-10.6) k/uL RBC 4.01 (3.80-5.40) m/uL Hgb 10.6 L (11.4-16.0) gm/dL Hct 34.5 (34.0-46.0) % Plt Count 172 (150-450) k/uL Comprehensive Metabolic Panel 01/27/23 Range/Units 22:11 Sodium 136 L (137-145) mmol/L Potassium 4.7 (3.5-5.1) mmol/L Chloride 104 (98-107) mmol/L Carbon Dioxide 19 L (22-30) mmol/L BUN 28 H (7-17) mg/dL Creatinine 1.48 H (0.52-1.04) mg/dL Glucose 453 H (74-99) mg/dL Calcium 8.3 L (8.4-10.2) mg/dL AST 33 (14-36) U/L ALT 29 (4-34) U/L Alkaline Phosphatase 82 (38-126) U/L Total Protein 5.9 L (6.3-8.2) g/dL Albumin 3.3 L (3.5-5.0) g/dL Current Medications Generic Name Dose Route Start Last Admin Trade Name Freq PRN Reason Stop Dose Admin Apixaban 5 mg 01/27/23 23:45 01/28/23 08:02 Apixaban 5 Mg Tab PO 5 mg BID [facility] Administration Protocol Aspirin 325 mg 01/28/23 09:00 01/28/23 08:02 Aspirin 325 Mg Tab PO 325 mg DAILY [facility] Administration Atorvastatin Calcium 80 mg 01/28/23 21:00 Atorvastatin 80 Mg Tab PO HS [facility] Budesonide/Formoterol Fumarate 2 puff 01/27/23 23:49 01/28/23 07:54 Symbicort 80-4.5 Mcg Inhaler INHALATION 2 puff RT-BID PRN Administration Shortness Of Breath Carvedilol 3.125 mg 01/28/23 07:30 01/28/23 08:02 Carvedilol 3.125 Mg Tab PO 3.125 mg BID-W/MEALS [facility] Administration Citalopram Hydrobromide 40 mg 01/28/23 09:00 01/28/23 08:02 Citalopram Hydrobromide 20 Mg Tab PO 40 mg DAILY [facility] Administration Clopidogrel Bisulfate 75 mg 01/28/23 09:00 01/28/23 08:02 Clopidogrel 75 Mg Tab PO 75 mg DAILY [facility] Administration Dextrose/Water 25 ml 01/27/23 23:54 Dextrose 50% Syringe 50 Ml IVP PER PROTOCOL PRN Hypoglycemia Protocol Dextrose/Water 50 ml 01/27/23 23:54 Dextrose 50% Syringe 50 Ml IVP PER PROTOCOL PRN Hypoglycemia Protocol Fluticasone Propionate 2 puff 01/28/23 08:00 Fluticasone 110 Mcg Inhaler INHALATION RT-BID [facility] Hydralazine HCl 50 mg 01/28/23 09:00 01/28/23 08:02 Hydralazine Hcl 50 Mg Tab PO 50 mg TID [facility] Administration Insulin Aspart 26 unit 01/28/23 09:00 Insuln Asp Prt/Insulin Aspart 100 Unit/Ml 10 Ml Vial SQ BID [facility] Insulin Aspart 0 unit 01/28/23 07:30 01/28/23 08:05 Insulin Aspart (Novolog) 100 Unit/Ml Vial SQ 4 unit ACHS [facility] Administration Protocol Melatonin 3 mg 01/27/23 23:49 Melatonin 3 Mg Tablet PO HS PRN Insomnia Nitroglycerin 0.4 mg 01/27/23 23:48 Nitroglycerin Sl Tabs 0.4 Mg Tab SUBLINGUAL Q5M PRN Chest Pain Pantoprazole Sodium 40 mg 01/28/23 09:00 01/28/23 08:02 Pantoprazole 40 Mg Tablet PO 40 mg DAILY [facility] Administration Tizanidine HCl 2 mg 01/28/23 08:00 Tizanidine 4 Mg Tab PO Q8H PRN Muscle Spasm Intake and Output 01/27/23 01/28/23 01/28/23 22:59 06:59 14:59 Other: Weight 106.594 kg 01/27/23 22:11 01/27/23 22:11
[2023-01-28 17:12] LABS: Glucose,Whole Blood 156 mg/dL (70-110)
[2023-01-28 19:52] LABS: Glucose,Whole Blood 230 mg/dL (70-110)
[2023-01-28] MEDS: ATORVASTATIN 80 MG TAB PO SCH (20:15)
[2023-01-28] MEDS: ACETAMINOPHEN TAB 325 MG TAB PO PRN (22:07)
[2023-01-28] MEDS: BENZONATATE 100 MG CAP PO PRN (22:07)
[2023-01-28] MEDS: LORazepam 1 MG TAB PO PRN (22:07)
[2023-01-29 00:52] VITALS: RESP 18
[2023-01-29 02:11] LABS: Partial Thromboplastin Time 77.8 sec (22.0-30.0); Prothrombin Time 10.5 sec (9.0-12.0)
[2023-01-29 05:59] LABS: Glucose,Whole Blood 100 mg/dL (70-110)
[2023-01-29] MEDS: INSULIN ASPART (NovoLOG) 100 UNIT/ML VIAL SQ SCH ×4 (06:02→20:51)
[2023-01-29] MEDS: carvediloL 3.125 MG TAB PO SCH ×2 (06:42→17:21)
[2023-01-29] MEDS: hydrALAZINE HCL 50 MG TAB PO SCH ×3 (09:04→21:43)
[2023-01-29] MEDS: ASPIRIN 81 MG PO SCH (09:04)
[2023-01-29] MEDS: CITALOPRAM HYDROBROMIDE 20 MG TAB PO SCH (09:04)
[2023-01-29] MEDS: CLOPIDOGREL 75 MG TAB PO SCH (09:04)
[2023-01-29] MEDS: HEPARIN SOD,PORK IN 0.45% NACL 25,000 UNIT in 0.45% NACL 1 250ML.BAG IV SCH (09:05)
[2023-01-29] MEDS: PANTOPRAZOLE 40 MG TABLET PO SCH (09:05)
[2023-01-29] MEDS: FLUTICASONE 110 MCG INHALER INHALATION SCH ×2 (09:11→20:29)
[2023-01-29] MEDS: SYMBICORT 80-4.5 MCG INHALER INHALATION PRN ×2 (09:11→20:29)
[2023-01-29] MEDS ORDERED: ASPIRIN 325 MG TAB PO STA (10:37)
[2023-01-29] MEDS ORDERED: ALPRAZolam 0.25 MG TAB PO PRN (10:37)
[2023-01-29] MEDS ORDERED: ALPRAZolam 0.5 MG TAB PO PRN (10:37)
[2023-01-29] MEDS ORDERED: NITROGLYCERIN SL TABS 0.4 MG TAB SUBLINGUAL PRN (10:37)
[2023-01-29] MEDS ORDERED: ATORVASTATIN 80 MG TAB PO STA (10:37)
--- NOTE | 2023-01-29 10:52 | P.PN ---
Subjective Progress Note Date: 01/29/23 HISTORY OF PRESENTING ILLNESS Patient is a 77-year-old female patient of Dr. Wong with history of asthma, coronary artery disease with initial stenting in December 2020 as well as repeat stenting in August 2021 followed by PCI of CT of mid RCA into PLV 09/28/2021, COPD, diabetes mellitus, GERD, hypertension, hyperlipidemia, paroxysmal atrial fibrillation, chronic kidney disease, osteoarthritis, history of rheumatic fever as a child and neuropathy. Patient was recently hospitalized in November of this year with shortness of breath and lower extremity edema found to be in atrial flutter and converted to sinus rhythm. She also had mildly elevated troponins up to 0.1. A repeat cardiac catheterization showed stable CAD however her prior RCA stent was now occluded and well collateralized likely felt to be old as well as 95% small-caliber diagonal one disease with elevated LVEDP pressures. Elevat ed troponins thought to be related to atrial flutter and therefore medical therapy was recommended. Patient was started on eliquis and subsequently underwent an ablation with Dr. Toth for atrial flutter on 01/20/2023. EKG: Sinus bradycardia at 57 bpm Chest x-ray: Cardiomegaly with chronic interstitial lung disease WBC 5.4, hemoglobin 10.6, platelet 172. INR 1. Sodium 136, potassium 4.7, chloride 104, CO2 19, BUN 28 creatinine 1.47. Troponin 0.055, 0.1, 0.124. ProBNP 880. Cardiac medications: Eliquis 5 mg twice daily, Lipitor 80 mg at bedtime, Bumex 1 mg daily as needed, Plavix 75 mg daily, Zetia 10 mg daily, hydralazine 50 mg 3 times daily, Nitrostat as needed. 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 Plan for medical management. 01/20/2023 Atrial flutter ablation 01/20/2023 Echocardiogram reveals EF of 30-35%, severely impaired left ventricular systolic function with anterior apical and anteroseptal and anterolateral severe hypokinesis. Mild mitral and tricuspid regurgitation. 01/22/2023 Echocardiogram limited study revealed EF 35-40% 01/29 Patient is seen today in follow-up on the cardiac stepdown unit. The Patient nothing by mouth for possible cardiac catheterization today. She states that she did have some tightness yesterday but none at this time. No events overnight. She is continued on heparin drip. Case discussed with Dr. Wong with plan for cardiac catheterization tomorrow. Heart rate is in the 50s, blood pressure 146/78, pulse ox 96% on room air. INR is 1. Repeat BMP ordered for tomorrow morning. PHYSICAL EXAMINATION Vital signs reviewed. CONSTITUTIONAL: No apparent distress. HEENT: Head is normocephalic. Pupils are equal, round. Sclerae anicteric. Mucous membranes of the mouth are moist. No JVD. No carotid bruit. CHEST EXAMINATION: Lungs are clear to auscultation. No chest wall tenderness is noted on palpation or with deep breathing. HEART EXAMINATION: Regular rate and rhythm. S1, S2 heard. No murmurs, gallops or rub. ABDOMEN: Soft, nontender. Positive bowel sounds. EXTREMITIES: 2+ peripheral pulses, no lower extremity edema and no calf tenderness. NEUROLOGIC EXAMINATION: Patient is awake, alert and oriented x3. ASSESSMENT Non-STEMI Coronary artery disease with prior history of stenting Hypertension Hyperlipidemia Prior history of acute kidney injury, chronic kidney disease Diabetes mellitus type 2 PLAN Heparin drip will be discontinued Discussed with Dr. Wong for possible cardiac catheterization tomorrow. Continue current cardiac medications Further recommendations to follow based upon clinical course Thank you kindly for this consultation. Nurse practitioner note has been reviewed, I agree with documented findings and plan of care. Patient was seen and examined. Objective - Vital Signs Vital signs: Vital Signs Temp 98.2 F 01/29/23 04:00 Pulse 55 L 01/29/23 04:00 Resp 18 01/29/23 04:00 BP 146/78 01/29/23 04:00 Pulse Ox 96 01/29/23 09:16 FiO2 Intake & Output 01/28/23 01/29/23 01/29/23 18:59 06:59 18:59 Intake Total 99.99 139.965 Balance 99.99 139.965 Weight 106.594 kg Intake: Intake, IV Titration 99.99 139.965 Amount Heparin Sod,Pork in 0.45% 99.99 139.965 NaCl 25,000 unit In 0.45 % NaCl 1 250ml.bag @ 9.38 UNITS/KG/HR 9.999 mls/hr IV .Q24H [facility] Rx#: [id number] Other: Voiding Method Toilet Toilet # Voids 1 - Labs CBC & Chem 7: 01/28/23 10:15 01/27/23 22:11 Labs: Abnormal Lab Results - Last 24 Hours (Table) 01/28/23 01/28/23 01/28/23 Range/Units 10:15 11:56 17:10 Hgb 10.2 L (11.4-16.0) gm/dL Hct 32.0 L (34.0-46.0) % RDW 16.1 H (11.5-15.5) % APTT (22.0-30.0) sec POC Glucose (mg/dL) 304 H 156 H (70-110) mg/dL 01/28/23 01/28/23 01/29/23 Range/Units 18:57 19:50 01:17 Hgb (11.4-16.0) gm/dL Hct (34.0-46.0) % RDW (11.5-15.5) % APTT 32.0 H 77.8 H (22.0-30.0) sec POC Glucose (mg/dL) 230 H (70-110) mg/dL
[2023-01-29 11:36] LABS: Glucose,Whole Blood 195 mg/dL (70-110)
[2023-01-29] MEDS: INSULN ASP PRT/INSULIN ASPART 100 UNIT/ML 10 ML VIAL SQ SCH ×2 (12:37→23:00)
[2023-01-29] MEDS: BENZONATATE 100 MG CAP PO PRN ×2 (14:10→21:43)
[2023-01-29] MEDS: ACETAMINOPHEN TAB 325 MG TAB PO PRN (14:10)
--- NOTE | 2023-01-29 16:11 | P.PN ---
Subjective Progress Note Date: 01/29/23 Patient is a 77-year-old female with PMH of asthma, CAD status post stenting, diabetes mellitus, GERD, hypertension, dyslipidemia, paroxysmal atrial fibrillation, chronic kidney disease, recent ablation with Dr. Toth for atrial flutter on 01/20 presented to the ED for chest pain. In the ED her vital signs were stable. CBC showed hemoglobin of 10.6. Coagulation panel within normal limits. CMP showed sodium 136, bicarb of 19, BUN of 28, creatinine 1.48, glucose of 453, calcium of 8.3. Troponin was 0.055, 0.124. With EKG showing sinus bradycardia with ventricular rate of 57 and first-degree AV block, no ST elevation. BNP was 880. Chest x-ray showed cardiomegaly and chronic interstitial lung disease. Patient subsequent started on a heparin drip and admitted for management of non-ST elevation with cardiology on consultation. Patient was seen and examined this morning. She continues to report chest tightness though improved since yesterday. She reports a frontal headache and chronic dry cough. She denies any shortness of breath or palpitations. No nausea or vomiting. No fever or chills. General: non toxic, no distress, appears at stated age Derm: warm, dry Head: atraumatic, normocephalic, symmetric Eyes: EOMI, no lid lag, anicteric sclera Cardiovascular: S1S2 reg, no murmur Lungs: Expiratory wheezing bilateral, no rhonchi, no rales , no accessory muscle use Ext: no gross muscle atrophy, no edema, no contractures Neuro: no focal neuro deficits Psych: Alert, oriented, appropriate affect Non-ST elevation LA Diabetes mellitus with hyperglycemia Sinusitis Normocytic anemia Metabolic acidosis Chronic conditions: Asthma, CAD status post stenting, diabetes mellitus, GERD, hypertension, dyslipidemia, paroxysmal atrial fibrillation, chronic kidney disease, recent ablation with Dr. Toth for atrial flutter on 01/20 Based on my assessment of this patient, this patient meets a high complexity level of care. Patient has an acute diagnosis of non-ST elevation that poses a threat to life or bodily function. Patient is currently on a heparin drip at 12.1 units per kilogram per hour. Continue aspirin 81 mg by mouth daily, Plavix 75 mg by mouth daily, Lipitor 80 mg by mouth at bedtime and Coreg 3.125 mg by mouth twice a day. Cardiology is on board and plans for cardiac catheterization tomorrow. Telemetry monitoring will be ordered. Sinusitis: Start Flonase and Claritin. 3 days of azithromycin 500 mg by mouth d aily. Asthma: Albuterol neb as needed for shortness of breath and wheezing. Continue Symbicort 2 puffs daily. Continue Flovent. Diabetes mellitus: Insulin sliding scale. Accu-Cheks before meals and at bedtime. Hypoglycemic precautions. GERD: Protonix 40 g by mouth daily. I have reviewed the following excellence consultant notes: Cardiology note 01/29, plans for cardiac cath tomorrow. I have reviewed the results of the following tests: APTT 77.8. Hemoglobin A1c 7.9. Lipid panel within normal limits. I have ordered the following tests: None. I have discussed the care of this patient with the following independent historian: None. I have independently interpreted the following test below: None. I have discussed the management of this patient with the following physician: None. This patient has a high risk of morbidity due to the following reasons: Patient is currently on heparin drip for treatment of non-ST elevation LA that requires intensive monitoring for bleeding with daily APTT. Objective - Vital Signs Vital signs: Vital Signs Temp 97.9 F 01/29/23 08:00 Pulse 60 01/29/23 14:00 Resp 18 01/29/23 14:00 BP 137/73 01/29/23 12:00 Pulse Ox 94 L 01/29/23 12:00 FiO2 Intake & Output 01/28/23 01/29/23 01/29/23 18:59 06:59 18:59 Intake Total 99.99 579.965 Balance 99.99 579.965 Weight 106.594 kg Intake: Intake, IV Titration 99.99 139.965 Amount Heparin Sod,Pork in 0.45% 99.99 139.965 NaCl 25,000 unit In 0.45 % NaCl 1 250ml.bag @ 9.38 UNITS/KG/HR 9.999 mls/hr IV .Q24H [facility] Rx#: [id number] Oral 440 Other: Voiding Method Toilet Toilet Toilet # Voids 1 - Labs CBC & Chem 7: 01/28/23 10:15 01/27/23 22:11 Labs: Abnormal Lab Results - Last 24 Hours (Table) 01/28/23 01/28/23 01/28/23 Range/Units 17:10 18:57 19:50 APTT 32.0 H (22.0-30.0) sec POC Glucose (mg/dL) 156 H 230 H (70-110) mg/dL 01/29/23 01/29/23 Range/Units 01:17 11:34 APTT 77.8 H (22.0-30.0) sec POC Glucose (mg/dL) 195 H (70-110) mg/dL
[2023-01-29 16:17] LABS: Chol/HDL Ratio 2.66 Ratio; LDL Cholesterol,Calculated 59.6 mg/dL (0.0-131.0)
[2023-01-29 16:23] LABS: Glucose,Whole Blood 222 mg/dL (70-110)
[2023-01-29] MEDS: FLUTICASONE 50MCG/SPRAY NASAL 16GM EA NOSTRIL SCH (17:20)
[2023-01-29] MEDS: LORATADINE 10 MG TAB PO SCH (17:21)
[2023-01-29 19:55] LABS: Glucose,Whole Blood 96 mg/dL (70-110)
[2023-01-29] MEDS: ATORVASTATIN 80 MG TAB PO SCH (21:43)
[2023-01-29] MEDS: LORazepam 1 MG TAB PO PRN (21:43)
[2023-01-30 04:03] LABS: Glucose,Whole Blood 153 mg/dL (70-110)
[2023-01-30] MEDS ORDERED: ASPIRIN 325 MG TAB PO ONE (06:00)
[2023-01-30] MEDS ORDERED: ATORVASTATIN 80 MG TAB PO ONE (06:00)
[2023-01-30] MEDS: CITALOPRAM HYDROBROMIDE 20 MG TAB PO SCH (06:13)
[2023-01-30] MEDS: CLOPIDOGREL 75 MG TAB PO SCH (06:13)
[2023-01-30] MEDS: LORATADINE 10 MG TAB PO SCH (06:14)
[2023-01-30] MEDS: hydrALAZINE HCL 50 MG TAB PO SCH (06:14)
[2023-01-30] MEDS: carvediloL 3.125 MG TAB PO SCH (06:14)
[2023-01-30] MEDS: PANTOPRAZOLE 40 MG TABLET PO SCH (06:14)
[2023-01-30 06:37] LABS: Glucose,Whole Blood 166 mg/dL (70-110)
[2023-01-30 06:53] VITALS: TEMP 97.8
[2023-01-30] MEDS: INSULIN ASPART (NovoLOG) 100 UNIT/ML VIAL SQ SCH ×2 (06:56→11:43)
[2023-01-30] MEDS ORDERED: HEPARIN SODIUM,PORCINE 10,000 UNIT in SODIUM CHLORIDE 0.9% 1,000 ML IRRIGATION PRN (07:00)
[2023-01-30] MEDS ORDERED: HEPARIN SODIUM,PORCINE 2,500 UNIT in SODIUM CHLORIDE 0.9% 250 ML IRRIGATION PRN (07:00)
[2023-01-30] MEDS ORDERED: fentaNYL (PF) 50 MCG/ML 2 ML AMP ONE (07:25)
[2023-01-30] MEDS: ASPIRIN 81 MG PO SCH (07:28)
[2023-01-30] MEDS ORDERED: SODIUM CHLORIDE 0.9% 1,000 ML IV ONE (07:30)
[2023-01-30] MEDS ORDERED: HEPARIN SODIUM 1,000 UN/ML (10ML VL) ONE (07:36)
[2023-01-30] MEDS ORDERED: fentaNYL (PF) 50 MCG/ML 2 ML AMP IV ONE (07:43)
[2023-01-30] MEDS ORDERED: LIDOCAINE 1% INJ 10MG/ML (5 ML VIAL-PF) SQ ONE (07:43)
[2023-01-30] MEDS ORDERED: MIDAZOLAM 2 MG/2 ML VIAL IV ONE (07:43)
[2023-01-30] MEDS ORDERED: VERAPAMIL SYRINGE (5 MG/10 ML) INTRAARTER ONE (07:48)
[2023-01-30] MEDS: FLUTICASONE 110 MCG INHALER INHALATION SCH ×2 (07:56→08:41)
[2023-01-30] MEDS ORDERED: HEPARIN SODIUM 1,000 UN/ML (10ML VL) IV ONE (07:57)
[2023-01-30] MEDS ORDERED: IOPAMIDOL-370 200ML BTL INJ ONE (08:02)
[2023-01-30] MEDS: SYMBICORT 80-4.5 MCG INHALER INHALATION PRN (08:41)
[2023-01-30] MEDS: FLUTICASONE 50MCG/SPRAY NASAL 16GM EA NOSTRIL SCH (08:50)
[2023-01-30 10:55] LABS: Calcium 8.2 mg/dL (8.4-10.2); Potassium 4.3 mmol/L (3.5-5.1)
[2023-01-30 11:35] LABS: Glucose,Whole Blood 137 mg/dL (70-110)
[2023-01-30] MEDS: INSULN ASP PRT/INSULIN ASPART 100 UNIT/ML 10 ML VIAL SQ SCH (12:31)
--- NOTE | 2023-01-30 12:58 | P.CARDCATH ---
Description of Procedure: PROCEDURES PERFORMED: Left heart catheterization, bilateral coronary angiography INDICATION: Non-STEMI CONSENT:I have discussed the risks, benefits and alternative therapies for the above-mentioned procedure and for both sedation/analgesia as well as necessary blood product administration, if indicated, as they pertain to this patient. The patient has indicated understanding and acceptance of the risks and procedures discussed. PROCEDURE: After the risks, benefits and alternatives of the above mentioned procedure explained in detail with the patient, informed consent was obtained. Patient was taken to the catheterization lab and prepped and draped in usual fashion. 1% lidocaine was used to anesthetize the right radial artery. A 6- [place] sheath was placed in the right radial artery using modified Seldinger technique. Left coronary angiography was performed with a 5-[place] JL 3.5 catheterin various views. Given contrast threshold and RCA known to be MANAGEMENT SPECIALIST, RCA was not imiaged. A 5-[place] FR5 catheter was inserted into the left ventricle and pressure measurements were obtained. The right radial sheath was removed and a TR band was placed with hemostasis achieved. The patient tolerated the procedure well. Patient was transported back to the post catheterization holding area in stable condition. Conscious Sedation: Patient was monitored under the direct supervision of myself for conscious sedation using Versed and fentanyl for a total duration of 17 minutes HEMODYNAMICS: Ao: 171/76 LV: 175/10, LVEDP 23 SELECTIVE CORONARY ARTERIOGRAPHY: LEFT MAIN: The left main is a large caliber vessel which bifurcates into the LAD and circumflex. There is no significant stenosis. LEFT ANTERIOR DESCENDING CORONARY ARTERY: LAD is a large caliber vessel which wraps around to the apex. There is a patent LAD stents and diagonal subtotally occluded with some left to left collaterals to the diagonal branch. LAD has otherwise 30-40% stenosis. Appears similar to prior. LEFT CIRCUMFLEX CORONARY ARTERY: Left circumflex is a moderate caliber vessel patent stents with otherwise 30% stenosis and appears unchanged from prior images. There are [id number] collaterals to the RCA. RIGHT CORONARY ARTERY: The right coronary artery was not imaged however known to be 100% occluded. FINAL IMPRESSION: 1. CAD as described above which appears stable from prior with 30-40% LAD stenosis, 30% circumflex stenosis and known 100% RCA stenosis with [id number] collaterals. 2. Elevated left sided filling pressures PLAN: 1. Aggressive risk factor modification per most recent ACC/AHA guidelines. 2. Follow-up in the office in 1-2 weeks.
--- NOTE | 2023-01-30 13:36 | P.DS ---
Providers Date of admission: 01/28/23 01:20 Expected date of discharge: 01/30/23 Attending physician: Zohreh Angulo MD Consults: 01/27/23 23:48 Consult Physician Urgent Consulting Provider: Olvin Amador Consult Reason/Comments: chest pain Do you want consulting provider notified?: Yes Primary care physician: Gaurav Wadsworth MD Hospital Course: Patient is a 77-year-old female with PMH of asthma, CAD status post stenting, diabetes mellitus, GERD, hypertension, dyslipidemia, paroxysmal atrial fibrillation, chronic kidney disease, recent ablation with Dr. Toth for atrial flutter on 01/20 presented to the ED for chest pain. In the ED her vital signs were stable. CBC showed hemoglobin of 10.6. Coagulation panel within normal limits. CMP showed sodium 136, bicarb of 19, BUN of 28, creatinine 1.48, glucose of 453, calcium of 8.3. Troponin was 0.055, 0.124. With EKG showing sinus bradycardia with ventricular rate of 57 and first-degree AV block, no ST elevation. BNP was 880. Chest x-ray showed cardiomegaly and chronic interstitial lung disease. Patient subsequent started on a heparin drip and admitted for management of non-ST elevation with cardiology on consultation. 01/29 Patient was seen and examined this morning. She continues to report chest tightness though improved since yesterday. She reports a frontal headache and chronic dry cough. She denies any shortness of breath or palpitations. No nausea or vomiting. No fever or chills. Plans for cardiac cath tomorrow. 01/30 Patient was seen and examined after her cath. She reported on chest pain. Cadiac cath shows stable CAD from prior with 30-40% LAD stenosis, 30% circumflex stenosis and known 100% RCA stenosis with [id number] collaterals with recommendations for aggressive medical management. Patient is advised to follow up with her PCP within 1-2 days of discharge. She is advised to follow up with Cardiology within 1 week of discharge. Pertinent procedures include cardiac cath as above. Pertinent studies include CXR. General: non toxic, no distress, appears at stated age Derm: warm, dry Head: atraumatic, normocephalic, symmetric Eyes: EOMI, no lid lag, anicteric sclera Cardiovascular: S1S2 reg, no murmur Lungs: Decreased BS bilateral, no rhonchi, no rales , no accessory muscle use Ext: no gross muscle atrophy, no edema, no contractures Neuro: no focal neuro deficits Psych: Alert, oriented, appropriate affect Discharge Diagnosis: Elevated troponin Diabetes mellitus with hyperglycemia Sinusitis Normocytic anemia Metabolic acidosis Chronic conditions: Asthma, CAD status post stenting, diabetes mellitus, GERD, hypertension, dyslipidemia, paroxysmal atrial fibrillation, chronic kidney disease, recent ablation with Dr. Toth for atrial flutter on 01/20 This complex discharge took 35 minutes to complete. Patient Condition at Discharge: Stable Plan - Discharge Summary Discharge Rx Participant: No New Discharge Prescriptions: New Aspirin 81 mg PO DAILY #30 tab Loratadine [Claritin] 10 mg PO DAILY #30 tab Fluticasone Nasal [place] [Flonase Nasal [place]] 2 spray EA NOSTRIL DAILY #1 each Continue Atorvastatin [Lipitor] 80 mg PO HS Cholecalciferol [Vitamin D3 (25 Mcg = 1000 Iu)] 50 mcg PO DAILY Ezetimibe [Zetia] 10 mg PO DAILY Ferrous Sulfate [Iron (65 MG Elemental)] 325 mg PO DAILY Albuterol Inhaler [Ventolin Hfa Inhaler] 2 puff INHALATION RT-Q6H PRN PRN Reason: Shortness Of Breath tiZANidine [Zanaflex] 2 mg PO Q8H PRN PRN Reason: Muscle Spasm Apixaban [Eliquis] 5 mg PO BID #60 tab Nitroglycerin Sl Tabs [Nitrostat] 0.4 mg SUBLINGUAL Q5M PRN PRN Reason: Chest Pain Fluticasone/Vilanterol [Breo Ellipta 100-25 Mcg Inhaler] 1 puff INHALATION RT-DAILY PRN PRN Reason: Shortness Of Breath Melatonin 3 mg PO HS PRN PRN Reason: Insomnia Fluticasone Propionate 110 Mcg [Flovent 110 Mcg Inhaler] 2 puff INHALATION RT-BID PRN PRN Reason: Shortness Of Breath Bumetanide [BUMEX] 1 mg PO DAILY PRN PRN Reason: Edema Biotin 10,000 mcg PO DAILY Ascorbic Acid [Vitamin C] 1,000 mg PO DAILY Omeprazole 20 mg PO DAILY Citalopram Hydrobromide [CeleXA] 40 mg PO DAILY Vitamin E(Unknown Dose) 1 cap PO DAILY carvediloL [Coreg] 3.125 mg PO BID Vitamin B Complex 1 cap PO DAILY Clopidogrel [Plavix] 75 mg PO DAILY #90 tab hydrALAZINE HCL [Apresoline] 50 mg PO TID #90 tab Insulin NPH Hum/Reg Insulin Hm [Novolin 70-30 100 Unit/ml Vial] 26 unit SQ BID Discharge Medication List Ascorbic Acid [Vitamin C] 1,000 mg PO DAILY 07/11/21 [History] Atorvastatin [Lipitor] 80 mg PO HS 07/11/21 [History] Biotin 10,000 mcg PO DAILY 07/11/21 [History] Cholecalciferol [Vitamin D3 (25 Mcg = 1000 Iu)] 50 mcg PO DAILY 07/11/21 [History] Omeprazole 20 mg PO DAILY 07/11/21 [History] Citalopram Hydrobromide [CeleXA] 40 mg PO DAILY 08/21/21 [History] Ezetimibe [Zetia] 10 mg PO DAILY 09/28/21 [History] Albuterol Inhaler [Ventolin Hfa Inhaler] 2 puff INHALATION RT-Q6H PRN 12/14/22 [History] Ferrous Sulfate [Iron (65 MG Elemental)] 325 mg PO DAILY 12/14/22 [History] Vitamin B Complex 1 cap PO DAILY 12/14/22 [History] Vitamin E(Unknown Dose) 1 cap PO DAILY 12/14/22 [History] carvediloL [Coreg] 3.125 mg PO BID 12/14/22 [History] tiZANidine [Zanaflex] 2 mg PO Q8H PRN 12/14/22 [History] Apixaban [Eliquis] 5 mg PO BID #60 tab 12/17/22 [Rx] Clopidogrel [Plavix] 75 mg PO DAILY #90 tab 12/17/22 [Rx] hydrALAZINE HCL [Apresoline] 50 mg PO TID #90 tab 12/18/22 [Rx] Fluticasone/Vilanterol [Breo Ellipta 100-25 Mcg Inhaler] 1 puff INHALATION RT- DAILY PRN 01/15/23 [History] Melatonin 3 mg PO HS PRN 01/15/23 [History] Nitroglycerin Sl Tabs [Nitrostat] 0.4 mg SUBLINGUAL Q5M PRN 01/15/23 [History] Fluticasone Propionate 110 Mcg [Flovent 110 Mcg Inhaler] 2 puff INHALATION RT- BID PRN 01/20/23 [History] Bumetanide [BUMEX] 1 mg PO DAILY PRN 01/28/23 [History] Insulin NPH Hum/Reg Insulin Hm [Novolin 70-30 100 Unit/ml Vial] 26 unit SQ BID 01/28/23 [History] Aspirin 81 mg PO DAILY #30 tab 01/30/23 [Rx] Fluticasone Nasal [place] [Flonase Nasal [place]] 2 spray EA NOSTRIL DAILY #1 each 01/30/23 [Rx] Loratadine [Claritin] 10 mg PO DAILY #30 tab 01/30/23 [Rx] Follow up Appointment(s)/Referral(s): Gaurav Wadsworth MD [Primary Care Provider] - 1-2 days Ziggy Wong DO [STAFF PHYSICIAN] - 1 Week Activity/Diet/Wound Care/Special Instructions: Diet: Cardiac Follow up with your PCP within 1-2 days of discharge. Follow up with Cardiology within 1 week of discharge. Take all medications as advised. Come back to the ED for worsening chest pain, shortness of breath, dizziness. Discharge Disposition: HOME SELF-CARE
[2023-01-30 16:43] VITALS: BP 165/83; PULSE 63
--- NOTE | 2023-02-02 12:00 | CDI ---
Documentation Clarification Form Date: 02/02/23 From: Jaja Smith Admit Date: 01/28/2023 1:20:00 AM Patient Name: Lila Ho Visit Number: [id number] Discharge Date: 01/30/2023 5:09:00 PM ATTENTION: The Clinical Documentation Specialists (CDI) and [facility] Coding Staff appreciate your assistance in clarifying documentation. Please respond to the clarification below the line at the bottom and electronically sign. The CDI & [facility] Coding staff will review the response and follow-up if needed. Please note: Queries are made part of the Legal Health Record. If you have any questions, please contact the author of this message via ITS. Dr. Sierra Martinez, Conflicting documentation has been found in the medical record. As attending physician, please provide clarification. Per Cardiology consult documents Non-STEMI. Per your Discharge Summary it documents Elevated troponin. History/Risk Factors: Coronary Artery Disease(CAD),Chest Pain/ Angina,COPD/Asthma, Diabetes Mellitus,GERD/Reflux,Hyperlipide rik,Hypertension, Osteoarthritis(OA), CD III Clinical Indicators: She presents with chest pain, retrosternal while cookingfood, 06/30 in severity , non radiating , associated withSOB, profusesweating, and palpitations, Relieved by nitro, then happened again with activity , for which took another nitro and notified EMS and came forevaluation. Treatment: Heparin drip, heart cath 01/30, continue aspirin, Plavix 75 mg daily, Liptor 80 mg at bedtime, Coreg 3.125 mg bid, telemetry monitoring Please clarify which diagnosis is most appropriate: [ x ] NSTEMI [ ] CAD with unstable angina [ ] CAD with angina [ ] Other (please specify) [ ] Unable to determine MTDD
== END 2023-01-30 17:09 | disposition home or self-care (01) | DRG 281 ==
LOC: EC 21:49 → 3SCARD 01-28 01:20
PROVIDERS: ADMIT Internal Medicine; ATTEND Internal Medicine
PROC: B2111ZZ Fluoroscopy of Multiple Coronary Arteries using Low Osmolar Contrast (ICD-10-PCS; principal; 2023-01-30 07:30)
PROC: 4A023N7 Measurement of Cardiac Sampling and Pressure, Left Heart, Percutaneous Approach (ICD-10-PCS; principal; 2023-01-30 07:30)
DX: I21.4 Non-ST elevation (NSTEMI) myocardial infarction (principal); I48.92 Unspecified atrial flutter; D63.1 Anemia in chronic kidney disease; E11.40 Type 2 diabetes mellitus with diabetic neuropathy, unspecified; E11.65 Type 2 diabetes mellitus with hyperglycemia; E11.22 Type 2 diabetes mellitus with diabetic chronic kidney disease; I48.0 Paroxysmal atrial fibrillation; N18.30 Chronic kidney disease, stage 3 unspecified; J44.9 Chronic obstructive pulmonary disease, unspecified; I25.110 Atherosclerotic heart disease of native coronary artery with unstable angina pectoris; Z79.4 Long term (current) use of insulin; I13.10 Hypertensive heart and chronic kidney disease without heart failure, with stage 1 through stage 4 chronic kidney disease, or unspecified chronic kidney disease; T38.0X5A Adverse effect of glucocorticoids and synthetic analogues, initial encounter; E78.5 Hyperlipidemia, unspecified; I08.1 Rheumatic disorders of both mitral and tricuspid valves; I44.0 Atrioventricular block, first degree; K21.9 Gastro-esophageal reflux disease without esophagitis; F41.9 Anxiety disorder, unspecified; M19.90 Unspecified osteoarthritis, unspecified site; Z79.01 Long term (current) use of anticoagulants; Z79.02 Long term (current) use of antithrombotics/antiplatelets; Z79.51 Long term (current) use of inhaled steroids; Z79.899 Other long term (current) drug therapy; Z95.5 Presence of coronary angioplasty implant and graft; Z86.19 Personal history of other infectious and parasitic diseases; Z87.891 Personal history of nicotine dependence; Z98.1 Arthrodesis status; Z82.49 Family history of ischemic heart disease and other diseases of the circulatory system
CPT/HCPCS: 36415; 71046; 80048; 80053; 80061; 83036; 83735; 83880; 84484; 85025; 85610; 85730; 93005; 93458; 94640; 94760; 96361; 96365; 99285

== ENCOUNTER → 2023-02-04 | Outpatient (CLI) | payer MEDICARE ==
--- NOTE | 2023-02-04 10:22 | US ---
EXAMINATION TYPE: US Aorta Screening DATE OF EXAM: 02/04/2023 COMPARISON: NONE CLINICAL INDICATION: Female, 77 years old with history of Z13.6 AAA; screening TECHNIQUE: Multiple sonographic images of the abdominal aorta are obtained. FINDINGS: EXAM MEASUREMENTS: Abdominal Aorta: Proximal: 2.1 x 2.4 cm Mid: 1.6 x 2.0 cm Distal: 1.6 x 1.7 cm Bifurcation: obscured CRAY FISHING HAND NOTES: Extreme limitations due to patient's body habitus and overlying bowel content. Only short segments of abdominal aorta visualized. No evidence of AAA at this time as visualized IMPRESSION: No evidence for aortic aneurysm. Evaluation slightly limited by patient body habitus.
== END | disposition home or self-care (01) ==
LOC: RADUSWWP 09:00
PROVIDERS: ATTEND Internal Medicine
DX: Z13.6 Encounter for screening for cardiovascular disorders (principal)
CPT/HCPCS: 76706

== ENCOUNTER → 2023-04-17 | Outpatient (CLI) | payer MEDICARE ==
[2023-04-17 14:48] LABS: African American GFR (CKD) 48 (>60 ml/min/1.73 sqM); Blood Urea Nitrogen 26 mg/dL (7-17); Non-African American GFR(CKD) 42 (>60 ml/min/1.73 sqM)
--- NOTE | 2023-04-18 07:34 | CT ---
EXAMINATION TYPE: CT chest w con CT DLP: 570.30 mGycm, Automated exposure control for dose reduction was used. DATE OF EXAM: 04/17/2023 3:27 PM COMPARISON: CT chest 01/16/2023 CLINICAL INDICATION:Female, 77 years old with history of R91.1 lung nodule; [facility], Lung nodule TECHNIQUE: Multiple axial images were obtained through the chest following the administration of 80 c c of Isovue 300. . Coronal and sagittal reformats reviewed. FINDINGS: LUNGS/ PLEURA: No pleural effusion, pneumothorax, focal consolidation. Stable left upper lobe 7.4 mm groundglass nodule (series 4, image 12). Additional stable few scattered pulmonary nodules the larges t in the right upper lobe measuring up to 3.9 mm (series 4, 12). No new or enlarging pulmonary nodul es. AIRWAY: Patent and unremarkable.. HEART: No pericardial effusion. Aortic valvular mitral annulus calcifications. Moderate coronary yumiko rial calcifications. Mild cardiomegaly. MEDIASTINUM: Stable enlarged right paratracheal lymph node measuring 1.3 cm short axis. VASCULATURE: No aortic aneurysm. Atherosclerotic calcification of the aorta and its branches. MUSCULOSKELETAL: Moderate disc degeneration changes are present throughout the thoracolumbar spine. N o acute osseous abnormality. Posterior fusion changes of the lumbar spine. SOFT TISSUES/LYMPH NODES: Unremarkable. LOWER NECK: No significant findings. UPPER ABDOMEN: No significant findings. IMPRESSION: 1. No acute process. 2. Stable scattered pulmonary nodules from prior examination. Largest is a groundglass nodule in the left upper lobe measuring up to 7.4 mm. Consider follow-up CT chest in one year. 3. Stable large right paratracheal lymph node which may be reactive. Pulmonary nodules measuring less than 6 mm. Incidentally detected nodules of this size are generally considered benign in individuals without concomitant risk factors such as smoking history or other ri sk factors for malignancy. Follow up imaging is generally not performed, in accordance with Fleischne r Society guidelines. In high-risk patients, a [address] thorax can be considered.
== END | disposition home or self-care (01) ==
LOC: RADCTMAIN 13:54
PROVIDERS: ATTEND Internal Medicine Critical Care Medicine
DX: R91.8 Other nonspecific abnormal finding of lung field (principal)
CPT/HCPCS: 82565; 84520; 71260; 36415; Q9967

== ENCOUNTER → 2023-06-22 | Outpatient (CLI) | payer MEDICARE ==
--- NOTE | 2023-06-23 20:57 | MM ---
Reason for Exam: Screening (asymptomatic). Last screening mammogram was performed 12 month(s) ago. Patient History: Menarche at age 11. First Full-Term at age 21. Postmenopausal. Maternal grandmother had breast cancer, age 80. Maternal aunt had breast cancer, age 60. Risk Values: Quynh 5 year model risk: 1.7%. NCI Lifetime model risk: 3.3%. Prior Study Comparison: 06/08/2017 Bilateral MG screening mammo w CAD - 2, [facility] [place]. 06/16/2018 Bilateral MG screening mammo w CAD - 2, [facility] [place]. 06/23/2022 Bilateral MG 3D screening mammo w/cad, [facility]. Tissue Density: There are scattered fibroglandular densities. Findings: Analyzed By CAD. Benign bilateral vascular calcifications. There is no suspicious group of microcalcifications or new suspicious mass in either breast. Overall Assessment: Benign, BI-RAD 2 Management: Screening Mammogram of both breasts in 1 year. . Patient should continue monthly self-breast exams. A clinical breast exam by your physician is recommended on an annual basis. This exam should not preclude additional follow-up of suspicious palpable abnormalities. Note on Quynh scores and lifetime risk: 1. A Quynh score greater than 3% is considered moderate risk. If this is the case, consider specialist referral to assess eligibility for a risk reducing agent. 2. If overall lifetime risk for the development of breast cancer is 20% or higher, the patient may qualify for future screening with alternating mammogram and breast MRI. Electronically signed and approved by: Nika Miranda M.D. Radiologist
== END | disposition home or self-care (01) ==
LOC: RADMAMWWP 14:52
PROVIDERS: ATTEND Internal Medicine
DX: Z12.31 Encounter for screening mammogram for malignant neoplasm of breast (principal); Z78.0 Asymptomatic menopausal state; Z80.3 Family history of malignant neoplasm of breast
CPT/HCPCS: 77063; 77067

== ENCOUNTER → 2023-06-25 | Outpatient (CLI) | payer MEDICARE ==
[2023-06-25 17:07] LABS: Basophils # (A) 0.06 X 10*3/uL (0.00-0.10); Basophils % (A) 1.1 %; Eosinophils # (A) 0.21 X 10*3/uL (0.04-0.35); Eosinophils % (A) 3.7 %; HCT 36.1 % (37.2-46.3); HGB 11.6 d/dL (12.0-15.0); Lymphocytes # (A) 1.45 X 10*3/uL (0.90-5.00); Lymphocytes % (A) 25.6 %; MCH 27.6 pg (27.0-32.0); MCHC 32.1 d/dL (32.0-37.0); MCV 85.7 FL (80.0-97.0); Mean Platelet Volume 11.3 FL (9.5-12.2); Monocytes # (A) 0.44 X 10*3/uL (0.20-1.00); Monocytes % (A) 7.8 %; NRBC Per 100 WBC 0 X 10*3/uL (0.00-0.01); Neutrophils # (A) 3.49 X 10*3/uL (1.80-7.70); Neutrophils % (A) 61.4 %; Platelet Count 202 X 10*3/uL (140-440); RBC 4.21 X 10*6/uL (4.10-5.20); RDW 14.6 % (11.5-14.5); WBC 5.67 X 10*3/uL (4.50-10.00)
[2023-06-25 17:18] LABS: % Iron Saturation 20.68 (12.00-45.00); ALT 17 U/L (8-44); AST 16 U/L (13-35); Albumin 3.8 d/dL (3.8-4.9); Albumin/Globulin Ratio 1.73 Ratio (1.60-3.17); Alkaline Phosphatase 65 U/L (41-126); BUN/Creat Ratio 14.14 Ratio (12.00-20.00); Blood Urea Nitrogen 19.8 mg/dL (9.0-27.0); Calcium 8.9 mg/dL (8.7-10.3); Chloride 104 mmol/L (96-109); Chol/HDL Ratio 3.48 Ratio; Globulin 2.2 d/dL (1.6-3.3); Glucose 125 mg/dL (70-110); Iron 55 UG/DL (50-170); LDL Cholesterol,Calculated 70.2 mg/dL (0.0-131.0); Magnesium 1.8 mg/dL (1.5-2.4); Potassium 4.2 mmol/L (3.5-5.5); Sodium 143 mmol/L (135-145); T4, Free (Free Thyroxine) 1.22 ng/dL (0.80-1.80); Total Bilirubin 0.5 mg/dL (0.3-1.2); Total Iron Binding Capacity 266 UG/DL (228-460)
== END | disposition home or self-care (01) ==
LOC: LABWHC1 11:20
PROVIDERS: ATTEND Internal Medicine
DX: E11.9 Type 2 diabetes mellitus without complications (principal); D64.9 Anemia, unspecified
CPT/HCPCS: 36415; 80053; 80061; 82607; 82746; 83540; 83550; 83735; 84439; 84443; 85025

== ENCOUNTER → 2023-07-13 | Outpatient (CLI) | payer MEDICARE ==
--- NOTE | 2023-07-22 12:26 | EM ---
EVENT MONITOR The patient was monitored for 72 hours. CLINICAL INFORMATION: Baseline rhythm is a sinus mechanism with borderline first-degree AV block. The average rate 56 beats per minute, minimum 45, maximum 85 beats per minute. Ventricular ectopic activity was present in the form of rare single PVCs. Supraventricular ectopic activity was present in form of rare single PACs. No diary was available. CONCLUSION: 1. Sinus mechanism as baseline rhythm. 2. Rare ventricular ectopic activity. 3. Rare supraventricular ectopic activity. 4. No diary was available. MMODL / IJN: [id number] /
== END | disposition home or self-care (01) ==
LOC: RADECHMAIN 07:53
PROVIDERS: ATTEND Internal Medicine Interventional Cardiology
DX: I48.3 Typical atrial flutter (principal); I49.3 Ventricular premature depolarization; R00.2 Palpitations
CPT/HCPCS: 93225; 93226

== ENCOUNTER → 2023-12-18 | Outpatient (CLI) | payer MEDICARE, SELFPAY ==
[2023-12-18 16:01] LABS: Protein/Creatinine Ratio,Urine 0.748
[2023-12-18 18:16] LABS: Appearance,Urine Clear (Clear); Bilirubin,Urine Negative (Negative); Blood,Urine Negative (Negative); Color,Urine Dark Yellow (Yellow); Ketones,Urine Negative (Negative); Nitrite,Urine Negative (Negative); PH, Urine 5.5; Specific Gravity,Urine 1.017 (1.001-1.030); Urobilinogen,Urine 0.2 E.U./DL
[2023-12-18 18:22] LABS: Bacteria,Urine None Seen (None Seen)
[2023-12-18 19:20] LABS: Basophils # (A) 0.03 X 10*3/uL (0.00-0.10); Basophils % (A) 0.4 %; Eosinophils # (A) 0.14 X 10*3/uL (0.04-0.35); Eosinophils % (A) 2.1 %; HGB 11.5 g/dL (12.0-15.0); Lymphocytes # (A) 1.77 X 10*3/uL (0.90-5.00); MCH 27.3 pg (27.0-32.0); MCHC 31.9 g/dL (32.0-37.0); MCV 85.3 FL (80.0-97.0); Mean Platelet Volume 10.5 FL (9.5-12.2); Monocytes # (A) 0.49 X 10*3/uL (0.20-1.00); Monocytes % (A) 7.2 %; NRBC Per 100 WBC 0 X 10*3/uL (0.00-0.01); Neutrophils # (A) 4.35 X 10*3/uL (1.80-7.70); Platelet Count 213 X 10*3/uL (140-440); RBC 4.22 X 10*6/uL (4.10-5.20); RDW 14.5 % (11.5-14.5)
[2023-12-18 19:48] LABS: ALT 15 U/L (8-44); AST 19 U/L (13-35); Albumin 3.9 g/dL (3.8-4.9); Alkaline Phosphatase 59 U/L (41-126); Blood Urea Nitrogen 23.1 mg/dL (9.0-27.0); Calcium 9.1 mg/dL (8.7-10.3); Carbon Dioxide 26.8 mmol/L (21.6-31.8); Chloride 105 mmol/L (96-109); Globulin 2.3 g/dL (1.6-3.3); Glucose 140 mg/dL (70-110); Phosphorus 4.6 mg/dL (2.4-5.1); Sodium 142 mmol/L (135-145); Total Bilirubin 0.3 mg/dL (0.3-1.2); Total Protein 6.2 g/dL (6.2-8.2)
== END | disposition home or self-care (01) ==
LOC: LABWHC1 13:56
PROVIDERS: ATTEND Nurse Practitioner Family
DX: N18.30 Chronic kidney disease, stage 3 unspecified (principal)
CPT/HCPCS: 36415; 80053; 81001; 82306; 82570; 83970; 84100; 84156; 85025

== ENCOUNTER → 2024-01-08 | Outpatient (CLI) | payer MEDICARE, SELFPAY ==
--- NOTE | 2024-01-09 10:30 | US ---
EXAMINATION TYPE: US kidneys/renal and bladder DATE OF EXAM: 01/08/2024 COMPARISON: 12/24/2022 CLINICAL INDICATION: Female, 78 years old with history of N18.32 CHRONIC KIDNEY DISEASE, STAGE 3B; CK D EXAM MEASUREMENTS: Right Kidney: 9.5 x 4.5 x 5.4 cm Left Kidney: 10.1 x 4.7 x 4.2 cm Slightly limited due to overlying gas and patient body habitus Right Kidney: No hydronephrosis or masses seen as best visualized Left Kidney: No hydronephrosis or masses seen as best visualized Bladder: wnl as best seen Bilateral Jets seen: Yes There is mild increased echogenicity within the renal cortices possibly indicating mild medical renal disease. There is no solid renal mass, calcification or hydronephrosis. IMPRESSION: 1. No solid renal mass, renal calcification or hydronephrosis bilaterally. 2. Possible mild medical renal disease as described above.
== END | disposition home or self-care (01) ==
LOC: RADUSWWP 12:41
PROVIDERS: ATTEND Internal Medicine
DX: N18.32 Chronic kidney disease, stage 3b (principal)
CPT/HCPCS: 76770

== ENCOUNTER → 2024-03-15 | Outpatient (CLI) | payer MEDICARE ==
[2024-03-15 18:26] LABS: HCT 35.1 % (37.2-46.3); HGB 11.4 g/dL (12.0-15.0); MCH 27.8 pg (27.0-32.0); MCHC 32.5 g/dL (32.0-37.0); MCV 85.6 FL (80.0-97.0); Mean Platelet Volume 11.1 FL (9.5-12.2); NRBC Per 100 WBC 0 X 10*3/uL (0.00-0.01); Platelet Count 241 X 10*3/uL (140-440); RDW 14.6 % (11.5-14.5); WBC 7.68 X 10*3/uL (4.50-10.00)
[2024-03-15 19:35] LABS: Appearance,Urine Clear (Clear); Bilirubin,Urine Negative (Negative); Blood,Urine Negative (Negative); Color,Urine Dark Yellow (Yellow); Ketones,Urine Trace (Negative); Nitrite,Urine Negative (Negative); Specific Gravity,Urine 1.019 (1.001-1.030)
[2024-03-15 19:45] LABS: Bacteria,Urine None Seen (None Seen)
[2024-03-15 19:55] LABS: Hepatitis A Antibody IgM Nonreactive (Nonreactive); Hepatitis C IgG Antibody Nonreactive (Nonreactive)
[2024-03-15 19:56] LABS: Hepatitis B Core IgM Nonreactive (Nonreactive); Hepatitis B Surface Antigen Nonreactive (Nonreactive)
[2024-03-15 19:57] LABS: % Iron Saturation 10.67 (12.00-45.00); Ferritin 58.2 ng/mL (10.0-291.0); Magnesium 1.7 mg/dL (1.5-2.4); Phosphorus 3.7 mg/dL (2.4-5.1); T4, Free (Free Thyroxine) 1.15 ng/dL (0.80-1.80); Uric Acid 6.5 mg/dL (2.9-7.7)
[2024-03-15 22:32] LABS: Anti-DNA, DS unit <1.0 IU/mL; DNA Double-Stranded Negative (Negative)
[2024-03-16 13:33] LABS: Free Kappa Lt Chain Qnt, Serum 4.41 mg/dL (0.33-1.94); Free Lambda Lt Chain Qnt, Seru 3.68 mg/dL (0.57-2.63)
[2024-03-16 15:22] LABS: C-ANCA <1:20 Titer (<1:20)
== END | disposition home or self-care (01) ==
LOC: LABWHC1 14:11
PROVIDERS: ATTEND Internal Medicine
DX: E55.9 Vitamin D deficiency, unspecified (principal); N18.32 Chronic kidney disease, stage 3b; N39.0 Urinary tract infection, site not specified; N25.81 Secondary hyperparathyroidism of renal origin; D63.1 Anemia in chronic kidney disease; M10.9 Gout, unspecified; R53.83 Other fatigue; R80.9 Proteinuria, unspecified
CPT/HCPCS: 36415; 80074; 81001; 82043; 82306; 82570; 82728; 83516; 83540; 83550; 83735; 83883; 83970; 84100; 84166; 84439; 84443; 84550; 85027; 86038; 86160; 86162; 86225; 86255; 86334

== ENCOUNTER → 2024-03-25 | Outpatient (CLI) | payer MEDICARE, SELFPAY ==
--- NOTE | 2024-03-25 16:59 | CA ---
Transthoracic Echo Report Name: Lila Hameed Age: 78 Gender: F : 1945 Exam Date: 03/25/2024 12:57 Exam Location: [place] [facility] Ht (in): 61 Wt (lb): 195 Ordering Physician: Ziggy Wong DO ([email or web address]) Attending/Referring Phys: Stitch Bonding Machine Operator Tess Oneill RDCS Procedure CPT: Indications: R06.02 SOB R42 DIZZINESS AND GIDDINESS Cardiac Hx: Technical Quality: Good Contrast 1: Total Dose (mL): Contrast 2: Total Dose (mL): MEASUREMENTS (Male / Female) Normal Values 2D ECHO LV Diastolic Diameter PLAX 4.2 cm 4.2 - 5.9 / 3.9 - 5.3 cm LV Systolic Diameter PLAX 2.7 cm IVS Diastolic Thickness 1.6 cm 0.6 - 1.0 / 0.6 - 0.9 cm LVPW Diastolic Thickness 1.5 cm 0.6 - 1.0 / 0.6 - 0.9 cm LV Relative Wall Thickness 0.7 RV Internal Dim ED PLAX 4.5 cm LVOT Diameter 2.3 cm LV Diastolic Volume MOD BP 132.1 cm??? 67 - 155 / 56 - 104 cm??? LV Systolic Volume MOD BP 46.1 cm??? 22 - 58 / 19 - 49 cm??? LV Ejection Fraction MOD BP 65.1 % >= 55 % LV Cardiac Index MOD BP 3147.9 cm???/min???m??? LV Diastolic Volume MOD 4C 120.2 cm??? LV Systolic Volume MOD 4C 45.8 cm??? LV Ejection Fraction MOD 4C 61.9 % LV Cardiac Index MOD 4C 2723.6 cm???/min???m??? LV Diastolic Length 4C 8.5 cm LV Systolic Length 4C 7.5 cm LV Diastolic Volume MOD 2C 138.0 cm??? LV Systolic Volume MOD 2C 47.0 cm??? LV Ejection Fraction MOD 2C 65.9 % LV Cardiac Index MOD 2C 3326.7 cm???/min???m??? LV Diastolic Length 2C 9.0 cm LV Systolic Length 2C 7.4 cm LA Volume 88.8 cm??? 18 - 58 / 22 - 52 cm??? LA Volume Index 44.5 cm???/m??? 16 - 28 cm???/m??? Ascending Aorta Diameter 3.8 cm DOPPLER AV Peak Velocity 164.6 cm/s AV Peak Gradient 10.8 mmHg AV Mean Velocity 102.4 cm/s AV Mean Gradient 4.8 mmHg AV Velocity Time Integral 32.3 cm LVOT Peak Velocity 126.2 cm/s LVOT Peak Gradient 6.4 mmHg LVOT Velocity Time Integral 26.0 cm LVOT Stroke Volume 109.2 cm??? LVOT Stroke Volume Index 58.4 ml/m??? LVOT Cardiac Index 3993.0 cm???/min???m??? AV Area Cont Eq vti 3.4 cm??? AV Area Cont Eq pk 3.2 cm??? MV Area PHT 2.3 cm??? Mitral E Point Velocity 93.9 cm/s Mitral A Point Velocity 97.4 cm/s Mitral E to A Ratio 1.0 MV Deceleration Time 332.7 ms PV Peak Velocity 111.5 cm/s PV Peak Gradient 5.0 mmHg FINDINGS Left Ventricle Left ventricular ejection fraction is estimated at 60-65 %. Normal left ventricular systolic function with no obvious regional wall motion abnormalities. Moderately increased left ventricular wall thickness. Right Ventricle Mild to moderate right ventricular dilatation with normal function. Unable to estimate the right ventricular systolic pressure. Right Atrium Mild right atrial dilatation. Left Atrium Severely increased left atrial volume. Mildly increased left atrial area. Mitral Valve Mitral valve thickened. Severe Mitral annular calcification. No evidence for mitral valve prolapse. No mitral stenosis. Mild mitral regurgitation. Aortic Valve Trileaflet aortic valve. Aortic valve sclerosis. No aortic valve stenosis or regurgitation. Tricuspid Valve Structurally normal tricuspid valve. No tricuspid stenosis. Mild tricuspid regurgitation. Pulmonic Valve Pulmonic valve not well visualized. No pulmonic stenosis. No pulmonic regurgitation. Pericardium No pericardial effusion. Aorta Normal size aortic root and proximal ascending aorta. CONCLUSIONS 1. Normal left ventricular size and systolic function 2. Severe mitral annulus calcification with mild mitral regurgitation 3. Mild tricuspid regurgitation Previewed by: Dr. George Julien MD (Electronically Signed) Final Date: 25 March 2024 16:58
== END | disposition home or self-care (01) ==
LOC: RADECHMAIN 12:45
PROVIDERS: ATTEND Internal Medicine
DX: R06.02 Shortness of breath (principal); R42 Dizziness and giddiness; I08.1 Rheumatic disorders of both mitral and tricuspid valves
CPT/HCPCS: 93306

== ENCOUNTER → 2024-05-24 | Outpatient (CLI) | payer MEDICARE ==
[2024-05-24 13:29] LABS: African American GFR (CKD) 46 (>60 ml/min/1.73 sqM); Blood Urea Nitrogen 24 mg/dL (7-17); Non-African American GFR(CKD) 40 (>60 ml/min/1.73 sqM)
--- NOTE | 2024-05-25 12:42 | CT ---
EXAMINATION TYPE: CT chest w con DATE OF EXAM: 05/24/2024 COMPARISON: 04/17/2023 HISTORY: 78-year-old female R9 1.1 f/u nodules TECHNIQUE: Contiguous axial scanning of the chest after the administration of 80 mL of Isovue 300. C oronal/sagittal reconstructions performed. CT DLP: 410mGycm. Automatic exposure control utilized for a dose reduction. FINDINGS: The heart is mildly enlarged without pericardial effusion. There is mitral annular calcifications are present. [id number] aortic valvular calcifications. Extensive three-vessel coronary artery jaime cification. Marker for coronary artery disease. Ectatic ascending aorta at 3.9 cm with mild atherosclerotic arch calcifications and conventional arch vessel branching anatomy. Right hilar lymph node and a 1.2 cm, unchanged. The previous right paratracheal lymph node has decrea sed in size now measuring only 7 mm. Otherwise, no thoracic lymphadenopathy size criteria. Large caliber main right and left pulmonary arteries measuring up to 2.9 cm suggests underlying pulmo nary arterial hypertension. A few scattered 5 mm and smaller pulmonary nodules on the right remain unchanged. A few patches of minimal groundglass change measuring up to 8 mm left upper lung are also unchanged, probably chronic post infectious/inflammatory sequela. No new pulmonary nodules are identified. No consolidation or pleural effusion. Visualized abdomen shows a 1.9 cm cortical cyst medial right kidney and a tiny hiatal hernia. Bones: Moderate to advanced degenerative disc disease throughout the thoracic spine. Slight dextrocon vex scoliotic curvature centered along the lower third thoracic spine. Bridging lateral endplate spon dylosis is noted. IMPRESSION: 1. A few scattered 5 mm and smaller pulmonary nodules remain unchanged. The few vague groundglass foc i in the left upper lobe measuring up to 8 mm are also unchanged. Consider additional one-year survei llance follow-up to demonstrate more long-term stability. 2. Severe three-vessel coronary artery calcifications. 3. Possible underlying pulmonary arterial hypertension.
== END | disposition home or self-care (01) ==
LOC: RADCTMAIN 12:40
PROVIDERS: ATTEND Internal Medicine Critical Care Medicine
DX: R91.1 Solitary pulmonary nodule
CPT/HCPCS: 36415; 71260; 82565; 84520

== ENCOUNTER → 2024-06-15 | Outpatient (CLI) | payer MEDICARE ==
[2024-06-16 02:17] LABS: HCT 36.4 % (37.2-46.3); HGB 11.5 g/dL (12.0-15.0); MCH 27.7 pg (27.0-32.0); MCHC 31.6 g/dL (32.0-37.0); MCV 87.7 FL (80.0-97.0); Mean Platelet Volume 11.5 FL (9.5-12.2); NRBC Per 100 WBC 0 X 10*3/uL (0.00-0.01); Platelet Count 202 X 10*3/uL (140-440); RBC 4.15 X 10*6/uL (4.10-5.20); RDW 14.8 % (11.5-14.5); WBC 6.21 X 10*3/uL (4.50-10.00)
[2024-06-16 03:23] LABS: % Iron Saturation 18.99 (12.00-45.00); ALT 17 U/L (8-44); AST 21 U/L (13-35); Albumin 3.9 g/dL (3.8-4.9); Alkaline Phosphatase 56 U/L (41-126); BUN/Creat Ratio 16.21 Ratio (12.00-20.00); Blood Urea Nitrogen 22.7 mg/dL (9.0-27.0); Calcium 8.9 mg/dL (8.7-10.3); Carbon Dioxide 22.6 mmol/L (21.6-31.8); Chloride 105 mmol/L (96-109); Ferritin 50.1 ng/mL (10.0-291.0); Globulin 2.3 g/dL (1.6-3.3); Glucose 147 mg/dL (70-110); Iron 49 UG/DL (50-170); Magnesium 1.6 mg/dL (1.5-2.4); Phosphorus 3.8 mg/dL (2.4-5.1); Potassium 4.5 mmol/L (3.5-5.5); Sodium 140 mmol/L (135-145); Total Bilirubin 0.4 mg/dL (0.3-1.2); Total Iron Binding Capacity 258 UG/DL (228-460); Total Protein 6.2 g/dL (6.2-8.2); Uric Acid 6.1 mg/dL (2.9-7.7)
[2024-06-16 05:02] LABS: Appearance,Urine Clear (Clear); Bilirubin,Urine Negative (Negative); Blood,Urine Negative (Negative); Color,Urine Dark Yellow (Yellow); Ketones,Urine Negative (Negative); Nitrite,Urine Negative (Negative); PH, Urine 5.5; Specific Gravity,Urine 1.016 (1.001-1.030); Urobilinogen,Urine 0.2 E.U./DL
[2024-06-16 05:12] LABS: Bacteria,Urine None Seen (None Seen)
== END | disposition home or self-care (01) ==
LOC: LABWHC1 13:38
PROVIDERS: ATTEND Internal Medicine Nephrology
DX: N18.32 Chronic kidney disease, stage 3b
CPT/HCPCS: 36415; 80053; 81001; 82043; 82306; 82570; 82728; 83540; 83550; 83735; 83970; 84100; 84550; 85027

== ENCOUNTER → 2024-09-29 | Outpatient (CLI) | payer MEDICARE ==
--- NOTE | 2024-09-29 14:29 | MM ---
Reason for Exam: Screening (asymptomatic). Last mammogram was performed 1 year(s) and 3 month(s) ago. Patient History: Menarche at age 11. First Full-Term at age 21. Postmenopausal. Maternal grandmother had breast cancer, age 80. Maternal aunt had breast cancer, age 60. Risk Values: Quynh 5 year model risk: 1.7%. NCI Lifetime model risk: 3.0%. Prior Study Comparison: 06/16/2018 Bilateral MG screening mammo w CAD - 2, [facility]. 06/23/2022 Bilateral MG 3D screening mammo w/cad, [facility]. 06/22/2023 Bilateral MG 3D screening mammo w/cad, [facility]. Tissue Density: There are scattered areas of fibroglandular density. Findings: Analyzed By CAD. Right breast: There is no suspicious group of microcalcifications or new suspicious mass. Benign-appearing calcifications right breast. Left breast: There is no suspicious group of microcalcifications or new suspicious mass. Benign-appearing calcifications left breast. Overall Assessment: Benign, BI-RAD 2 Management: Screening Mammogram of both breasts in [address] [facility] will attempt to contact patient to return for supplemental views and ultrasound if indicated. Patient should continue monthly self-breast exams. A clinical breast exam by your physician is recommended on an annual basis. This exam should not preclude additional follow-up of suspicious palpable abnormalities. Note on Quynh scores and lifetime risk: 1. A Quynh score greater than 3% is considered moderate risk. If this is the case, consider specialist referral to assess eligibility for a risk reducing agent. 2. If overall lifetime risk for the development of breast cancer is 20% or higher, the patient may qualify for future screening with alternating mammogram and breast MRI. [facility], , 09/29/2024 2:25 PM. Electronically signed and approved by: Nicolas Richards DO
--- NOTE | 2024-10-03 07:42 | BD ---
EXAMINATION TYPE: Axial Bone Density DATE OF EXAM: 09/29/2024 CLINICAL HISTORY: 79 years old Female. ICD-10 CODE: Z78.0 ASYMP [place] STATE , Additional History: Height: 60 Weight: 177 FRAX RISK QUESTIONS: Secondary Osteoporosis: RISK FACTORS HISTORY OF: Surgery to Spine/Hip(right/left)/Wrist (right/left): lumbar surgery with hardware When: 2009 MEDICATIONS: EXAM MEASUREMENTS: Bone mineral densitometry was performed using the [employer] System. Bone mineral density about the R hip (g/cm2): 1.162 Bone mineral density about the L hip (g/cm2): 1.082 T Score values are as follows: -----R Neck: 0.1 -----L Neck: 0.5 -----R Total: 1.2 -----L Total: 0.6 Z Score values are as follows: -----R Neck: 1.9 -----L Neck: 2.2 -----R Total: 2.8 -----L Total: 2.1 First dexa at [facility] FRAX%s: The graph provided illustrates a 7.5% chance for a major osteoporotic fx and a 0.7% chance fo r the hips probability for fx in 10 years time. IMPRESSION: Normal (Values between +1 and -1 indicate normal bone mass). Consider repeating this study in 5 year s or sooner if there is some new clinical indication. NOTE: T-SCORE=SD OF THE YOUNG ADULT MEAN. [facility], , 10/03/2024 7:40 AM
== END | disposition home or self-care (01) ==
LOC: RADMAMWWP 13:53
PROVIDERS: ATTEND Internal Medicine
DX: Z12.31 Encounter for screening mammogram for malignant neoplasm of breast (principal); R92.323 Mammographic fibroglandular density, bilateral breasts; Z78.0 Asymptomatic menopausal state; Z80.3 Family history of malignant neoplasm of breast
CPT/HCPCS: 77063; 77067; 77080

== ENCOUNTER → 2024-10-11 | Outpatient (CLI) | payer MEDICARE ==
[2024-10-11 15:06] LABS: Basophils # (A) 0.04 X 10*3/uL (0.00-0.10); Basophils % (A) 0.7 %; Eosinophils # (A) 0.25 X 10*3/uL (0.04-0.35); Eosinophils % (A) 4.5 %; HCT 36.1 % (37.2-46.3); HGB 11.9 g/dL (12.0-15.0); Lymphocytes % (A) 32.1 %; MCH 28.5 pg (27.0-32.0); MCV 86.6 FL (80.0-97.0); Mean Platelet Volume 11.1 FL (9.5-12.2); Monocytes # (A) 0.39 X 10*3/uL (0.20-1.00); NRBC Per 100 WBC 0 X 10*3/uL (0.00-0.01); Neutrophils % (A) 55.3 %; Platelet Count 190 X 10*3/uL (140-440); RBC 4.17 X 10*6/uL (4.10-5.20)
[2024-10-11 15:33] LABS: ALT 18 U/L (8-44); AST 20 U/L (13-35); Albumin 4.1 g/dL (3.8-4.9); Albumin/Globulin Ratio 1.78 Ratio (1.60-3.17); Alkaline Phosphatase 57 U/L (41-126); BUN/Creat Ratio 17.15 Ratio (12.00-20.00); Blood Urea Nitrogen 22.3 mg/dL (9.0-27.0); Calcium 9.1 mg/dL (8.7-10.3); Carbon Dioxide 25.8 mmol/L (21.6-31.8); Chloride 106 mmol/L (96-109); Chol/HDL Ratio 2.78 Ratio; Globulin 2.3 g/dL (1.6-3.3); Glucose 115 mg/dL (70-110); LDL Cholesterol,Calculated 76.1 mg/dL (0.0-131.0); Magnesium 1.5 mg/dL (1.5-2.4); Potassium 4.3 mmol/L (3.5-5.5); Sodium 142 mmol/L (135-145); Total Bilirubin 0.6 mg/dL (0.3-1.2); Total Protein 6.4 g/dL (6.2-8.2)
== END | disposition home or self-care (01) ==
LOC: LABWHC1 10:43
PROVIDERS: ATTEND Internal Medicine
DX: E11.9 Type 2 diabetes mellitus without complications (principal); D64.9 Anemia, unspecified
CPT/HCPCS: 36415; 80053; 80061; 82607; 82746; 83036; 83735; 84443; 85025

== ENCOUNTER → 2024-12-19 | Outpatient (CLI) | payer MEDICARE, SELFPAY ==
[2024-12-19 14:52] LABS: Basophils # (A) 0.05 X 10*3/uL (0.00-0.10); Basophils % (A) 0.9 %; Eosinophils # (A) 0.18 X 10*3/uL (0.04-0.35); Eosinophils % (A) 3.3 %; HCT 32.5 % (37.2-46.3); HGB 10.4 g/dL (12.0-15.0); Lymphocytes # (A) 1.61 X 10*3/uL (0.90-5.00); Lymphocytes % (A) 29.9 %; MCH 28.4 pg (27.0-32.0); MCV 88.8 FL (80.0-97.0); Mean Platelet Volume 11.6 FL (9.5-12.2); Monocytes # (A) 0.36 X 10*3/uL (0.20-1.00); Monocytes % (A) 6.7 %; NRBC Per 100 WBC 0 X 10*3/uL (0.00-0.01); Neutrophils # (A) 3.17 X 10*3/uL (1.80-7.70); Platelet Count 190 X 10*3/uL (140-440); RBC 3.66 X 10*6/uL (4.10-5.20); RDW 14.1 % (11.5-14.5); WBC 5.38 X 10*3/uL (4.50-10.00)
[2024-12-19 15:33] LABS: % Iron Saturation 23.22 (12.00-45.00); ALT 20 U/L (8-44); AST 23 U/L (13-35); Albumin 3.8 g/dL (3.8-4.9); Albumin/Globulin Ratio 1.81 Ratio (1.60-3.17); Alkaline Phosphatase 56 U/L (41-126); BUN/Creat Ratio 15.33 Ratio (12.00-20.00); Blood Urea Nitrogen 18.4 mg/dL (9.0-27.0); Carbon Dioxide 25.8 mmol/L (21.6-31.8); Chloride 106 mmol/L (96-109); Chol/HDL Ratio 2.38 Ratio; Ferritin 40.1 ng/mL (10.0-291.0); Globulin 2.1 g/dL (1.6-3.3); Glucose 105 mg/dL (70-110); Iron 62 UG/DL (50-170); LDL Cholesterol,Calculated 62.9 mg/dL (0.0-131.0); Magnesium 1.6 mg/dL (1.5-2.4); Potassium 4.3 mmol/L (3.5-5.5); Sodium 141 mmol/L (135-145); Total Bilirubin 0.6 mg/dL (0.3-1.2); Total Iron Binding Capacity 267 UG/DL (228-460); Total Protein 5.9 g/dL (6.2-8.2); VLDL Calculation 17.78 mg/dL (5.00-40.00)
== END | disposition home or self-care (01) ==
LOC: LABWHC1 10:55
PROVIDERS: ATTEND Internal Medicine
DX: E11.9 Type 2 diabetes mellitus without complications (principal); D64.9 Anemia, unspecified
CPT/HCPCS: 36415; 80053; 80061; 82043; 82570; 82607; 82728; 82746; 83036; 83540; 83550; 83735; 84443; 85025

== ENCOUNTER → 2025-01-05 | Outpatient (CLI) | payer MEDICARE, SELFPAY ==
[~2025-01-05] MED LIST: REGADENOSON 0.4 MG/5 ML SYRINGE IV PRN
--- NOTE | 2025-01-05 10:23 | CA ---
Transthoracic Echo Report Name: Lila Hameed Age: 79 Gender: F : 1945 Exam Date: 01/05/2025 08:09 Exam Location: [facility] Ht (in): 60 Wt (lb): 168 Ordering Physician: Ziggy Wong DO ([email or web address]) Attending/Referring Phys: Mee Dawson [facility] [employer] Specialist Joanna Goetz RDCS Procedure CPT: Indications: R94.31 ABN EKG I25.10 ATHSCL HEART DISEASE OF [place], Other hypertrophic cardiomyopathy Cardiac Hx: Technical Quality: Good Contrast 1: Total Dose (mL): Contrast 2: Total Dose (mL): MEASUREMENTS (Male / Female) Normal Values 2D ECHO LV Diastolic Diameter PLAX 4.1 cm 4.2 - 5.9 / 3.9 - 5.3 cm LV Systolic Diameter PLAX 2.3 cm IVS Diastolic Thickness 1.5 cm 0.6 - 1.0 / 0.6 - 0.9 cm LVPW Diastolic Thickness 1.8 cm 0.6 - 1.0 / 0.6 - 0.9 cm LV Relative Wall Thickness 0.8 RV Internal Dim ED PLAX 2.7 cm LVOT Diameter 1.9 cm LA Systolic Diameter LX 4.6 cm 3.0 - 4.0 / 2.7 - 3.8 cm LV Diastolic Volume MOD BP 81.2 cm??? 67 - 155 / 56 - 104 cm??? LV Systolic Volume MOD BP 26.1 cm??? 22 - 58 / 19 - 49 cm??? LV Ejection Fraction MOD BP 67.9 % >= 55 % LV Cardiac Index MOD BP 2352.0 cm???/min???m??? LV Diastolic Volume MOD 4C 86.1 cm??? LV Systolic Volume MOD 4C 27.1 cm??? LV Ejection Fraction MOD 4C 68.6 % LV Cardiac Index MOD 4C 2518.4 cm???/min???m??? LV Diastolic Length 4C 7.9 cm LV Systolic Length 4C 6.1 cm LV Diastolic Volume MOD 2C 73.6 cm??? LV Systolic Volume MOD 2C 24.7 cm??? LV Ejection Fraction MOD 2C 66.5 % LV Cardiac Index MOD 2C 2084.9 cm???/min???m??? LV Diastolic Length 2C 7.5 cm LV Systolic Length 2C 6.4 cm LA Volume 85.3 cm??? 18 - 58 / 22 - 52 cm??? LA Volume Index 46.6 cm???/m??? 16 - 28 cm???/m??? M-MODE Aortic Root Diameter MM 2.8 cm LA Systolic Diameter MM 4.1 cm LA Ao Ratio MM 1.5 AV Cusp Separation MM 1.8 cm DOPPLER AV Peak Velocity 190.7 cm/s AV Peak Gradient 14.5 mmHg AV Mean Velocity 134.6 cm/s AV Mean Gradient 8.0 mmHg AV Velocity Time Integral 50.4 cm AI Peak Velocity 221.6 cm/s AI Peak Gradient 19.6 mmHg AI Pressure Half Time 1436.3 ms LVOT Peak Velocity 106.0 cm/s LVOT Peak Gradient 4.5 mmHg LVOT Velocity Time Integral 29.2 cm LVOT Stroke Volume 87.0 cm??? LVOT Stroke Volume Index 50.2 ml/m??? LVOT Cardiac Index 3710.0 cm???/min???m??? AV Area Cont Eq vti 1.7 cm??? AV Area Cont Eq pk 1.7 cm??? MV Peak Velocity 120.9 cm/s MV Peak Gradient 5.8 mmHg MV Mean Velocity 70.6 cm/s MV Mean Gradient 2.4 mmHg MV Velocity Time Integral 52.7 cm MV Area PHT 1.9 cm??? Mitral E Point Velocity 104.9 cm/s Mitral A Point Velocity 110.2 cm/s Mitral E to A Ratio 1.0 MV Deceleration Time 395.0 ms TR Peak Velocity 195.2 cm/s TR Peak Gradient 15.2 mmHg FINDINGS Left Ventricle Left ventricular ejection fraction is estimated at 55-60 %. Moderately increased septal wall thickness. Severely increased posterior wall thickness. Normal left ventricular systolic function with no obvious regional wall motion abnormalities. Left ventricular cavity size normal. Right Ventricle Normal right ventricular size and function. Right ventricular systolic pressure within normal limits. Right Atrium Mild right atrial dilatation. Left Atrium Moderately increased left atrial diameter. Severely increased left atrial volume. Mildly increased left atrial area. Mitral Valve Mild thickening/calcification of the anterior mitral valve leaflet. Moderate thickening/calcification of the posterior mitral valve leaflet. No mitral stenosis. Moderate mitral annular calcification. Trace mitral regurgitation. Aortic Valve Trileaflet aortic valve. Diffuse thickening (sclerosis) of the aortic valve cusps without reduced excursion. Trace aortic regurgitation. Tricuspid Valve Structurally normal tricuspid valve. Mild tricuspid regurgitation. No tricuspid stenosis. Pulmonic Valve Structurally normal pulmonic valve. Trace pulmonic regurgitation. No pulmonic stenosis. Pericardium No pericardial or pleural effusion. Aorta Normal size aortic root and proximal ascending aorta. CONCLUSIONS LVEF 55% Moderate concentric LVH No obvious regional wall motion abnormality Moderate LA dilatation, mild RA dilatation Bulky mitral annular calcification with calcified and restricted posterior mitral leaflet base Aortic valve sclerosis Mild TR Previewed by: Dr Kyle Swain (Electronically Signed) Final Date: 05 January 2025 10:21
--- NOTE | 2025-01-05 13:27 | CA ---
Lexiscan Nuclear Stress Test Report Name: Lila Hameed Exam Date: 01/05/2025 10:22 Exam Location: [facility] Ht (in): 60 Wt (lb): 168 BSA: 1.73 Ordering Phys: Ziggy Wong DO Referring Phys: Mee Dawson [facility] Technologist: LELE CHARLTON Age: 79 Gender: F : 1945 Procedure CPT: Indications: R94.31 ABN EKG I25.10 ATHSCL HEART DISEASE OF [place] ICD-10 Codes: Patient History: Medications: SEE LIST,,, Meds past 24 hrs: Pretest Chest Pain: STRESS TEST Lexiscan Protocol Exercise Duration (min:sec): 02:[address] Depressions (mm): Angina Score: Shin Score: Resting HR (bpm): 61 Peak HR (bpm): 80 Resting BP (mmHg): 161 / 79 Peak BP (mmHg): 166 / 67 MPHR: 142 Target HR: 121 % MPHR: 56 METS: 1.0 Total Dose: Peak Dose: Atropine: Double Product: 71179 BP Response: Stress Termination: INFUSION COMPLETE Stress Symptoms: NO SYMPTOMS Stress Summary: ECG ANALYSIS Resting ECG: Stress ECG: CONCLUSIONS RESTING EKG: Sinus rhythm with incomplete left bundle branch block Patient recieved IV infusion of Lexiscan 0.4mg and at peak infusion STRESS EKG showed: [No significant ST-T wave changes diagnostic for ischemia by ST segment analysis] ARRYTHMIAS: [No ectopic rhythms or sustained arrythmias] CONCLUSION: 1. Normal hemodynamic and clinical response to Lexiscan infusion. 2. Non-ischemic EKG response to lexiscan infusion Please refer to the nuclear imaging portion of this stress test for complete interpretation of the study. Dr Kyle Swain (Electronically Signed) Final Date: 05 January 2025 13:26
--- NOTE | 2025-01-05 16:34 | NM ---
EXAMINATION TYPE: NM stress lexiscan cardiolite DATE OF EXAM: 01/05/2025 COMPARISON: NONE CLINICAL INDICATION: Female, 79 years old with history of R94.31 ABN EKG I25.10 ATHSCL HEART DISEASE OF [place]; chest pain TECHNIQUE: After the intravenous administration of 9.8 mCi Tc 99m Sestamibi - Cardiolite resting SPE CT images acquired 55 minutes post injection. The patient received 0.4mg Lexiscan, 24.5 mCi Tc 99m Sestamibi - Stress images obtained [address] injection FINDINGS: Review of stress and rest SPECT images demonstrates a fixed perfusion defect along the inferior, infe rolateral wall. However, there is development of extensive perfusion defect on stress that encompasse s the mid and apical anteroseptal, septal, and lateral colon. Gated analysis shows borderline diminis hed estimated left ventricular ejection fraction of 53 %. TID is upper limits of normal at 1.15. IMPRESSION: 1. Correlate for old inferior, inferolateral wall infarct. 2. However, on stress, there is extensive reversibility that develops throughout the mid and apical a nteroseptal, anterior, and lateral colon. 3. Borderline diminished LVEF of 53%. [facility], , 01/05/2025 4:32 PM
== END | disposition home or self-care (01) ==
LOC: RADNMMAIN 07:45
PROVIDERS: ATTEND Internal Medicine
DX: I25.10 Atherosclerotic heart disease of native coronary artery without angina pectoris (principal); R94.31 Abnormal electrocardiogram [ECG] [EKG]; R42 Dizziness and giddiness; I34.81 Nonrheumatic mitral (valve) annulus calcification; I35.8 Other nonrheumatic aortic valve disorders; I51.7 Cardiomegaly
CPT/HCPCS: 93017; 93306; 78452; A9500; J2785

== ENCOUNTER → 2025-01-20 | Outpatient (CLI) | payer MEDICARE, SELFPAY ==
[2025-01-20 18:18] LABS: HCT 34.3 % (37.2-46.3); MCH 28.1 pg (27.0-32.0); MCHC 32.1 g/dL (32.0-37.0); MCV 87.7 FL (80.0-97.0); NRBC Per 100 WBC 0 X 10*3/uL (0.00-0.01); Platelet Count 185 X 10*3/uL (140-440); RBC 3.91 X 10*6/uL (4.10-5.20); RDW 13.8 % (11.5-14.5); WBC 5.57 X 10*3/uL (4.50-10.00)
[2025-01-20 18:30] LABS: Blood Urea Nitrogen 24.9 mg/dL (9.0-27.0)
[2025-01-20 18:31] LABS: Carbon Dioxide 24.4 mmol/L (21.6-31.8); Chloride 106 mmol/L (96-109); Potassium 4.5 mmol/L (3.5-5.5); Sodium 142 mmol/L (135-145)
== END | disposition home or self-care (01) ==
LOC: LABPAT 13:02
PROVIDERS: ATTEND Internal Medicine
DX: Z01.812 Encounter for preprocedural laboratory examination (principal); R06.02 Shortness of breath; R07.9 Chest pain, unspecified
CPT/HCPCS: 80051; 82565; 84520; 85027

== ENCOUNTER → 2025-01-26 | Day surgery (SDC) | payer MEDICARE, SELFPAY ==
[~2025-01-26] MED LIST changes: +ALPRAZolam 0.25 MG TAB PO PRN; +ALPRAZolam 0.5 MG TAB PO PRN; +ATORVASTATIN 80 MG TAB PO STA; +NITROGLYCERIN SL TABS 0.4 MG TAB SUBLINGUAL PRN; -REGADENOSON 0.4 MG/5 ML SYRINGE IV PRN; +SODIUM CHLORIDE 0.9% 1,000 ML in EMPTY BAG 1 BAG IV SCH
[2025-01-26] MEDS: SODIUM CHLORIDE 0.9% 1,000 ML in EMPTY BAG 1 BAG IV ONE (06:15)
[2025-01-26] MEDS: ASPIRIN 325 MG TAB PO STA (06:30)
[2025-01-26 06:36] VITALS: TEMP 98.8
[2025-01-26] MEDS: IV FLUID CONTINUATION 1,000 ML IV ONE (06:39)
[2025-01-26] MEDS: MIDAZOLAM 2 MG/2 ML VIAL IVP ONE (07:31)
[2025-01-26] MEDS: fentaNYL (PF) 50 MCG/1 ML VIAL IVP ONE (07:31)
[2025-01-26] MEDS: LIDOCAINE 1% INJ 10MG/ML (20 ML MDV) SQ ONE (07:31)
[2025-01-26] MEDS: VERAPAMIL SYRINGE (5 MG/10 ML) INTRAARTER ONE (07:40)
[2025-01-26] MEDS: HEPARIN SODIUM 1,000 UN/ML (10ML VL) IVP ONE (07:51)
[2025-01-26] MEDS: IOPAMIDOL-370 100ML BTL INJ ONE (07:56)
[2025-01-26] MEDS: HEPARIN SODIUM,PORCINE (1 ML) 2,500 UNIT in SODIUM CHLORIDE 0.9% 250 ML IRRIGATION PRN (07:56)
[2025-01-26] MEDS: HEPARIN SODIUM,PORCINE 10,000 UNIT in SODIUM CHLORIDE 0.9% 1,000 ML IRRIGATION PRN (07:56)
--- NOTE | 2025-01-26 08:06 | P.CARDCATH ---
Description of Procedure: PROCEDURES PERFORMED: Bilateral coronary angiography INDICATION: Abnormal stress test, CKD CONSENT:I have discussed the risks, benefits and alternative therapies for the above-mentioned procedure and for both sedation/analgesia as well as necessary blood product administration, if indicated, as they pertain to this patient. The patient has indicated understanding and acceptance of the risks and procedures discussed. PROCEDURE: After the risks, benefits and alternatives of the above mentioned procedure explained in detail with the patient, informed consent was obtained. Patient was taken to the catheterization lab and prepped and draped in usual fashion. 1% lidocaine was used to anesthetize the right radial artery. The right radial artery was initially cannulized however unable to advance wire with ultrasound more proximally showing occlusion of the mid right radial artery. Therefore left radial access was recommended. A 6-Lao sheath was placed in the left radial artery using modified Seldinger technique. Left coronary angiography was performed with a 5-Lao JL 4.0 catheter and right coronary angiography was performed with a 5-Lao JR5 catheter in various views. The left radial sheath was removed and a TR band was placed with hemostasis achieved. The patient tolerated the procedure well. Patient was transported back to the post catheterization holding area in stable condition. Conscious Sedation: Patient was monitored under the direct supervision of vision of myself for conscious sedation using Versed and fentanyl for a total duration of 27 minutes HEMODYNAMICS: Ao: 193/109 SELECTIVE CORONARY ARTERIOGRAPHY: LEFT MAIN: The left main is a large caliber vessel which bifurcates into the LAD and circumflex. There is no significant stenosis. LEFT ANTERIOR DESCENDING CORONARY ARTERY: LAD is a large caliber vessel which wraps around to the apex. There is diffuse mild 20-30% stenosis and a patent proximal to mid LAD stent. There are left to right collaterals. There is a 100% proximal diagonal 1 stenosis which appears mildly worsened from previous 95%. The apex has diffuse 30 to 40% stenosis. LEFT CIRCUMFLEX CORONARY ARTERY: Left circumflex is a large caliber vessel with proximal circumflex stent which is patent and mild diffuse 20 to 30% stenosis. RIGHT CORONARY ARTERY: The right coronary artery is a large caliber vessel which gives off a PDA and PLV branch and is the dominant vessel. There is 100% stenosis of the mid RCA stent. FINAL IMPRESSION: 1. CAD as described above with 100% RCA LOCKS TENDER with collaterals, patent LAD and circumflex stent, 100% small caliber diagonal 1 proximal stenosis. 2. Significant hypertension throughout the procedure PLAN: 1. Aggressive risk factor modification per most recent ACC/AHA guidelines. 2. Would continue to medical therapy with no progression of the LAD and circumflex and ischemia related to diagonal branch
[2025-01-26 08:22] VITALS: RESP 14
[2025-01-26 10:04] VITALS: BP 155/66; PULSE 50
[2025-01-26 11:41] LABS: Glucose,Whole Blood 87 mg/dL (70-110)
== END ==
LOC: CATHCVL 05:42
PROVIDERS: ATTEND Internal Medicine
DX: T82.855A Stenosis of coronary artery stent, initial encounter (principal); I25.10 Atherosclerotic heart disease of native coronary artery without angina pectoris; I25.2 Old myocardial infarction; E11.22 Type 2 diabetes mellitus with diabetic chronic kidney disease; I13.0 Hypertensive heart and chronic kidney disease with heart failure and stage 1 through stage 4 chronic kidney disease, or unspecified chronic kidney disease; I50.32 Chronic diastolic (congestive) heart failure; N18.9 Chronic kidney disease, unspecified; I48.0 Paroxysmal atrial fibrillation; I48.3 Typical atrial flutter; I35.0 Nonrheumatic aortic (valve) stenosis; E78.5 Hyperlipidemia, unspecified; J44.9 Chronic obstructive pulmonary disease, unspecified; I65.23 Occlusion and stenosis of bilateral carotid arteries; K21.9 Gastro-esophageal reflux disease without esophagitis; E66.9 Obesity, unspecified; Z68.32 Body mass index [BMI] 32.0-32.9, adult; Z79.4 Long term (current) use of insulin; Z79.85 Long-term (current) use of injectable non-insulin antidiabetic drugs; Z79.01 Long term (current) use of anticoagulants; Z79.899 Other long term (current) drug therapy; Z82.49 Family history of ischemic heart disease and other diseases of the circulatory system
CPT/HCPCS: 93454; C1894; J2250; J1644 ×3; J2003; Q9967; J3010

== ENCOUNTER 2025-03-13 12:36 | Emergency (ER) | payer MEDICARE, SELFPAY ==
--- NOTE | 2025-03-13 13:49 | ED ---
General Adult HPI - General Chief complaint: Abdominal Pain Stated complaint: R sided body pain Time Seen by Provider: 03/13/25 12:49 Source: patient, RN notes reviewed Mode of arrival: ambulatory Limitations: no limitations - History of Present Illness Initial comments: This is a 79-year-old female presenting to emergency room with complaints of right sided upper abdominal pain described as a gnawing sensation over the past 3 days. States the pain will radiate into her back. She endorses associated nausea with no reported emesis. Denies fevers, chills, chest pain, difficulty in breathing, heart palpitations. Patient states that she feels that she is bloated. Last bowel movement was yesterday. Denies urinary complaints. She denies previous surgical abdominal history. - Related Data Home Medications Medication Instructions Recorded Confirmed Ascorbic Acid [Vitamin C] 1,000 mg PO DAILY 07/11/21 01/20/25 Atorvastatin [Lipitor] 80 mg PO HS 07/11/21 01/26/25 Biotin 10,000 mcg PO DAILY 07/11/21 01/26/25 Cholecalciferol [Vitamin D3 (25 50 mcg PO DAILY 07/11/21 01/26/25 Mcg = 1000 Iu)] Omeprazole 20 mg PO DAILY 07/11/21 01/26/25 Citalopram Hydrobromide [CeleXA] 40 mg PO DAILY 08/21/21 01/26/25 Ezetimibe [Zetia] 10 mg PO DAILY 09/28/21 01/26/25 Albuterol Inhaler [Ventolin Hfa 2 puff INHALATION RT-Q6H PRN 12/14/22 01/20/25 Inhaler] Vitamin B Complex 1 cap PO DAILY 12/14/22 01/26/25 Vitamin E(Unknown Dose) 1 cap PO DAILY 12/14/22 01/26/25 Melatonin 3 mg PO HS PRN 01/15/23 01/20/25 Nitroglycerin Sl Tabs [Nitrostat] 0.4 mg SUBLINGUAL Q5M PRN 01/15/23 01/20/25 Fluticasone Propionate 110 Mcg 2 puff INHALATION RT-BID PRN 01/20/23 01/20/25 [Flovent 110 Mcg Inhaler] Insulin NPH Hum/Reg Insulin Hm 10 unit SQ BID 01/28/23 01/26/25 [NovoLIN 70-30 100 Unit/ml Vial] Losartan Potassium [Cozaar] 25 mg PO DAILY 06/15/23 01/26/25 hydrALAZINE HCL [Apresoline] 25 mg PO BID 06/15/23 01/26/25 Fluticasone Nasal [place] [Flonase 2 spray EA NOSTRIL DAILY PRN 01/20/25 01/20/25 Nasal [place]] Previous Rx's Medication Instructions Recorded Apixaban [Eliquis] 5 mg PO BID #60 tab 12/17/22 Allergies Allergy/AdvReac Type Severity Reaction Status Date / Time No Known Allergies Allergy Verified 03/13/25 13:10 Review of Systems ROS Statement: Those systems with pertinent positive or pertinent negative responses have been documented in the HPI. ROS Other: All systems not noted in ROS Statement are negative. Past Medical History Past Medical History: Asthma, Coronary Artery Disease (CAD), Chest Pain / Angina, COPD, Diabetes Mellitus, Eye Disorder, GERD/Reflux, Hyperlipidemia, Hypertension, Osteoarthritis (OA), Renal Disease, Respiratory Disorder, Rheumatoid Arthritis (RA) Additional Past Medical History / Comment(s): Anemia, heart murmur, hx scarlet fever, neuropathy arms hands & feet, type 2 diabetes, states 50% kidney function, COVID September 2020, retinopathy History of Any Multi-Drug Resistant Organisms: None Reported Past Surgical History: Ablation, Back Surgery, Heart Catheterization With Stent Additional Past Surgical History / Comment(s): Total 5 cardiac stents, 3 total heart catheterizations, carpel tunnel surgery, lower back surgery with fusion, D&C, afib ablation 01/20/23. Past Anesthesia/Blood Transfusion Reactions: No Reported Reaction Additional Past Anesthesia/Blood Transfusion Reaction / Comment(s): difficulty waking up. no blood transfusion reaction Date of Last Stent Placement:: 12/2020 Past Psychological History: Anxiety Smoking Status: Former smoker Past Alcohol Use History: None Reported Past Drug Use History: None Reported - Past Family History Son(s) Family Medical History: Pulmonary Embolus Additional Family Medical History / Comment(s): surgery to leg then developed pulmonary embolus Sister(s) Family Medical History: Cancer Additional Family Medical History / Comment(s): lung , pancreatic both sisters Brother(s) Family Medical History: Cancer Additional Family Medical History / Comment(s): lung General Exam - General Exam Comments Initial Comments: Visual Physical Exam Vital signs reviewed General: Well-appearing, nontoxic, no acute distress. Head: Normocephalic, atraumatic Eyes: PERRLA, EOMI ENT: Airway patent Chest: Nonlabored breathing Skin: No visual rash, normal skin tone Neuro: Alert and oriented 3 Musculoskeletal: No gross abnormalities Limitations: no limitations General appearance: alert, in no apparent distress Neck exam: Present: normal inspection. Absent: tenderness, meningismus, lymphadenopathy Respiratory exam: Present: normal lung sounds bilaterally. Absent: respiratory distress, wheezes, rales, rhonchi, stridor Cardiovascular Exam: Present: regular rate, normal rhythm, normal heart sounds. Absent: systolic murmur, diastolic murmur, rubs, gallop, clicks GI/Abdominal exam: Present: soft, tenderness (epigastric RUQ), normal bowel sounds. Absent: distended, guarding, rebound, rigid Extremities exam: Present: normal inspection, full ROM, normal capillary refill. Absent: tenderness, pedal edema, joint swelling, calf tenderness Back exam: Present: normal inspection Course Vital Signs 03/13/25 13:04 Temperature 98.4 F Pulse Rate 53 L Respiratory 20 Rate Blood Pressure 135/67 O2 Sat by Pulse 96 Oximetry Medical Decision Making - Medical Decision Making Was pt. sent in by a medical professional or institution (, PA, TALENT SOURCING SPECIALIST, urgent care, hospital, or retirement...) When possible be specific @ -No Did you speak to anyone other than the patient for history (EMS, parent, family, police, friend...)? What history was obtained from this source @ -No Did you review nursing and triage notes (agree or disagree)? Why? @ -I reviewed and agree with nursing and triage notes Were old charts reviewed (outside hosp., previous admission, EMS record, old EKG, old radiological studies, urgent care reports/EKG's, retirement records)? Report findings @ -No old charts were reviewed Differential Diagnosis (chest pain, altered mental status, abdominal pain women, abdominal pain men, vaginal bleeding, weakness, fever, dyspnea, syncope, hea dache, dizziness, GI bleed, back pain, seizure, CVA, palpatations, mental health, musculoskeletal)? @Differential Abdominal Pain Women: Appendicitis, Cholecystitis, diverticulosis, ischemic bowel, pancreatitis, hepatitis, UTI, gastroenteritis, AAA, incarcerated hernia, bowel obstruction, constipation, inflammatory bowel, hepatitis, peptic ulcer disease, splenic infarction, perforated viscus, vulvitis, ovarian torsion, PID, kidney stone, placenta abruption, this is not meant to be an all-inclusive list EKG interpreted by me (3pts min.). @ -Completed at 1317 sinus bradycardia with a ventricular rate of 52, VA interval 189, QRS 113, QT 484, QTc 465. X-rays interpreted by me (1pt min.). @ -None done CT interpreted by me (1pt min.). @ -CT imaging of the abdomen pelvis with IV contrast reveals subtle colitis of the ascending colon with no suspicious abnormality to account for right upper quadrant abdominal pain, gallbladder, pancreas, liver within normal U/S interpreted by me (1pt. min.). @ -Ultrasound imaging of the gallbladder has a suboptimal visualization of the pancreas, CBD not adequately visualized with no evidence of gallstones What testing was considered but not performed or refused? (CT, X-rays, U/S, labs)? Why? @ -None What meds were considered but not given or refused? Why? @ -None Did you discuss the management of the patient with other professionals (professionals i.e. , PA, TALENT SOURCING SPECIALIST, lab, RT, psych nurse, social media marketer, steam conditioning operator, teacher, weapons electrical engineering officer, case advocate)? Give summary @ -No Was smoking cessation discussed for >3mins.? @ -No Was critical care preformed (if so, how long)? @ -No Were there social determinants of health that impacted care today? How? (Homelessness, low income, unemployed, alcoholism, drug addiction, transportation, low edu. Level, literacy, decrease access to med. care, [place] [facility], rehab)? @ -No Was there de-escalation of care discussed even if they declined (Discuss DNR or withdrawal of care, Hospice)? DNR status @ -No What co-morbidities impacted this encounter? (DM, HTN, Smoking, COPD, CAD, Cancer, CVA, ARF, Chemo, Hep., AIDS, mental health diagnosis, sleep apnea, morbid obesity)? @ -None Was patient admitted / discharged? Hospital course, mention meds given and route, prescriptions, significant lab abnormalities, going to OR and other pertinent info. @ -Discharge. 79-year-old female presenting to emergency room with complaints of intermittent right upper quadrant abdominal pain. Overall patient is well- appearing and not in acute distress on evaluation. Initial vitals are stable. Patient does have reproducible tenderness to the epigastric right upper quadrant. lab test including CBC, CMP, urinalysis unremarkable. Patient's troponin is not elevated. EKG is in sinus rhythm. Ultrasound imaging of the right upper quadrant is inconclusive as the common bile duct and gallbladder are blocked due to overlying bowel gas differ patient evaluated via CT imaging. Patient was offered pain medication of declined. CT imaging of the abdomen pelvis is unremarkable. Patient stable for discharge instructed follow-up with primary care provider for further evaluation. Return parameters have been discussed. Case discussed with attending Dr. Johnson Undiagnosed new problem with uncertain prognosis? @ -No Drug Therapy requiring intensive monitoring for toxicity (Heparin, Nitro, Insulin, Cardizem)? @ -No Were any procedures done? @ -No Diagnosis/symptom? @ -abdominal pain, upper, unspecified Acute, or Chronic, or Acute on Chronic? @ -acute Uncomplicated (without systemic symptoms) or Complicated (systemic symptoms)? @ -uncomplicated Side effects of treatment? @ -No Exacerbation, Progression, or Severe Exacerbation? @ -No Poses a threat to life or bodily function? How? (Chest pain, USA, VT, pneumonia, PE, COPD, DKA, ARF, appy, cholecystitis, CVA, Diverticulitis, Homicidal, Suicidal, threat to staff... and all critical care pts) @ -No - Lab Data Result diagrams: 03/13/25 14:31 03/13/25 14:31 Lab Results 03/13/25 03/13/25 03/13/25 Range/Units 14:31 14:31 14:31 WBC 6.58 (4.50-10.00) 10*3/uL RBC 3.89 L (4.10-5.20) 10*6/uL Hgb 11.1 L (12.0-15.0) g/dL Hct 33.4 L (37.2-46.3) % MCV 85.9 (80.0-97.0) fL MCH 28.5 (27.0-32.0) pg MCHC 33.2 (32.0-37.0) g/dL Plt Count 210 (140-440) 10*3/uL MPV 10.8 (9.5-12.2) fL Immature Gran % (Auto) 0.2 % Neutrophils % 71.5 % Lymphocytes % 17.8 % Monocytes % 7.3 % Eosinophils % 2.6 % Basophils % 0.6 % Immature Gran # 0.01 (0.00-0.04) 10*3/uL Neutrophils # 4.71 (1.80-7.70) 10*3/uL Lymphocytes # 1.17 (0.90-5.00) 10*3/uL Monocytes # 0.48 (0.20-1.00) 10*3/uL Eosinophils # 0.17 (0.04-0.35) 10*3/uL Basophils # 0.04 (0.00-0.10) 10*3/uL Sodium 138 (137-145) mmol/L Potassium 4.3 (3.5-5.1) mmol/L Chloride 103 (98-107) mmol/L Carbon Dioxide 25 (22-30) mmol/L Anion Gap 10 mmol/L BUN 23 H (7-17) mg/dL Creatinine 1.21 H (0.52-1.04) mg/dL Est GFR (CKD-EPI)AfAm 50 (>60 ml/min/1.73 sqM) Est GFR (CKD-EPI)NonAf 43 (>60 ml/min/1.73 sqM) Glucose 128 H (74-99) mg/dL Calcium 9.3 (8.4-10.2) mg/dL Total Bilirubin 0.7 (0.2-1.3) mg/dL AST 26 (14-36) U/L ALT 17 (4-34) U/L Alkaline Phosphatase 66 (38-126) U/L Troponin I <0.012 (0.000-0.034) ng/mL Total Protein 6.3 (6.3-8.2) g/dL Albumin 3.7 (3.5-5.0) g/dL Amylase 47 (30-110) U/L Lipase 85 (23-300) U/L Urine Color Urine Appearance (Clear) Urine pH (5.0-8.0) Ur Specific [place] (1.001-1.035) Urine Protein (Negative) Urine Glucose (UA) (Negative) Urine Ketones (Negative) Urine Blood (Negative) Urine Nitrite (Negative) Urine Bilirubin (Negative) Urine Urobilinogen (<2.0) mg/dL Ur Leukocyte Esterase (Negative) Urine RBC (0-5) /hpf Urine WBC (0-5) /hpf Ur Squamous Epith Cells (0-4) /hpf Urine Bacteria (None) /hpf Hyaline Casts (0-2) /lpf Urine Mucus (None) /hpf 03/13/25 Range/Units 14:39 WBC (4.50-10.00) 10*3/uL RBC (4.10-5.20) 10*6/uL Hgb (12.0-15.0) g/dL Hct (37.2-46.3) % MCV (80.0-97.0) fL MCH (27.0-32.0) pg MCHC (32.0-37.0) g/dL Plt Count (140-440) 10*3/uL MPV (9.5-12.2) fL Immature Gran % (Auto) % Neutrophils % % Lymphocytes % % Monocytes % % Eosinophils % % Basophils % % Immature Gran # (0.00-0.04) 10*3/uL Neutrophils # (1.80-7.70) 10*3/uL Lymphocytes # (0.90-5.00) 10*3/uL Monocytes # (0.20-1.00) 10*3/uL Eosinophils # (0.04-0.35) 10*3/uL Basophils # (0.00-0.10) 10*3/uL Sodium (137-145) mmol/L Potassium (3.5-5.1) mmol/L Chloride (98-107) mmol/L Carbon Dioxide (22-30) mmol/L Anion Gap mmol/L BUN (7-17) mg/dL Creatinine (0.52-1.04) mg/dL Est GFR (CKD-EPI)AfAm (>60 ml/min/1.73 sqM) Est GFR (CKD-EPI)NonAf (>60 ml/min/1.73 sqM) Glucose (74-99) mg/dL Calcium (8.4-10.2) mg/dL Total Bilirubin (0.2-1.3) mg/dL AST (14-36) U/L ALT (4-34) U/L Alkaline Phosphatase (38-126) U/L Troponin I (0.000-0.034) ng/mL Total Protein (6.3-8.2) g/dL Albumin (3.5-5.0) g/dL Amylase (30-110) U/L Lipase (23-300) U/L Urine Color Yellow Urine Appearance Clear (Clear) Urine pH 5.5 (5.0-8.0) Ur Specific [place] 1.021 (1.001-1.035) Urine Protein 2+ H (Negative) Urine Glucose (UA) Negative (Negative) Urine Ketones Negative (Negative) Urine Blood Negative (Negative) Urine Nitrite Negative (Negative) Urine Bilirubin Negative (Negative) Urine Urobilinogen <2.0 (<2.0) mg/dL Ur Leukocyte Esterase Negative (Negative) Urine RBC 1 (0-5) /hpf Urine WBC 2 (0-5) /hpf Ur Squamous Epith Cells 2 (0-4) /hpf Urine Bacteria Rare H (None) /hpf Hyaline Casts 4 H (0-2) /lpf Urine Mucus Occasional H (None) /hpf Disposition Clinical Impression: Upper abdominal pain, unspecified Disposition: HOME SELF-CARE Condition: Good Instructions (If sedation given, give patient instructions): Abdominal Pain (ED) Additional Instructions: Please return to the Emergency Department if symptoms worsen or any other concerns. Is patient prescribed a controlled substance at d/c from ED?: No Referrals: Gaurav Wadsworth DO [Primary Care Provider] - 1-2 days Time of Disposition: 17:19
--- NOTE | 2025-03-13 14:32 | US ---
EXAMINATION TYPE: US gallbladder DATE OF EXAM: 03/13/2025 COMPARISON: Ultrasound 01/08/2024 CLINICAL INDICATION: Female, 79 years old with history of RUQ ab pain w/ rad. into back, bloating; RU Q pain TECHNIQUE: Grayscale and color Doppler imaging of the right upper quadrant was performed. FINDINGS: EXAM MEASUREMENTS: Liver Length: 14.3 cm Gallbladder Wall: 0.21 cm CBD: Not seen Right Kidney: 9.5 x 4.7 x 4.5 cm FUEL TECHNICIAN NOTES:Slightly limited due to bowel gas and body habitus Pancreas: not well visualized due to bowel gas Liver: wnl Gallbladder: wnl Evidence for sonographic Nicole's sign: No CBD: not seen Right Kidney: Incidental 2.0 cm renal cortical cyst. No hydronephrosis. IMPRESSION: 1. Suboptimal visualization the pancreas. The bile duct could also not be adequately visualized due t o bowel gas and body habitus. 2. No gallstones. [facility], , 03/13/2025 2:29 PM
[2025-03-13 14:41] LABS: Basophils # (A) 0.04 10*3/uL (0.00-0.10); Basophils % (A) 0.6 %; Eosinophils # (A) 0.17 10*3/uL (0.04-0.35); Eosinophils % (A) 2.6 %; HCT 33.4 % (37.2-46.3); HGB 11.1 g/dL (12.0-15.0); Lymphocytes # (A) 1.17 10*3/uL (0.90-5.00); Lymphocytes % (A) 17.8 %; MCH 28.5 pg (27.0-32.0); MCHC 33.2 g/dL (32.0-37.0); MCV 85.9 fL (80.0-97.0); Mean Platelet Volume 10.8 fL (9.5-12.2); Monocytes # (A) 0.48 10*3/uL (0.20-1.00); Monocytes % (A) 7.3 %; Neutrophils # (A) 4.71 10*3/uL (1.80-7.70); Neutrophils % (A) 71.5 %; Platelet Count 210 10*3/uL (140-440); RBC 3.89 10*6/uL (4.10-5.20); RDW 13.2 % (11.5-14.5); WBC 6.58 10*3/uL (4.50-10.00)
[2025-03-13 15:02] LABS: Appearance,Urine Clear (Clear); Bacteria,Urine Rare /hpf; Bilirubin,Urine Negative (Negative); Blood,Urine Negative (Negative); Color,Urine Yellow; Glucose,Urine (UA) Negative (Negative); Hyaline Casts,Urine 4 /lpf (0-2); Ketones,Urine Negative (Negative); Leukocyte Esterase,Urine Negative (Negative); Mucus,Urine Occasional /hpf; Nitrite,Urine Negative (Negative); PH, Urine 5.5 (5.0-8.0); Protein,Urine 2+ (Negative); RBC,Urine 1 /hpf (0-5); Specific Gravity,Urine 1.021 (1.001-1.035); Squamous Epithelial Cell,Urine 2 /hpf (0-4); Urobilinogen,Urine <2.0 mg/dL (<2.0); WBC,Urine 2 /hpf (0-5)
[2025-03-13 15:06] LABS: ALT 17 U/L (4-34); AST 26 U/L (14-36); African American GFR (CKD) 50 (>60 ml/min/1.73 sqM); Albumin 3.7 g/dL (3.5-5.0); Alkaline Phosphatase 66 U/L (38-126); Amylase 47 U/L (30-110); Anion Gap 10 mmol/L; Blood Urea Nitrogen 23 mg/dL (7-17); Calcium 9.3 mg/dL (8.4-10.2); Carbon Dioxide 25 mmol/L (22-30); Chloride 103 mmol/L (98-107); Glucose 128 mg/dL (74-99); Lipase 85 U/L (23-300); Non-African American GFR(CKD) 43 (>60 ml/min/1.73 sqM); Potassium 4.3 mmol/L (3.5-5.1); Sodium 138 mmol/L (137-145); Total Bilirubin 0.7 mg/dL (0.2-1.3); Total Protein 6.3 g/dL (6.3-8.2)
[2025-03-13] MEDS: SODIUM CHLORIDE 0.9% 1,000 ML IV ONE (16:42)
--- NOTE | 2025-03-13 17:09 | CT ---
EXAMINATION TYPE: CT abdomen pelvis w con DATE OF EXAM: 03/13/2025 4:41 PM COMPARISON: 10/07/2022 CLINICAL INDICATION: Female, 79 years old with history of RUQ ab pain, TECHNIQUE: Axial images were obtained from above the diaphragm to the pubic rami in the axial plane a t 5 mm thick sections. Reconstructed images are reviewed on the computer in the coronal plane. CONTRAST: mL of . Study performed DLP: 1014.6 mGycm, Automated exposure control for dose reduction was used. FINDINGS: Limited CT sections are obtained the lung bases. The lung bases are clear. CT ABDOMEN: Liver: Normal Spleen: Normal Pancreas: Normal Adrenal glands: The adrenal glands are normal. Gallbladder: Normal Kidneys: No masses are evident. No hydronephrosis is present. There is a medial cortical renal cyst s on the right kidney measuring 2.1 cm. Delayed images were obtained through the kidneys, which celi in unremarkable. Aorta: Vascular calcification is within the aorta. Inferior vena cava: Normal. CT PELVIS: Subtle thickening of the cecum may be present. There are loops of bowel which are incompletely disten ded or lack oral contrast limiting their evaluation. Appendix: Normal as visualized. Urinary bladder: Normal. Genitourinary structures: Uterus is normal. Adnexa are unremarkable. Osseous structures: No suspicious lytic or sclerotic lesions. IMPRESSION: 1. There may be some subtle colitis of the ascending colon. Clinical correlation is recommended. 2. No other suspicious abnormality to account for right upper quadrant pain. [facility], , 03/13/2025 5:07 PM
[2025-03-13 18:16] VITALS: BP 173/77; PULSE 57; RESP 16; TEMP 98
== END 2025-03-13 18:15 | disposition home or self-care (01) ==
LOC: EC 12:36
DX: R10.11 Right upper quadrant pain (principal); Z87.891 Personal history of nicotine dependence
CPT/HCPCS: 36415; 93005; 80053; 82150; 83690; 84484; 85025; 81001; 76705; 74177; 99284; 96360; Q9967

== ENCOUNTER 2025-03-16 03:27 | Observation (INO) | payer MEDICARE ==
--- NOTE | 2025-03-16 05:57 | ED ---
Recheck HPI - General Chief Complaint: Abdominal Pain Stated Complaint: Back and abd pain Time Seen by Provider: 03/16/25 05:55 Source: patient, RN notes reviewed, old records reviewed Mode of arrival: wheelchair Limitations: no limitations - History of Present Illness Initial Comments: This is a 79-year-old female for repeat visit, recurrent evaluation of back pain abdominal pain seen here in the emergency department 3 days ago with pain and symptoms worsening MD Complaint: other (pain) -: days(s) Returns Today for: persistent/worsening pain related to initial visit Symptoms Since Prior Visit: worsening pain Associated Symptoms: none Treatments Prior to Arrival: Given Pain Meds on - Related Data Home Medications Medication Instructions Recorded Confirmed Ascorbic Acid [Vitamin C] 1,000 mg PO DAILY 07/11/21 03/16/25 Atorvastatin [Lipitor] 80 mg PO HS 07/11/21 03/16/25 Biotin 10,000 mcg PO DAILY 07/11/21 03/16/25 Cholecalciferol [Vitamin D3 (25 50 mcg PO DAILY 07/11/21 03/16/25 Mcg = 1000 Iu)] Omeprazole 20 mg PO DAILY 07/11/21 03/16/25 Citalopram Hydrobromide [CeleXA] 40 mg PO DAILY 08/21/21 03/16/25 Ezetimibe [Zetia] 10 mg PO DAILY 09/28/21 03/16/25 Albuterol Inhaler [Ventolin Hfa 2 puff INHALATION RT-Q6H PRN 12/14/22 03/16/25 Inhaler] Vitamin B Complex 1 cap PO DAILY 12/14/22 03/16/25 Vitamin E(Unknown Dose) 1 cap PO DAILY 12/14/22 03/16/25 Melatonin 3 mg PO HS PRN 01/15/23 03/16/25 Nitroglycerin Sl Tabs [Nitrostat] 0.4 mg SL Q5M PRN 01/15/23 03/16/25 Fluticasone Propionate 110 Mcg 2 puff INHALATION RT-BID PRN 01/20/23 03/16/25 [Flovent 110 Mcg Inhaler] Insulin NPH Hum/Reg Insulin Hm 10 unit SQ BID 01/28/23 03/16/25 [NovoLIN 70-30 100 Unit/ml Vial] Losartan Potassium [Cozaar] 25 mg PO DAILY 06/15/23 03/16/25 hydrALAZINE HCL [Apresoline] 25 mg PO BID 06/15/23 03/16/25 Fluticasone Nasal [place] [Flonase 2 spr EA NOSTRIL DAILY PRN 01/20/25 03/16/25 Nasal [place]] Previous Rx's Medication Instructions Recorded Apixaban [Eliquis] 5 mg PO BID #60 tab 12/17/22 Acetaminophen Tab [Tylenol] 650 mg PO Q6HR PRN tab 03/17/25 HYDROcodone/APAP 5-325MG [[place] 1 each PO Q4H PRN #18 tab 03/17/25 5-325] Allergies Allergy/AdvReac Type Severity Reaction Status Date / Time No Known Allergies Allergy Verified 03/16/25 11:05 Review of Systems ROS Statement: Those systems with pertinent positive or pertinent negative responses have been documented in the HPI. ROS Other: All systems not noted in ROS Statement are negative. Past Medical History Past Medical History: Asthma, Coronary Artery Disease (CAD), Chest Pain / Angina, COPD, Diabetes Mellitus, Eye Disorder, GERD/Reflux, Hyperlipidemia, Hypertension, Osteoarthritis (OA), Renal Disease, Respiratory Disorder, Rheumatoid Arthritis (RA) Additional Past Medical History / Comment(s): Anemia, heart murmur, hx scarlet fever, neuropathy arms hands & feet, type 2 diabetes, states 50% kidney function, COVID September 2020, retinopathy History of Any Multi-Drug Resistant Organisms: None Reported Past Surgical History: Ablation, Back Surgery, Heart Catheterization With Stent Additional Past Surgical History / Comment(s): Total 5 cardiac stents, 3 total heart catheterizations, carpel tunnel surgery, lower back surgery with fusion, D&C, afib ablation 01/20/23. Past Anesthesia/Blood Transfusion Reactions: No Reported Reaction Additional Past Anesthesia/Blood Transfusion Reaction / Comment(s): difficulty waking up. no blood transfusion reaction Date of Last Stent Placement:: 12/2020 Past Psychological History: Anxiety Smoking Status: Former smoker Past Alcohol Use History: None Reported Past Drug Use History: None Reported - Past Family History Son(s) Family Medical History: Pulmonary Embolus Additional Family Medical History / Comment(s): surgery to leg then developed pulmonary embolus Sister(s) Family Medical History: Cancer Additional Family Medical History / Comment(s): lung , pancreatic both sisters Brother(s) Family Medical History: Cancer Additional Family Medical History / Comment(s): lung General Exam Limitations: no limitations General appearance: alert, in no apparent distress Head exam: Present: atraumatic, normocephalic, normal inspection Eye exam: Present: normal appearance, PERRL, EOMI. Absent: scleral icterus, conjunctival injection, periorbital swelling ENT exam: Present: normal exam, mucous membranes moist Neck exam: Present: normal inspection. Absent: tenderness, meningismus, lymphadenopathy Respiratory exam: Present: normal lung sounds bilaterally. Absent: respiratory distress, wheezes, rales, rhonchi, stridor Cardiovascular Exam: Present: regular rate, normal rhythm, normal heart sounds. Absent: systolic murmur, diastolic murmur, rubs, gallop, clicks GI/Abdominal exam: Present: soft, normal bowel sounds. Absent: distended, tenderness, guarding, rebound, rigid Extremities exam: Present: normal inspection, full ROM, normal capillary refill. Absent: tenderness, pedal edema, joint swelling, calf tenderness Back exam: Present: normal inspection Neurological exam: Present: alert, oriented X3, CN II-XII intact Psychiatric exam: Present: normal affect, normal mood Skin exam: Present: warm, dry, intact, normal color. Absent: rash Course Vital Signs 03/16/25 03/16/25 03/16/25 03:28 06:44 07:00 Temperature 97.8 F Pulse Rate 58 L 87 79 Respiratory 18 18 20 Rate Blood Pressure 205/72 184/73 167/76 O2 Sat by Pulse 96 94 L 94 L Oximetry 03/16/25 03/16/25 03/16/25 07:43 08:01 10:18 Temperature 98.1 F Pulse Rate 77 Respiratory 17 Rate Blood Pressure 171/76 155/75 148/63 O2 Sat by Pulse 94 L Oximetry 03/16/25 03/16/25 03/16/25 11:22 14:30 16:47 Temperature 98.0 F 98.0 F Pulse Rate 82 77 75 Respiratory 20 20 Rate Blood Pressure 153/75 144/69 153/65 O2 Sat by Pulse 97 97 Oximetry 03/16/25 03/16/25 19:03 20:25 Temperature 98.1 F 97.7 F Pulse Rate 76 71 Respiratory 20 18 Rate Blood Pressure 162/68 142/61 O2 Sat by Pulse 97 97 Oximetry - Reevaluation(s) Reevaluation #1: 03/16/25 05:56 Medical records reviewed ER visit from 3 years ago was reviewed including CT scan and ultrasound normal Reevaluation #2: 03/16/25 05:56 Symptoms still with pain here in the ED Reevaluation #3: 03/16/25 07:16 patient symptoms not improved Reevaluation #4: Was pt. sent in by a medical professional or institution ([facility], [facility], urgent care, hospital, or [facility]...) When possible be specific @ -no Did you speak to anyone other than the patient for history (EMS, parent, family, police, friend...)? What history was obtained from this source @ -no Did you review nursing and triage notes (agree or disagree)? Why? @ -agree Are old charts reviewed (outside hosp., previous admission, EMS record, old EKG, old radiological studies, urgent care reports/EKG's, [facility] records)? Report findings @ -yes Differential Diagnosis (chest pain, altered mental status, abdominal pain women, abdominal pain men, vaginal bleeding, weakness, fever, dyspnea, syncope, headache, dizziness, GI bleed, back pain, seizure, CVA, palpatations, mental health, musculoskeletal)? @ -prior EKG interpreted by me (3pts min.). @ -yes X-rays interpreted by me (1pt min.). @ -no CT interpreted by me (1pt min.). @ -yes negative for acute disease U/S interpreted by me (1pt. min.). @ -no What testing was considered but not performed or refused? (CT, X-rays, U/S, labs)? Why? @ -none What meds were considered but not given or refused? Why? @ -none Did you discuss the management of the patient with other professionals (professionals i.e. [facility], [facility], lab, RT, psych nurse, health and social care teacher, immigration lawyer, teacher, radiation officer, caseworker protective services)? Give summary @ -no Was smoking cessation discussed for >3mins.? @ -no Was critical care preformed (if so, how long)? @ -no Were there social determinants of health that impacted care today? How? (Homelessness, low income, unemployed, alcoholism, drug addiction, zaldivar sportation, low edu. Level, literacy, decrease access to med. care, [facility], rehab)? @ -none Was there de-escalation of care discussed even if they declined (Discuss DNR or withdrawal of care, Hospice)? DNR status @ -no What co-morbidities impacted this encounter? (DM, HTN, Smoking, COPD, CAD, Cancer, CVA, ARF, Chemo, Hep., AIDS, mental health diagnosis, sleep apnea, morbid obesity)? @ -none Was patient admitted / discharged? Hospital course, mention meds given and route, prescriptions, significant lab abnormalities, going to OR and other pertinent info. @ - 76 female to the ED for NV abdominal pain, persistent colitis, failed OPtx. Will admit for pain control and IVF, Mag replacement Admitted Undiagnosed new problem with uncertain prognosis? @ -no Drug Therapy requiring intensive monitoring for toxicity (Heparin, Nitro, Insulin, Cardizem)? @ -no Were any procedures done? @ -no Diagnosis/symptom? @ -Persistent abdominal pain enteritis Acute, or Chronic, or Acute on Chronic? @ -Acute Uncomplicated (without systemic symptoms) or Complicated (systemic symptoms)? @ -Complicated Side effects of treatment? @ -no Exacerbation, Progression, or Severe Exacerbation? @ -exacerbation Poses a threat to life or bodily function? How? (Chest pain, [place], [place], pneumonia, PE, COPD, DKA, ARF, appy, cholecystitis, CVA, Diverticulitis, Homicidal, Suicidal, threat to staff... and all critical care pts) @ -yes extremes of Reevaluation #5: Differential Abdominal Pain Women: Appendicitis, Cholecystitis, diverticulosis, ischemic bowel, pancreatitis, hepatitis, UTI, gastroenteritis, AAA, incarcerated hernia, bowel obstruction, constipation, inflammatory bowel, hepatitis, peptic ulcer disease, splenic infarction, perforated viscus, vulvitis, ovarian torsion, PID, kidney stone, placenta abruption, this is not meant to be an all-inclusive list Differential Back Pain: Strain, zoster, cauda equina syndrome, epidural abscess, vertebral osteomyelitis, discitis, fracture, subluxation, disc herniation, DJD, spinal stenosis, dissection, AAA, pancreatitis, peptic ulcer disease, pyelonephritis, kidney stone, this is not meant to be an all-inclusive list. - Consultations Consultation #1: spoke evelio rolon for admission Medical Decision Making - Medical Decision Making 76 female to the ED for NV abdominal pain, persistent colitis, failed OPtx. Will admit for pain control and IVF, Mag replacement - Lab Data Result diagrams: 03/17/25 04:16 03/17/25 04:16 Lab Results 03/16/25 03/16/25 03/16/25 Range/Units 06:24 06:24 06:24 WBC 6.35 (4.50-10.00) 10*3/uL RBC 3.69 L (4.10-5.20) 10*6/uL Hgb 10.5 L (12.0-15.0) g/dL Hct 31.4 L (37.2-46.3) % MCV 85.1 (80.0-97.0) fL MCH 28.5 (27.0-32.0) pg MCHC 33.4 (32.0-37.0) g/dL Plt Count 187 (140-440) 10*3/uL MPV 10.6 (9.5-12.2) fL Immature Gran % (Auto) 0.3 % Neutrophils % 62.5 % Lymphocytes % 24.1 % Monocytes % 9.6 % Eosinophils % 2.7 % Basophils % 0.8 % Immature Gran # 0.02 (0.00-0.04) 10*3/uL Neutrophils # 3.97 (1.80-7.70) 10*3/uL Lymphocytes # 1.53 (0.90-5.00) 10*3/uL Monocytes # 0.61 (0.20-1.00) 10*3/uL Eosinophils # 0.17 (0.04-0.35) 10*3/uL Basophils # 0.05 (0.00-0.10) 10*3/uL PT 11.3 (10.0-12.5) sec INR 1.0 (<1.2) APTT 26.2 (22.0-30.0) sec Sodium 138 (137-145) mmol/L Potassium 3.9 (3.5-5.1) mmol/L Chloride 107 (98-107) mmol/L Carbon Dioxide 24 (22-30) mmol/L Anion Gap 7 mmol/L BUN 22 H (7-17) mg/dL Creatinine 1.19 H (0.52-1.04) mg/dL Est GFR (CKD-EPI)AfAm 51 (>60 ml/min/1.73 sqM) Est GFR (CKD-EPI)NonAf 44 (>60 ml/min/1.73 sqM) Glucose 124 H (74-99) mg/dL Plasma Lactic Acid Brennon (0.7-2.0) mmol/L Calcium 8.9 (8.4-10.2) mg/dL Phosphorus 4.0 (2.5-4.5) mg/dL Magnesium 1.5 L (1.6-2.3) mg/dL Total Bilirubin 0.5 (0.2-1.3) mg/dL AST 24 (14-36) U/L ALT 16 (4-34) U/L Alkaline Phosphatase 67 (38-126) U/L Troponin I (0.000-0.034) ng/mL Total Protein 6.2 L (6.3-8.2) g/dL Albumin 3.6 (3.5-5.0) g/dL 03/16/25 03/16/25 Range/Units 06:24 06:24 WBC (4.50-10.00) 10*3/uL RBC (4.10-5.20) 10*6/uL Hgb (12.0-15.0) g/dL Hct (37.2-46.3) % MCV (80.0-97.0) fL MCH (27.0-32.0) pg MCHC (32.0-37.0) g/dL Plt Count (140-440) 10*3/uL MPV (9.5-12.2) fL Immature Gran % (Auto) % Neutrophils % % Lymphocytes % % Monocytes % % Eosinophils % % Basophils % % Immature Gran # (0.00-0.04) 10*3/uL Neutrophils # (1.80-7.70) 10*3/uL Lymphocytes # (0.90-5.00) 10*3/uL Monocytes # (0.20-1.00) 10*3/uL Eosinophils # (0.04-0.35) 10*3/uL Basophils # (0.00-0.10) 10*3/uL PT (10.0-12.5) sec INR (<1.2) APTT (22.0-30.0) sec Sodium (137-145) mmol/L Potassium (3.5-5.1) mmol/L Chloride (98-107) mmol/L Carbon Dioxide (22-30) mmol/L Anion Gap mmol/L BUN (7-17) mg/dL Creatinine (0.52-1.04) mg/dL Est GFR (CKD-EPI)AfAm (>60 ml/min/1.73 sqM) Est GFR (CKD-EPI)NonAf (>60 ml/min/1.73 sqM) Glucose (74-99) mg/dL Plasma Lactic Acid Bren[place] 1.0 (0.7-2.0) mmol/L Calcium (8.4-10.2) mg/dL Phosphorus (2.5-4.5) mg/dL Magnesium (1.6-2.3) mg/dL Total Bilirubin (0.2-1.3) mg/dL AST (14-36) U/L ALT (4-34) U/L Alkaline Phosphatase (38-126) U/L Troponin I <0.012 (0.000-0.034) ng/mL Total Protein (6.3-8.2) g/dL Albumin (3.5-5.0) g/dL - EKG Data -: EKG Interpreted by Me (EKG is sinus 51 UT 129 QRS 88 QTc 455) - Radiology Data Radiology results: report reviewed (CT adb pelvis positive for colitis), image reviewed Disposition Clinical Impression: Abdominal pain, Colitis, Nausea & vomiting Disposition: ADMITTED IP TO THIS [facility] Condition: Fair Is patient prescribed a controlled substance at d/c from ED?: No Time of Disposition: 07:00
[2025-03-16 06:37] LABS: Basophils # (A) 0.05 10*3/uL (0.00-0.10); Basophils % (A) 0.8 %; Eosinophils # (A) 0.17 10*3/uL (0.04-0.35); Eosinophils % (A) 2.7 %; HCT 31.4 % (37.2-46.3); HGB 10.5 g/dL (12.0-15.0); Lymphocytes # (A) 1.53 10*3/uL (0.90-5.00); Lymphocytes % (A) 24.1 %; MCH 28.5 pg (27.0-32.0); MCHC 33.4 g/dL (32.0-37.0); MCV 85.1 fL (80.0-97.0); Mean Platelet Volume 10.6 fL (9.5-12.2); Monocytes # (A) 0.61 10*3/uL (0.20-1.00); Monocytes % (A) 9.6 %; Neutrophils # (A) 3.97 10*3/uL (1.80-7.70); Neutrophils % (A) 62.5 %; Platelet Count 187 10*3/uL (140-440); RBC 3.69 10*6/uL (4.10-5.20); RDW 13.2 % (11.5-14.5); WBC 6.35 10*3/uL (4.50-10.00)
[2025-03-16] MEDS: ONDANSETRON 4 MG/2 ML VIAL IVP STA (06:39)
[2025-03-16] MEDS: SODIUM CHLORIDE 0.9% 1,000 ML IV ONE (06:40)
[2025-03-16] MEDS: MORPHINE SULFATE 4 MG/ML SYRINGE IVP STA (06:40)
[2025-03-16 06:49] LABS: ALT 16 U/L (4-34); AST 24 U/L (14-36); African American GFR (CKD) 51 (>60 ml/min/1.73 sqM); Albumin 3.6 g/dL (3.5-5.0); Alkaline Phosphatase 67 U/L (38-126); Anion Gap 7 mmol/L; Blood Urea Nitrogen 22 mg/dL (7-17); Calcium 8.9 mg/dL (8.4-10.2); Carbon Dioxide 24 mmol/L (22-30); Chloride 107 mmol/L (98-107); Glucose 124 mg/dL (74-99); Magnesium 1.5 mg/dL (1.6-2.3); Non-African American GFR(CKD) 44 (>60 ml/min/1.73 sqM); Partial Thromboplastin Time 26.2 sec (22.0-30.0); Potassium 3.9 mmol/L (3.5-5.1); Prothrombin Time 11.3 sec (10.0-12.5); Sodium 138 mmol/L (137-145); Total Bilirubin 0.5 mg/dL (0.2-1.3); Total Protein 6.2 g/dL (6.3-8.2)
[2025-03-16] MEDS: hydrALAZINE HCL 20 MG/ML 1 ML VIAL IVP STA (06:51)
--- NOTE | 2025-03-16 06:58 | CT ---
EXAM: CT Abdomen and Pelvis Without Intravenous Contrast CLINICAL HISTORY: abdomen pain has increased since last seen here on 03.13.25 TECHNIQUE: Axial computed tomography images of the abdomen and pelvis without intravenous contrast. Coronal and sagittal reconstructions are performed. CTDI is 12.5 mGy and DLP is 687 mGy-cm. This CT exam was performed using one or more of the following dose reduction techniques: automated exposure control, adjustment of the mA and/or kV according to patient size, and/or use of iterative reconstruction technique. 434 images COMPARISON: 03/13/2025 FINDINGS: Lung bases: Unremarkable. No mass. No consolidation. Heart: Large amount of mitral annular calcifications. ABDOMEN: Liver: Perlita's lobe of the liver. Gallbladder and bile ducts: No acute findings. Pancreas: Unremarkable. No ductal dilation. Spleen: Unremarkable. No splenomegaly. Adrenals: Unremarkable. No mass. Kidneys and ureters: 3 cm right renal cyst is again noted. No obstructing stones. No hydronephrosis. Stomach and bowel: Previously identified mild bowel wall thickening of the ascending colon is no longer seen, likely due to underdistention. Circumferential wall thickening of duodenum and proximal jejunum measuring up to 11 mm suggest enteritis. PELVIS: Appendix: Normal. Bladder: Unremarkable. No stones. Reproductive: No acute findings. ABDOMEN and PELVIS: Intraperitoneal space: Unremarkable. No free air. No significant fluid collection. Bones/joints: Unchanged. Osteopenia. Moderate degenerative changes. Mild upper lumbar scoliosis convex to the right. Lower lumbar fusion hardware cause large amount of streak artifact which decreases sensitivity on associated images. Grade 1 anterolisthesis of L4 on L5. Soft tissues: Mild anasarca. Vasculature: Moderate amount of atherosclerotic calcifications. No abdominal aortic aneurysm. Lymph nodes: Unremarkable. No enlarged lymph nodes. IMPRESSION: Circumferential wall thickening of duodenum and proximal jejunum suggests enteritis.
[2025-03-16] MEDS ORDERED: NALOXONE 0.4 MG/ML 1 ML VIAL IV PRN (07:10)
[2025-03-16] MEDS ORDERED: MORPHINE SULFATE 4 MG/ML SYRINGE IV PRN (07:10)
[2025-03-16] MEDS: MAGNESIUM OXIDE 400 MG TAB PO STA ×2 (07:45→07:55)
[2025-03-16] MEDS: MAGNESIUM SULFATE-D5W PMX 1 GM in DEXTROSE/WATER 1 100ML.BAG IVPB ONE (07:59)
[2025-03-16] MEDS: SODIUM CHLORIDE 0.9% 1,000 ML IV SCH (08:03)
[2025-03-16] MEDS: hydrALAZINE HCL 25 MG TAB PO SCH (08:43)
[2025-03-16] MEDS: LOSARTAN 25 MG TAB PO SCH (08:44)
[2025-03-16] MEDS: PANTOPRAZOLE 40 MG/10 ML VIAL IV SCH (08:44)
[2025-03-16] MEDS ORDERED: DEXTROSE 50% SYRINGE 50 ML IVP PRN ×2 (09:30)
--- NOTE | 2025-03-16 09:31 | P.HPIM ---
History of Present Illness H&P Date: 03/16/25 Patient is a 79-year-old female with history of type 2 diabetes, hypertension, dyslipidemia, CAD status post stents, COPD/asthma, GERD, paroxysmal A-fib presenting with abdominal pain. She claims that her abdominal pain started about 1 week ago. It is mostly epigastric and then sometimes going to her back. She presented to the ER few days ago with unbearable pain, and was discharged home. Her pain persisted prompting her to come back to the ER. She denies any significant nausea or vomiting, diarrhea, constipation, or urinary complaints. She denies any fevers or chills. She is not having any difficulty eating or drinking. She claims that her pain is constant without any significant relieving or aggravating factors. It is still in the epigastric region wrapping around to her back. She denies any sick contacts or travel history. She denies smoking, alcohol use, illicit drug use. In the ED, temperature was 97.8, pulse 58, respiratory rate 18, blood pressure 205/72, saturating at 96% on room air. WBC 6.35, hemoglobin 10.5, around baseline, platelet 187, creatinine 1.19 from baseline, lactate 1, troponin negative. Magnesium 1.5. CT abdomen pelvis showed circumferential wall thickening of duodenum and proximal duodenum suggestive of enteritis. Patient was given 1 L of normal saline in the ED, as well as IV and oral magnesium. She was also given 1 dose of IV hydralazine 10 mg in the ED. She is admitted as observation for management of enteritis. Pertinent positives and negatives as discussed in HPI, a complete review of systems was performed and all other systems are negative. Patient seen and examined at bedside. Vital signs reviewed General: nontoxic, no distress, appears at stated age Derm: warm, dry Head: atraumatic, normocephalic, symmetric Eyes: EOMI, no lid lag, anicteric sclera, pupils equal round reactive to light ENT: Nose and ears atraumatic Neck: No thyromegaly, supple Mouth: no lip lesion, mucus membranes moist Cardiovascular: S1S2 reg, no murmur, no edema Lungs: clear to auscultation bilateral, no rhonchi, no rales, no wheeze, no accessory muscle use Abdominal: soft, mild tenderness to palpation in epigastric region, no guarding, no appreciable organomegaly Ext: no gross muscle atrophy, muscle strength muscle strength 5 out of 5 in all 4 extremities, no contractures Neuro: CN II-XII grossly intact Psych: Alert, oriented, appropriate affect Assessment/Plan: Active: Enteritis Dehydration Nausea/vomiting History of GERD - Likely causes viral - Patient does not have any signs of systemic infection - Okay to continue normal saline at 75 cc an hour - Zofran 4 mg IV every 8 hours as needed - Protonix IV 40 daily - Pain control with oral Tylenol 650 every 6 hours as needed, oral Covel 5 every 6 hours as needed, IV morphine every 4 hours as needed, monitor for sedation - Continue on clear liquid diet, advance diet as tolerated Hypertensive urgency - Blood pressure now improved after getting IV hydralazine in the ED - Will restart patient's home hydralazine 25 twice daily, losartan 25 daily Type 2 diabetes - Sliding scale insulin, monitor for hypoglycemia - Restart home insulin once confirmed by pharmacy Chronic: COPD, not in exacerbation Paroxysmal atrial fibrillation CAD status post stent Dyslipidemia Depression/anxiety Reorder home meds once reconciled by pharmacy. The patient is admitted with an anticipated less than 2 midnight stay as observation status for evaluation of enteritis. Surrogate decision-maker: Spouse CODE STATUS: Full code DVT prophylaxis: Eliquis Anticipated discharge date: Pending clinical course Anticipated discharge place: Pending clinical course A total of 65 minutes was spent on the care of this complex patient more than 50% of the time was spent in counseling and care coordination. Past Medical History Past Medical History: Asthma, Coronary Artery Disease (CAD), Chest Pain / Angina, COPD, Diabetes Mellitus, Eye Disorder, GERD/Reflux, Hyperlipidemia, Hypertension, Osteoarthritis (OA), Renal Disease, Respiratory Disorder, Rheumatoid Arthritis (RA) Additional Past Medical History / Comment(s): Anemia, heart murmur, hx scarlet fever, neuropathy arms hands & feet, type 2 diabetes, states 50% kidney function, COVID September 2020, retinopathy History of Any Multi-Drug Resistant Organisms: None Reported Past Surgical History: Ablation, Back Surgery, Heart Catheterization With Stent Additional Past Surgical History / Comment(s): Total 5 cardiac stents, 3 total heart catheterizations, carpel tunnel surgery, lower back surgery with fusion, D&C, afib ablation 01/20/23. Past Anesthesia/Blood Transfusion Reactions: No Reported Reaction Additional Past Anesthesia/Blood Transfusion Reaction / Comment(s): difficulty waking up. no blood transfusion reaction Date of Last Stent Placement:: 12/2020 Past Psychological History: Anxiety Smoking Status: Former smoker Past Alcohol Use History: None Reported Past Drug Use History: None Reported - Past Family History Son(s) Family Medical History: Pulmonary Embolus Additional Family Medical History / Comment(s): surgery to leg then developed pulmonary embolus Sister(s) Family Medical History: Cancer Additional Family Medical History / Comment(s): lung , pancreatic both sisters Brother(s) Family Medical History: Cancer Additional Family Medical History / Comment(s): lung Medications and Allergies Home Medications Medication Instructions Recorded Confirmed Type Ascorbic Acid [Vitamin C] 1,000 mg PO DAILY 07/11/21 01/20/25 History Atorvastatin [Lipitor] 80 mg PO HS 07/11/21 01/26/25 History Biotin 10,000 mcg PO DAILY 07/11/21 01/26/25 History Cholecalciferol [Vitamin D3 (25 50 mcg PO DAILY 07/11/21 01/26/25 History Mcg = 1000 Iu)] Omeprazole 20 mg PO DAILY 07/11/21 01/26/25 History Citalopram Hydrobromide [CeleXA] 40 mg PO DAILY 08/21/21 01/26/25 History Ezetimibe [Zetia] 10 mg PO DAILY 09/28/21 01/26/25 History Albuterol Inhaler [Ventolin Hfa 2 puff INHALATION RT-Q6H PRN 12/14/22 01/20/25 History Inhaler] Vitamin B Complex 1 cap PO DAILY 12/14/22 01/26/25 History Vitamin E(Unknown Dose) 1 cap PO DAILY 12/14/22 01/26/25 History Apixaban [Eliquis] 5 mg PO BID #60 tab 12/17/22 01/26/25 Rx Melatonin 3 mg PO HS PRN 01/15/23 01/20/25 History Nitroglycerin Sl Tabs [Nitrostat] 0.4 mg SUBLINGUAL Q5M PRN 01/15/23 01/20/25 History Fluticasone Propionate 110 Mcg 2 puff INHALATION RT-BID PRN 01/20/23 01/20/25 History [Flovent 110 Mcg Inhaler] Insulin NPH Hum/Reg Insulin Hm 10 unit SQ BID 01/28/23 01/26/25 History [NovoLIN 70-30 100 Unit/ml Vial] Losartan Potassium [Cozaar] 25 mg PO DAILY 06/15/23 01/26/25 History hydrALAZINE HCL [Apresoline] 25 mg PO BID 06/15/23 01/26/25 History Fluticasone Nasal [place] [Flonase 2 spray EA NOSTRIL DAILY PRN 01/20/25 01/20/25 History Nasal [place]] Allergies Allergy/AdvReac Type Severity Reaction Status Date / Time No Known Allergies Allergy Verified 03/16/25 03:31 Physical Exam Vitals: Vital Signs Temp Pulse Resp BP Pulse Ox 03/16/25 08:01 98.1 F 77 17 155/75 94 L 03/16/25 07:43 171/76 03/16/25 07:00 79 20 167/76 94 L 03/16/25 06:44 87 18 184/73 94 L 03/16/25 03:28 97.8 F 58 L 18 205/72 96 Intake and Output 03/15/25 03/16/25 03/16/25 22:59 06:59 14:59 Other: Weight 76.204 kg Results CBC & Chem 7: 03/16/25 06:24 03/16/25 06:24 Labs: Abnormal Lab Results - Last 24 Hours (Table) 03/16/25 03/16/25 Range/Units 06:24 06:24 RBC 3.69 L (4.10-5.20) 10*6/uL Hgb 10.5 L (12.0-15.0) g/dL Hct 31.4 L (37.2-46.3) % BUN 22 H (7-17) mg/dL Creatinine 1.19 H (0.52-1.04) mg/dL Glucose 124 H (74-99) mg/dL Magnesium 1.5 L (1.6-2.3) mg/dL Total Protein 6.2 L (6.3-8.2) g/dL
[2025-03-16 09:42] LABS: Glucose,Whole Blood 121 mg/dL (70-110)
[2025-03-16] MEDS: INSULIN LISPRO (HumaLOG) 100 UNIT/ML 10 mL VL SQ SCH (11:37)
[2025-03-16 11:46] LABS: Glucose,Whole Blood 107 mg/dL (70-110)
[2025-03-16 11:54] LABS: Appearance,Urine Clear (Clear); Bilirubin,Urine Negative (Negative); Blood,Urine Negative (Negative); Color,Urine Yellow; Glucose,Urine (UA) Negative (Negative); Ketones,Urine Negative (Negative); Leukocyte Esterase,Urine Negative (Negative); Mucus,Urine Rare /hpf; Nitrite,Urine Negative (Negative); PH, Urine 5.5 (5.0-8.0); Protein,Urine 1+ (Negative); RBC,Urine 1 /hpf (0-5); Specific Gravity,Urine 1.013 (1.001-1.035); Squamous Epithelial Cell,Urine <1 /hpf (0-4); Urobilinogen,Urine <2.0 mg/dL (<2.0); WBC,Urine 1 /hpf (0-5)
[2025-03-16] MEDS: HYDROcodone/APAP 5-325MG 1 EACH TAB PO PRN (12:38)
[2025-03-16 16:48] LABS: Glucose,Whole Blood 131 mg/dL (70-110)
[2025-03-16 21:41] LABS: Glucose,Whole Blood 133 mg/dL (70-110)
[2025-03-16] MEDS: ACETAMINOPHEN TAB 325 MG TAB PO PRN (21:56)
[2025-03-17 02:27] VITALS: PULSE 65
[2025-03-17 04:55] LABS: Basophils # (A) 0.04 10*3/uL (0.00-0.10); Basophils % (A) 0.5 %; Eosinophils # (A) 0.26 10*3/uL (0.04-0.35); Eosinophils % (A) 3.5 %; HCT 30.4 % (37.2-46.3); Lymphocytes % (A) 17.6 %; MCH 28.5 pg (27.0-32.0); MCHC 32.9 g/dL (32.0-37.0); MCV 86.6 fL (80.0-97.0); Mean Platelet Volume 10.7 fL (9.5-12.2); Monocytes # (A) 0.66 10*3/uL (0.20-1.00); Neutrophils # (A) 5.08 10*3/uL (1.80-7.70); Platelet Count 195 10*3/uL (140-440); RBC 3.51 10*6/uL (4.10-5.20); RDW 13.4 % (11.5-14.5); WBC 7.37 10*3/uL (4.50-10.00)
[2025-03-17 05:12] LABS: ALT 15 U/L (4-34); AST 28 U/L (14-36); African American GFR (CKD) 56 (>60 ml/min/1.73 sqM); Albumin 3.3 g/dL (3.5-5.0); Alkaline Phosphatase 63 U/L (38-126); Anion Gap 9 mmol/L; Blood Urea Nitrogen 17 mg/dL (7-17); Calcium 8.9 mg/dL (8.4-10.2); Carbon Dioxide 24 mmol/L (22-30); Chloride 103 mmol/L (98-107); Glucose 127 mg/dL (74-99); Magnesium 1.6 mg/dL (1.6-2.3); Non-African American GFR(CKD) 49 (>60 ml/min/1.73 sqM); Phosphorus 3.8 mg/dL (2.5-4.5); Potassium 4.3 mmol/L (3.5-5.1); Sodium 136 mmol/L (137-145); Total Bilirubin 0.4 mg/dL (0.2-1.3); Total Protein 5.6 g/dL (6.3-8.2)
[2025-03-17 05:48] LABS: Glucose,Whole Blood 152 mg/dL (70-110)
[2025-03-17] MEDS: ONDANSETRON 4 MG/2 ML VIAL IVP PRN (09:13)
[2025-03-17 11:24] VITALS: BP 185/82; RESP 21; TEMP 98
[2025-03-17 12:49] LABS: Glucose,Whole Blood 121 mg/dL (70-110)
--- NOTE | 2025-03-17 15:46 | P.DS ---
Providers Date of admission: 03/16/25 07:14 Expected date of discharge: 03/17/25 Attending physician: Jami Morris MD Primary care physician: Gaurav Wadsworth [facility] Course: Viral gastroenteritis Dehydration Nausea/vomiting History of GERD Hypertensive urgency Type 2 diabetes COPD, not in exacerbation Paroxysmal atrial fibrillation CAD status post stent Dyslipidemia Depression/anxiety Hospital course: Patient is a 79-year-old female with history of type 2 diabetes, hypertension, dyslipidemia, CAD status post stents, COPD/asthma, GERD, paroxysmal A-fib who presented with abdominal pain. In the ED, temperature was 97.8, pulse 58, respiratory rate 18, blood pressure 205/72, saturating at 96% on room air. WBC 6.35, hemoglobin 10.5, around baseline, platelet 187, creatinine 1.19 from baseline, lactate 1, troponin negative. Magnesium 1.5. CT abdomen pelvis showed circumferential wall thickening of duodenum and proximal duodenum suggestive of enteritis. Patient was given 1 L of normal saline in the ED, as well as IV and oral magnesium. She was also given 1 dose of IV hydralazine 10 mg in the ED. She is admitted as observation for management of enteritis. Patient received IV fluids with improvement of her kidney function, and resolution of her nausea, vomiting. Patient was discharged home with short course of pain medication and instructions to follow-up with PCP as well as to maintain hydration and nutrition with bland diet. I spent 32 minutes coordinating this discharge Gen: In NAD, non-toxic HEENT: normocephalic, atraumatic, hearing acuity is intant, mucous membranes moist CVS: perfusing all extremities well, no pitting edema, Respiratory: symmetric chest expansion, no accessory muscle use, GI: soft, NTTP, ND, : no suprapubic tenderness, no CVA tenderness MSK/Derm: no rashes, cyanosis Neuro: CN II-XII intact, no motor weakness, Psych: cooperative, euthymic mood, judgment and insight is intact Patient Condition at Discharge: Fair Plan - Discharge Summary New Discharge Prescriptions: New HYDROcodone/APAP 5-325MG [Flushing 5-325] 1 each PO Q4H PRN #18 tab PRN Reason: Moderate To Severe Pain (4-10) Acetaminophen Tab [Tylenol] 650 mg PO Q6HR PRN tab PRN Reason: Fever And/ Or Pain Continue Atorvastatin [Lipitor] 80 mg PO HS Cholecalciferol [Vitamin D3 (25 Mcg = 1000 Iu)] 50 mcg PO DAILY Ezetimibe [Zetia] 10 mg PO DAILY Albuterol Inhaler [Ventolin Hfa Inhaler] 2 puff INHALATION RT-Q6H PRN PRN Reason: Shortness Of Breath Apixaban [Eliquis] 5 mg PO BID #60 tab Nitroglycerin Sl Tabs [Nitrostat] 0.4 mg SL Q5M PRN PRN Reason: Chest Pain Melatonin 3 mg PO HS PRN PRN Reason: Insomnia Fluticasone Propionate 110 Mcg [Flovent 110 Mcg Inhaler] 2 puff INHALATION RT-BID PRN PRN Reason: Shortness Of Breath hydrALAZINE HCL [Apresoline] 25 mg PO BID Fluticasone Nasal Newell [Flonase Nasal Newell] 2 spr EA NOSTRIL DAILY PRN PRN Reason: Congestion Biotin 10,000 mcg PO DAILY Ascorbic Acid [Vitamin C] 1,000 mg PO DAILY Omeprazole 20 mg PO DAILY Citalopram Hydrobromide [CeleXA] 40 mg PO DAILY Vitamin E(Unknown Dose) 1 cap PO DAILY Vitamin B Complex 1 cap PO DAILY Insulin NPH Hum/Reg Insulin Hm [NovoLIN 70-30 100 Unit/ml Vial] 10 unit SQ BID Losartan Potassium [Cozaar] 25 mg PO DAILY Discharge Medication List Ascorbic Acid [Vitamin C] 1,000 mg PO DAILY 07/11/21 [History] Atorvastatin [Lipitor] 80 mg PO HS 07/11/21 [History] Biotin 10,000 mcg PO DAILY 07/11/21 [History] Cholecalciferol [Vitamin D3 (25 Mcg = 1000 Iu)] 50 mcg PO DAILY 07/11/21 [History] Omeprazole 20 mg PO DAILY 07/11/21 [History] Citalopram Hydrobromide [CeleXA] 40 mg PO DAILY 08/21/21 [History] Ezetimibe [Zetia] 10 mg PO DAILY 09/28/21 [History] Albuterol Inhaler [Ventolin Hfa Inhaler] 2 puff INHALATION RT-Q6H PRN 12/14/22 [History] Vitamin B Complex 1 cap PO DAILY 12/14/22 [History] Vitamin E(Unknown Dose) 1 cap PO DAILY 12/14/22 [History] Apixaban [Eliquis] 5 mg PO BID #60 tab 12/17/22 [Rx] Melatonin 3 mg PO HS PRN 01/15/23 [History] Nitroglycerin Sl Tabs [Nitrostat] 0.4 mg SL Q5M PRN 01/15/23 [History] Fluticasone Propionate 110 Mcg [Flovent 110 Mcg Inhaler] 2 puff INHALATION RT- BID PRN 01/20/23 [History] Insulin NPH Hum/Reg Insulin Hm [NovoLIN 70-30 100 Unit/ml Vial] 10 unit SQ BID 01/28/23 [History] Losartan Potassium [Cozaar] 25 mg PO DAILY 06/15/23 [History] hydrALAZINE HCL [Apresoline] 25 mg PO BID 06/15/23 [History] Fluticasone Nasal Newell [Flonase Nasal Newell] 2 spr EA NOSTRIL DAILY PRN 01/20/25 [History] Acetaminophen Tab [Tylenol] 650 mg PO Q6HR PRN tab 03/17/25 [Rx] HYDROcodone/APAP 5-325MG [Flushing 5-325] 1 each PO Q4H PRN #18 tab 03/17/25 [Rx] Follow up Appointment(s)/Referral(s): Gaurav Wadsworth DO [Primary Care Provider] - 03/20/25 11:40 am Discharge Disposition: HOME SELF-CARE
== END 2025-03-17 14:42 | disposition home or self-care (01) ==
LOC: EC 03:27 → 6NMEDSUR 07:14 → 1SOBS 19:36
PROVIDERS: ADMIT Internal Medicine; ATTEND Internal Medicine
DX: A08.4 Viral intestinal infection, unspecified (principal); E86.0 Dehydration; K21.9 Gastro-esophageal reflux disease without esophagitis; I16.0 Hypertensive urgency; I10 Essential (primary) hypertension; E11.40 Type 2 diabetes mellitus with diabetic neuropathy, unspecified; I25.10 Atherosclerotic heart disease of native coronary artery without angina pectoris; J44.89 Other specified chronic obstructive pulmonary disease; E78.5 Hyperlipidemia, unspecified; F41.9 Anxiety disorder, unspecified; I48.0 Paroxysmal atrial fibrillation; F32.A Depression, unspecified; Z86.16 Personal history of COVID-19; Z87.891 Personal history of nicotine dependence; Z95.5 Presence of coronary angioplasty implant and graft; Z79.899 Other long term (current) drug therapy; Z79.4 Long term (current) use of insulin; Z79.51 Long term (current) use of inhaled steroids; Z79.01 Long term (current) use of anticoagulants
CPT/HCPCS: 96376; 96361; 96365; 96366; 96375; 99285; 36415; 93005; 80053 ×2; 83605; 83735 ×2; 84100 ×2; 84484; 85025 ×2; 85610; 85730; 81001; 83036; 74176; G0378 ×2; J2270; J0360; J2405 ×2; J3475; J2470 ×2